=== PATIENT | female | born 1945 | race Caucasian/White ===

== ENCOUNTER → 2017-11-22 11:29 | Outpatient (CLI) | payer MEDICARE, OTHER, SELFPAY ==
[2017-11-22 11:45] LABS: Bacteria Urine None Seen; RBC Urine None Seen (0-5/HPF); WBC Urine None Seen (0-5/HPF)
[2017-11-22 12:52] LABS: Add Manual Diff / Slide Review NO; Basophils Percent Auto 0.4 % (0-2); Eosinophils Percent Auto 3.5 % (2-4); Hematocrit 43.2 % (36-46); Hemoglobin 15.1 g/dL (12.0-16.0); Lymphocytes Percent Auto 22.7 % (25-40); Mean Corpuscular HGB Conc 34.9 % (30-36); Mean Corpuscular Hemoglobin 31.6 PG (26-34); Mean Corpuscular Volume 90.3 fL (80-100); Monocytes Percent Auto 7.4 % (3-14); Neutrophils Absolute Auto 4800 /uL (3000-5900); Platelet Count 241 X10^3/uL (150-400); Red Blood Cell Count 4.79 X10^6/uL (4.0-5.2); White Blood Cell Count 7.3 X10^3/uL (4.5-11.0)
[2017-11-22 13:07] LABS: Hemoglobin A1C% w Est Avg Glu 5.4 % (4.0-6.0)
[2017-11-22 13:16] LABS: Appearance Urine UA CLEAR; Bilirubin Urine UA NEGATIVE (NEGATIVE); Blood Urea Nitrogen 12 mg/dL (7-17); Carbon Dioxide 29 mmol/L (22-32); Chloride 101 mmol/L (98-107); Color Urine UA YELLOW; Estimated Glomerular Filt Rate > 60.0 mL/min (>60); Glucose 90 mg/dL (80-110); Glucose Urine UA NEGATIVE (Normal); HEMOLYSIS < 15 (0-50); Ketones Urine UA NEGATIVE (NEGATIVE); Leukocyte Esterase Urine UA NEGATIVE (NEGATIVE); Nitrite Urine UA Negative (Negative); Occult Blood Urine UA NEGATIVE (Negative); Potassium 4.5 mmol/L (3.4-5.1); Protein Urine UA NEGATIVE (Negative); Sodium 141 mmol/L (137-145); Urobilinogen Urine UA 0.2 E.U./dL (0.2)
[2017-11-22 13:25] LABS: Amorphous Sediment Urine 2+; Culture Indicated Urine Cult Not Indicated
== END ==
PROVIDERS: PCP Family Medicine; Visit Provider Orthopaedic Surgery
DX: Z01.812 Encounter for preprocedural laboratory examination (principal); Z01.818 Encounter for other preprocedural examination; N39.9 Disorder of urinary system, unspecified; R73.09 Other abnormal glucose
CPT/HCPCS: 36415; 80048; 81001; 83036; 85025; 93005

== ENCOUNTER → 2018-01-16 15:33 | Outpatient (CLI) | payer MEDICARE, OTHER, SELFPAY ==
--- NOTE | 2018-01-16 15:35 | DI.RAD.S_ITS ---
PROCEDURE: XR CHEST 2V INDICATIONS: COUGH TECHNIQUE: 2 views of the chest were acquired. COMPARISON: [facility], , CHEST 2 VIEW, 12/27/2015, 10:56. FINDINGS: Surgical changes and devices: Partially visualized thoracic fixation rods. Lungs and pleura: No pleural effusions or pneumothorax. Lungs are clear. Mediastinum: Mediastinal contours are normal. Heart size is normal. Bones and chest wall: No suspicious bony abnormalities. Soft tissues appear unremarkable. IMPRESSION: No acute pulmonary process. Dictated by: Krista Jiménez M.D. on 01/16/2018 at 16:14 Approved by: Krista Jiménez M.D. on 01/16/2018 at 16:15
== END ==
PROVIDERS: PCP Family Medicine; Visit Provider Family Medicine
DX: R05 Cough (principal)
CPT/HCPCS: 71046

== ENCOUNTER → 2018-01-23 08:57 | Outpatient (CLI) | payer MEDICARE, OTHER, SELFPAY ==
--- NOTE | 2018-01-24 08:04 | PM.PFT.1 ---
Pulmonary Function Test Referral & Results Date Patient Seen: 01/23/18 Requesting provider: Baylee Solis Results: The spirometry demonstrates an FVC of 3.65 L which is 104% of predicted. The FEV1 was measured at 2.74 L which is 103% of predicted. The FEV1/FVC ratio was 75 which is 98% of predicted. Following the administration of bronchodilator there was no appreciable change in above normal numbers. Lung volumes show an SVC of 3.82 L which is 117% of predicted. The diffusing capacity was measured at 29.46 which is 99% of predicted. The maximum voluntary ventilation was normal. Interpretation: This study demonstrates normal pulmonary function
== END ==
PROVIDERS: PCP Family Medicine; Visit Provider Family Medicine
DX: R05 Cough (principal); R06.00 Dyspnea, unspecified
CPT/HCPCS: 94010; 94060; 94726; 94729

== ENCOUNTER 2018-02-06 06:15 | Inpatient (IN) | payer MEDICARE, OTHER, SELFPAY ==
[2018-01-20 09:04] VITALS: BMI 25.0
[2018-02-06] VITALS (19 sets, daily range): BP systolic 87–158; BP diastolic 47–86; PULSE 62–93; RESP 13–20; TEMP 36.2–36.9; O2SAT 93–99; BMI 24.4
--- NOTE | 2018-02-06 06:00 | DI.RAD.S_ITS ---
PROCEDURE: XR HIP W PEL IF DONE RT 2V INDICATIONS: post operative total right hip arthroplasty TECHNIQUE: AP pelvis and lateral view of the right hip acquired. COMPARISON: [facility], CR, [id number] W PEL IF PERFORMED, 04/17/2017, 9:46. FINDINGS: Bones: Patient is status post right hip arthroplasty, with hardware components in expected positions. The hip joint appears congruent. The visualized bony structures appear intact. Soft tissues: Overlying postoperative changes are noted. No suspicious soft tissue densities. IMPRESSION: Status post right total hip arthroplasty with postsurgical changes and anatomic right hip alignment. Dictated by: Kiet Poole M.D. on 02/06/2018 at 12:27 Approved by: Kiet Poole M.D. on 02/06/2018 at 12:27
[2018-02-06] MEDS: LACTATED RINGERS 1,000 ML 42 ML IV ×5 (06:45→11:50)
[2018-02-06] MEDS: VANCOMYCIN 1,000 MG/200 ML FROZ.PIGGY 200 MG IV (06:45)
[2018-02-06] MEDS: CELECOXIB 200 MG CAPSULE PO (06:58)
[2018-02-06] MEDS: ACETAMINOPHEN 325 MG TABLET 975 MG PO (06:59)
[2018-02-06] MEDS: PREGABALIN 75 MG CAPSULE PO (06:59)
[2018-02-06] MEDS: CEFAZOLIN 2 GM/100 ML FROZ.PIGGY IV ×3 (08:11→22:24)
--- NOTE | 2018-02-06 08:49 | SUR.OPER ---
Supine, head on pillow, torso on pink pad positioner. Iliac crest at flex of foot end of table. Gel roll under operative hip. Both arms secured on arm boards <90 degrees abduction. Body secured with 3 cloth tape over mid chest.
[2018-02-06] MEDS: BUPIVACAINE 0.25% W/ EPI VIAL 60 ML INJ (09:07)
[2018-02-06] MEDS: BUPIVACAINE LIPOSOME 266 MG/20 ML VIAL INJ (09:07)
[2018-02-06] MEDS: POVIDONE-IODINE 15 ML, SODIUM CHLORIDE 0.9% 250 ML TOP (09:10)
[2018-02-06 11:02] LABS: Hematocrit 30.2 % (36-46)
[2018-02-06 11:47] LABS: Hematocrit 25.9 % (36-46); Mean Corpuscular HGB Conc 34.5 % (30-36); Mean Corpuscular Hemoglobin 31.5 PG (26-34); Mean Corpuscular Volume 91.2 fL (80-100); Platelet Count 161 X10^3/uL (150-400); Red Blood Cell Count 2.84 X10^6/uL (4.0-5.2); Red Cell Distribution Width 13.2 % (11.6-14.8)
--- NOTE | 2018-02-06 12:06 | PM.OP.1 ---
Operative Date/Time/Diagnoses Date of procedure: 02/06/18 Time of procedure: 08:07 Pre-op diagnosis: Right hip osteoarthritis Post-op diagnosis: same Procedure & Clinicians Procedure: Right total hip arthroplasty anterior approach Same procedure as scheduled: Yes Indications: The patient has had progressively worsening right hip pain with radiographic changes consistent with arthritis. Non-operative management has failed and the patient has requested total hip replacement. The risks, benefits and alternatives to surgery were discussed with the patient prior to proceeding. Risks discussed included, but were not limited to, failure to relieve pain, leg length discrepancy, dislocation, stiffness, infection, nerve damage, deep venous thrombosis, pulmonary embolism, stroke, coma, heart attack, permanent paralysis and , as well as the potential need for eventual revision of the prosthetic. Surgeon: Marian Navarro Consulting Actuary: Delroy Jewell Anesthesia Type: General and Spinal Operative Notes Findings: Severe right hip osteoarthritis, Closure Type: primary Specimen(s): none sent Implants & Drains: [employer] R3 54 cup, 36 x 54 poly, size 7 standard offset stem 36+ 0 head Applied: catheter Estimated Blood Loss (mL): 800 Procedure in detail: The patient was brought to the operating room. Patient was carefully positioned in the supine position. Time-out was performed and antibiotics were given. Anesthesia was induced. She was positioned in the on the table in order to allow hyperextension of the hip. Bilateral lower extremities were prepped and draped in a standard sterile fashion. An anterior incision was made 1 fingerbreadth lateral to the anterior superior iliac spine on the right hip and extended distally towards the greater trochanter. Dissection was carried out through skin and subcutaneous tissues. The skin and subcutaneous tissues were carefully injected with Marcaine with epi. Superficial hemostasis was achieved. The fascia over the tensor fascia kareem was defined and incised with a knife. Two Allis clamps were used to grasp the fascia. Tensor fascia kareem was retracted laterally. A gelpi retractor was placed. Dissection was carried out down along the neck. The circumflex vessels were carefully identified and cauterized with the Aqua Mantis. There was good visualization of the femoral neck. A Cobra was placed superior to the neck and the gluteus fibers were carefully stripped from that superior aspect of the capsule. A 2nd retractor was placed along the inferior aspect of the neck. The rectus insertion along the capsule was released. A 3rd retractor that was then gently placed over the rim of the acetabulum under the rectus. Capsule was carefully incised and released from the intertrochanteric line circumferentially superior to the mid sagittal line and inferiorly to the mid sagittal line until the lesser trochanter was palpable. A tag stitch was placed both in the superior and inferior limb of the capsular insertion. Along the acetabulum capsule was also released up to the mid sagittal 12:00 position. Portion of the labrum was resected. A saw was used to perform an osteotomy at the level of the intertrochanteric line and the junction of the superior femoral neck leaving approximately 1 finger breath of residual inferior neck above the lesser trochanter. A 2nd cut was made along the femoral neck at the base of the head and a napkin ring of neck was removed. Corkscrew was placed in the femoral head and the head was removed without difficulty. Retractors were then repositioned around the acetabulum. There was moderate bleeding diffusely. The Aqua Mantis was used extensively to achieve hemostasis. There was no specific arterial bleeding locations. Residual labrum was resected and additional osteophytes were removed. An acetabular Reamer that was 4 mm below the templated size was placed by hand in the acetabulum and it was reamed to centralize the acetabulum. Was then reamed up to 2 under the templated size fluoroscopy was brought in to confirm the position of the reaming and depth of reaming. I reamed 1 under the anticipated size and touch the rim with line to line reaming. A trial cup was placed and noted that it was appropriately sized and fluoroscopy confirmed position and depth. The component was open and inserted without difficulty fluoroscopic imaging was used to confirm that the cup had been adequately seated and was well positioned. Neutral poly trial liner was placed. The cup was tested and noted to be stable. Attention was then directed to the femur. The femur was gently hyperextended additional capsular release was performed as needed in order to allow adequate visualization of the proximal femur with elevation of the femur. Once again she had diffuse bleeding and aqua Mantis was used to perform hemostasis. There was some bleeding both from the femoral canal as well as from the acetabulum. Patient was placed in a hyperextended slightly abducted position with maximum external rotation. Box osteotome was used to check for any residual neck as well as sclerotic bone along the trochanter. [place] pepper was placed in the femur. Additional broaching was performed. Canal finer was used to determine the alignment of the canal and position. Size 1 broach was placed. The canal was then appropriately broached up to the templated size as long as there was adequate stability of the broach and serial advancement of the broach without excessive impingement. Specific attention was directed at avoiding varus attempting to direct the distal aspect of the approach more anteriorly and avoiding excessive anteversion. Trial reduction showed acceptable range of motion, good stability, no posterior impingement, methodist of leg length and appropriate lateral shuck. I also hyperflexed the hip and checked that there was no impingement anteriorly and there was good stability with flexion, abduction and internal rotation. There was still bleeding from deep in the acetabulum and bone wax was placed in the central hole region which did diminish the bleeding. Final neutral poly was placed without difficulty. Marcaine and Exparel were injected.. The stem was placed without difficulty. I also used bone wax around the proximal aspect of the femur as there was bleeding from the canal even after the prosthesis was placed. Repeat trial reduction and x-ray showed acceptable overall position, length, and no evidence of the femoral fracture. Final head was placed. Wound was meticulously irrigated with normal saline. The hip was reduced and additional Exparel and Marcaine were injected. The capsule was closed with interrupted black braided nylon. The fascia of the tensor was closed with interrupted and running Vicryl. No drain was placed. Any tensor fascia kareem muscle that appeared to be contused or injured which was a minimal amount was carefully resected. Capsule around the tensor was injected with Exparel and Marcaine. The skin was closed with barbed stitches for the subcutaneous tissue and skin. We also used surgical glue. The wound was dressed sterilely. Brief Betadine soak was also used and was meticulously irrigated with normal saline. Patient was transferred to recovery room in satisfactory condition. Complications: none Condition: stable Disposition: Acute Care Plan for aftercare: The patient will be maintained on a standard total hip replacement protocol with weight bearing as tolerated and anterior hip precautions. The patient will receive aspirin and sequential compression devices for DVT prophylaxis. The patient will be discharged home when safe for the home environment.
[2018-02-06] MEDS: LACTATED RINGERS 1,000 ML 125 ML IV ×2 (12:58→23:40)
[2018-02-06] MEDS: ONDANSETRON 4 MG/2 ML INJ IV ×2 (13:01→18:08)
--- NOTE | 2018-02-06 14:17 | CM.DANOTE ---
Discharge Planning/Care Management DCP: assessment: case received and went to room with intent to meet with pt to introduce self and role. Pt was still in PACU. White board in room is updated with DCP contact info. Pt is a 72 year old female who admitted yesterday for a planned R ARIK/anterior approach. Surgeon: Dr. Navarro PCP: Dr. Solis Payer: Medicare and For Life P: meet with pt as POC unfolds to assist with d/c issues and options. Expect PT and perhaps OT involvement. CM Discharge Assessment Start: 02/06/18 14:12 Freq: Status: Active Protocol: Document 02/06/18 14:14 ITV (Rec: 02/06/18 14:17 ITV [id number]) Discharge Planning Assessment Advance Directives? Yes: Advanced Directive, POLST Advance Directives on File Yes History Provided By Medical Record Has Patient been admitted in last 30 No days? Prior Living Arrangements House Whiteboard Updated in Patient Room with Yes name and ext. 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 Review Status In Process Next Review Type Continued Stay Review Discharge Planning/Care Management CM Discharge Assessment Start: 02/06/18 14:12 Freq: Status: Active Protocol: Document 02/06/18 14:14 ITV (Rec: 02/06/18 14:17 ITV [email or web address]) Discharge Planning Assessment Advance Directives? Yes: Advanced Directive, POLST Advance Directives on File Yes History Provided By Medical Record Has Patient been admitted in last 30 No days? Prior Living Arrangements House Whiteboard Updated in Patient Room with Yes name and ext. 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 Review Status In Process Next Review Type Continued Stay Review
--- NOTE | 2018-02-06 15:39 | PC.NURSE ---
Pt has been brought to the AC floor via PACU at approx. 1200. She is A & O x 3. Reports mild pain to right hip as 07/03. Declines pain medication at this time. Aquacell dressing to right hip CDI. Ice applied. Anderson catheter in place draining to gravity. Pt placed on 1.5L O2 via nasal canula to maintain O2 sats while she sleeps as she desats to 88% on RA. One unit PRBC started infusing at approx 1345. Pt tollerating well.
[2018-02-06] MEDS: METOCLOPRAMIDE 10 MG/2 ML INJ IV (18:48)
--- NOTE | 2018-02-06 19:40 | PC.NURSE ---
patient states she felt nauseous at around 1700, this rn gave zofran, medication was ineffective, patient threw up vicodin tablet (was observed by staff). patient given reglan iv, has been effective so far. will continue to monitor, call light in reach. will offer pain medication when appropriate.
[2018-02-06] MEDS: DOCUSATE 100 MG CAPSULE PO (20:42)
[2018-02-06] MEDS: ASPIRIN EC 81 MG TABLET PO (20:42)
[2018-02-06] MEDS: HYDROCODONE/ACET 5/325 TABLET 1 TAB PO (20:43)
[2018-02-07] VITALS (8 sets, daily range): BP systolic 94–138; BP diastolic 55–74; PULSE 63–89; RESP 16–20; TEMP 36.7–37.2; O2SAT 94–97
[2018-02-07] MEDS: ACETAMINOPHEN 325 MG TABLET 975 MG PO (01:54)
--- NOTE | 2018-02-07 02:12 | PC.NURSE ---
Alert and oriented. Breath sounds CTA with sat of 95% on oxygen at 1.5L/min (desats with sleep); on continuous pulse oximetry. HRR but BP low at 98/55; asymptomatic. Denies nausea. BT present but denies flatus. Indwelling catheter is patent. Dressing to right hip is CDI. Only complaint of pain is headache so medicated with Tylenol that she did not take (scheduled @ hs) earlier on evenings. Is able to turn self in bed. Currently on bedrest. CMS intact. Wearing bilateral SCD's. Fall risk score is medium; bed alarm is activated at this time.
[2018-02-07] MEDS: LEVOTHYROXINE 100 MCG TABLET PO (05:58)
[2018-02-07] MEDS: HYDROCODONE/ACET 5/325 TABLET 1 TAB PO ×2 (05:59→08:56)
[2018-02-07 06:05] LABS: Hematocrit 25.6 % (36-46); Hemoglobin 8.8 g/dL (12.0-16.0)
[2018-02-07] MEDS: ASPIRIN EC 81 MG TABLET PO ×2 (08:55→20:59)
[2018-02-07] MEDS: DOCUSATE 100 MG CAPSULE PO ×2 (08:55→20:59)
[2018-02-07] MEDS: MULTIVITAMIN 1 TABLET 1 TAB PO (08:56)
[2018-02-07] MEDS: POLYETHYLENE GLYCOL 3350 17 GM POWD.PACK PO (08:57)
--- NOTE | 2018-02-07 09:12 | PM.PNPO.1 ---
Subjective Date Patient Seen: 02/07/18 Time Patient Seen: 09:13 Interval history: Patient is postop day 1 status post right total hip arthroplasty anterior approach by Dr. Navarro. Patient states it is that she tried to sit on the side of bed this am and became very dizzy. Sh also had a lot of pain when she put her right foot on the ground. She had about 800 cc cc of blood loss intraoperatively and was transfused 1 unit of packed RBCs. She has not been up with physical therapy yet. Anderson is still in. Exam Vital Signs (past 8 hours): - 02/07/18 02:05 02/07/18 05:48 02/07/18 06:08 Temperature 98.0 F Pulse Rate 72 Respiratory Rate 16 Blood Pressure 94/55 L Pulse Oximetry 95 94 94 02/07/18 07:15 Temperature 98.1 F Pulse Rate 76 Respiratory Rate 16 Blood Pressure 109/65 Pulse Oximetry 95 Oxygen Delivery Method Nasal Cannula Oxygen Flow Rate 1.5 Narrative Exam Narrative: Patient in bed. Alert orient x3. Right hip dressing clean dry intact. Moderate swelling and right anterior thigh. Bilateral calves soft and nontender. 5/5 BLE. Neurovascular status intact. A Anderson in. Objective Labs Result Diagrams: 02/07/18 05:37 Labs: Laboratory Results - last 24 hr 02/06/18 02/06/18 02/06/18 10:45 11:30 Unknown WBC 5.0 RBC 2.84 L Hgb 9.0 L Hct 25.9 L 30.2 L MCV 91.2 MCH 31.5 MCHC 34.5 RDW 13.2 Plt Count 161 Blood Type A Positive Antibody Screen Negative Crossmatch See Detail 02/07/18 05:37 WBC RBC Hgb 8.8 L Hct 25.6 L MCV MCH MCHC RDW Plt Count Blood Type Antibody Screen Crossmatch Assessment & Plan Post-op (1) Postoperative anemia due to acute blood loss: Problem details: Patient was transfused 1 unit of packed RBCs. Will start on iron and vitamin-C. Current Visit: Yes Status: Acute Postoperative Procedures Operation Date: 02/06/18 07:45 Actual Procedures Side Surgeon p Total Hip Arthroplasty/Anterior Approach Right Marian Navarro MD Postop day 1. Patient start physical therapy. Continue DVT prophylaxis with aspirin and SCDs. DC Anderson catheter today. Plan for discharge home tomorrow. Time Spent With Patient less than 15 minutes Quality VTE Deep Vein Thrombosis/Pulmonary Embolism Present on Admission: No
--- NOTE | 2018-02-07 09:45 | PT.IIE ---
Current Diagnoses Acute posthemorrhagic anemia (02/06/18) Unilateral primary osteoarthritis, right hip (02/06/18) Surgery Performed Operation Date: 02/06/18 07:45 Actual Procedures p Total Hip Arthroplasty/Anterior Approach(Right) - Marian Navarro MD Surgical History (Last Updated 01/20/18 @ 10:05 by Radha Patino RN) History of colonoscopy with polypectomy (Acute) Anesthesia (Resolved) History of esophagogastroduodenoscopy (EGD) (Resolved 10/24/11) History of spinal fusion (Resolved 1999) History of spinal fusion (Resolved 2012) History of spinal fusion (Resolved 2001) History of tonsillectomy (Resolved 1966) Status post appendectomy (Resolved 1956) Status post biopsy (Resolved 10/24/11) Status post colonoscopy (Resolved 10/24/11) Status post laparoscopic cholecystectomy (Resolved 2000) Status post vaginal hysterectomy (Resolved 1977) Medical History (Last Updated 02/07/18 @ 09:16 by Paradise Dietrich PA-C) Postoperative anemia due to acute blood loss (Acute) History of bronchitis (Acute) Postmenopausal (Acute) Anxiety (Chronic 1999) Chronic back pain (Chronic 1995) Chronic headaches (Chronic 1957) Constipation (Chronic) Depression (Chronic 1999) GERD (gastroesophageal reflux disease) (Chronic) Hemorrhoids (Chronic 1974) Herpes (Chronic) Hypothyroidism (Chronic) Abnormal Pap smear of cervix (Resolved 1976) Cervical cancer (Resolved 1976) Chicken pox (Resolved 1957) Colitis (Resolved 1975) Measles (Resolved 1957) Physical Therapy Inpatient Evaluation/Re-Eval M1 PT/OT-IP Prior Functional Status Start: 02/06/18 14:52 Freq: NEEDED Status: Active Protocol: Document 02/07/18 09:45 MDD (Rec: 02/07/18 11:15 MDD [id number]) Medical Review Prior Functional Status Medical History Reviewed Yes Communication normal Mobility and Gait modified independent with hurry cane in home and community Activities of Daily Living and IADL's independent Social History Household Members spouse Living Arrangements House Number of Floors (Floors) 3 or More Floors Number of Stairs To Enter/Railing? No steps to enter the main floor with pt's bedroom and bathroom. Home Environment High Toilet Tub/Shower Home Equipment Front Wheel Walker Quad Cane Raised Toilet Seat w/Armrests Grab Bars In Shower Employment Status Retired Additional Social History Comment Pt lives with her , [place]. She prefers to be called Torie. Reports she can borrow a shower chair from her mother who lives downstairs in their home. M2 PT-IP Current Condition Start: 02/06/18 14:52 Freq: NEEDED Status: Active Protocol: Document 02/07/18 09:45 MDD (Rec: 02/07/18 11:15 MDD [id number]) Physical Therapy Current Condition Current Condition Evaluation Date 02/07/18 Treatment Diagnosis s/p R ARIK Onset Date 02/06/18 Precautions Anterior Hip Precautions No Hip Extension No Hip External Rotation Other Precautions rust catheter Weight Bearing Status Weight Bearing Status Weight Bear as Tolerated M3 PT-IP Subjective Start: 02/06/18 14:52 Freq: NEEDED Status: Active Protocol: Document 02/07/18 09:45 MDD (Rec: 02/07/18 11:15 MDD [id number]) Subjective Physical Therapy Visit Type Type Initial Evaluation Visit Start Time 09:15 Visit Stop Time 09:45 Total Visit Minutes 30 Notes BP in bed: 122/69 mm Hg sitting EOB: 132/72 mm Hg After activity: 118/52 mm Hg 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 0 Therapy Pain Assessment Pain When Pain Assessed At Rest Pain Present Pain Present Pain Reported Location Right Hip Intensity 5 Scale Used Numeric (1 - 10) Description Aching Pain Management Techniques Apply Cold Timing of Activity with Medications M4 PT-IP Mobility and Gait Start: 02/06/18 14:52 Freq: NEEDED Status: Active Protocol: Document 02/07/18 09:45 MDD (Rec: 02/07/18 11:15 MDD [id number]) PT-Bed Mobility Assessment Rolling Type of Rolling Roll to Right Level of Assist Contact Guard Assistance Supine to Sit Supine to Sit Contact Guard Assistance Head of Bed Elevated Sit to Supine Sit to Supine Independent Scooting Scooting to Edge of Bed Independent Scooting Up and Down in Bed Independent PT-Transfer Assessment Sit to and From Stand Sit to and from Stand Contact Guard Assistance Equipment Transfer Assistive Device Gait Belt Front Wheeled Walker Gait Assessment Gait Gait Assistance Required: Contact Guard Assist Distance (Feet) (feet) 15 Able to Maintain Weight Bearing Status Yes During Gait Assistive Devices Assistive Device Gait Belt Front Wheeled Walker Gait Deviations General Gait Pattern Antalgic Step-to Gait Wide Based Gait Comments Gait Comments Pt became nauseous during gait training, requested to return to bed. No emesis. PT-Balance Assessment Sitting Balance and Reactions Static Sitting Balance Ability Normal Dynamic Sitting Balance Ability Normal Standing Balance and Reactions Static Standing Balance Ability Good M5 PT-IP Objective Assessments Start: 02/06/18 14:52 Freq: NEEDED Status: Active Protocol: Document 02/07/18 09:45 MDD (Rec: 02/07/18 11:15 MDD [id number]) Orientation Orientation/Cognition Level of Alertness Alert Orientation Name Age Birthday Month Date Year Day of Week Place Situation Language Function Ability No Deficits Noted Safety Awareness Understands Safety Issues Memory Description No Deficits Noted Gross Range of Motion Lower Extremity ROM Assessment Within Functional Limits Strength Lower Extremity Strength Assessment Within Functional Limits Sensation Assessment Sensation Gross Sensation WNL Light Touch Intact M6 PT-IP Treatment Start: 02/06/18 14:52 Freq: NEEDED Status: Active Protocol: Document 02/07/18 09:45 MDD (Rec: 02/07/18 11:15 MDD [id number]) Physical Therapy Treatment Education Education Provided Precautions Weight Bearing Status Post-Op Packet Safety M7 PT-IP Assessment and Plan Start: 02/06/18 14:52 Freq: NEEDED Status: Active Protocol: Document 02/07/18 09:45 MDD (Rec: 02/07/18 11:15 MDD [id number]) PT Summary Assessment and Plan Potential Rehabilitation Potential Excellent Status of Condition at Evaluation Stable Summary Impairments Pain ROM Bed Mobility Transfers Gait Activity Tolerance Progress Towards Goals Progressing Toward Goals Assessment Summary On assessment today pt demonstrates excellent LE strength, requiring CGA for supine to sit with HOB elevated, CGA for sit to stand and gait. She became nauseous during ambulation, so visit cut short to allow her to return to bed and rest. Suspect she will do quite well when nausea is relieved. She will benefit from continued inpatient PT to maximize function prior to d/c home. Goals Bed Mobility Goal Independent Transfer Goal Independent Gait Goal Independent Gait Distance 50 Other Goals Pt to be able to verbally state posterior hip precautions when asked. Days to Meet Goals 2 Frequency of Treatment Frequency Of Treatment Twice a Day Treatment Plan Physical Therapy Treatment Plan Bed Mobility Training Transfer Training Gait Training Therapeutic Exercise Recommendations To Nursing Amount of Assist Needed 1 Person Assist Discharge Recommendations PT Discharge Recommendations Home Home with Assistance
[2018-02-07] MEDS: ONDANSETRON 4 MG/2 ML INJ IV (10:12)
[2018-02-07] MEDS: ASCORBIC ACID 500 MG TABLET PO (11:38)
[2018-02-07] MEDS: FERROUS SULFATE 325 MG TABLET PO (11:38)
[2018-02-07] MEDS: HYDROCODONE/ACET 5/325 TABLET 2 TAB PO ×3 (13:14→20:59)
--- NOTE | 2018-02-07 15:37 | PT.IPTN ---
Current Diagnoses Acute posthemorrhagic anemia (02/06/18) Unilateral primary osteoarthritis, right hip (02/06/18) Surgery Performed Operation Date: 02/06/18 07:45 Actual Procedures p Total Hip Arthroplasty/Anterior Approach(Right) - Marian Navarro MD Physical Therapy Treatment Note M2 PT-IP Current Condition Start: 02/06/18 14:52 Freq: NEEDED Status: Active Protocol: Document 02/07/18 09:45 MDD (Rec: 02/07/18 11:15 MDD [id number]) Physical Therapy Current Condition Current Condition Evaluation Date 02/07/18 Treatment Diagnosis s/p R ARIK Onset Date 02/06/18 Precautions Anterior Hip Precautions No Hip Extension No Hip External Rotation Other Precautions rust catheter Weight Bearing Status Weight Bearing Status Weight Bear as Tolerated M3 PT-IP Subjective Start: 02/06/18 14:52 Freq: NEEDED Status: Active Protocol: Document 02/07/18 15:37 MDD (Rec: 02/07/18 16:14 MDD [id number]) Subjective Physical Therapy Visit Type Type Treatment Note Visit Start Time 15:06 Visit Stop Time 15:37 Total Visit Minutes 31 Number of STEEL ANALYST Visits 0 Physical Therapy Visit Comments Patient Comments Pt reports being in a lot of pain this afternoon, but agreeable to working with PT. Therapy Pain Assessment Pain When Pain Assessed At Rest Pain Present Pain Present Pain Reported Location Right Hip Intensity 8 Scale Used Numeric (1 - 10) Description Aching Pain Management Techniques Apply Cold M4 PT-IP Mobility and Gait Start: 02/06/18 14:52 Freq: NEEDED Status: Active Protocol: Document 02/07/18 09:45 MDD (Rec: 02/07/18 11:15 MDD [id number]) PT-Bed Mobility Assessment Rolling Type of Rolling Roll to Right Level of Assist Contact Guard Assistance Supine to Sit Supine to Sit Contact Guard Assistance Head of Bed Elevated Sit to Supine Sit to Supine Independent Scooting Scooting to Edge of Bed Independent Scooting Up and Down in Bed Independent PT-Transfer Assessment Sit to and From Stand Sit to and from Stand Contact Guard Assistance Equipment Transfer Assistive Device Gait Belt Front Wheeled Walker Gait Assessment Gait Gait Assistance Required: Contact Guard Assist Distance (Feet) (feet) 15 Able to Maintain Weight Bearing Status Yes During Gait Assistive Devices Assistive Device Gait Belt Front Wheeled Walker Gait Deviations General Gait Pattern Antalgic Step-to Gait Wide Based Gait Comments Gait Comments Pt became nauseous during gait training, requested to return to bed. No emesis. PT-Balance Assessment Sitting Balance and Reactions Static Sitting Balance Ability Normal Dynamic Sitting Balance Ability Normal Standing Balance and Reactions Static Standing Balance Ability Good M5 PT-IP Objective Assessments Start: 02/06/18 14:52 Freq: NEEDED Status: Active Protocol: Document 02/07/18 09:45 MDD (Rec: 02/07/18 11:15 MDD [id number]) Orientation Orientation/Cognition Level of Alertness Alert Orientation Name Age Birthday Month Date Year Day of Week Place Situation Language Function Ability No Deficits Noted Safety Awareness Understands Safety Issues Memory Description No Deficits Noted Gross Range of Motion Lower Extremity ROM Assessment Within Functional Limits Strength Lower Extremity Strength Assessment Within Functional Limits Sensation Assessment Sensation Gross Sensation WNL Light Touch Intact M6 PT-IP Treatment Start: 02/06/18 14:52 Freq: NEEDED Status: Active Protocol: Document 02/07/18 15:37 MDD (Rec: 02/07/18 16:14 [facility] [id number]) Physical Therapy Treatment Exercises Exercises Ankle Pumps Gluteal Sets Quad Sets Heel Slides Education Education Provided Precautions Weight Bearing Status Post-Op Packet Safety Other Treatments Other Treatment Performed Pt performed supine <> sit with SBA this day with HOB flat and no use of handrails. She was able to scoot upwards in bed independently. Performed gait training in the room only due to reports of dizziness and nausea (~30 feet with FWW, CGA). Continues to require cues for avoiding R hip ER precaution, especially when turning. M7 PT-IP Assessment and Plan Start: 02/06/18 14:52 Freq: NEEDED Status: Active Protocol: Document 02/07/18 15:37 MDD (Rec: 02/07/18 16:14 [facility] [id number]) PT Summary Assessment and Plan Potential Rehabilitation Potential Good Status of Condition at Evaluation Stable Summary Impairments Pain Gait Activity Tolerance Progress Towards Goals Progressing Toward Goals Assessment Summary Pt demonstrates good participation this day. Continues to require cues for hip precautions. She appears to have some tibial torsion on the R which makes it appear as if her hip is externally rotated in neutral. Anticipate d/c home tomorrow. Goals Bed Mobility Goal Independent Transfer Goal Independent Gait Goal Independent Gait Distance 50 Other Goals Pt to be able to verbally state posterior hip precautions when asked. Days to Meet Goals 2 Frequency of Treatment Frequency Of Treatment Twice a Day Treatment Plan Physical Therapy Treatment Plan Bed Mobility Training Transfer Training Gait Training Therapeutic Exercise Recommendations To Nursing Amount of Assist Needed 1 Person Assist Discharge Recommendations PT Discharge Recommendations Home Home with Assistance
--- NOTE | 2018-02-07 15:37 | CM.DPC ---
DCP: continued: Pt post op day one: ortho PA noted problems with dizziness, pain and blood loss in surgery > need for transfusion. PT saw pt for first time today and does note she is on track to go home with her spouse's support. P: DCP team to check in prn and assist with any d/c needs that may arise. Pt does have DME at home. Discuss with therapy team in Care Team meeting tomorrow morning. May benefit from OT as this has not been ordered. Defer to therapy and ortho team for this.
[2018-02-07] MEDS: SODIUM CHLORIDE 0.9% FLUSH 10 ML IV (20:59)
[2018-02-08] VITALS: BP 135/68; PULSE 80; RESP 16; TEMP 37; O2SAT 93
[2018-02-08] MEDS: HYDROCODONE/ACET 5/325 TABLET 1 TAB PO (00:26)
[2018-02-08] MEDS: LEVOTHYROXINE 100 MCG TABLET PO (05:38)
[2018-02-08] MEDS: HYDROCODONE/ACET 5/325 TABLET 2 TAB PO ×2 (05:40→11:12)
[2018-02-08 05:54] VITALS: BP 143/69; PULSE 78; RESP 17; TEMP 37.2; O2SAT 95
[2018-02-08 06:24] LABS: Hematocrit 26.6 % (36-46); Hemoglobin 9.3 g/dL (12.0-16.0)
[2018-02-08 07:29] VITALS: BP 132/67; PULSE 83; RESP 18; TEMP 37.1; O2SAT 94
[2018-02-08] MEDS: DOCUSATE 100 MG CAPSULE PO (08:54)
[2018-02-08] MEDS: ASCORBIC ACID 500 MG TABLET PO (08:54)
[2018-02-08] MEDS: FERROUS SULFATE 325 MG TABLET PO (08:54)
[2018-02-08] MEDS: MULTIVITAMIN 1 TABLET 1 TAB PO (08:54)
[2018-02-08] MEDS: ASPIRIN EC 81 MG TABLET PO (08:54)
[2018-02-08] MEDS: SODIUM CHLORIDE 0.9% FLUSH 10 ML IV (08:54)
[2018-02-08] MEDS: POLYETHYLENE GLYCOL 3350 17 GM POWD.PACK PO (08:55)
[2018-02-08] MEDS: ONDANSETRON 4 MG/2 ML INJ IV (09:02)
--- NOTE | 2018-02-08 10:35 | PT.IPTN ---
Current Diagnoses Acute posthemorrhagic anemia (02/06/18) Unilateral primary osteoarthritis, right hip (02/06/18) Surgery Performed Operation Date: 02/06/18 07:45 Actual Procedures p Total Hip Arthroplasty/Anterior Approach(Right) - Marian Navarro MD Physical Therapy Treatment Note M2 PT-IP Current Condition Start: 02/06/18 14:52 Freq: NEEDED Status: Active Protocol: Document 02/07/18 09:45 MDD (Rec: 02/07/18 11:15 MDD [id number]) Physical Therapy Current Condition Current Condition Evaluation Date 02/07/18 Treatment Diagnosis s/p R ARIK Onset Date 02/06/18 Precautions Anterior Hip Precautions No Hip Extension No Hip External Rotation Other Precautions rust catheter Weight Bearing Status Weight Bearing Status Weight Bear as Tolerated M3 PT-IP Subjective Start: 02/06/18 14:52 Freq: NEEDED Status: Active Protocol: Document 02/08/18 10:10 GGD (Rec: 02/08/18 11:37 GGD [id number]) Subjective Physical Therapy Visit Type Type Treatment Note Visit Start Time 10:10 Visit Stop Time 10:35 Total Visit Minutes 25 Number of WASTEWATER TECHNICIAN Visits 1 Physical Therapy Visit Comments Patient Comments Pt states she ready to go home . Therapy Pain Assessment Pain When Pain Assessed At Rest Pain Present Pain Present Pain Reported Location Right Hip Intensity 4 Scale Used Numeric (1 - 10) Pain Management Techniques Timing of Activity with Medications M4 PT-IP Mobility and Gait Start: 02/06/18 14:52 Freq: NEEDED Status: Active Protocol: Document 02/08/18 10:10 GGD (Rec: 02/08/18 11:37 GGD [id number]) PT-Bed Mobility Assessment Rolling Type of Rolling Roll to Right Level of Assist Contact Guard Assistance Supine to Sit Supine to Sit Contact Guard Assistance Head of Bed Elevated Sit to Supine Sit to Supine Independent Scooting Scooting to Edge of Bed Independent Scooting Up and Down in Bed Independent PT-Transfer Assessment Sit to and From Stand Sit to and from Stand Contact Guard Assistance Equipment Transfer Assistive Device Gait Belt Front Wheeled Walker Transfers Transfer Destination Chair Gait Assessment Gait Gait Assistance Required: Contact Guard Assist Distance (Feet) (feet) 50 Assistive Devices Assistive Device Gait Belt Front Wheeled Walker Gait Deviations General Gait Pattern Antalgic Step-to Gait Wide Based Gait Comments Gait Comments Pt need cues for hip precautions with turns during gait. M5 PT-IP Objective Assessments Start: 02/06/18 14:52 Freq: NEEDED Status: Active Protocol: Document 02/07/18 09:45 MDD (Rec: 02/07/18 11:15 MDD [id number]) Orientation Orientation/Cognition Level of Alertness Alert Orientation Name Age Birthday Month Date Year Day of Week Place Situation Language Function Ability No Deficits Noted Safety Awareness Understands Safety Issues Memory Description No Deficits Noted Gross Range of Motion Lower Extremity ROM Assessment Within Functional Limits Strength Lower Extremity Strength Assessment Within Functional Limits Sensation Assessment Sensation Gross Sensation WNL Light Touch Intact M6 PT-IP Treatment Start: 02/06/18 14:52 Freq: NEEDED Status: Active Protocol: Document 02/08/18 10:10 GGD (Rec: 02/08/18 11:37 GGD [id number]) Physical Therapy Treatment Exercises Exercises Ankle Pumps Gluteal Sets Quad Sets Heel Slides Education Education Provided Precautions M7 PT-IP Assessment and Plan Start: 02/06/18 14:52 Freq: NEEDED Status: Active Protocol: Document 02/08/18 10:10 GGD (Rec: 02/08/18 11:37 GGD [id number]) PT Summary Assessment and Plan Summary Assessment Summary Pt is improving with mobility and gait. She had no unsteadiness with gait, but did need cues for hip precautions. Frequency of Treatment Frequency Of Treatment Twice a Day Treatment Plan Physical Therapy Treatment Plan Bed Mobility Training Transfer Training Gait Training Therapeutic Exercise Recommendations To Nursing Amount of Assist Needed 1 Person Assist Discharge Recommendations PT Discharge Recommendations Home Home with Assistance
--- NOTE | 2018-02-08 11:23 | PM.DS.1 ---
History of Present Illness Date Patient Seen: 02/08/18 Time Patient Seen: 07:23 Chief complaint: [id number] Narrative: Status post anterior total hip arthroplasty Discharge Providers Date of admission: 02/06/18 06:15 Primary care physician: Baylee Solis DO Consults: 02/06/18 12:40 Consult to Discharge Planning Routine Comment: Consult to Physical Therapy Evaluate & Treat Comment: oob today Physician Instructions: post op ARIK protocol Consult to Respiratory Therapy Evaluate & Treat Comment: Physician Instructions: Evaluate and treat Discharge provider: Jaylyn Berg PA-C Summary Discharge Diagnosis: s/p right total hip arthroplasty anterior approach postoperative anemia migraines Hospital Course: Charlene was admitted for right total hip arthroplasty anterior approach with Dr. Navarro, and she consented to procedure. Hospital course was remarkable for postoperative anemia. On the same day of surgery she was transfused with 1 unit of PRBCs. On postop day number she is feeling well and ready to go home. The H&H was 9.3 and 26.6 and she was asymptomatic. She was discharged with iron and vitamin-C. She was eating and voiding without difficulty or assistance. She has been working with physical therapy and ambulating with a walker. She knows her anterior hip precautions. On day of discharge aquacel dressing was CDI. Status at Discharge Functional status at discharge: uses cane/walker Exam Vital Signs (past 8 hours): - 02/08/18 05:54 02/08/18 07:29 Temperature 98.9 F 98.7 F Pulse Rate 78 83 Respiratory Rate 17 18 Blood Pressure 143/69 H 132/67 H Pulse Oximetry 95 94 Oxygen Delivery Method Room Air Oxygen Flow Rate 1.5 Narrative Exam Narrative: Patient is sitting at bedside chair no acute distress. She is alert and oriented times 3. Right hip dressing is CDI. Calves are soft, compressible, nontender bilaterally. She is able to actively dorsiflex plantar flex. Sensation intact to light touch throughout bilateral lower extremities. Pulses are symmetrical. Her pain is well controlled. She has had some nausea and would like some medication for when she goes home just in case this occurs again. Objective Labs Result Diagrams: 02/08/18 06:04 Labs: Laboratory Results - last 24 hr 02/08/18 06:04 Hgb 9.3 L Hct 26.6 L Discharge Plan Discharge Plan Patient Disposition: Home Discharge comment: DC home today with Discharge Med Rec/Prescriptions Prescriptions: New ascorbic acid (vitamin C) [Vitamin C] 500 mg Tablet 500 mg PO DAILY Qty: 30 RF: 0 ferrous sulfate 325 mg (65 mg iron) Tablet 325 mg PO DAILY Qty: 30 RF: 0 docusate sodium 100 mg Capsule 100 mg PO BID Qty: 60 RF: 0 ondansetron HCl [Zofran] 4 mg tablet 4 mg PO BID-TID PRN (Reason: nausea and vomiting) Qty: 10 RF: 0 Continue levothyroxine [Synthroid] 100 mcg tablet 100 mcg PO DAILY RF: 0 multivitamin Capsule 1 cap PO DAILY Qty: 0 RF: 0 hydrocodone-acetaminophen [[place]] 5 MG/325 MG tablet 1 tab PO Q8HP PRNQty: 10 RF: 0 inhalational spacing device [Brennan Aerosol [place] Enhancer] spacer .ROUTE .MEDSUPPLY Qty: 1 RF: 0 albuterol sulfate 90 mcg/actuation aerosol powdr breath activated 2 puff INHALATION Q4H PRN (Reason: shortness of breath or wheezing) Qty: 1 RF: 3 acyclovir 800 MG tablet 800 mg PO DAILY PRN (Reason: herpes ) RF: 0 polyethylene glycol 3350 [Miralax] 119 GM powder 17 gm PO DAILY RF: 0 Disabled Parking Permit 1 dev miscellaneous DIRECTED RF: 0 Changed aspirin 81 mg Tablet,Chewable 81 mg PO BID Qty: 0 RF: 0 Follow up/Referrals: Marian Navarro MD [Physician] - (Please follow up in 5-7 days with PA-C) Baylee Solis DO [Primary Care Provider] - (Follow up with PCP for labs 7-14 days after surgery. ) Provider Discharge Instructions Diet: Diet as Tolerated Activity: Anterior hip precautions Cold/Heat Therapy: as needed Other treatments: Will continue iron and vitamin C for postoperative anemia. Skin/Wound/Dressing Care Report to your healthcare provider any signs of infection, such as:: chills, fever and increased pain Dressing: Leave dressing in place for 10-14 days Visit Report/Discharge Packet Instructions: DI for Hip Replacement, Ondansetron, Hydrocodone Visit Report Forms: Stroke Signs & Symptoms Discharge Data Primary Care Provider: Baylee Solis Attending Provider: Marian Navarro Admit Date/Time: 02/06/18 06:15 Quality VTE Deep Vein Thrombosis/Pulmonary Embolism Present on Admission: No
--- NOTE | 2018-02-08 11:23 | PC.NURSE ---
Discharge instructions and home care handouts reviewed with patient and her . Patient states understanding and has no further questions or concerns at this time. Prescriptions given to patient, patient states she already has prescription for pain medication ready at home. Patient sitting in chair, slightly upset stomach and wants to wait for lunch prior to leaving. at bedside. will wait for their call for escort out. Patient instructed to call PCP office on Saturday to schedule a follow up appt. (and to have labs drawn) in 1-2 weeks. Patient has ortho follow up already scheduled. Aquacel dressing remains in place and CDI.
--- NOTE | 2018-02-08 11:26 | P.DS_ITS ---
History of Present Illness Date Patient Seen: 02/08/18 Time Patient Seen: 07:23 Chief complaint: [id number] Narrative: Status post anterior total hip arthroplasty Discharge Providers Date of admission: 02/06/18 06:15 Primary care physician: Baylee Solis DO Consults: 02/06/18 12:40 Consult to Discharge Planning Routine Comment: Consult to Physical Therapy Evaluate & Treat Comment: oob today Physician Instructions: post op ARIK protocol Consult to Respiratory Therapy Evaluate & Treat Comment: Physician Instructions: Evaluate and treat Discharge provider: Jaylyn Berg PA-C Summary Discharge Diagnosis: s/p right total hip arthroplasty anterior approach postoperative anemia migraines Hospital Course: Charlene was admitted for right total hip arthroplasty anterior approach with Dr. Navarro, and she consented to procedure. Hospital course was remarkable for postoperative anemia. On the same day of surgery she was transfused with 1 unit of PRBCs. On postop day number she is feeling well and ready to go home. The H&H was 9.3 and 26.6 and she was asymptomatic. She was discharged with iron and vitamin-C. She was eating and voiding without difficulty or assistance. She has been working with physical therapy and ambulating with a walker. She knows her anterior hip precautions. On day of discharge aquacel dressing was CDI. Status at Discharge Functional status at discharge: uses cane/walker Exam Vital Signs (past 8 hours): - 02/08/18 05:54 02/08/18 07:29 Temperature 98.9 F 98.7 F Pulse Rate 78 83 Respiratory Rate 17 18 Blood Pressure 143/69 H 132/67 H Pulse Oximetry 95 94 Oxygen Delivery Method Room Air Oxygen Flow Rate 1.5 Narrative Exam Narrative: Patient is sitting at bedside chair no acute distress. She is alert and oriented times 3. Right hip dressing is CDI. Calves are soft, compressible, nontender bilaterally. She is able to actively dorsiflex plantar flex. Sensation intact to light touch throughout bilateral lower extremities. Pulses are symmetrical. Her pain is well controlled. She has had some nausea and would like some medication for when she goes home just in case this occurs again. Objective Labs Result Diagrams: 02/08/18 06:04 Labs: Laboratory Results - last 24 hr 02/08/18 06:04 Hgb 9.3 L Hct 26.6 L Discharge Plan Discharge Plan Patient Disposition: Home Discharge comment: DC home today with Discharge Med Rec/Prescriptions Prescriptions: New ascorbic acid (vitamin C) [Vitamin C] 500 mg Tablet 500 mg PO DAILY Qty: 30 RF: 0 ferrous sulfate 325 mg (65 mg iron) Tablet 325 mg PO DAILY Qty: 30 RF: 0 docusate sodium 100 mg Capsule 100 mg PO BID Qty: 60 RF: 0 ondansetron HCl [Zofran] 4 mg tablet 4 mg PO BID-TID PRN (Reason: nausea and vomiting) Qty: 10 RF: 0 Continue levothyroxine [Synthroid] 100 mcg tablet 100 mcg PO DAILY RF: 0 multivitamin Capsule 1 cap PO DAILY Qty: 0 RF: 0 hydrocodone-acetaminophen [[place]] 5 MG/325 MG tablet 1 tab PO Q8HP PRNQty: 10 RF: 0 inhalational spacing device [Brennan Aerosol [place] Enhancer] spacer .ROUTE .MEDSUPPLY Qty: 1 RF: 0 albuterol sulfate 90 mcg/actuation aerosol powdr breath activated 2 puff INHALATION Q4H PRN (Reason: shortness of breath or wheezing) Qty: 1 RF : 3 acyclovir 800 MG tablet 800 mg PO DAILY PRN (Reason: herpes ) RF: 0 polyethylene glycol 3350 [Miralax] 119 GM powder 17 gm PO DAILY RF: 0 Disabled Parking Permit 1 dev miscellaneous DIRECTED RF: 0 Changed aspirin 81 mg Tablet,Chewable 81 mg PO BID Qty: 0 RF: 0 Follow up/Referrals: Marian Navarro MD [Physician] - (Please follow up in 5-7 days with PA-C) Baylee Solis DO [Primary Care Provider] - (Follow up with PCP for labs 7- 14 days after surgery. ) Provider Discharge Instructions Diet: Diet as Tolerated Activity: Anterior hip precautions Cold/Heat Therapy: as needed Other treatments: Will continue iron and vitamin C for postoperative anemia. Skin/Wound/Dressing Care Report to your healthcare provider any signs of infection, such as:: chills, fever and increased pain Dressing: Leave dressing in place for 10-14 days Visit Report/Discharge Packet Instructions: DI for Hip Replacement, Ondansetron, Hydrocodone Visit Report Forms: Stroke Signs & Symptoms Discharge Data Primary Care Provider: Baylee Solis Attending Provider: Marian Navarro Admit Date/Time: 02/06/18 06:15 Quality VTE Deep Vein Thrombosis/Pulmonary Embolism Present on Admission: No
--- NOTE | 2018-02-08 11:45 | CM.DPC ---
DCP Cont: Patient is to be discharged home today. in room getting her ready to go home. No concerns about returning home at this time. P: Patient discharging home today Dede Rae RN/Human Factors Scientist
== END 2018-02-08 12:20 | disposition home or self-care (01) | DRG 470 ==
PROVIDERS: Anesthesiology; Physician Assistant; Admitting Provider Orthopaedic Surgery; PCP Family Medicine; Visit Provider Orthopaedic Surgery
PROC: 0SR902Z Replacement of Right Hip Joint with Metal on Polyethylene Synthetic Substitute, Open Approach (ICD-10-PCS; CPT 27130; principal; 2018-02-06 07:45)
DX: M16.11 Unilateral primary osteoarthritis, right hip (principal); D62 Acute posthemorrhagic anemia
CPT/HCPCS: 36415; 36430; 73502; 76001; 85014; 85018; 85027; 86850; 86900; 86901; 97110; 97161; 97530; C1776; P9016; C9290; J0690; J2250; J2274; J2405; J2704; J2765; J3010; J3370

== ENCOUNTER 2018-02-09 20:26 | Emergency (ER) | payer MEDICARE, OTHER, SELFPAY ==
[2018-02-06 06:21] VITALS: BMI 24.4
--- NOTE | 2018-02-09 20:29 | DI.RAD.S_ITS ---
PROCEDURE: XR HIP W PEL IF DONE RT 2V INDICATIONS: fall with R hip pain, recent surgery TECHNIQUE: AP pelvis with lateral view of the right hip. COMPARISON: [facility] [place], CR, XR PELVIS WITH LATERAL HIP RIGHT, 10/30/2017, 9:26. [facility], CR, XR HIP W PEL IF DONE RT 2V, 02/06/2018, 11:45. FINDINGS: Bones: Right hip prosthesis is stable in alignment. The femoral head components appear centered within the acetabular cup. No suspicious new periprosthetic lucencies. No fractures or dislocations. Pelvic ring appears intact. Soft tissues: The visualized bowel gas pattern is normal. No suspicious soft tissue calcifications. IMPRESSION: 1. No fracture or definite evidence of hardware failure. Dictated by: Aubrey Trinh M.D. on 02/09/2018 at 21:04 Approved by: Aubrey Trinh M.D. on 02/09/2018 at 21:07
[2018-02-09 20:30] VITALS: BP 161/82; PULSE 95; RESP 18; TEMP 37.1; O2SAT 97; BMI 25.4
--- NOTE | 2018-02-09 20:33 | ED.FALL ---
HPI - Fall General Chief Complaint: Fall Stated Complaint: GLF: SP hip replacement 4 days ago. Time Seen by Provider: 02/09/18 20:28 Source: patient and EMS Mode of arrival: EMS Limitations: no limitations History of Present Illness HPI Narrative: 72-year-old female presents with right hip pain after a ground level fall. She slipped on an object on the floor and landed on her right hip and now has pain and swelling. She denies any numbness, tingling or weakness. She did not hurt her head, neck, or back. She did have a right total hip performed 4 days ago. There is a surgical dressing in place that she thinks might demonstrates a small amount more bleeding than prior to her fall. She is not dizzy nor weak or lightheaded. She denies any chest pain or shortness of breath MD complaint: fall Onset (ago): minute(s) Fall from: standing Fall witnessed: no Place fall occurred: home Loss of consciousness: none Prolonged down time: no Symptoms prior to fall: none Context: tripped/slipped Location of injury - extremities: Right: thigh Severity scale (1-10): 3 Quality: burning Related Data Home Medications Medication Instructions Recorded Confirmed multivitamin 1 cap PO DAILY #0 11/23/11 02/06/18 levothyroxine 100 mcg tablet 100 mcg PO DAILY 01/03/18 02/09/18 acyclovir 800 mg PO DAILY PRN 01/20/18 01/20/18 polyethylene glycol 3350 [Miralax] 17 gm PO DAILY 01/20/18 02/06/18 Disabled Parking Permit 1 dev MISCELLANEOUS DIRECTED 02/06/18 02/06/18 hydrocodone-acetaminophen [[place]] 1 tab PO Q8HP PRN 02/09/18 02/09/18 Previous Rx's Medication Instructions Recorded albuterol sulfate 90 mcg/actuation 2 puff INHALATION Q4H PRN #1 each 01/16/18 breath activated powder inhaler inhalational spacing device #1 each 01/16/18 ascorbic acid (vitamin C) [Vitamin 500 mg PO DAILY #30 tab 02/08/18 C] aspirin 81 mg PO BID #0 tab 02/08/18 docusate sodium 100 mg PO BID #60 cap 02/08/18 ferrous sulfate 325 mg PO DAILY #30 tab 08/18/18 ondansetron HCl [Zofran] 4 mg PO BID-TID PRN #10 tab 02/08/18 Allergies Allergy/AdvReac Type Severity Reaction Status Date / Time No Known Drug Allergies Allergy Verified 02/06/18 06:38 Review of Systems Review of Systems All systems reviewed & are unremarkable except as noted in HPI and below Constitutional Denies chills, Denies fever(s), Denies lethargy and Denies weakness Eyes Denies change in vision, Denies eye discharge, Denies irritation and Denies loss of vision ENT Ears, Nose, Mouth, and Throat: Denies change in voice, Denies neck pain and Denies sore throat Cardiovascular Denies chest pain, Denies irregular heart rhythm, Denies lightheadedness, Denies palpitations, Denies dyspnea, Denies dyspnea on exertion and Denies orthopnea Respiratory Denies cough, Denies dyspnea, Denies dyspnea on exertion and Denies wheezing Gastrointestinal Gastrointestinal: Denies abdominal pain, Denies change in bowel habits, Denies diarrhea, Denies nausea and Denies vomiting Genitourinary Denies hematuria, Denies flank pain, Denies urinary incontinence and Denies urinary urgency Musculoskeletal Reports limited range of motion and Denies neck pain Integumentary/Breasts Denies pruritus, Denies erythema, Denies rash and Denies wounds Neurologic Denies confusion, Denies loss of vision and Denies weakness Psychiatric Denies anxiety, Denies confusion, Denies depression, Denies homicidal ideation and Denies suicidal ideation Endocrine Denies palpitations Hematologic/Lymphatic Denies easy bruising Allergic/Immunologic Denies wheezing Exam Narrative Exam Narrative: Pleasant 72-year-old female, GCS 15, in pain, clutching her right hip Initial Vital Signs Initial Vital Signs: Vital Signs Temperature 98.7 F 02/09/18 20:30 Pulse Rate 95 H 02/09/18 20:30 Respiratory Rate 18 02/09/18 20:30 Blood Pressure 161/82 H 02/09/18 20:30 Pulse Oximetry 97 02/09/18 20:30 Const General: cooperative, well developed and in distress Nutritional Appearance: well nourished Orientation: alert, awake, oriented x3 and not confused HENCT Head: normocephalic and atraumatic Ears: external ears normal and TM's normal bilaterally Nose: external nose normal and No nasal discharge Face and sinus: sinuses nontender, face symmetric, no sinus tenderness and No dry mucous membranes Mouth: oral mucosae normal and moist mucous membranes Teeth and gingiva: dentition normal Throat: tonsils normal and uvula midline Chest Chest: normal inspection of the chest Cardio Rate: regular rate Rhythm: regular rhythm Heart Sounds: no click, no gallops, no murmurs and no rubs Pulses: normal peripheral pulses Back/Spine/Pelvis Back: No CVA tenderness Cervical Spine: cervical ROM normal and No pain with cervical ROM Thoracic/Lumbar Spine: thoracic and lumbar spine normal to inspection Skin General: no rashes or lesions noted, No jaundice and No petechiae Neuro General: alert, awake and oriented x3 Motor: muscle tone normal throughout Sensory Exam: no sensory deficits noted Extrem Right lower extremity: hip/thigh (Patient has range of motion commensurate with what she has had the past few days. There is very minimal volume dark blood saturating a surgical dressing but no evidence of ongoing bleeding or expanding hematoma.) [facility] Medical History Postoperative anemia due to acute blood loss (Acute) History of bronchitis (Acute) Postmenopausal (Acute) Anxiety (Chronic 1999) Chronic back pain (Chronic 1995) Chronic headaches (Chronic 1957) Constipation (Chronic) Depression (Chronic 1999) GERD (gastroesophageal reflux disease) (Chronic) Hemorrhoids (Chronic 1974) Herpes (Chronic) Hypothyroidism (Chronic) Abnormal Pap smear of cervix (Resolved 1976) Cervical cancer (Resolved 1976) Chicken pox (Resolved 1957) Colitis (Resolved 1975) Measles (Resolved 1957) Surgical History History of colonoscopy with polypectomy (Acute) Anesthesia (Resolved) History of esophagogastroduodenoscopy (EGD) (Resolved 10/24/11) History of spinal fusion (Resolved 1999) History of spinal fusion (Resolved 2012) History of spinal fusion (Resolved 2001) History of tonsillectomy (Resolved 1966) Status post appendectomy (Resolved 1956) Status post biopsy (Resolved 10/24/11) Status post colonoscopy (Resolved 10/24/11) Status post laparoscopic cholecystectomy (Resolved 2000) Status post vaginal hysterectomy (Resolved 1977) Family History Child Age: 42 Hypertension High cholesterol Father Age: 94 Colon cancer, Onset Age: 85 Alcoholism Osteoarthritis Mother Age: 92 Colon cancer, Onset Age: 69 CAD (coronary artery disease) Hypertension Hyperlipidemia Stroke Heart disease Bladder cancer Sister Age: 71 Diabetes mellitus Adenocarcinoma, lung Hyperlipidemia Sister Age: 66 Diabetes mellitus Hyperlipidemia Sister Lung cancer Nonsmoker Social History household members: spouse Smoking Status: Former smoker Course Orders Ordered: ED Orders 02/09/18 20:29 XR hip w pel if done RT 2V Stat Consultations Consultation #1: Called to on-call orthopedics whom recommended no dressing change given minimal symptoms. Vital Signs - 8 hr 02/09/18 20:30 Temperature 98.7 F Pulse Rate 95 H Respiratory Rate 18 Blood Pressure 161/82 H Pulse Oximetry 97 MDM - Fall Medical Records Attestation: I reviewed the patient's medical records. Lab Data Attestation: I reviewed the patient's lab results. Imaging Data Hip Xray: Radiologist's impression: PROCEDURE: XR HIP W PEL IF DONE RT 2V INDICATIONS: fall with R hip pain, recent surgery TECHNIQUE: AP pelvis with lateral view of the right hip. COMPARISON: [facility] [place], CR, XR PELVIS WITH LATERAL HIP RIGHT, 10/30/2017, 9:26. [facility], CR, XR HIP W PEL IF DONE RT 2V, 02/06/2018, 11:45. FINDINGS: Bones: Right hip prosthesis is stable in alignment. The femoral head components appear centered within the acetabular cup. No suspicious new periprosthetic lucencies. No fractures or dislocations. Pelvic ring appears intact. Soft tissues: The visualized bowel gas pattern is normal. No suspicious soft tissue calcifications. IMPRESSION: 1. No fracture or definite evidence of hardware failure. Dictated by: Aubrey Trinh M.D. on 02/09/2018 at 21:04 Approved by: Aubery Trinh M.D. on 02/09/2018 at 21:07 Discharge Plan Departure Patient Disposition: Home Clinical Impression: Hematoma Discharge Date/Time: 02/09/18 22:18 Interventions: ED Discharge Assessment Last Done: 02/09/18 22:17 Instructions: DI for Hematoma (Bruise) Activity Restrictions/Additional Instructions: *You have been diagnosed with [ postoperative hematoma status post fall ] *What to do: * continue to take medications as directed *Follow up with your orthopedist in 2-3 days, call for an appointment. Let them know you were seen in the Emergency Department and that we ask that you be seen in follow up *Return to ER if you should have any new, worsening or concerning symptoms, such as [ dizziness, weakness, fever, severe bleeding, or other bothersome symptoms] Prescriptions: No Action levothyroxine [Synthroid] 100 mcg tablet 100 mcg PO DAILY RF: 0 multivitamin Capsule 1 cap PO DAILY Qty: 0 RF: 0 inhalational spacing device [[employer]hancer] spacer .ROUTE .MEDSUPPLY Qty: 1 RF: 0 albuterol sulfate 90 mcg/actuation aerosol powdr breath activated 2 puff INHALATION Q4H PRN (Reason: shortness of breath or wheezing) Qty: 1 RF: 3 hydrocodone-acetaminophen [[place]] 5 MG/325 MG tablet 1 tab PO Q8HP PRN (Reason: Pain (Scale Score 4-6)) RF: 0 acyclovir 800 MG tablet 800 mg PO DAILY PRN (Reason: herpes ) RF: 0 polyethylene glycol 3350 [Miralax] 119 GM powder 17 gm PO DAILY RF: 0 Disabled Parking Permit 1 dev miscellaneous DIRECTED RF: 0 ascorbic acid (vitamin C) [Vitamin C] 500 mg Tablet 500 mg PO DAILY Qty: 30 RF: 0 ferrous sulfate 325 mg (65 mg iron) Tablet 325 mg PO DAILY Qty: 30 RF: 0 docusate sodium 100 mg Capsule 100 mg PO BID Qty: 60 RF: 0 ondansetron HCl [Zofran] 4 mg tablet 4 mg PO BID-TID PRN (Reason: nausea and vomiting) Qty: 10 RF: 0 aspirin 81 mg Tablet,Chewable 81 mg PO BID Qty: 0 RF: 0 Referrals: Marian Navarro MD [Physician] - Baylee Solis DO [Primary Care Provider] -
== END 2018-02-09 22:18 | disposition home or self-care (01) ==
PROVIDERS: Emergency Provider Emergency Medicine; PCP Family Medicine
DX: S70.00XA Contusion of unspecified hip, initial encounter (principal); W19.XXXA Unspecified fall, initial encounter
CPT/HCPCS: 73502; 99282; 99283

== ENCOUNTER → 2018-02-19 14:32 | Outpatient (CLI) | payer MEDICARE, OTHER, SELFPAY ==
[2018-02-06 06:21] VITALS: BMI 24.4
[2018-02-19 14:54] LABS: Reticulocyte Count, Percent 4.2 % (1.06-2.63)
[2018-02-19 14:55] LABS: Add Manual Diff / Slide Review NO; Basophils Percent Auto 0.8 % (0-2); Eosinophils Percent Auto 2.7 % (2-4); Hematocrit 32.7 % (36-46); Hemoglobin 11.2 g/dL (12.0-16.0); Lymphocytes Percent Auto 20.1 % (25-40); Mean Corpuscular HGB Conc 34.2 % (30-36); Mean Corpuscular Volume 90.6 fL (80-100); Monocytes Percent Auto 5.5 % (3-14); Neutrophils Absolute Auto 6200 /uL (3000-5900); Neutrophils Percent Auto 70.9 % (50-75); Platelet Count 422 X10^3/uL (150-400); White Blood Cell Count 8.7 X10^3/uL (4.5-11.0)
[2018-02-19 16:31] LABS: HEMOLYSIS < 15 (0-50); Iron 45 ug/dL (37-170)
[2018-02-19 16:41] LABS: Percent Iron Saturation 13 % (15-50); Total Iron Binding Capacity 358 ug/dL (265-497); Transferrin 295 mg/dL (206-381)
[2018-02-19 16:44] LABS: Ferritin 59.7 ng/mL (11.1-264)
[2018-02-19 16:57] LABS: Vitamin B12 818 pg/mL (239-931)
== END ==
PROVIDERS: PCP Family Medicine; Visit Provider Family Medicine
DX: D62 Acute posthemorrhagic anemia (principal)
CPT/HCPCS: 36415; 82607; 82728; 83540; 83550; 85025; 85045

== ENCOUNTER → 2018-03-12 11:40 | Outpatient (CLI) | payer MEDICARE, OTHER, SELFPAY ==
[2018-02-06 06:21] VITALS: BMI 24.4
[2018-03-12 12:06] LABS: Add Manual Diff / Slide Review NO; Basophils Percent Auto 0.7 % (0-2); Eosinophils Percent Auto 2.6 % (2-4); Hematocrit 39.1 % (36-46); Hemoglobin 13.3 g/dL (12.0-16.0); Mean Corpuscular HGB Conc 34.1 % (30-36); Mean Corpuscular Volume 90.8 fL (80-100); Monocytes Percent Auto 6.1 % (3-14); Neutrophils Absolute Auto 4600 /uL (3000-5900); Neutrophils Percent Auto 66.6 % (50-75); Platelet Count 243 X10^3/uL (150-400); Red Blood Cell Count 4.31 X10^6/uL (4.0-5.2); White Blood Cell Count 6.9 X10^3/uL (4.5-11.0)
== END ==
PROVIDERS: PCP Family Medicine; Visit Provider Family Medicine
DX: D62 Acute posthemorrhagic anemia (principal)
CPT/HCPCS: 36415; 85025

== ENCOUNTER → 2018-07-09 13:59 | Outpatient (CLI) | payer MEDICARE, OTHER, SELFPAY ==
[2018-02-06 06:21] VITALS: BMI 24.4
[2018-07-09 14:45] LABS: Cholesterol 228 mg/dL (140-199); HDL Cholesterol 45 mg/dL (40-60); LDL Cholesterol Calculated 157 mg/dL (<100); Triglycerides 130 mg/dL (35-150)
[2018-07-09 16:27] LABS: TSH w/ Reflex to FT4 2.24 uIU/mL (0.47-4.68)
== END ==
PROVIDERS: PCP Family Medicine; Visit Provider Family Medicine
DX: E03.9 Hypothyroidism, unspecified (principal); E78.5 Hyperlipidemia, unspecified
CPT/HCPCS: 36415; 80061; 84443

== ENCOUNTER 2018-09-24 09:54 | Emergency (ER) | payer MEDICARE, OTHER, SELFPAY ==
[2018-02-06 06:21] VITALS: BMI 24.4
[2018-09-24 10:01] VITALS: BP 147/97; PULSE 65; RESP 18; TEMP 37; O2SAT 100; BMI 25.4
--- NOTE | 2018-09-24 10:12 | ED.HEATRA ---
HPI - Head Injury <Yessenia Gold, PROGRAM ATTENDANT-BC - Last Filed: 09/24/18 11:48> General Chief complaint: Head Injury Stated complaint: fell and hit her head 3 days ago Time Seen by Provider: 09/24/18 10:03 Source: patient and family Mode of arrival: ambulatory Limitations: no limitations History of Present Illness HPI Narrative: Patient is a 72-year-old female former smoker who presents with her for chief complaint of a ground level fall 3 days ago. She states she slipped on her new tile floor, hit her head against the wall so hard that she put a hole in her wall. She has a history of hypothyroid. She states she felt okay for the past 2 days, then woke up today dizzy and nauseous with a headache. she also complains of neck pain. she denies any loss of consciousness, altered mental status or confusion. She has not taken anything at home for the pain. She denies any numbness, tingling or incontinence. She does not take any blood thinners. Related Data Home Medications Medication Instructions Recorded Confirmed multivitamin 1 cap PO DAILY #0 11/23/11 09/16/18 levothyroxine 100 mcg tablet 100 mcg PO DAILY 01/03/18 09/16/18 acyclovir 800 mg PO DAILY PRN 01/20/18 09/16/18 Disabled [address]ing Permit 1 dev MISCELLANEOUS DIRECTED 02/06/18 09/16/18 gabapentin 100 mg capsule 100 mg PO DAILY 05/02/18 09/16/18 Previous Rx's Medication Instructions Recorded albuterol sulfate 90 mcg/actuation 2 puff INHALATION Q4H PRN #1 each 01/16/18 breath activated powder inhaler inhalational spacing device #1 each 01/16/18 ascorbic acid (vitamin C) [Vitamin 500 mg PO DAILY #30 tab 02/08/18 C] aspirin 81 mg PO BID #0 tab 02/08/18 docusate sodium 100 mg PO BID #60 cap 02/08/18 fluticasone propionate 50 2 spray NASAL DAILY #9.9 gram 06/10/18 mcg/actuation nasal spray,suspension esomeprazole magnesium 40 mg 40 mg PO DAILY #30 cap 07/09/18 capsule,delayed release escitalopram 10 mg tablet 10 mg PO DAILY #30 tab 09/01/18 Allergies Allergy/AdvReac Type Severity Reaction Status Date / Time No Known Drug Allergies Allergy Verified 09/16/18 10:16 Review of Systems <MORGAN Good - Last Filed: 09/24/18 11:48> Constitutional Denies chills, Denies fever(s), Reports headache(s) and Denies lethargy Eyes Denies change in vision, Denies eye discharge and Denies irritation ENT Ears, Nose, Mouth, and Throat: Denies change in voice, Reports dizziness, Reports headache(s), Reports neck pain, Denies disequilibrium and Denies sore throat Cardiovascular Denies chest pain, Denies irregular heart rhythm, Denies lightheadedness, Denies palpitations, Denies dyspnea, Denies dyspnea on exertion and Denies orthopnea Respiratory Denies cough, Denies dyspnea, Denies dyspnea on exertion and Denies wheezing Gastrointestinal Gastrointestinal: Denies abdominal pain, Denies change in bowel habits, Denies diarrhea, Denies nausea and Denies vomiting Genitourinary Denies hematuria, Denies flank pain, Denies urinary incontinence and Denies urinary urgency Musculoskeletal Reports as per HPI, Reports neck pain, Denies numbness and Denies tingling Integumentary/Breasts Denies pruritus, Denies erythema, Denies rash and Denies wounds Neurologic Denies abnormal speech, Denies confusion, Reports dizziness, Reports headache(s), Denies numbness, Denies sensory deficit, Denies tingling, Denies paresthesias and Denies disequilibrium Psychiatric Denies anxiety, Denies confusion, Denies depression, Denies homicidal ideation and Denies suicidal ideation Endocrine Denies palpitations Allergic/Immunologic Denies wheezing PFSH <MORGAN Good - Last Filed: 09/24/18 11:48> Medical History Postoperative anemia due to acute blood loss (Acute) History of bronchitis (Acute) Postmenopausal (Acute) Anxiety (Chronic 1999) Chronic back pain (Chronic 1995) Chronic headaches (Chronic 1957) Constipation (Chronic) Depression (Chronic 1999) GERD (gastroesophageal reflux disease) (Chronic) Hemorrhoids (Chronic 1974) Herpes (Chronic) Hypothyroidism (Chronic) Abnormal Pap smear of cervix (Resolved 1976) Cervical cancer (Resolved 1976) Chicken pox (Resolved 1957) Colitis (Resolved 1975) Measles (Resolved 1957) Surgical History History of colonoscopy with polypectomy (Acute) Anesthesia (Resolved) History of esophagogastroduodenoscopy (EGD) (Resolved 10/24/11) History of spinal fusion (Resolved 1999) History of spinal fusion (Resolved 2012) History of spinal fusion (Resolved 2001) History of tonsillectomy (Resolved 1966) Status post appendectomy (Resolved 1956) Status post biopsy (Resolved 10/24/11) Status post colonoscopy (Resolved 10/24/11) Status post laparoscopic cholecystectomy (Resolved 2000) Status post vaginal hysterectomy (Resolved 1977) Family History Child Age: 43 Hypertension High cholesterol Father Age: 95 Colon cancer Alcoholism Osteoarthritis Mother Age: 93 Colon cancer CAD (coronary artery disease) Hypertension Hyperlipidemia Stroke Heart disease Bladder cancer Sister Age: 72 Diabetes mellitus Adenocarcinoma, lung Hyperlipidemia Sister Age: 67 Diabetes mellitus Hyperlipidemia Sister Lung cancer Nonsmoker Social History household members: spouse Smoking Status: Former smoker alcohol intake: current substance use type: does not use Social History household members: spouse Smoking Status: Former smoker alcohol intake: current substance use type: does not use Exam <MORGAN Good - Last Filed: 09/24/18 11:48> Initial Vital Signs Initial Vital Signs: Vital Signs Temperature 98.6 F 09/24/18 10:01 Pulse Rate 65 09/24/18 10:01 Respiratory Rate 18 09/24/18 10:01 Blood Pressure 147/97 H 09/24/18 10:01 Pulse Oximetry 100 09/24/18 10:01 Const General: cooperative, healthy appearing, comfortable, well developed, well groomed and No acute distress [facility] Head: normal to inspection Ears: external ears normal Nose: external nose normal Face and sinus: normal facial exam, no abrasions, no ecchymosis, no erythema and no edema Mouth: oral mucosae normal Teeth and gingiva: dentition normal Eyes General: appearance normal, both eyes and all related structures Periorbital: periorbital findings normal Eyelids: eyelids normal Conjunctivae: conjunctivae normal Sclera: sclerae normal Pupils: PERRL EOM: EOM intact bilaterally and No nystagmus Direct ophthalmoscopy: normal light reflex Neck Neck: normal visual inspection, trachea midline, No lymphadenopathy, No midline deformity, tender and No JVD Lymphatic: No lymphedema Resp Effort & Inspection: normal respiratory effort, able to speak in complete sentences, abnormal respiratory pattern, no audible wheezes, no cough, respiratory effort not decreased, no grunting, not labored and no nasal flaring Auscultation: clear to auscultation bilaterally, no rales, no rhonchi and no wheezes Cardio Rate: regular rate Rhythm: regular rhythm Back/Spine/Pelvis Back: back tenderness Cervical Spine: collar present, cervical spinal tenderness and No step off deformity Neuro General: alert, awake, oriented x3 and oriented (person, place, , date) Cranial Nerves: PERRL, EOM intact bilaterally, facial strength normal, tongue midline, able to elevate shoulders bilaterally and No nystagmus Cognition: normal cognition Speech: speech normal, no expressive aphasia and no receptive aphasia Motor: muscle tone normal throughout and strength 5/5 throughout Sensory Exam: no sensory deficits noted <Cassandra Cha MD - Last Filed: 09/24/18 16:21> Initial Vital Signs Initial Vital Signs: Vital Signs Temperature 98.6 F 09/24/18 10:01 Pulse Rate 65 09/24/18 10:01 Respiratory Rate 18 09/24/18 10:01 Blood Pressure 147/97 H 09/24/18 10:01 Pulse Oximetry 100 09/24/18 10:01 Course <MORGAN Good - Last Filed: 09/24/18 11:48> Orders Ordered: ED Orders 09/24/18 10:11 CT cervical spine wo con Stat CT head/brain wo con Stat Discontinued Medications Ketorolac Tromethamine (Toradol) 15 mg IM NOW ONE Stop: 09/24/18 11:21 Last Admin: 09/24/18 11:23 Dose: 15 mg Ondansetron HCl (Zofran Odt) 4 mg SL NOW ONE Stop: 09/24/18 10:12 Last Admin: 09/24/18 10:26 Dose: 4 mg Vital Signs - 8 hr 09/24/18 10:01 09/24/18 11:50 Temperature 98.6 F Pulse Rate 65 56 L Respiratory Rate 18 18 Blood Pressure 147/97 H 139/86 Pulse Oximetry 100 97 <Cassandra Cha MD - Last Filed: 09/24/18 16:21> Orders Ordered: ED Orders 09/24/18 10:11 CT cervical spine wo con Stat CT head/brain wo con Stat Discontinued Medications Ketorolac Tromethamine (Toradol) 15 mg IM NOW ONE Stop: 09/24/18 11:21 Last Admin: 09/24/18 11:23 Dose: 15 mg Ondansetron HCl (Zofran Odt) 4 mg SL NOW ONE Stop: 09/24/18 10:12 Last Admin: 09/24/18 10:26 Dose: 4 mg Vital Signs - 8 hr 09/24/18 10:01 09/24/18 11:50 Temperature 98.6 F Pulse Rate 65 56 L Respiratory Rate 18 18 Blood Pressure 147/97 H 139/86 Pulse Oximetry 100 97 MDM - Head Injury <MORGAN Good - Last Filed: 09/24/18 11:48> Imaging Data CT scan - head: Radiologist's impression: [place] [address] CT Scan Report Signed Patient: Charlene Jacob RMR#: [id number] : 8Acct:[id number] Age/Sex: 72 / FDate of Service: 09/24/18 Loc: ED Accession Number: [id number] Procedure: CT head/brain wo con Ordering Provider: Yessenia Gold PROCEDURE: CT HEAD/BRAIN WO CON INDICATIONS: ground level fall neck pain TECHNIQUE: Noncontrast 4.5 mm thick angled axial sections acquired from the foramen magnum to the vertex, with coronal and sagittal reformats. For radiation dose reduction, the following was used: automated exposure control, adjustment of mA and/or kV according to patient size. COMPARISON: [facility], CT, HEAD WITHOUT CONTRAST, 05/22/2015, 13:02. FINDINGS: Image quality: Excellent. CSF spaces: Basal cisterns are patent. No extra-axial fluid collections. The ventricles are symmetric in size and shape. Brain: No intracranial bleeds or masses. There is mild cerebral volume loss for age, with resultant ventricular and sulcal prominence. There are mild periventricular and deep white matter chronic small vessel ischemic changes. There is intracranial internal carotid artery atherosclerosis. Skull and face: Calvarium and visualized facial bones appear intact, without suspicious lesions. Sinuses: Visualized sinuses and mastoids are clear. IMPRESSION: 1. No acute intracranial abnormalities. 2. Cerebral volume loss and chronic microvascular ischemic changes. Dictated by: Gustabo Mcintyre M.D. on 09/24/2018 at 10:49 Approved by: Gustabo Mcintyre M.D. on 09/24/2018 at 10:[address] : Radiologist's impression: 3 MORGAN Good Find Patient Imaging Charlene Jacob 72 F 1945 ACTIVITY DATE EXAM STATUS AUTHOR 09/24/18 10:11 Signed Harrison Mcintyre 09/24/18 10:11 Signed Miguelina,[place] [address] CT Scan Report Signed Patient: Charlene Jacob RMR#: [id number] : 8Acct:[id number] Age/Sex: 72 / FDate of Service: 09/24/18 Loc: ED Accession Number: [id number] Procedure: CT cervical spine wo con Ordering Provider: Yessenia Gold PROCEDURE: CT CERVICAL SPINE WO CON INDICATIONS: glf neck pain TECHNIQUE: Noncontrast 3 mm thick sections acquired from the skull base to the T4 level. Sagittal and coronal reformats were then constructed. For radiation dose reduction, the following was used: automated exposure control, adjustment of mA and/or kV according to patient size. COMPARISON: [facility], , XR C-SPINE 4-6V, 01/12/2003, 8:24. FINDINGS: Image quality: Excellent. Bones: No fractures or dislocations. Mild degenerative disc disease is noted at C3-C4, C5-C6 and C6-C7. Visualized superior ribs are intact. Soft tissues: Prevertebral soft tissues are normal in thickness. No paravertebral hematomas. No apical pneumothoraces. IMPRESSION: 1. No fractures. 2. Mild degenerative disc disease. Dictated by: Gustabo Mcintyre M.D. on 09/24/2018 at 10:52 Approved by: Gustabo Mcintyre M.D. on 09/24/2018 at 11:04 [facility] Narrative Medical decision making narrative: The patient is a 9-year-old female who presents after ground level fall 3 days ago. This was a mechanical fall. She woke up today with concussion symptoms. Given her age, mechanism of injury and symptoms I obtained a head CT. Given her midline C-spine tenderness I also obtained a C-spine CT. She was given Zofran for nausea. She had a negative head CT and a negative C-spine CT. She was given Toradol in the emergency department for pain. I offered her prescription a muscle relaxer regarding her neck pain, however the patient declined at this point time. I spoke extensively with the patient about the need for rest and brain rest given her concussion. I discussed at length return precautions including confusion, altered mental status and repeat vomiting. Patient and her had no questions or concerns upon discharge. She remained GCS 15, alert oriented and nontoxic throughout her stay in the emergency department. Discharge Plan Departure Patient Disposition: Home Clinical Impression: Acute neck pain Concussion Qualifiers: Encounter type: initial encounter Loss of consciousness presence/duration: without LOC Qualified Code(s): S06.0X0A - Concussion without loss of consciousness, initial encounter Discharge Date/Time: 09/24/18 11:51 Interventions: ED Discharge Assessment Last Done: 09/24/18 11:50 Instructions: DI for Concussion, DI for Postconcussion Syndrome, DI for Neck Pain Activity Restrictions/Additional Instructions: your head CT and neck CT came back normal today. You have a concussion. Please use brain rest as we discussed. Please use [id number] medications as needed and able. Monitor for any confusion, altered mental status numbness tingling or other acute concerns. Monitor for incontinence, numbness etc as these are signs of a spinal cord injury. come back to the emergency department if you have any acute concerns. Please follow up with primary care provider for re-evaluation. Prescriptions: No Action levothyroxine [Synthroid] 100 mcg tablet 100 mcg PO DAILY RF: 0 multivitamin Capsule 1 cap PO DAILY Qty: 0 RF: 0 escitalopram oxalate 10 mg tablet 10 mg PO DAILY Qty: 30 RF: 1 inhalational spacing device [[employer]hancer] spacer .ROUTE .MEDSUPPLY Qty: 1 RF: 0 albuterol sulfate 90 mcg/actuation aerosol powdr breath activated 2 puff INHALATION Q4H PRN (Reason: shortness of breath or wheezing) Qty: 1 RF: 3 gabapentin 100 mg capsule 100 mg PO DAILY RF: 0 esomeprazole magnesium 40 mg capsule,delayed release(DR/EC) 40 mg PO DAILY Qty: 30 RF: 1 fluticasone propionate 50 mcg/actuation spray,suspension 2 spray NASAL DAILY Qty: 9.9 RF: 0 acyclovir 800 MG tablet 800 mg PO DAILY PRN (Reason: herpes ) RF: 0 Disabled Parking Permit 1 dev miscellaneous DIRECTED RF: 0 ascorbic acid (vitamin C) [Vitamin C] 500 mg Tablet 500 mg PO DAILY Qty: 30 RF: 0 docusate sodium 100 mg Capsule 100 mg PO BID Qty: 60 RF: 0 aspirin 81 mg Tablet,Chewable 81 mg PO BID Qty: 0 RF: 0 Referrals: Baylee Solis DO [Primary Care Provider] -
--- NOTE | 2018-09-24 10:17 | ED_ITS ---
HPI - Head Injury <Yessenia Gold, PATIENT ACCOUNT LIAISON-BC - Last Filed: 09/24/18 11:48> General Chief complaint: Head Injury Stated complaint: fell and hit her head 3 days ago Time Seen by Provider: 09/24/18 10:03 Source: patient and family Mode of arrival: ambulatory Limitations: no limitations History of Present Illness HPI Narrative: Patient is a 72-year-old female former smoker who presents with her for chief complaint of a ground level fall 3 days ago. She states she slipped on her new tile floor, hit her head against the wall so hard that she put a hole in her wall. She has a history of hypothyroid. She states she felt okay for the past 2 days, then woke up today dizzy and nauseous with a headache. she also complains of neck pain. she denies any loss of consciousness, altered mental status or confusion. She has not taken anything at home for the pain. She denies any numbness, tingling or incontinence. She does not take any blood thinners. Related Data Home Medications Medication Instructions Recorded Confirmed multivitamin 1 cap PO DAILY #0 11/23/11 09/16/18 levothyroxine 100 mcg tablet 100 mcg PO DAILY 01/03/18 09/16/18 acyclovir 800 mg PO DAILY PRN 01/20/18 09/16/18 Disabled [address]ing Permit 1 dev MISCELLANEOUS DIRECTED 02/06/18 09/16/18 gabapentin 100 mg capsule 100 mg PO DAILY 05/02/18 09/16/18 Previous Rx's Medication Instructions Recorded albuterol sulfate 90 mcg/actuation 2 puff INHALATION Q4H PRN #1 each 01/16/18 breath activated powder inhaler inhalational spacing device #1 each 01/16/18 ascorbic acid (vitamin C) [Vitamin 500 mg PO DAILY #30 tab 02/08/18 C] aspirin 81 mg PO BID #0 tab 02/08/18 docusate sodium 100 mg PO BID #60 cap 02/08/18 fluticasone propionate 50 2 spray NASAL DAILY #9.9 gram 06/10/18 mcg/actuation nasal spray,suspension esomeprazole magnesium 40 mg 40 mg PO DAILY #30 cap 07/09/18 capsule,delayed release escitalopram 10 mg tablet 10 mg PO DAILY #30 tab 09/01/18 Allergies Allergy/AdvReac Type Severity Reaction Status Date / Time No Known Drug Allergies Allergy Verified 09/16/18 10:16 Review of Systems <MORGAN Good - Last Filed: 09/24/18 11:48> Constitutional Denies chills, Denies fever(s), Reports headache(s) and Denies lethargy Eyes Denies change in vision, Denies eye discharge and Denies irritation ENT Ears, Nose, Mouth, and Throat: Denies change in voice, Reports dizziness, Reports headache(s), Reports neck pain, Denies disequilibrium and Denies sore throat Cardiovascular Denies chest pain, Denies irregular heart rhythm, Denies lightheadedness, Denies palpitations, Denies dyspnea, Denies dyspnea on exertion and Denies orthopnea Respiratory Denies cough, Denies dyspnea, Denies dyspnea on exertion and Denies wheezing Gastrointestinal Gastrointestinal: Denies abdominal pain, Denies change in bowel habits, Denies diarrhea, Denies nausea and Denies vomiting Genitourinary Denies hematuria, Denies flank pain, Denies urinary incontinence and Denies uri nary urgency Musculoskeletal Reports as per HPI, Reports neck pain, Denies numbness and Denies tingling Integumentary/Breasts Denies pruritus, Denies erythema, Denies rash and Denies wounds Neurologic Denies abnormal speech, Denies confusion, Reports dizziness, Reports headache(s), Denies numbness, Denies sensory deficit, Denies tingling, Denies paresthesias and Denies disequilibrium Psychiatric Denies anxiety, Denies confusion, Denies depression, Denies homicidal ideation and Denies suicidal ideation Endocrine Denies palpitations Allergic/Immunologic Denies wheezing PFSH <MORGAN Good - Last Filed: 09/24/18 11:48> Medical History Postoperative anemia due to acute blood loss (Acute) History of bronchitis (Acute) Postmenopausal (Acute) Anxiety (Chronic 1999) Chronic back pain (Chronic 1995) Chronic headaches (Chronic 1957) Constipation (Chronic) Depression (Chronic 1999) GERD (gastroesophageal reflux disease) (Chronic) Hemorrhoids (Chronic 1974) Herpes (Chronic) Hypothyroidism (Chronic) Abnormal Pap smear of cervix (Resolved 1976) Cervical cancer (Resolved 1976) Chicken pox (Resolved 1957) Colitis (Resolved 1975) Measles (Resolved 1957) Surgical History History of colonoscopy with polypectomy (Acute) Anesthesia (Resolved) History of esophagogastroduodenoscopy (EGD) (Resolved 10/24/11) History of spinal fusion (Resolved 1999) History of spinal fusion (Resolved 2012) History of spinal fusion (Resolved 2001) History of tonsillectomy (Resolved 1966) Status post appendectomy (Resolved 1956) Status post biopsy (Resolved 10/24/11) Status post colonoscopy (Resolved 10/24/11) Status post laparoscopic cholecystectomy (Resolved 2000) Status post vaginal hysterectomy (Resolved 1977) Family History Child Age: 43 Hypertension High cholesterol Father Age: 95 Colon cancer Alcoholism Osteoarthritis Mother Age: 93 Colon cancer CAD (coronary artery disease) Hypertension Hyperlipidemia Stroke Heart disease Bladder cancer Sister Age: 72 Diabetes mellitus Adenocarcinoma, lung Hyperlipidemia Sister Age: 67 Diabetes mellitus Hyperlipidemia Sister Lung cancer Nonsmoker Social History household members: spouse Smoking Status: Former smoker alcohol intake: current substance use type: does not use Social History household members: spouse Smoking Status: Former smoker alcohol intake: current substance use type: does not use Exam <MORGAN Good - Last Filed: 09/24/18 11:48> Initial Vital Signs Initial Vital Signs: Vital Signs Temperature 98.6 F 09/24/18 10:01 Pulse Rate 65 09/24/18 10:01 Respiratory Rate 18 09/24/18 10:01 Blood Pressure 147/97 H 09/24/18 10:01 Pulse Oximetry 100 09/24/18 10:01 Const General: cooperative, healthy appearing, comfortable, well developed, well groomed and No acute distress [facility] Head: normal to inspection Ears: external ears normal Nose: external nose normal Face and sinus: normal facial exam, no abrasions, no ecchymosis, no erythema and no edema Mouth: oral mucosae normal Teeth and gingiva: dentition normal Eyes General: appearance normal, both eyes and all related structures Periorbital: periorbital findings normal Eyelids: eyelids normal Conjunctivae: conjunctivae normal Sclera: sclerae normal Pupils: PERRL EOM: EOM intact bilaterally and No nystagmus Direct ophthalmoscopy: normal light reflex Neck Neck: normal visual inspection, trachea midline, No lymphadenopathy, No midline deformity, tender and No JVD Lymphatic: No lymphedema Resp Effort & Inspection: normal respiratory effort, able to speak in complete sentences, abnormal respiratory pattern, no audible wheezes, no cough, respiratory effort not decreased, no grunting, not labored and no nasal flaring Auscultation: clear to auscultation bilaterally, no rales, no rhonchi and no wheezes Cardio Rate: regular rate Rhythm: regular rhythm Back/Spine/Pelvis Back: back tenderness Cervical Spine: collar present, cervical spinal tenderness and No step off deformity Neuro General: alert, awake, oriented x3 and oriented (person, place, , date) Cranial Nerves: PERRL, EOM intact bilaterally, facial strength normal, tongue midline, able to elevate shoulders bilaterally and No nystagmus Cognition: normal cognition Speech: speech normal, no expressive aphasia and no receptive aphasia Motor: muscle tone normal throughout and strength 5/5 throughout Sensory Exam: no sensory deficits noted <Cassandra Cha MD - Last Filed: 09/24/18 16:21> Initial Vital Signs Initial Vital Signs: Vital Signs Temperature 98.6 F 09/24/18 10:01 Pulse Rate 65 09/24/18 10:01 Respiratory Rate 18 09/24/18 10:01 Blood Pressure 147/97 H 09/24/18 10:01 Pulse Oximetry 100 09/24/18 10:01 Course <MORGAN Good - Last Filed: 09/24/18 11:48> Orders Ordered: ED Orders 09/24/18 10:11 CT cervical spine wo con Stat CT head/brain wo con Stat Discontinued Medications Ketorolac Tromethamine (Toradol) 15 mg IM NOW ONE Stop: 09/24/18 11:21 Last Admin: 09/24/18 11:23 Dose: 15 mg Ondansetron HCl (Zofran Odt) 4 mg SL NOW ONE Stop: 09/24/18 10:12 Last Admin: 09/24/18 10:26 Dose: 4 mg Vital Signs - 8 hr 09/24/18 10:01 09/24/18 11:50 Temperature 98.6 F Pulse Rate 65 56 L Respiratory Rate 18 18 Blood Pressure 147/97 H 139/86 Pulse Oximetry 100 97 <Cassandra Cha MD - Last Filed: 09/24/18 16:21> Orders Ordered: ED Orders 09/24/18 10:11 CT cervical spine wo con Stat CT head/brain wo con Stat Discontinued Medications Ketorolac Tromethamine (Toradol) 15 mg IM NOW ONE Stop: 09/24/18 11:21 Last Admin: 09/24/18 11:23 Dose: 15 mg Ondansetron HCl (Zofran Odt) 4 mg SL NOW ONE Stop: 09/24/18 10:12 Last Admin: 09/24/18 10:26 Dose: 4 mg Vital Signs - 8 hr 09/24/18 10:01 09/24/18 11:50 Temperature 98.6 F Pulse Rate 65 56 L Respiratory Rate 18 18 Blood Pressure 147/97 H 139/86 Pulse Oximetry 100 97 MDM - Head Injury <MORGAN Good - Last Filed: 09/24/18 11:48> Imaging Data CT scan - head: Radiologist's impression: [place] [address] CT Scan Report Signed Patient: Charlene Jacob RMR#: [id number] : 8Acct:[id number] Age/Sex: 72 / FDate of Service: 09/24/18 Loc: ED Accession Number: [id number] Procedure: CT head/brain wo con Ordering Provider: Yessenia Gold PROCEDURE: CT HEAD/BRAIN WO CON INDICATIONS: ground level fall neck pain TECHNIQUE: Noncontrast 4.5 mm thick angled axial sections acquired from the foramen magnum to the vertex, with coronal and sagittal reformats. For radiation dose reduction, the following was used: automated exposure control, adjustment of mA and/or kV according to patient size. COMPARISON: [facility], CT, HEAD WITHOUT CONTRAST, 05/22/2015, 13:02. FINDINGS: Image quality: Excellent. CSF spaces: Basal cisterns are patent. No extra-axial fluid collections. The ventricles are symmetric in size and shape. Brain: No intracranial bleeds or masses. There is mild cerebral volume loss for age, with resultant ventricular and sulcal prominence. There are mild periventricular and deep white matter chronic small vessel ischemic changes. There is intracranial internal carotid artery atherosclerosis. Skull and face: Calvarium and visualized facial bones appear intact, without suspicious lesions. Sinuses: Visualized sinuses and mastoids are clear. IMPRESSION: 1. No acute intracranial abnormalities. 2. Cerebral volume loss and chronic microvascular ischemic changes. Dictated by: Gustabo Mcintyre M.D. on 09/24/2018 at 10:49 Approved by: Gustabo Mcintyre M.D. on 09/24/2018 at 10:[address] : Radiologist's impression: 3 MORGAN Good Find Patient Imaging Charlene Jacob 72 F 1945 ACTIVITY DATE EXAM STATUS AUTHOR 09/24/18 10:11 Signed Harrison Mcintyre 09/24/18 10:11 Signed Miguelina,[place] [address] CT Scan Report Signed Patient: Charlene Jcaob RMR#: [id number] : 8Acct:[id number] Age/Sex: 72 / FDate of Service: 09/24/18 Loc: ED Accession Number: [id number] Procedure: CT cervical spine wo con Ordering Provider: Yessenia Gold PROCEDURE: CT CERVICAL SPINE WO CON INDICATIONS: glf neck pain TECHNIQUE: Noncontrast 3 mm thick sections acquired from the skull base to the T4 level. Sagittal and coronal reformats were then constructed. For radiation dose reduction, the following was used: automated exposure control, adjustment of mA and/or kV according to patient size. COMPARISON: [facility], , XR C-SPINE 4-6V, 01/12/2003, 8:24. FINDINGS: Image quality: Excellent. Bones: No fractures or dislocations. Mild degenerative disc disease is noted at C3-C4, C5-C6 and C6-C7. Visualized superior ribs are intact. Soft tissues: Prevertebral soft tissues are normal in thickness. No paravertebral hematomas. No apical pneumothoraces. IMPRESSION: 1. No fractures. 2. Mild degenerative disc disease. Dictated by: Gustabo Mcintyre M.D. on 09/24/2018 at 10:52 Approved by: Gustabo Mcintyre M.D. on 09/24/2018 at 11:04 [facility] Narrative Medical decision making narrative: The patient is a 9-year-old female who presents after ground level fall 3 days ago. This was a mechanical fall. She woke up today with concussion symptoms. Given her age, mechanism of injury and symptoms I obtained a head CT. Given her midline C-spine tenderness I also obtained a C-spine CT. She was given Zofran for nausea. She had a negative head CT and a negative C-spine CT. She was given Toradol in the emergency department for pain. I offered her prescription a muscle relaxer regarding her neck pain, however the patient declined at this point time. I spoke extensively with the patient about the need for rest and brain rest given her concussion. I discussed at length return precautions including confusion, altered mental status and repeat vomiting. Patient and her had no questions or concerns upon discharge. She remained GCS 15, alert oriented and nontoxic throughout her stay in the emergency department. Discharge Plan Departure Patient Disposition: Home Clinical Impression: Acute neck pain Concussion Qualifiers: Encounter type: initial encounter Loss of consciousness presence/duration: without LOC Qualified Code(s): S06.0X0A - Concussion without loss of consciousness, initial encounter Discharge Date/Time: 09/24/18 11:51 Interventions: ED Discharge Assessment Last Done: 09/24/18 11:50 Instructions: DI for Concussion, DI for Postconcussion Syndrome, DI for Neck Pain Activity Restrictions/Additional Instructions: your head CT and neck CT came back normal today. You have a concussion. Please use brain rest as we discussed. Please use [id number] medications as needed and able. Monitor for any confusion, altered mental status numbness tingling or other acute concerns. Monitor for incontinence, numbness etc as these are signs of a spinal cord injury. come back to the emergency department if you have any acute concerns. Please follow up with primary care provider for re-evaluation. Prescriptions: No Action levothyroxine [Synthroid] 100 mcg tablet 100 mcg PO DAILY RF: 0 multivitamin Capsule 1 cap PO DAILY Qty: 0 RF: 0 escitalopram oxalate 10 mg tablet 10 mg PO DAILY Qty: 30 RF: 1 inhalational spacing device [[employer]ren[employer] Cook Enhancer] spacer .ROUTE .MEDSUPPLY Qty: 1 RF: 0 albuterol sulfate 90 mcg/actuation aerosol powdr breath activated 2 puff INHALATION Q4H PRN (Reason: shortness of breath or wheezing) Qty: 1 RF: 3 gabapentin 100 mg capsule 100 mg PO DAILY RF: 0 esomeprazole magnesium 40 mg capsule,delayed release(DR/EC) 40 mg PO DAILY Qty: 30 RF: 1 fluticasone propionate 50 mcg/actuation spray,suspension 2 spray NASAL DAILY Qty: 9.9 RF: 0 acyclovir 800 MG tablet 800 mg PO DAILY PRN (Reason: herpes ) RF: 0 Disabled Parking Permit 1 dev miscellaneous DIRECTED RF: 0 ascorbic acid (vitamin C) [Vitamin C] 500 mg Tablet 500 mg PO DAILY Qty: 30 RF: 0 docusate sodium 100 mg Capsule 100 mg PO BID Qty: 60 RF: 0 aspirin 81 mg Tablet,Chewable 81 mg PO BID Qty: 0 RF: 0 Referrals: Baylee Solis DO [Primary Care Provider] -
[2018-09-24] MEDS: ONDANSETRON 4 MG ODT SL (10:26)
[2018-09-24] MEDS: KETOROLAC 60 MG/2 ML VIAL 15 MG IM (11:23)
[2018-09-24 11:50] VITALS: BP 139/86; PULSE 56; RESP 18; O2SAT 97
== END 2018-09-24 11:51 | disposition home or self-care (01) ==
PROVIDERS: Emergency Provider Nurse Practitioner Family; PCP Family Medicine
DX: M54.2 Cervicalgia (principal); S06.0X9A Concussion with loss of consciousness of unspecified duration, initial encounter; W19.XXXA Unspecified fall, initial encounter
CPT/HCPCS: 70450; 72125; 96372; 99283; 99284; J1885

== ENCOUNTER → 2018-09-30 10:48 | Outpatient (CLI) | payer MEDICARE, OTHER, SELFPAY ==
[2018-02-06 06:21] VITALS: BMI 24.4
--- NOTE | 2018-09-30 10:53 | DI.RAD.S_ITS ---
PROCEDURE: XR FOREARM RT 2V INDICATIONS: Right forearm pain TECHNIQUE: 2 views of the forearm were acquired. COMPARISON: None. FINDINGS: Bones: No fractures or dislocations. No suspicious bony lesions. Soft tissues: No suspicious soft tissue calcifications or masses. IMPRESSION: Source of pain is not seen. * Dictated by: Stephen Shaikh M.D. on 09/30/2018 at 13:21 Approved by: Stephen Shaikh M.D. on 09/30/2018 at 13:22
== END ==
PROVIDERS: PCP Family Medicine; Visit Provider Registered Nurse
DX: M79.631 Pain in right forearm (principal)
CPT/HCPCS: 73090

== ENCOUNTER → 2018-10-28 08:46 | Outpatient (CLI) | payer MEDICARE, OTHER, SELFPAY ==
[2018-02-06 06:21] VITALS: BMI 24.4
--- NOTE | 2018-10-28 08:51 | DI.RAD.S_ITS ---
PROCEDURE: XR KNEE LT 3V INDICATIONS: Left knee pain TECHNIQUE: 3 views of the knee were acquired. COMPARISON: None. FINDINGS: Bones: No fractures or dislocations. No suspicious bony lesions. Mild tricompartmental osteoarthritis. Soft tissues: No joint effusion. No suspicious soft tissue calcifications. IMPRESSION: No fracture. No osseous lesion. If symptoms and/or clinical suspicion for pathology persists, further assessment with repeat radiographs (7-10 days) or advanced imaging (e.g. CT, MRI or bone scan) may be helpful. Dictated by: Rosa Maria Bedoya MD, PhD on 10/28/2018 at 9:08 Approved by: Rosa Maria Bedoya MD, PhD on 10/28/2018 at 9:09
== END ==
PROVIDERS: PCP Family Medicine; Visit Provider Physician Assistant
DX: M25.562 Pain in left knee (principal); M17.12 Unilateral primary osteoarthritis, left knee
CPT/HCPCS: 73562

== ENCOUNTER → 2018-11-03 11:08 | Outpatient (CLI) | payer MEDICARE, OTHER, SELFPAY ==
[2018-02-06 06:21] VITALS: BMI 24.4
[2018-11-03 13:05] LABS: Free T3, Triiodothyronine Free 3.52 pg/mL (2.77-5.27); Free T4, Direct Thyroxine 0.88 ng/dL (0.78-2.19)
[2018-11-03 13:19] LABS: Thyroid Stimulating Hormone 2.07 uIU/mL (0.47-4.68)
== END ==
PROVIDERS: PCP Family Medicine; Visit Provider Family Medicine
DX: E78.5 Hyperlipidemia, unspecified (principal); E03.9 Hypothyroidism, unspecified
CPT/HCPCS: 36415; 84439; 84443; 84481

== ENCOUNTER → 2018-11-26 13:50 | Outpatient (CLI) | payer MEDICARE, OTHER, SELFPAY ==
[2018-02-06 06:21] VITALS: BMI 24.4
--- NOTE | 2018-11-26 13:54 | DI.RAD.S_ITS ---
PROCEDURE: XR HIP W PEL IF DONE RT 2V INDICATIONS: right hip pain after fall, hist of hip replacment TECHNIQUE: AP pelvis with lateral view(s) of the right hip(s). COMPARISON: [facility], CR, XR HIP W PEL IF DONE RT 2V, 02/09/2018, 20:14. [facility], CR, XR HIP W PEL IF DONE RT 2V, 02/06/2018, 11:45. FINDINGS: Bones: No fractures or dislocations. Pelvic ring appears intact. No suspicious bony lesions. Soft tissues: The visualized bowel gas pattern is normal. No suspicious soft tissue calcifications. IMPRESSION: Prior right total hip arthroplasty, previously present, showing no evidence of device loosening or disruption. The adjacent right hemipelvis appears normal. Prior lower lumbosacral spine surgical procedure and devices again noted. Dictated by: Stephen Shaikh M.D. on 11/26/2018 at 14:57 Approved by: Stephen Shaikh M.D. on 11/26/2018 at 14:57
--- NOTE | 2018-11-26 13:54 | DI.RAD.S_ITS ---
PROCEDURE: XR KNEE RT 3V INDICATIONS: right knee pain after a fall TECHNIQUE: 3 views of the knee were acquired. COMPARISON: [facility], CR, XR KNEE LT 3V, 10/28/2018, 8:56. FINDINGS: Bones: No fractures or dislocations. No suspicious bony lesions. Soft tissues: No joint effusion. No suspicious soft tissue calcifications. IMPRESSION: No trauma found. No effusion or loose body seen. Dictated by: Stephen Shaikh M.D. on 11/26/2018 at 14:57 Approved by: Stephen Shaikh M.D. on 11/26/2018 at 14:58
== END ==
PROVIDERS: PCP Family Medicine; Visit Provider Family Medicine
DX: M25.561 Pain in right knee (principal); M25.551 Pain in right hip; M85.852 Other specified disorders of bone density and structure, left thigh; Z78.0 Asymptomatic menopausal state; E07.9 Disorder of thyroid, unspecified; Z96.641 Presence of right artificial hip joint; Z82.62 Family history of osteoporosis; Z87.891 Personal history of nicotine dependence; Z85.42 Personal history of malignant neoplasm of other parts of uterus
CPT/HCPCS: 73502; 73562; 77080

== ENCOUNTER → 2018-11-27 09:57 | Outpatient (CLI) | payer MEDICARE, OTHER, SELFPAY ==
[2018-02-06 06:21] VITALS: BMI 24.4
[2018-11-27 11:40] LABS: Add Manual Diff / Slide Review NO; Basophils Absolute Auto 0 /uL (0-100); Basophils Percent Auto 0.5 % (0-2); Eosinophils Absolute Auto 400 /uL (0-450); Eosinophils Percent Auto 5.7 % (2-4); Hematocrit 42.8 % (36-46); Hemoglobin 14.4 g/dL (12.0-16.0); Lymphocytes Absolute Auto 1500 /uL (1100-4500); Lymphocytes Percent Auto 21.5 % (25-40); Mean Corpuscular HGB Conc 33.7 % (30-36); Mean Corpuscular Volume 91.9 fL (80-100); Monocytes Absolute Auto 400 /uL (0-900); Monocytes Percent Auto 6.2 % (3-14); Neutrophils Absolute Auto 4700 /uL (1500-7000); Neutrophils Percent Auto 66.1 % (50-75); Platelet Count 236 X10^3/uL (150-400); Red Blood Cell Count 4.66 X10^6/uL (4.0-5.2); Red Cell Distribution Width 13.4 % (11.6-14.8); White Blood Cell Count 7.1 X10^3/uL (4.5-11.0)
[2018-11-27 11:59] LABS: Alanine Aminotransferase 37 IU/L (9-52); Albumin 4.3 g/dL (3.5-5.0); Albumin Globulin Ratio 1.7 (1.0-2.8); Alkaline Phosphatase 73 U/L (38-126); Aspartate Aminotransferase 26 IU/L (14-36); BUN Creatinine Ratio 14.4 (6-22); Bilirubin Total 0.8 mg/dL (0.2-1.3); Blood Urea Nitrogen 13 mg/dL (7-17); Calcium 9.9 mg/dL (8.4-10.2); Carbon Dioxide 31 mmol/L (22-32); Chloride 102 mmol/L (98-107); Cholesterol 219 mg/dL (140-199); Estimated Glomerular Filt Rate > 60.0 mL/min (>60); Globulin 2.5 g/dL (1.7-4.1); Glucose 97 mg/dL (80-110); HDL Cholesterol 48 mg/dL (40-60); HEMOLYSIS < 15 (0-50); LDL Cholesterol Calculated 143 mg/dL (<100); Potassium 4.7 mmol/L (3.4-5.1); Sodium 139 mmol/L (137-145); Total Protein 6.8 g/dL (6.3-8.2); Triglycerides 139 mg/dL (35-150)
== END ==
PROVIDERS: PCP Family Medicine; Visit Provider Family Medicine
DX: E03.9 Hypothyroidism, unspecified (principal); E78.5 Hyperlipidemia, unspecified; Z13.6 Encounter for screening for cardiovascular disorders
CPT/HCPCS: 36415; 80053; 80061; 85025

== ENCOUNTER → 2018-12-04 06:19 | Outpatient (CLI) | payer MEDICARE, OTHER, SELFPAY ==
[2018-02-06 06:21] VITALS: BMI 24.4
--- NOTE | 2018-12-04 06:20 | DI.MRI.S_ITS ---
PROCEDURE: MR KNEE LT WO CON INDICATIONS: left knee pain after fall TECHNIQUE: Noncontrast sagittal PD fast spin echo and T2 fast spin echo with fat saturation, sagittal 3-D FLASH with fat saturation; coronal T1 spin echo and PD fast spin echo with fat saturation, and axial PD fast spin echo with fat saturation through the knee. COMPARISON: [facility], CR, XR KNEE LT 3V, 10/28/2018, 8:56. FINDINGS: Image quality: There is mild motion artifact. Menisci: There is an inferior flap tear involving the body and posterior horn of the medial meniscus with slight extrusion peripherally. There is also a horizontally oriented longitudinal tear in the posterior horn involving the inferior articular surface. The lateral meniscus also demonstrates complex tearing with irregular degenerative tearing in the body involving the free edge and inferior articular surface as well as a horizontally oriented longitudinal tear in the anterior horn involving the inferior articular surface. Cruciate ligaments: The anterior and posterior cruciate ligaments appear intact. Medial structures: The medial collateral ligament appears intact with mild edema along the medial collateral ligament and medial capsule. The semimembranosus tendon insertions and meniscocapsular junction appear intact. Visualized portions of the pes anserinus tendons appear intact without associated bursal fluid collections. Lateral structures: The lateral collateral ligament, long and short heads of the biceps femoris tendon appear intact. The popliteus tendon appears intact. Iliotibial band appears normal. Anterior structures: The quadriceps and patellar tendons appear intact. Patellar alignment is normal. No femoral trochlear dysplasia or ventral trochlear prominence. No edema in the infrapatellar fat pad. Bones and cartilage: There is bone marrow edema peripherally within the medial femoral condyle and medial tibial plateau including small subchondral components. No fractures identified. There is minimal early osteophytosis. Mild cartilage thinning is demonstrated in the medial compartment with chondral fraying. In the lateral compartment, there is also mild cartilage thinning with superficial chondral fraying. In the patellofemoral compartment, there is mild chondral fraying and mild fissuring along the medial patellar facet with a small focus of subchondral edema. Joint space: There is a small joint effusion. There is a small Julien's cyst. Normal appearing synovial plicae are incidentally noted. IMPRESSION: 1. Complex tearing of the medial and lateral menisci as described. 2. Mild pulmonary edema peripherally within the medial femoral condyle and medial tibial plateau likely represent bone contusions. No discrete fracture identified. The differential includes nondisplaced avulsion or stress injuries or reactive changes. 3. Mild edema along the medial collateral ligament and medial capsule likely represent a mild sprain. 4. Small joint effusion and small Julien's cyst. 5. Mild chondral degeneration. Dictated by: Aubrey Trinh M.D. on 12/04/2018 at 10:31 Approved by: Aubrey Trinh M.D. on 12/04/2018 at 10:40
--- NOTE | 2018-12-04 06:20 | DI.MRI.S_ITS ---
PROCEDURE: MR KNEE RT WO CON INDICATIONS: pain/swelling after injury TECHNIQUE: Noncontrast sagittal PD fast spin echo and T2 fast spin echo with fat saturation, sagittal 3-D FLASH with fat saturation; coronal T1 spin echo and PD fast spin echo with fat saturation, and axial PD fast spin echo with fat saturation through the knee. COMPARISON: [facility], CR, XR KNEE RT 3V, 11/26/2018, 13:58. [facility], MR, MR KNEE LT WO CON, 12/04/2018, 6:46. FINDINGS: Image quality: There is motion artifact. Menisci: There is irregular tearing along the free edge in the body of the medial meniscus. There is also mild fraying along the free edge in the body of the lateral meniscus. The meniscal root ligaments appear intact. Cruciate ligaments: The anterior and posterior cruciate ligaments appear intact. Medial structures: The medial collateral ligament appears intact. The semimembranosus tendon insertions and meniscocapsular junction appear intact. Visualized portions of the pes anserinus tendons appear intact without associated bursal fluid collections. Lateral structures: The lateral collateral ligament, long and short heads of the biceps femoris tendon appear intact. The popliteus tendon appears intact. Iliotibial band appears normal. Anterior structures: The quadriceps and patellar tendons appear intact. Patellar alignment is normal. No femoral trochlear dysplasia or ventral trochlear prominence. No edema in the infrapatellar fat pad. Bones and cartilage: No bone marrow contusions or fractures. There is mild cartilage thinning in the medial compartment with mild chondral fraying. In the lateral compartment, there is mild cartilage thinning with superficial chondral fissuring. In the patellofemoral compartment comment there is mild cartilage thinning with contusion associated with mild subchondral edema along the median ridge of the patella. Joint space: There is physiologic knee joint fluid. No Julien's cyst. Normal appearing synovial plicae are incidentally noted. IMPRESSION: 1. Tearing of the medial and lateral menisci as described. 2. Mild cartilage degeneration most prominent in the patellofemoral compartment. Dictated by: Aubrey Trinh M.D. on 12/04/2018 at 10:59 Approved by: Aubrey Trinh M.D. on 12/04/2018 at 11:17
== END ==
PROVIDERS: PCP Family Medicine; Visit Provider Family Medicine
DX: S89.91XA Unspecified injury of right lower leg, initial encounter (principal); S89.92XA Unspecified injury of left lower leg, initial encounter; M25.562 Pain in left knee; S83.272A Complex tear of lateral meniscus, current injury, left knee, initial encounter; S83.232A Complex tear of medial meniscus, current injury, left knee, initial encounter; S83.241A Other tear of medial meniscus, current injury, right knee, initial encounter; S83.281A Other tear of lateral meniscus, current injury, right knee, initial encounter; M25.462 Effusion, left knee; M71.22 Synovial cyst of popliteal space [Baker], left knee; W19.XXXA Unspecified fall, initial encounter
CPT/HCPCS: 73721

== ENCOUNTER → 2019-01-01 09:13 | Outpatient (CLI) | payer MEDICARE, OTHER, SELFPAY ==
[2018-02-06 06:21] VITALS: BMI 24.4
--- NOTE | 2019-01-01 09:18 | DI.RAD.S_ITS ---
PROCEDURE: XR WRIST RT MIN 3V INDICATIONS: right wrist pain TECHNIQUE: 4 views of the wrist were acquired. COMPARISON: None. FINDINGS: Bones: No fractures or dislocations. No suspicious bony lesions. Presumed degenerative cystic change present in the lunate. There is radiocarpal joint degeneration. Soft tissues: No suspicious soft tissue calcifications. IMPRESSION: Radiocarpal degeneration. Degenerative cystic change involving the lunate. If the patient's pain or other symptoms persist, consider further evaluation with MRI Dictated by: Josue Alba M.D. on 01/01/2019 at 16:34 Approved by: Josue Alba M.D. on 01/01/2019 at 16:38
[2019-01-01 10:12] LABS: Uric Acid 4.6 mg/dL (2.5-6.2)
== END ==
PROVIDERS: PCP Family Medicine; Visit Provider Nurse Practitioner Family
DX: M25.531 Pain in right wrist (principal); M19.031 Primary osteoarthritis, right wrist
CPT/HCPCS: 36415; 73110; 84550

== ENCOUNTER 2019-01-07 12:39 | Emergency (ER) | payer MEDICARE, OTHER, SELFPAY ==
[2018-02-06 06:21] VITALS: BMI 24.4
[2019-01-07 12:47] VITALS: PULSE 75; RESP 16; O2SAT 99; BMI 25.0
--- NOTE | 2019-01-07 14:04 | ED_ITS ---
HPI - Skin/Abscess/Foreign Bdy <Ivet AgarwalLESLIE - Last Filed: 01/07/19 21:11> General Chief complaint: Skin/Abscess/Foreign Body Stated complaint: Wasp sting on face Saturday, L face swelling and nec Time Seen by Provider: 01/07/19 13:28 Source: patient Mode of arrival: ambulatory Limitations: no limitations History of Present Illness HPI narrative: 73-year-old female complains of a wasps stinging the left side of her face 3 days ago. She states the area is red and swollen, and has slightly increased in size over the past day and a half. She denies any prior history of wasp allergies. She denies difficulty swallowing, sensation of a closing airway, swollen tongue, shortness of breath, discharge from her eyes, neck pain, chest pain, fevers, or chills. Related Data Home Medications Medication Instructions Recorded Confirmed multivitamin 1 cap PO DAILY #0 11/23/11 01/01/19 Disabled [address]ing Permit 1 dev MISCELLANEOUS DIRECTED 02/06/18 01/07/19 aspirin 81 mg chewable tablet 81 mg PO DAILY tab 01/01/19 01/07/19 hydrocodone 5 mg-acetaminophen 325 1 tab PO Q4-6H PRN 01/01/19 01/07/19 mg tablet levothyroxine [Synthroid] 25 mcg PO DAILY 01/07/19 01/07/19 Previous Rx's Medication Instructions Recorded inhalational spacing device #1 each 01/16/18 ascorbic acid (vitamin C) [Vitamin 500 mg PO DAILY #30 tab 02/08/18 C] conjugated estrogens 0.625 mg/gram 1 applictn VAGINAL .COMPLEX #30 09/30/18 vaginal cream gram acyclovir 800 mg tablet 800 mg PO DAILY PRN #20 tab 10/30/18 escitalopram 10 mg tablet 10 mg PO DAILY #90 tab 11/03/18 docusate sodium 100 mg capsule 100 mg PO DAILY #30 cap 12/30/18 polyethylene glycol 3350 17 17 gram PO DAILY #510 gram 12/30/18 gram/dose oral powder esomeprazole magnesium 40 mg 40 mg PO DAILY #30 cap 01/01/19 capsule,delayed release naproxen 500 mg tablet 500 mg PO BID #30 tab 01/01/19 Allergies Allergy/AdvReac Type Severity Reaction Status Date / Time No Known Drug Allergies Allergy Verified 01/07/19 12:47 Review of Systems <LESLIE Oscar - Last Filed: 01/07/19 21:11> Review of Systems REVIEW OF SYSTEMS: GENERAL: Denies fever or chills. HENT: Denies head trauma, throat swelling, sore throat, tongue swelling, or dysphagia. EYE: Denies double vision or vision loss. CARDIOVASCULAR: Denies syncope. MUSCULOSKELETAL: Denies weakness, or deformities. INTEGUMENTARY: Complains of swollen left side of her face due to bee sting, see HPI. NEURO: Denies numbness or tingling. PFSH <LESLIE Oscar - Last Filed: 01/07/19 21:11> Medical History Postoperative anemia due to acute blood loss (Acute) History of bronchitis (Acute) Postmenopausal (Acute) Anxiety (Chronic 1999) Chronic back pain (Chronic 1995) Chronic headaches (Chronic 1957) Constipation (Chronic) Depression (Chronic 1999) GERD (gastroesophageal reflux disease) (Chronic) Hemorrhoids (Chronic 1974) Herpes (Chronic) Hypothyroidism (Chronic) Abnormal Pap smear of cervix (Resolved 1976) Cervical cancer (Resolved 1976) Chicken pox (Resolved 1957) Colitis (Resolved 1975) Measles (Resolved 1957) Surgical History History of colonoscopy with polypectomy (Acute) Anesthesia (Resolved) History of esophagogastroduodenoscopy (EGD) (Resolved 10/24/11) History of spinal fusion (Resolved 1999) History of spinal fusion (Resolved 2012) History of spinal fusion (Resolved 2001) History of tonsillectomy (Resolved 1966) Status post appendectomy (Resolved 1956) Status post biopsy (Resolved 10/24/11) Status post colonoscopy (Resolved 10/24/11) Status post laparoscopic cholecystectomy (Resolved 2000) Status post vaginal hysterectomy (Resolved 1977) Family History Child Age: 43 Hypertension High cholesterol Father Age: 95 Colon cancer Alcoholism Osteoarthritis Mother Age: 93 Colon cancer CAD (coronary artery disease) Hypertension Hyperlipidemia Stroke Heart disease Bladder cancer Sister Age: 72 Diabetes mellitus Adenocarcinoma, lung Hyperlipidemia Sister Age: 67 Diabetes mellitus Hyperlipidemia Sister Lung cancer Nonsmoker Social History household members: spouse Smoking Status: Former smoker alcohol intake: current substance use type: does not use Family History Child Age: 43 Hypertension High cholesterol Father Age: 95 Colon cancer Alcoholism Osteoarthritis Mother Age: 93 Colon cancer CAD (coronary artery disease) Hypertension Hyperlipidemia Stroke Heart disease Bladder cancer Sister Age: 72 Diabetes mellitus Adenocarcinoma, lung Hyperlipidemia Sister Age: 67 Diabetes mellitus Hyperlipidemia Sister Lung cancer Nonsmoker Social History household members: spouse Smoking Status: Former smoker alcohol intake: current substance use type: does not use Exam <LESLIE Oscar - Last Filed: 01/07/19 21:11> Initial Vital Signs Initial Vital Signs: Vital Signs Pulse Rate 75 01/07/19 12:47 Respiratory Rate 16 01/07/19 12:47 Pulse Oximetry 99 01/07/19 12:47 PHYSICAL EXAMINATION: GENERAL: Well groomed, alert, and cooperative. Answers questions promptly and appropriately. Vital signs noted. HENT: Normocephalic, atraumatic. Oropharynx without erythema, tongue is normal size, tonsils are normal size, uvula is midline. Patient able to swallow with ease. Voice remains normal without hoarseness. An erythematous, swollen [id number] area is noted on her left she above her mandible, this area is tender to palpation. Area is indurated, and does not extend into the oral cavity. Ult rasound was used to visualize this area and there was no free fluid present, only inflammation. Neck: No lymphadenopathy. RESPIRATORY: Normal respiratory rate, trachea midline, airway patent. No st ridor, nasal flaring or accessory muscle use. Lungs are clear in all lung tellez without wheeze, stridor, or crackles. MUSCULOSKELETAL: Normal gait and coordination. Equal tone and mass bilaterally. EXTREMITIES: CMS intact. Moves all extremities. SKIN: Warm, dry, soft, appropriate color for ethnicity. Induration present, see assessment under MSK. NEURO: Alert and Oriented X 3. Good coordination. PSYCH: Appropriate affect and mood. <Cassandra Cha MD - Last Filed: 01/18/19 08:00> Initial Vital Signs Initial Vital Signs: Vital Signs Pulse Rate 75 01/07/19 12:47 Respiratory Rate 16 01/07/19 12:47 Pulse Oximetry 99 01/07/19 12:47 Course <LESLIE Oscar - Last Filed: 01/07/19 21:11> Vital Signs - 8 hr 01/07/19 14:26 Pulse Rate 57 L Respiratory Rate 16 Blood Pressure [Left Arm] 158/87 H Pulse Oximetry 99 <Cassandra Cha MD - Last Filed: 01/18/19 08:00> Vital Signs - 8 hr 01/07/19 14:26 Pulse Rate 57 L Respiratory Rate 16 Blood Pressure [Left Arm] 158/87 H Pulse Oximetry 99 MDM - Skin/Abscess/Foreign Bdy <LESLIE Oscar - Last Filed: 01/07/19 21:11> Medical Records Attestation: I reviewed the patient's medical records. Lab Data Attestation: I reviewed the patient's lab results. MDM Narrative Medical decision making narrative: I suspect this is a histamine reaction (reports of a wasp sting, swelling, pleuritis) versus cellulitis (increasing induration over the past few days, significant erythema, swelling, and increasing pain). Due to the location of the area being on her face, she was prescribed antibiotics for suspected cellulitis as well as prednisone to reduce the inflammation. Low suspicion for an abscess as no fluid pockets were seen on bedside ultrasound. Patient was instructed follow up with her primary care provider in the next few days. Strict return precautions were discussed especially if airway involvement occurred she was to return to the emergency department immediately Discharge Plan Departure Patient Disposition: Home Clinical Impression: Cellulitis Qualifiers: Site of cellulitis: face Qualified Code(s): L03.211 - Cellulitis of face Bee sting Qualifiers: Encounter type: initial encounter Injury intent: accidental or unintentional Qualified Code(s): T63.441A - Toxic effect of venom of bees, accidental (unintentional), initial encounter Discharge Date/Time: 01/07/19 14:27 Interventions: ED Discharge Assessment Last Done: 01/07/19 14:26 Instructions: DI for Cellulitis -- Adult, DI for Skin Abscess Activity Restrictions/Additional Instructions: Thank you for entrusting me with your care today. As discussed, and prescribed you antibiotic for the bee sting, please take this as directed. I have also prescribed you low dose of steroids, if you have side effects from this you can discontinue this. Please follow up with her primary care provider in the next week. Return to the emergency department if you experience chest pain, shortness of breath, swelling of her airways, or high fevers. Prescriptions: No Action multivitamin Capsule 1 cap PO DAILY Qty: 0 RF: 0 acyclovir 800 mg tablet 800 mg PO DAILY PRN (Reason: herpes ) Qty: 20 RF: 0 docusate sodium [Dulcolax Stool Softener (dss)] 100 mg capsule 100 mg PO DAILY Qty: 30 RF: 3 polyethylene glycol 3350 [Miralax] 17 gram/dose powder 17 gram PO DAILY Qty: 510 RF: 5 inhalational spacing device [Brennan Aerosol Yadkin Enhancer] spacer .ROUTE .MEDSUPPLY Qty: 1 RF: 0 Premarin 0.625 mg/gram cream 1 applictn Vaginal .COMPLEX Qty: 30 RF: 6 escitalopram oxalate 10 mg tablet 10 mg PO DAILY Qty: 90 RF: 3 aspirin 81 mg tablet,chewable 81 mg PO DAILY RF: 0 hydrocodone-acetaminophen 5-325 mg tablet 1 tab PO Q4-6H PRN (Reason: pain) RF: 0 esomeprazole magnesium 40 mg capsule,delayed release(DR/EC) 40 mg PO DAILY Qty: 30 RF: 1 naproxen 500 mg tablet 500 mg PO BID Qty: 30 RF: 0 levothyroxine [Synthroid] 25 mcg tablet 25 mcg PO DAILY RF: 0 Disabled Parking Permit 1 dev miscellaneous DIRECTED RF: 0 ascorbic acid (vitamin C) [Vitamin C] 500 mg Tablet 500 mg PO DAILY Qty: 30 RF: 0 Referrals: James Wolf MD [Primary Care Provider] -
[2019-01-07 14:26] VITALS: BP 158/87; PULSE 57; RESP 16; O2SAT 99
== END 2019-01-07 14:27 | disposition home or self-care (01) ==
PROVIDERS: Emergency Provider Nurse Practitioner; PCP Family Medicine
DX: L03.211 Cellulitis of face (principal); T63.441A Toxic effect of venom of bees, accidental (unintentional), initial encounter
CPT/HCPCS: 99282; 99283

== ENCOUNTER → 2019-03-30 08:08 | Outpatient (CLI) | payer MEDICARE, OTHER, SELFPAY ==
[2018-02-06 06:21] VITALS: BMI 24.4
--- NOTE | 2019-03-30 | DI.MRI.S_ITS ---
PROCEDURE: MR LUMBAR SPINE WO CON INDICATIONS: Low back pain. Right lateral thigh pain TECHNIQUE: Noncontrast sagittal T1 spin echo and T2 fast echo, sagittal STIR, axial T1 and T2 fast spin echo through the lumbar spine. In cases with scoliosis, additional coronal T2 fast spin echo may be performed. COMPARISON: [facility], CR, XR LUMBAR SPINE 2 OR 3 VIEWS, 04/16/2018, 15:37. [facility], MR, L-SPINE WITHOUT CONTRAST, 05/07/2016, 13:11. FINDINGS: Image quality: Partially degraded by motion artifact Alignment and Curvature: 5 lumbar type vertebral bodies are present by plain film. There is mild grade 1 retrolisthesis of T12 on L1, L1 on L2, and L2 on L3. Bone Marrow: Marrow is of normal overall signal. No acute vertebral body compression fractures. Posterior fusion of L3-L4 has been performed with paired posterior rods and pedicle screws. Interbody devices at L3-L4, L4-L5, and L5-S1 are present. There is mild reactive signal within the endplates adjacent to the L1-L2 and L2-L3 intervertebral discs. Spinal Cord: Conus medullaris terminates at the L1-L2 disc space level. Visualized cord demonstrates normal signal and size. Paraspinous Soft Tissues: No paravertebral masses. L1-L2: Mild disc height loss and desiccation. Moderate diffuse disc bulge. Mild facet and ligamentum flavum hypertrophy. Mild canal stenosis. Mild bilateral foraminal stenosis. No change. L2-L3: Mild disc height loss. Moderate disc desiccation. Moderate diffuse disc bulge. Mild facet and ligamentum flavum hypertrophy. Increased, severe canal stenosis. No change in mild subarticular foraminal stenosis bilaterally. L3-L4: Status post fusion. No significant canal, nor foraminal stenosis. L4-L5: Status post fusion. Bilateral facet hypertrophy. No significant canal stenosis. Mild bilateral foraminal stenosis. No change. L5-S1: Status post fusion. Bilateral facet hypertrophy. No significant canal stenosis. Mild bilateral foraminal stenosis. No change. IMPRESSION: 1. Multilevel degenerative disc and facet disease, as well as ligamentum flavum hypertrophy and epidural lipomatosis. 2. Postsurgical sequelae. 3. Multilevel canal stenoses, worst at L2-L3, where there is increased, severe canal stenosis. 4. Mild multilevel foraminal stenoses. Dictated by: Shyam Baker M.D. on 03/30/2019 at 16:07 Approved by: Shyam Baker M.D. on 03/30/2019 at 16:12
== END ==
PROVIDERS: PCP Family Medicine; Visit Provider Orthopaedic Surgery
DX: M54.5 Low back pain (principal); M79.651 Pain in right thigh; M51.36 Other intervertebral disc degeneration, lumbar region; M48.061 Spinal stenosis, lumbar region without neurogenic claudication; M48.07 Spinal stenosis, lumbosacral region; E88.2 Lipomatosis, not elsewhere classified; Z98.1 Arthrodesis status
CPT/HCPCS: 72148

== ENCOUNTER → 2019-04-10 11:23 | Outpatient (CLI) | payer MEDICARE, OTHER, SELFPAY ==
[2018-02-06 06:21] VITALS: BMI 24.4
--- NOTE | 2019-04-10 11:27 | DI.RAD.S_ITS ---
PROCEDURE: XR CHEST 2V INDICATIONS: Cough TECHNIQUE: 2 views of the chest were acquired. COMPARISON: [facility], CR, XR CHEST 2V, 01/16/2018, 15:17. FINDINGS: Surgical changes and devices: Surgical clips projecting over the the right upper quadrant of abdomen consistent with prior cholecystectomy. Lungs and pleura: Lungs are clear. No pleural effusions or pneumothorax. Mediastinum: Mediastinal contours are normal. Heart size is normal. Bones and chest wall: Mild multilevel degenerative changes of the thoracic spine. IMPRESSION: No acute cardiopulmonary disease. Dictated by: Cooper Waller M.D. on 04/10/2019 at 17:45 Approved by: Cooper Waller M.D. on 04/10/2019 at 17:48
[2019-04-10 12:22] LABS: Add Manual Diff / Slide Review NO; Basophils Absolute Auto 0 /uL (0-100); Basophils Percent Auto 0.6 % (0-2); Eosinophils Absolute Auto 200 /uL (0-450); Eosinophils Percent Auto 2.6 % (2-4); Hematocrit 41.1 % (36-46); Hemoglobin 14.2 g/dL (12.0-16.0); Lymphocytes Absolute Auto 1600 /uL (1100-4500); Lymphocytes Percent Auto 23.3 % (25-40); Mean Corpuscular HGB Conc 34.5 % (30-36); Mean Corpuscular Hemoglobin 31.6 PG (26-34); Mean Corpuscular Volume 91.6 fL (80-100); Monocytes Absolute Auto 500 /uL (0-900); Monocytes Percent Auto 6.8 % (3-14); Neutrophils Absolute Auto 4500 /uL (1500-7000); Neutrophils Percent Auto 66.7 % (50-75); Platelet Count 246 X10^3/uL (150-400); Red Blood Cell Count 4.49 X10^6/uL (4.0-5.2); Red Cell Distribution Width 13.2 % (11.6-14.8); White Blood Cell Count 6.8 X10^3/uL (4.5-11.0)
[2019-04-10 12:33] LABS: Alanine Aminotransferase 36 IU/L (9-52); Albumin 4.5 g/dL (3.5-5.0); Albumin Globulin Ratio 1.9 (1.0-2.8); Alkaline Phosphatase 75 U/L (38-126); Aspartate Aminotransferase 28 IU/L (14-36); BUN Creatinine Ratio 18.8 (6-22); Bilirubin Total 0.6 mg/dL (0.2-1.3); Blood Urea Nitrogen 15 mg/dL (7-17); Calcium 9.9 mg/dL (8.4-10.2); Carbon Dioxide 29 mmol/L (22-32); Chloride 102 mmol/L (98-107); Cholesterol 249 mg/dL (140-199); Estimated Glomerular Filt Rate > 60.0 mL/min (>60); Globulin 2.4 g/dL (1.7-4.1); Glucose 100 mg/dL (80-110); HDL Cholesterol 41 mg/dL (40-60); HEMOLYSIS < 15 (0-50); LDL Cholesterol Calculated 159 mg/dL (<100); Potassium 4.6 mmol/L (3.4-5.1); Sodium 139 mmol/L (137-145); Total Protein 6.9 g/dL (6.3-8.2); Triglycerides 245 mg/dL (35-150)
[2019-04-10 13:10] LABS: Thyroid Stimulating Hormone 2.88 uIU/mL (0.47-4.68)
[2019-04-14 14:40] LABS: Urea Breath Test >18YRS NOT DETECTED
== END ==
PROVIDERS: PCP Family Medicine; Visit Provider Family Medicine
DX: R05 Cough (principal); E03.9 Hypothyroidism, unspecified
CPT/HCPCS: 36415; 71046; 80053; 80061; 83013; 84443; 85025

== ENCOUNTER 2019-04-27 09:28 | Day surgery (SDC) | payer MEDICARE, OTHER, SELFPAY ==
[2018-02-06 06:21] VITALS: BMI 24.4
--- NOTE | 2019-04-27 | PATH_ITS ---
[facility] Accession Number: [id number] . 01 Material submitted: . esophagus, E-G Junction - GE JUNCTION . 01 Clinical history: . 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 02 Diagnosis: Gastroesophageal Junction, Biopsy: Squamous mucosa with no diagnostic abnormality. Intraepithelial eosinophils are not increased. A PAS stain is negative for fungal organisms. Negative for dysplasia and malignancy. MRV 04/29/2019 1326 Local . 02 Electronically signed: . Rowan Chu MD, Pathologist NPI- [id number] . 01 Gross description: . GE JUNCTION : Received in formalin are 2 fragment(s) of murray, soft tissue measuring 0.1 x 0.1 x 0.1 cm in aggregate submitted entirely in 1 cassette(s) /[facility] [place] 04/27/2019 2355 Local . 02 Microscopic: . An AB/PAS stain was performed to evaluate for fungal organisms and is negative. The control stain showed appropriate reactivity. . 02 Pathologist provided ICD-10: K59.00 . 02 CPT . 747160, 642131 Performed at: 01 [facility] [address], [place], [place] [id number] MD Aubrey Han MD Phone: [phone] Performed at: 02 [facility] [address] [place], [place] [id number] MD Rowan Chu MD Phone: [phone]
[2019-04-27 09:38] VITALS: BP 155/75; PULSE 68; RESP 16; TEMP 36.8; O2SAT 95; BMI 24.8
[2019-04-27] MEDS: SODIUM CHLORIDE 0.9% 1,000 ML 200 ML IV (09:52)
--- NOTE | 2019-04-27 10:23 | PM.HP.1 ---
History of Present Illness History of Present Illness Date Patient Seen: 04/27/19 Time Patient Seen: 10:25 Chief complaint: [id number] Narrative: Patient presents for colorectal screening. They had a prior colonoscopy 3 years ago that demonstrated three adenomatous polyps. On further history denies any recent gastrointestinal symptoms. No nausea, vomiting, abdominal pain, loss of appetite, unexplained weight loss, change in bowel habits, diarrhea, constipation, melena, hematochezia, or bright red blood per rectum. They have a history of chronic GERD for which they take Omeprazole with some breakthrough reflux. Patient History Medical History Abnormal Pap smear of cervix (Resolved 1976) Anxiety (Chronic 1999) Cervical cancer (Resolved 1976) Chicken pox (Resolved 1957) Chronic back pain (Chronic 1995) Chronic headaches (Chronic 1957) Colitis (Resolved 1975) Constipation (Chronic) Depression (Chronic 1999) GERD (gastroesophageal reflux disease) (Chronic) Hemorrhoids (Chronic 1974) Herpes (Chronic) History of bronchitis (Acute) Hypothyroidism (Chronic) Measles (Resolved 1957) Postmenopausal (Acute) Postoperative anemia due to acute blood loss (Acute) Surgical History Anesthesia (Resolved) History of colonoscopy with polypectomy (Acute) History of esophagogastroduodenoscopy (EGD) (Resolved 10/24/11) History of spinal fusion (Resolved 1999) History of spinal fusion (Resolved 2012) History of spinal fusion (Resolved 2001) History of tonsillectomy (Resolved 1966) Status post appendectomy (Resolved 1956) Status post biopsy (Resolved 10/24/11) Status post colonoscopy (Resolved 10/24/11) Status post laparoscopic cholecystectomy (Resolved 2000) Status post vaginal hysterectomy (Resolved 1977) Family & Social History Family History Child Age: 43 Hypertension High cholesterol Father Age: 95 Colon cancer Alcoholism Osteoarthritis Mother Age: 93 Colon cancer CAD (coronary artery disease) Hypertension Hyperlipidemia Stroke Heart disease Bladder cancer Sister Age: 72 Diabetes mellitus Adenocarcinoma, lung Hyperlipidemia Sister Age: 67 Diabetes mellitus Hyperlipidemia Sister Lung cancer Nonsmoker Social History: household members spouse Tobacco & Substance use: Tobacco type cigarettes Smoking Status Former smoker alcohol intake current alcohol intake frequency a few times a month Substance Use Type does not use Meds Home Medications and Allergies Home Medications Medication Instructions Recorded Confirmed Type multivitamin 1 cap PO DAILY #0 11/23/11 04/27/19 History inhalational spacing device #1 each 01/16/18 04/10/19 Rx Disabled Parking Permit 1 dev MISCELLANEOUS DIRECTED 02/06/18 04/10/19 History ascorbic acid (vitamin C) [Vitamin 500 mg PO DAILY #30 tab 02/08/18 04/27/19 Rx C] acyclovir 800 mg tablet 800 mg PO DAILY PRN #20 tab 10/30/18 04/27/19 Rx escitalopram oxalate 10 mg tablet 10 mg PO DAILY #90 tab 11/03/18 04/27/19 Rx docusate sodium 100 mg capsule 100 mg PO DAILY #30 cap 12/30/18 04/27/19 Rx polyethylene glycol 3350 17 17 gram PO DAILY #510 gram 12/30/18 04/27/19 Rx gram/dose oral powder aspirin 81 mg chewable tablet 81 mg PO DAILY tab 01/01/19 04/27/19 History hydrocodone 5 mg-acetaminophen 325 1 tab PO Q4-6H PRN 01/01/19 04/27/19 History mg tablet levothyroxine 25 mcg tablet 25 mcg PO DAILY #90 tab 02/09/19 04/27/19 Rx conjugated estrogens 0.625 mg/gram 1 applictn VAGINAL .COMPLEX #60 04/07/19 04/27/19 Rx vaginal cream gram atorvastatin 10 mg tablet 10 mg PO DAILY #90 tab 04/20/19 04/27/19 Rx Allergies Allergy/AdvReac Type Severity Reaction Status Date / Time No Known Drug Allergies Allergy Verified 04/10/19 10:53 Review of Systems Review of Systems ROS Unobtainable: All systems reviewed & are unremarkable except as noted in HPI and below Exam Vital Signs (past 8 hours): - 04/27/19 09:38 Temperature 98.3 F Pulse Rate 68 Respiratory Rate 16 Blood Pressure 155/75 H Pulse Oximetry 95 Oxygen Delivery Method Room Air Narrative Exam Narrative: General-no acute distress, well nourished HEENT-moist mucous membranes, no scleral icterus Neck-supple, no lymphadenopathy Chest- non labored respirations, clear to auscultation bilaterally Cardiac-regular rate no peripheral edema Abdomen-soft, nontender, non distended Extremities-warm, well perfused Neurological-alert and oriented, no focal deficits Assessment & Plan Assessment and plan (1) Screening for colon cancer: Current visit: Yes Status: Acute Assessment & Plan narrative: The patient requires colorectal screening and colonoscopy is recommended. In addition she has a history of significant gastroesophageal reflux for which EGD is recomended. Technical details were discussed. Risks, benefits, alternatives explained. Risks including but not limited to myocardial infarction, aspiration, bleeding, pain, missed lesion, incomplete examination, need for further radiographic studies, colonic perforation, and need for major abdominal surgery were discussed. All questions were answered to their satisfaction, and they are in agreement with this plan.
[2019-04-27] MEDS: LIDOCAINE 4% SOLN 50 ML 20 ML TOP (10:38)
[2019-04-27] MEDS: fentaNYL 250 MCG/5 ML INJ IV (10:39)
[2019-04-27] MEDS: MIDAZOLAM 5 MG/5 ML VIAL IV (10:40)
--- NOTE | 2019-04-27 10:47 | PM.OP.ENDO ---
Operative Date/Time/Diagnoses Date of procedure: 04/27/19 Time of procedure: 10:48 Pre-op diagnosis: screening colonoscopy gastroesophageal reflux Post-op diagnosis: same Procedure & Clinicians Study performed: Esophagoduodenoscopy Colonoscopy Same procedure as scheduled: Yes (yes) Indications: This is as 73-year-old female with a history 3 adenomatous polyps found on colonoscopy 3 years ago who presents for routine screening. In addition she has longstanding gastroesophageal reflux for which an EGD is being performed today. Surgeon: George Moreira Procedure Notes SCOAP/Timeout: Performed Procedure in detail: Patient placed in left lateral decubitus position. Time out was performed. Procedural sedation was administered with Versed and Fentanyl. A bite block was placed. the scope was inserted into the mouth and advanced through the esophagus and into the stomach. The pylorus was intubated and the duodenum was normal. The scope was retroflexed within the stomach and there was no hiatal hernia. No ulcers, or gastritis. The scope was withdrawn into the esophagus the Z line was seen at 40 cm from the incisions. There was no gorman's esophagitis or masses or strictures. 4 random biopsies of the Z line were taken with forceps. Stomach was desufflated and scope removed. Patient tolerated procedure well. Patient placed in left lateral decubitus position. Time out was performed. Procedural sedation was administered with Versed and Fentanyl. A rectal exam demonstrated no external hemorrhoids no internal masses. Colonoscopy scope was placed into the rectum and advanced through the colon to the cecum. The ileocecal valve was identified. The scope was then slowly withdrawn examining colon thoroughly in all directions. The colonoscopy was notable for the following 1. Diverticulosis 2. Fair quality of prep Findings: diverticulosis Specimen(s): other (Random biopsy of Z line) Complications: none Impression: Diverticulosis Post-procedure Recommendations: Colonscopy in 5 years Disposition: same day surgery
[2019-04-27] MEDS: LABETALOL 20 MG/4 ML SYRINGE IV (11:14)
[2019-04-27 11:29] VITALS: BP 113/78; PULSE 63; RESP 14; TEMP 36.2; O2SAT 92
[2019-04-27 11:34] VITALS: BP 109/73; PULSE 63; RESP 12; O2SAT 92
[2019-04-27 11:38] VITALS: BP 114/7; PULSE 65; RESP 14; O2SAT 92
[2019-04-27 11:43] VITALS: BP 113/68; PULSE 63; RESP 12; O2SAT 92
[2019-04-27 11:51] VITALS: BP 114/76; PULSE 70; RESP 20; TEMP 36.7; O2SAT 92
== END 2019-04-27 12:30 | disposition home or self-care (01) ==
PROVIDERS: PCP Family Medicine; Visit Provider Surgery
PROC: 0DJ08ZZ Inspection of Upper Intestinal Tract, Via Natural or Artificial Opening Endoscopic (ICD-10-PCS; CPT 43235; principal; 2019-04-27 11:00)
PROC: 0DJD8ZZ Inspection of Lower Intestinal Tract, Via Natural or Artificial Opening Endoscopic (ICD-10-PCS; CPT 45378; 2019-04-27 11:00)
DX: Z12.11 Encounter for screening for malignant neoplasm of colon (principal); Z86.010 Personal history of colon polyps; K21.9 Gastro-esophageal reflux disease without esophagitis; K57.30 Diverticulosis of large intestine without perforation or abscess without bleeding
CPT/HCPCS: 43239; G0105; 99152; 99153; J2250; J3010

== ENCOUNTER → 2019-06-11 08:12 | Outpatient (CLI) | payer MEDICARE, OTHER, SELFPAY ==
[2018-02-06 06:21] VITALS: BMI 24.4
--- NOTE | 2019-06-11 | DI.MG.S_ITS ---
BILATERAL DIGITAL SCREENING MAMMOGRAM 3D/2D WITH CAD: 06/11/2019 CLINICAL: Routine screening. Family history of breast cancer. Comparison is made to exams dated: 04/18/2017 mammogram, 02/07/2016 mammogram, and 12/23/2014 mammogram - [facility]. The tissue of both breasts is heterogeneously dense. This may lower the sensitivity of mammography. Current study was also evaluated with a Computer Aided Detection (CAD) system. There are benign vascular calcifications in the left breast. There is a mole marker on the right breast. There are mole markers on the left breast. A linear scar marker overlies the left breast. No significant masses, calcifications, or other findings are seen in either breast. There has been no significant interval change. IMPRESSION: There is no mammographic evidence of malignancy. A 1 year screening mammogram is recommended. This exam was interpreted at Station ID: [id number]. NOTE: For mammograms, a report in lay terms will be sent to the patient. Approximately 15% of breast malignancies will not be visualized mammographically. In the management of a palpable breast mass, a negative mammogram must not discourage biopsy of a clinically suspicious lesion. Electronically Signed By: Cooper Waller M.D. ecl/:06/11/2019 16:12:24 letter sent: Normal Exam ACR BI-RADS Category 2: Benign Finding(s) 3342F
== END ==
PROVIDERS: PCP Family Medicine; Visit Provider Family Medicine
DX: Z12.31 Encounter for screening mammogram for malignant neoplasm of breast (principal); Z80.3 Family history of malignant neoplasm of breast
CPT/HCPCS: 77063; 77067

== ENCOUNTER → 2019-08-24 09:30 | Outpatient (CLI) | payer MEDICARE, OTHER, SELFPAY ==
[2019-07-20 10:09] VITALS: BMI 24.4
[2019-08-24 10:39] LABS: Cholesterol 164 mg/dL (140-199); HDL Cholesterol 45 mg/dL (40-60); LDL Cholesterol Calculated 95 mg/dL (<100); Triglycerides 119 mg/dL (35-150)
== END ==
PROVIDERS: PCP Family Medicine; Referring Provider Family Medicine; Visit Provider Family Medicine
DX: E78.5 Hyperlipidemia, unspecified (principal)
CPT/HCPCS: 36415; 80061

== ENCOUNTER → 2020-03-01 11:42 | Outpatient (CLI) | payer MEDICARE, OTHER, SELFPAY ==
[2019-07-20 10:09] VITALS: BMI 24.4
--- NOTE | 2020-03-01 11:44 | DI.RAD.S_ITS ---
PROCEDURE: XR SHOULDER LT MIN 2V INDICATIONS: left shoulder pain TECHNIQUE: 3 views of the shoulder were acquired. COMPARISON: None. FINDINGS: Bones: No acute fractures or dislocations. No suspicious bony lesions. Visualized ribs appear intact. Soft tissues: No suspicious soft tissue calcifications. IMPRESSION: No acute osseous abnormality. If the symptoms persist with conservative management, consider cross sectional imaging such as CT or MRI for further assessment. Dictated by: Robert Pinon M.D. on 03/01/2020 at 13:52 Approved by: Robert Pinon M.D. on 03/01/2020 at 13:52
[2020-03-01 12:18] LABS: Add Manual Diff / Slide Review NO; Basophils Absolute Auto 0 /uL (0-100); Basophils Percent Auto 0.6 % (0-2); Eosinophils Absolute Auto 200 /uL (0-450); Eosinophils Percent Auto 2.8 % (2-4); Hematocrit 41.2 % (36-46); Hemoglobin 14.2 g/dL (12.0-16.0); Lymphocytes Absolute Auto 1600 /uL (1100-4500); Lymphocytes Percent Auto 19.7 % (25-40); Mean Corpuscular HGB Conc 34.4 % (30-36); Monocytes Absolute Auto 500 /uL (0-900); Monocytes Percent Auto 6.2 % (3-14); Neutrophils Absolute Auto 5800 /uL (1500-7000); Neutrophils Percent Auto 70.7 % (50-75); Platelet Count 223 X10^3/uL (150-400); Red Blood Cell Count 4.43 X10^6/uL (4.0-5.2); Red Cell Distribution Width 12.8 % (11.6-14.8); White Blood Cell Count 8.3 X10^3/uL (4.5-11.0)
[2020-03-01 12:22] LABS: Prothrombin Time 11.8 SECONDS (10.1-12.7)
[2020-03-01 12:49] LABS: Alanine Aminotransferase 32 IU/L (<35); Albumin 4.2 g/dL (3.5-5.0); Albumin Globulin Ratio 1.8 (1.0-2.8); Alkaline Phosphatase 67 U/L (38-126); Aspartate Aminotransferase 28 IU/L (14-36); BUN Creatinine Ratio 16.5 (6-22); Bilirubin Total 0.7 mg/dL (0.2-1.3); Blood Urea Nitrogen 14 mg/dL (7-17); Calcium 9.5 mg/dL (8.4-10.2); Carbon Dioxide 24 mmol/L (22-32); Chloride 106 mmol/L (98-107); Estimated Glomerular Filt Rate > 60.0 mL/min (>60); Globulin 2.3 g/dL (1.7-4.1); Glucose 100 mg/dL (80-110); HEMOLYSIS < 15 (0-50); Potassium 4.1 mmol/L (3.4-5.1); Sodium 138 mmol/L (137-145); Total Protein 6.5 g/dL (6.3-8.2)
== END ==
PROVIDERS: PCP Family Medicine; Referring Provider Registered Nurse; Visit Provider Registered Nurse
DX: M25.512 Pain in left shoulder (principal); R23.8 Other skin changes
CPT/HCPCS: 36415; 73030; 80053; 85025; 85610

== ENCOUNTER → 2020-03-10 08:25 | Outpatient (CLI) | payer MEDICARE, OTHER, SELFPAY ==
[2019-07-20 10:09] VITALS: BMI 24.4
--- NOTE | 2020-03-10 | DI.RAD.S_ITS ---
PROCEDURE: XR HIP W PEL IF DONE LT 2V INDICATIONS: lt hip pain TECHNIQUE: AP pelvis with lateral view(s) of the left hip(s). COMPARISON: [facility], CR, XR HIP W PEL IF DONE RT 2V, 11/26/2018, 13:58. [facility], CR, XR HIP W PEL IF DONE RT 2V, 02/09/2018, 20:14. FINDINGS: Bones: Right hip total arthroplasty is unchanged in appearance. No fractures or dislocations. Mild joint space narrowing of the left hip. No avascular necrosis of the left femoral head. Pelvic ring appears intact. No suspicious bony lesions. Lumbar spine hardware partially visualized Soft tissues: The visualized bowel gas pattern is normal. No suspicious soft tissue calcifications. IMPRESSION: Mild left hip DJD. Stable right total hip arthroplasty. Dictated by: Tino Dillard M.D. on 03/10/2020 at 9:07 Approved by: Tino Dillard M.D. on 03/10/2020 at 9:09
--- NOTE | 2020-03-10 08:38 | DI.RAD.S_ITS ---
PROCEDURE: XR HUMERUS LT 2V INDICATIONS: left arm pain TECHNIQUE: 2 views of the humerus were acquired. COMPARISON: [facility], CR, XR SHOULDER LT MIN 2V, 03/01/2020, 12:14. FINDINGS: Bones: No fractures or dislocations. No periosteal reaction. No suspicious bony lesions. Mild degenerative change appreciated at the left shoulder. Soft tissues: No suspicious soft tissue calcifications. IMPRESSION: No fracture or dislocation of the left humerus. Dictated by: Tino Dillard M.D. on 03/10/2020 at 9:10 Approved by: Tino Dillard M.D. on 03/10/2020 at 9:11
== END ==
PROVIDERS: PCP Family Medicine; Referring Provider Registered Nurse; Visit Provider Registered Nurse
DX: M79.602 Pain in left arm (principal); M25.552 Pain in left hip; M16.12 Unilateral primary osteoarthritis, left hip; Z96.641 Presence of right artificial hip joint
CPT/HCPCS: 73060; 73502

== ENCOUNTER → 2020-03-17 12:26 | Outpatient (CLI) | payer MEDICARE, OTHER, SELFPAY ==
[2019-07-20 10:09] VITALS: BMI 24.4
--- NOTE | 2020-03-17 12:28 | DI.US.S_ITS ---
PROCEDURE: US EXTREMITY NONVASC LOWER LT INDICATIONS: left gluteal pain near femur area TECHNIQUE: Real-time scanning was performed of the area of clinical concern involving the left buttock, with image documentation. Color Doppler was also utilized. COMPARISON: [facility], CR, XR HIP W PEL IF DONE LT 2V, 03/10/2020, 7:50. [facility], CT, ABDOMEN/PELVIS WITH CONTRAST, 04/27/2016, 8:49. FINDINGS: Scanning is performed at the area of clinical concern. The palpable lesion corresponding to the left buttock is seen as a poorly defined hyperechoic mildly hypervascular mass seen. No drainable fluid collection can be seen. IMPRESSION: There is a poorly defined, hypervascular hyperechoic lesion seen at the site of the palpable abnormality involving the left buttock. Please consider a dedicated CT of the pelvis with IV contrast through the area. No drainable abscess can be seen. Dictated by: Amos Khan M.D. on 03/17/2020 at 14:05 Approved by: Amos Khan M.D. on 03/17/2020 at 14:06
== END ==
PROVIDERS: PCP Family Medicine; Referring Provider Registered Nurse; Visit Provider Registered Nurse
DX: M79.605 Pain in left leg (principal); R22.2 Localized swelling, mass and lump, trunk
CPT/HCPCS: 76882

== ENCOUNTER 2020-03-24 11:15 | Outpatient (RCR) | payer MEDICARE, OTHER, SELFPAY ==
[2018-02-06 06:21] VITALS: BMI 24.4
--- NOTE | 2019-07-01 14:53 | PT.OIE ---
Current Diagnoses Slow transit constipation (07/01/19) Muscle weakness (generalized) (07/01/19) Stress incontinence (female) (male) (07/01/19) Pelvic muscle wasting (07/01/19) Past Medical History (Last Reviewed 04/27/19 @ 10:40 by George Moreira MD) Abnormal Pap smear of cervix (Resolved 1976) Anxiety (Chronic 1999) Cervical cancer (Resolved 1976) Chicken pox (Resolved 1957) Chronic back pain (Chronic 1995) Chronic headaches (Chronic 1957) Colitis (Resolved 1975) Constipation (Chronic) Depression (Chronic 1999) GERD (gastroesophageal reflux disease) (Chronic) Hemorrhoids (Chronic 1974) Herpes (Chronic) History of bronchitis (Acute) Hypothyroidism (Chronic) Measles (Resolved 1957) Postmenopausal (Acute) Postoperative anemia due to acute blood loss (Acute) Past Surgical History (Last Reviewed 04/27/19 @ 10:40 by George Moreira MD) Anesthesia (Resolved) History of colonoscopy with polypectomy (Acute) History of esophagogastroduodenoscopy (EGD) (Resolved 10/24/11) History of spinal fusion (Resolved 1999) History of spinal fusion (Resolved 2012) History of spinal fusion (Resolved 2001) History of tonsillectomy (Resolved 1966) Status post appendectomy (Resolved 1956) Status post biopsy (Resolved 10/24/11) Status post colonoscopy (Resolved 10/24/11) Status post laparoscopic cholecystectomy (Resolved 2000) Status post vaginal hysterectomy (Resolved 1977) Visit Care Team Role Provider Type James Wolf MD Primary Care Provider Physician Specialty: Family Practice Address: [address] [place] [id number] Email: [email or web address] Rosette Xiong MD Attending Provider Physician Specialty: GEODETIC TECHNICIAN Address: [address] [place] [address], [address] Email: [email or web address] Physical Therapy Initial Evaluation PT-OP-A Visit Information Start: 07/01/19 09:27 Freq: Status: Active Protocol: Document 07/01/19 11:15 [facility] (Rec: 07/01/19 11:39 [facility] [id number]) Out-Patient Physical Therapy Visit Information Visit Information Visit Type Initial Evaluation Visit Start Time 11:15 Visit Stop Time 12:00 Total Visit Minutes 45 Visit Number 1 Evaluation Information Evaluation Date 07/01/19 PT-OP-B Current Condition Start: 07/01/19 09:27 Freq: Status: Active Protocol: Document 07/01/19 11:15 [facility] (Rec: 07/01/19 11:39 [facility] [id number]) Current Condition History of Current Condition Onset Date newer onset 3 months ago Current Complaints leakage with coughing, walking 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 She has to wear a pad when she walks as it will just leak out. She has been trying to walk every morning. She feels overall tired. 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 History of three back surgeries. Just had a injection in her back this past week and it is helping. Also complains of bilateral knee menisus pain. Doesn't drink a lot of water due to having to void. She drinks 2 8 oz cups of water per day and 1 8oz coffee in am. Wears a pad daily and changes it twice per day. Sometimes she only wears one if near a bathroom Usually only leaks in a standing positions. Hx of 2 vaginal deliveries. Hx of hysterectomy in 1988 without ovaries removed. Has had 3 episodes of intensive bowel spasm/pain. Goes to the bathroom to void on average 4 times per day. Wakes up 1-2 times per night to void. Easy to initiate the stream of urine. Bowel movements can be up to 5 days apart. Since she had her son she has been having difficulty with bowel movements but recently this difficulty has increased. Prior Treatments and Tests was put on premerain due to vaginal dryness and itching. Has been on the premerin for one month now. It has helped with the vaginal dryness but the the itching is still present Treatment Goals Patient/Caregiver Goals To eliminate urinary incontinence and improve strength. The patient would also like to decrease urinary freuqncy and urgency Prior Functional Status Baseline Function- ADL's Independent Baseline Function- Mobility Independent Current Functional Impairments (Reported) Functional Limitations- Other limitation with walking distance for exercise due to leakage PT-OP-I Pelvic Floor Start: 07/01/19 09:27 Freq: Status: Active Protocol: Document 07/01/19 11:15 [facility] (Rec: 07/05/19 14:30 [facility] [email or web address]) Pelvic Floor Assessment Urine Pelvic Floor Surgery No Urinary Symptoms Urge Sensation,Incomplete Emptying Leakage Size Large Leakage Cause Exercise Other Leakage Causes walking Pads Used In 24 Hours 2 Urine Pad Type Maxi Pad Pelvic Clock Pelvic Clock 12-3 Atrophy Pelvic Clock 3-6 Atrophy Pelvic Clock 6-9 Atrophy Pelvic Clock 9-12 Atrophy Contraction Ability Voluntary Contraction Weak Voluntary Relaxation Weak Manual Muscle Testing Left 3 Manual Muscle Testing Right 3 Manual Muscle Testing Anterior 2 Manual Muscle Testing Posterior 3 Muscle Endurance (Seconds) 5 PT-OP-M Strength Start: 07/01/19 09:27 Freq: Status: Active Protocol: Document 07/01/19 11:15 [facility] (Rec: 07/05/19 14:47 [facility] [id number]) Hip Strength Hip Manual Muscle Testing Left Abduction 3+ Fair+ External Rotation 3+ Fair+ Right Extension (S1) 3 Fair Abduction 3 Fair Comments hx of R ARIK 1 year ago PT-OP-Q Treatments Start: 07/01/19 09:27 Freq: Status: Active Protocol: Document 07/01/19 11:15 [facility] (Rec: 07/05/19 14:30 [facility] [email or web address]) Therapeutic Exercises Supine Exercises 1 Supine Exercise Name pelvic floor long holds Side bilateral Reps/Minutes hold x 10 seconds and repeat 10 xms Self-Care/Home Management Treatment Education Patient Education Home Exercise Program Other Education ILU self massage for the colon to help stimulate bowel movements PT-OP-T Assessment and Plan Start: 07/01/19 09:27 Freq: Status: Active Protocol: Document 07/01/19 11:15 [facility] (Rec: 07/05/19 14:30 [facility] [id number]) Physical Therapy Assessment Rehab Potential Rehabilitation Potential Excellent Evaluation Complexity Number of Personal Factors/Comorbidities 0 Number of Body Systems Impaired 1-2 Clinical Presentation at Evaluation Stable Impairments Impairments Activity Tolerance,Functional Activities,Pain,Strength,Tone Other Impairments hip pain and weakness Goals Four Impairment chronic constipation with up to 5 days between bowel movements Short Term Goal (STG) Charlene is educated in the ILU self massage for her bowels and is educated on the relationship between the bowels and bladder and how a full colon/constipation can irritate the bladder making incontinence worse STG Duration 5 weeks Three Impairment lateral hip weakness and hx of right ARIK Short Term Goal (STG) Charlene is educated on hip strengthening exercises to help improve pelvic stabilty. STG Duration 4 weeks Long-Term Goal (LTG) Improve hip abduction and ER to 4/5 or better B LTG Duration 8 weeks Two Impairment Decreased endurance of the pelvic floor Short Term Goal (STG) Charlene is able to sustain a contraction in supine x 10 seconds STG Duration 5 weeks Book Binder Goal (LTG) Charlene is able to sustain a pelvic floor contraction in a standing position for 10 seconds LTG Duration 8 weeks One Impairment urinary stress incontinence Long-Term Goal (LTG) Charlene is able to improve strength of her pelvic floor enabling her to go for her walk without leaking. LTG Duration 8 weeks Assessment Summary Assessment Charlene presents to physcial therapy today with signs and symptoms consistent with urinary stress incontinence. This is a newer onset in the past 3 months. 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 She has a history of a right ARIK one year ago, hysterectomy, and 3 lumbar back surgeries. She also has a history of chronic constipation and reports she will go up to 5 days between bowel movements. She does report having 3 episodes lately of intense bowel spasms /pain. She reports doing PT for her hip but has not continued with the exercises since then. Charlene is trying to walk but reports that she will have constant leakage with walking now. She notes that she will need to change her pad at least 2 times per day. With examination today Charlene is able to contract all parts of her levator ani with 3/5 MMT. She has limited endurance. She also presents with decreased strength of the gluteus medius and hip ER. She is a good candidate for PT Physical Therapy Plan Frequency and Duration Frequency of Treatment 1x/Week Duration of Treatment 8 Plan of Care Start Date 07/01/19 Plan of Care End Date 08/26/19 Therapeutic Interventions Therapeutic Interventions Home Exercise Program,Manual Therapy,Neuromuscular Re- education,Patient/Caregiver Education,Self-Care/Home Management,Soft Tissue Mobilization,Therapeutic Exercises Next Visit Focus/Plan Next Note Type Treatment Note Next Visit Plan Review ILU abdominal massage, EMG biofeedback for pelvic floor strengthening and endurance training.
--- NOTE | 2019-07-01 14:54 | PT.OPPOC ---
Physical, Occupational & Speech Therapy At [facility] Current Diagnoses Slow transit constipation (07/01/19) Muscle weakness (generalized) (07/01/19) Stress incontinence (female) (male) (07/01/19) Pelvic muscle wasting (07/01/19) Visit Care Team Role Provider Type James Wolf MD Primary Care Provider Physician Specialty: Family Practice Address: [address] [place] [address], [id number] Email: [email or web address] Rosette Xiong MD Attending Provider Physician Specialty: TELECOMMUNICATIONS SPECIALIST Address: [address] [place] [address], [address] Email: [email or web address] Plan Of Care PT-OP-T Assessment and Plan Start: 07/01/19 09:27 Freq: Status: Active Protocol: Document 07/01/19 11:15 [facility] (Rec: 07/05/19 14:30 [facility] [email or web address]) Physical Therapy Assessment Rehab Potential Rehabilitation Potential Excellent Evaluation Complexity Number of Personal Factors/Comorbidities 0 Number of Body Systems Impaired 1-2 Clinical Presentation at Evaluation Stable Impairments Impairments Activity Tolerance,Functional Activities,Pain,Strength,Tone Other Impairments hip pain and weakness Goals Four Impairment chronic constipation with up to 5 days between bowel movements Short Term Goal (STG) Charlene is educated in the ILU self massage for her bowels and is educated on the relationship between the bowels and bladder and how a full colon/constipation can irritate the bladder making incontinence worse STG Duration 5 weeks Three Impairment lateral hip weakness and hx of right ARIK Short Term Goal (STG) Charlene is educated on hip strengthening exercises to help improve pelvic stability. STG Duration 4 weeks Steam Power Plant Operator Goal (LTG) Improve hip abduction and ER to 4/5 or better B LTG Duration 8 weeks Two Impairment Decreased endurance of the pelvic floor Short Term Goal (STG) Charlene is able to sustain a contraction in supine x 10 seconds STG Duration 5 weeks Steam Power Plant Operator Goal (LTG) Charlene is able to sustain a pelvic floor contraction in a standing position for 10 seconds LTG Duration 8 weeks One Impairment urinary stress incontinence Custodial Goal (LTG) Charlene is able to improve strength of her pelvic floor enabling her to go for her walk without leaking. LTG Duration 8 weeks Assessment Summary Assessment Charlene presents to physical therapy today with signs and symptoms consistent with urinary stress incontinence. This is a newer onset in the past 3 months. 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 She has a history of a right ARIK one year ago, hysterectomy, and 3 lumbar back surgeries. She also has a history of chronic constipation and reports she will go up to 5 days between bowel movements. She does report having 3 episodes lately of intense bowel spasms /pain. She reports doing PT for her hip but has not continued with the exercises since then. Charlene is trying to walk but reports that she will have constant leakage with walking now. She notes that she will need to change her pad at least 2 times per day. With examination today Charlene is able to contract all parts of her levator ani with 3/5 MMT. She has limited endurance. She also presents with decreased strength of the gluteus medius and hip ER. She is a good candidate for PT Physical Therapy Plan Frequency and Duration Frequency of Treatment 1x/Week Duration of Treatment 8 Plan of Care Start Date 07/01/19 Plan of Care End Date 08/26/19 Therapeutic Interventions Therapeutic Interventions Home Exercise Program,Manual Therapy,Neuromuscular Re- education,Patient/Caregiver Education,Self-Care/Home Management,Soft Tissue Mobilization,Therapeutic Exercises Next Visit Focus/Plan Next Note Type Treatment Note Next Visit Plan Review ILU abdominal massage, EMG biofeedback for pelvic floor strengthening and endurance training. Plan of Care Dates Plan of Care Start Date 07/01/19 Plan of Care End Date 08/26/19 Electronically Signed by: Margarita Ogden, PT 07/05/19 [id number] Please Sign and Return: I have reviewed this Plan of Care and certify that the skilled therapy services above are required to meet the patient?s needs. Physician Signature Date Printed Name and Credentials Clinical Instructor Signature Printed Name and Credentials
--- NOTE | 2019-07-15 10:55 | PT.OTN ---
Current Diagnoses Slow transit constipation (07/14/19) Muscle weakness (generalized) (07/14/19) Stress incontinence (female) (male) (07/14/19) Pelvic muscle wasting (07/14/19) Physical Therapy Treatment Note PT-OP-A Visit Information Start: 07/01/19 09:27 Freq: Status: Active Protocol: Document 07/14/19 13:45 [facility] (Rec: 07/14/19 13:51 [facility] [id number]) Out-Patient Physical Therapy Visit Information Visit Information Visit Type Treatment Note Visit Start Time 13:45 Visit Stop Time 14:30 Total Visit Minutes 45 Visit Number 2 PT-OP-B Current Condition Start: 07/01/19 09:27 Freq: Status: Active Protocol: Document 07/01/19 11:15 [facility] (Rec: 07/01/19 11:39 [facility] [id number]) Current Condition History of Current Condition Onset Date newer onset 3 months ago Current Complaints leakage with coughing, walking 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 She has to wear a pad when she walks as it will just leak out. She has been trying to walk every morning. She feels overall tired. 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 History of three back surgeries. Just had a injection in her back this past week and it is helping. Also complains of bilateral knee menisus pain. Doesn't drink a lot of water due to having to void. She drinks 2 8 oz cups of water per day and 1 8oz coffee in am. Wears a pad daily and changes it twice per day. Sometimes she only wears one if near a bathroom Usually only leaks in a standing positions. Hx of 2 vaginal deliveries. Hx of hysterectomy in 1988 without ovaries removed. Has had 3 episodes of intensive bowel spasm/pain. Goes to the bathroom to void on average 4 times per day. Wakes up 1-2 times per night to void. Easy to initiate the stream of urine. Bowel movements can be up to 5 days apart. Since she had her son she has been having difficulty with bowel movements but recently this difficulty has increased. Prior Treatments and Tests was put on premerain due to vaginal dryness and itching. Has been on the premerin for one month now. It has helped with the vaginal dryness but the the itching is still present Treatment Goals Patient/Caregiver Goals To eliminate urinary incontinence and improve strength. The patient would also like to decrease urinary freuqncy and urgency Prior Functional Status Baseline Function- ADL's Independent Baseline Function- Mobility Independent Current Functional Impairments (Reported) Functional Limitations- Other limitation with walking distance for exercise due to leakage PT-OP-C Subjective Start: 07/01/19 09:27 Freq: Status: Active Protocol: Document 07/14/19 13:45 [facility] (Rec: 07/14/19 13:51 [facility] [id number]) OP-PT Subjective Patient Comments Patient Comments Has been doing better and has been trying to go without a pad. Sometimes has to run to the bathroom. PT-OP-I Pelvic Floor Start: 07/01/19 09:27 Freq: Status: Active Protocol: Document 07/01/19 11:15 [facility] (Rec: 07/05/19 14:30 [facility] [email or web address]) Pelvic Floor Assessment Urine Pelvic Floor Surgery No Urinary Symptoms Urge Sensation,Incomplete Emptying Leakage Size Large Leakage Cause Exercise Other Leakage Causes walking Pads Used In 24 Hours 2 Urine Pad Type Maxi Pad Pelvic Clock Pelvic Clock 12-3 Atrophy Pelvic Clock 3-6 Atrophy Pelvic Clock 6-9 Atrophy Pelvic Clock 9-12 Atrophy Contraction Ability Voluntary Contraction Weak Voluntary Relaxation Weak Manual Muscle Testing Left 3 Manual Muscle Testing Right 3 Manual Muscle Testing Anterior 2 Manual Muscle Testing Posterior 3 Muscle Endurance (Seconds) 5 PT-OP-M Strength Start: 07/01/19 09:27 Freq: Status: Active Protocol: Document 07/01/19 11:15 [facility] (Rec: 07/05/19 14:47 [facility] [email or web address]) Hip Strength Hip Manual Muscle Testing Left Abduction 3+ Fair+ External Rotation 3+ Fair+ Right Extension (S1) 3 Fair Abduction 3 Fair Comments hx of R ARIK 1 year ago PT-OP-Q Treatments Start: 07/01/19 09:27 Freq: Status: Active Protocol: Document 07/14/19 13:45 [facility] (Rec: 07/15/19 10:55 [facility] [email or web address]) Therapeutic Exercises Supine Exercises 4 Supine Exercise Name roll outs with theraband Reps/Minutes 3 x 10 reps 3 Supine Exercise Name ball squeeze with pelvic floor activation Reps/Minutes 5 second hold x 10 reps 2 Supine Exercise Name pelvic floor quick flicks Reps/Minutes x 10 reps 2 second hold 2 second relax 1 Supine Exercise Name pelvic floor long holds Side bilateral Reps/Minutes hold x 10 seconds and repeat 10 xms Self-Care/Home Management Treatment Education Patient Education Home Exercise Program Other Education ILU massage reviewed, pt educated in urge deference technique today and given handout on bladder retraining PT-OP-T Assessment and Plan Start: 07/01/19 09:27 Freq: Status: Active Protocol: Document 07/14/19 13:45 [facility] (Rec: 07/15/19 10:55 [facility] [email or web address]) Physical Therapy Assessment Assessment Summary Assessment Average resting tone on EMG biofeedback today is 2.5 uv with average contraction of 8. 0 uv and max of 13.9 uv. PT did well with EMG biofeedback today. ILU self massage helping to stimulate bowel movements Physical Therapy Plan Frequency and Duration Frequency of Treatment 1x/Week Duration of Treatment 8 Plan of Care Start Date 07/01/19 Plan of Care End Date 08/26/19 Therapeutic Interventions Therapeutic Interventions Home Exercise Program,Manual Therapy,Neuromuscular Re- education,Patient/Caregiver Education,Self-Care/Home Management,Soft Tissue Mobilization,Therapeutic Exercises Next Visit Focus/Plan Next Note Type Treatment Note Next Visit Plan Review urge deference technique and begin training in quadruped for TA musculature, clam shells, diaphragmatic breathing
--- NOTE | 2019-07-28 17:40 | PT.OTN ---
Current Diagnoses Slow transit constipation (07/28/19) Muscle weakness (generalized) (07/28/19) Stress incontinence (female) (male) (07/28/19) Pelvic muscle wasting (07/28/19) Physical Therapy Treatment Note PT-OP-A Visit Information Start: 07/01/19 09:27 Freq: Status: Active Protocol: Document 07/28/19 17:33 [facility] (Rec: 07/28/19 17:40 [facility] [email or web address]) Out-Patient Physical Therapy Visit Information Visit Information Visit Type Treatment Note Visit Start Time 13:45 Visit Stop Time 14:30 Total Visit Minutes 45 Visit Number 3 Evaluation Information Evaluation Date 07/01/19 PT-OP-B Current Condition Start: 07/01/19 09:27 Freq: Status: Active Protocol: Document 07/01/19 11:15 [facility] (Rec: 07/01/19 11:39 [facility] [id number]) Current Condition History of Current Condition Onset Date newer onset 3 months ago Current Complaints leakage with coughing, walking 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 She has to wear a pad when she walks as it will just leak out. She has been trying to walk every morning. She feels overall tired. 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 History of three back surgeries. Just had a injection in her back this past week and it is helping. Also complains of bilateral knee menisus pain. Doesn't drink a lot of water due to having to void. She drinks 2 8 oz cups of water per day and 1 8oz coffee in am. Wears a pad daily and changes it twice per day. Sometimes she only wears one if near a bathroom Usually only leaks in a standing positions. Hx of 2 vaginal deliveries. Hx of hysterectomy in 1988 without ovaries removed. Has had 3 episodes of intensive bowel spasm/pain. Goes to the bathroom to void on average 4 times per day. Wakes up 1-2 times per night to void. Easy to initiate the stream of urine. Bowel movements can be up to 5 days apart. Since she had her son she has been having difficulty with bowel movements but recently this difficulty has increased. Prior Treatments and Tests was put on premerain due to vaginal dryness and itching. Has been on the premerin for one month now. It has helped with the vaginal dryness but the the itching is still present Treatment Goals Patient/Caregiver Goals To eliminate urinary incontinence and improve strength. The patient would also like to decrease urinary freuqncy and urgency Prior Functional Status Baseline Function- ADL's Independent Baseline Function- Mobility Independent Current Functional Impairments (Reported) Functional Limitations- Other limitation with walking distance for exercise due to leakage PT-OP-C Subjective Start: 07/01/19 09:27 Freq: Status: Active Protocol: Document 07/28/19 13:52 [facility] (Rec: 07/28/19 13:53 [facility] [email or web address]) OP-PT Subjective Patient Comments Patient Comments Pt reports roll outs were hurting her right hip, not wearing a pad during the day but has to wear a pad when walking. Changing her pad 2 times per day or 1 xm if she has no been walking Patient Reported Progress Improving PT-OP-I Pelvic Floor Start: 07/01/19 09:27 Freq: Status: Active Protocol: Document 07/01/19 11:15 [facility] (Rec: 07/05/19 14:30 [facility] [email or web address]) Pelvic Floor Assessment Urine Pelvic Floor Surgery No Urinary Symptoms Urge Sensation,Incomplete Emptying Leakage Size Large Leakage Cause Exercise Other Leakage Causes walking Pads Used In 24 Hours 2 Urine Pad Type Maxi Pad Pelvic Clock Pelvic Clock 12-3 Atrophy Pelvic Clock 3-6 Atrophy Pelvic Clock 6-9 Atrophy Pelvic Clock 9-12 Atrophy Contraction Ability Voluntary Contraction Weak Voluntary Relaxation Weak Manual Muscle Testing Left 3 Manual Muscle Testing Right 3 Manual Muscle Testing Anterior 2 Manual Muscle Testing Posterior 3 Muscle Endurance (Seconds) 5 PT-OP-M Strength Start: 07/01/19 09:27 Freq: Status: Active Protocol: Document 07/01/19 11:15 [facility] (Rec: 07/05/19 14:47 [facility] [email or web address]) Hip Strength Hip Manual Muscle Testing Left Abduction 3+ Fair+ External Rotation 3+ Fair+ Right Extension (S1) 3 Fair Abduction 3 Fair Comments hx of R ARIK 1 year ago PT-OP-Q Treatments Start: 07/01/19 09:27 Freq: Status: Active Protocol: Document 07/28/19 17:33 [facility] (Rec: 07/28/19 17:40 [facility] [email or web address]) Therapeutic Exercises Supine Exercises 5 Supine Exercise Name Supine TA facilitation 4 Supine Exercise Name roll outs Reps/Minutes 3 x 10 reps Comments took off the theraband as this was aggravating her hip 3 Supine Exercise Name ball squeeze with pelvic floor activation Reps/Minutes 5 second hold x 10 reps 2 Supine Exercise Name pelvic floor quick flicks Reps/Minutes x 10 reps 2 second hold 2 second relax 1 Supine Exercise Name pelvic floor long holds Side bilateral Reps/Minutes hold x 10 seconds and repeat 10 xms PT-OP-T Assessment and Plan Start: 07/01/19 09:27 Freq: Status: Active Protocol: Document 07/28/19 17:33 [facility] (Rec: 07/28/19 17:40 [facility] [email or web address]) Physical Therapy Assessment Assessment Summary Assessment improving pelvic floor average to 12 uv today, max contraction is now 20 uv. The patient tends to push knees together for pelvic floor contraction so worked today on trying to isolate the pelvic floor with hips slightly rolled out. Physical Therapy Plan Frequency and Duration Frequency of Treatment 1x/Week Duration of Treatment 8 Plan of Care Start Date 07/01/19 Plan of Care End Date 08/26/19 Next Visit Focus/Plan Next Note Type Treatment Note Next Visit Plan work more into diaphragmatic breathing and quadruped. We didn't start that today as pt felt sore in her right hip from the roll outs last week
--- NOTE | 2019-08-05 14:18 | PT.OTN ---
Current Diagnoses Slow transit constipation (08/05/19) Muscle weakness (generalized) (08/05/19) Stress incontinence (female) (male) (08/05/19) Pelvic muscle wasting (08/05/19) Physical Therapy Treatment Note PT-OP-A Visit Information Start: 07/01/19 09:27 Freq: Status: Active Protocol: Document 08/05/19 10:35 [facility] (Rec: 08/05/19 11:17 [facility] [id number]) Out-Patient Physical Therapy Visit Information Visit Information Visit Type Treatment Note Visit Start Time 10:30 Visit Stop Time 11:15 Total Visit Minutes 45 Visit Number 4 PT-OP-B Current Condition Start: 07/01/19 09:27 Freq: Status: Active Protocol: Document 07/01/19 11:15 [facility] (Rec: 07/01/19 11:39 [facility] [id number]) Current Condition History of Current Condition Onset Date newer onset 3 months ago Current Complaints leakage with coughing, walking 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 She has to wear a pad when she walks as it will just leak out. She has been trying to walk every morning. She feels overall tired. 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 History of three back surgeries. Just had a injection in her back this past week and it is helping. Also complains of bilateral knee menisus pain. Doesn't drink a lot of water due to having to void. She drinks 2 8 oz cups of water per day and 1 8oz coffee in am. Wears a pad daily and changes it twice per day. Sometimes she only wears one if near a bathroom Usually only leaks in a standing positions. Hx of 2 vaginal deliveries. Hx of hysterectomy in 1988 without ovaries removed. Has had 3 episodes of intensive bowel spasm/pain. Goes to the bathroom to void on average 4 times per day. Wakes up 1-2 times per night to void. Easy to initiate the stream of urine. Bowel movements can be up to 5 days apart. Since she had her son she has been having difficulty with bowel movements but recently this difficulty has increased. Prior Treatments and Tests was put on premerain due to vaginal dryness and itching. Has been on the premerin for one month now. It has helped with the vaginal dryness but the the itching is still present Treatment Goals Patient/Caregiver Goals To eliminate urinary incontinence and improve strength. The patient would also like to decrease urinary freuqncy and urgency Prior Functional Status Baseline Function- ADL's Independent Baseline Function- Mobility Independent Current Functional Impairments (Reported) Functional Limitations- Other limitation with walking distance for exercise due to leakage PT-OP-C Subjective Start: 07/01/19 09:27 Freq: Status: Active Protocol: Document 08/05/19 10:35 [facility] (Rec: 08/05/19 11:17 [facility] [id number]) OP-PT Subjective Patient Comments Patient Comments pt reports she didn't have the numbness this time this past week. Also she went without a pad for a day and didn't leak. Torie reports walking still gives her symptoms though PT-OP-I Pelvic Floor Start: 07/01/19 09:27 Freq: Status: Active Protocol: Document 07/01/19 11:15 [facility] (Rec: 07/05/19 14:30 [facility] [email or web address]) Pelvic Floor Assessment Urine Pelvic Floor Surgery No Urinary Symptoms Urge Sensation,Incomplete Emptying Leakage Size Large Leakage Cause Exercise Other Leakage Causes walking Pads Used In 24 Hours 2 Urine Pad Type Maxi Pad Pelvic Clock Pelvic Clock 12-3 Atrophy Pelvic Clock 3-6 Atrophy Pelvic Clock 6-9 Atrophy Pelvic Clock 9-12 Atrophy Contraction Ability Voluntary Contraction Weak Voluntary Relaxation Weak Manual Muscle Testing Left 3 Manual Muscle Testing Right 3 Manual Muscle Testing Anterior 2 Manual Muscle Testing Posterior 3 Muscle Endurance (Seconds) 5 PT-OP-M Strength Start: 07/01/19 09:27 Freq: Status: Active Protocol: Document 07/01/19 11:15 [facility] (Rec: 07/05/19 14:47 [facility] [email or web address]) Hip Strength Hip Manual Muscle Testing Left Abduction 3+ Fair+ External Rotation 3+ Fair+ Right Extension (S1) 3 Fair Abduction 3 Fair Comments hx of R ARIK 1 year ago PT-OP-Q Treatments Start: 07/01/19 09:27 Freq: Status: Active Protocol: Document 08/05/19 10:35 [facility] (Rec: 08/05/19 11:17 [facility] [id number]) Therapeutic Exercises Supine Exercises 6 Supine Exercise Name TA with marches Reps/Minutes x 20 5 Supine Exercise Name Supine TA facilitation 4 Supine Exercise Name roll outs Reps/Minutes 3 x 10 reps Comments took off the theraband as this was aggravating her hip 2 Supine Exercise Name pelvic floor quick flicks Reps/Minutes x 10 reps 2 second hold 2 second relax 1 Supine Exercise Name pelvic floor long holds Side bilateral Reps/Minutes hold x 10 seconds and repeat 10 xms Sidelying Exercises 1 Sidelying Exercise Name clam shells Reps/Minutes 2x 10 Other Exercises 1 Other Exercise Name quadruped TA Reps/Minutes x 10 reps Comments exhale with contraction PT-OP-T Assessment and Plan Start: 07/01/19 09:27 Freq: Status: Active Protocol: Document 08/05/19 14:15 [facility] (Rec: 08/05/19 14:18 [facility] [email or web address]) Physical Therapy Assessment Assessment Summary Assessment pt's average on EMG biofeedback increased again today to 15.8 uv average contraction. Good increase. Her his is not hurting as much so I did try adding in clam shells. She is verytight in her ITB which may be contributing to her pain. I did talk to her about some self massage with a rolling pin to help loosen some of the soft tissue tightness. Physical Therapy Plan Frequency and Duration Frequency of Treatment 1x/Week Duration of Treatment 8 Plan of Care Start Date 07/01/19 Plan of Care End Date 08/26/19 Next Visit Focus/Plan Next Note Type Treatment Note Next Visit Plan review quadruped exercises and progress lower abdominal progression. Review self massage over the right lateral thigh
--- NOTE | 2019-08-12 09:41 | PT.OTN ---
Current Diagnoses Slow transit constipation (08/11/19) Muscle weakness (generalized) (08/11/19) Stress incontinence (female) (male) (08/11/19) Pelvic muscle wasting (08/11/19) Physical Therapy Treatment Note PT-OP-A Visit Information Start: 07/01/19 09:27 Freq: Status: Active Protocol: Document 08/11/19 09:45 [facility] (Rec: 08/12/19 09:36 [facility] [email or web address]) Out-Patient Physical Therapy Visit Information Visit Information Visit Type Treatment Note Visit Start Time 09:45 Visit Stop Time 10:30 Total Visit Minutes 45 Visit Number 5 Evaluation Information Evaluation Date 07/01/19 PT-OP-B Current Condition Start: 07/01/19 09:27 Freq: Status: Active Protocol: Document 07/01/19 11:15 [facility] (Rec: 07/01/19 11:39 [facility] [id number]) Current Condition History of Current Condition Onset Date newer onset 3 months ago Current Complaints leakage with coughing, walking 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 She has to wear a pad when she walks as it will just leak out. She has been trying to walk every morning. She feels overall tired. 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 History of three back surgeries. Just had a injection in her back this past week and it is helping. Also complains of bilateral knee menisus pain. Doesn't drink a lot of water due to having to void. She drinks 2 8 oz cups of water per day and 1 8oz coffee in am. Wears a pad daily and changes it twice per day. Sometimes she only wears one if near a bathroom Usually only leaks in a standing positions. Hx of 2 vaginal deliveries. Hx of hysterectomy in 1988 without ovaries removed. Has had 3 episodes of intensive bowel spasm/pain. Goes to the bathroom to void on average 4 times per day. Wakes up 1-2 times per night to void. Easy to initiate the stream of urine. Bowel movements can be up to 5 days apart. Since she had her son she has been having difficulty with bowel movements but recently this difficulty has increased. Prior Treatments and Tests was put on premerain due to vaginal dryness and itching. Has been on the premerin for one month now. It has helped with the vaginal dryness but the the itching is still present Treatment Goals Patient/Caregiver Goals To eliminate urinary incontinence and improve strength. The patient would also like to decrease urinary freuqncy and urgency Prior Functional Status Baseline Function- ADL's Independent Baseline Function- Mobility Independent Current Functional Impairments (Reported) Functional Limitations- Other limitation with walking distance for exercise due to leakage PT-OP-C Subjective Start: 07/01/19 09:27 Freq: Status: Active Protocol: Document 08/11/19 09:52 [facility] (Rec: 08/11/19 10:30 [facility] [id number]) OP-PT Subjective Patient Comments Patient Comments felt pretty good with with walking, did use a pad. Also is not noting the numbness following her pelvic floor exercises now PT-OP-I Pelvic Floor Start: 07/01/19 09:27 Freq: Status: Active Protocol: Document 07/01/19 11:15 [facility] (Rec: 07/05/19 14:30 [facility] [email or web address]) Pelvic Floor Assessment Urine Pelvic Floor Surgery No Urinary Symptoms Urge Sensation,Incomplete Emptying Leakage Size Large Leakage Cause Exercise Other Leakage Causes walking Pads Used In 24 Hours 2 Urine Pad Type Maxi Pad Pelvic Clock Pelvic Clock 12-3 Atrophy Pelvic Clock 3-6 Atrophy Pelvic Clock 6-9 Atrophy Pelvic Clock 9-12 Atrophy Contraction Ability Voluntary Contraction Weak Voluntary Relaxation Weak Manual Muscle Testing Left 3 Manual Muscle Testing Right 3 Manual Muscle Testing Anterior 2 Manual Muscle Testing Posterior 3 Muscle Endurance (Seconds) 5 PT-OP-M Strength Start: 07/01/19 09:27 Freq: Status: Active Protocol: Document 07/01/19 11:15 [facility] (Rec: 07/05/19 14:47 [facility] [email or web address]) Hip Strength Hip Manual Muscle Testing Left Abduction 3+ Fair+ External Rotation 3+ Fair+ Right Extension (S1) 3 Fair Abduction 3 Fair Comments hx of R ARIK 1 year ago PT-OP-Q Treatments Start: 07/01/19 09:27 Freq: Status: Active Protocol: Document 08/11/19 09:45 [facility] (Rec: 08/12/19 09:36 [facility] [email or web address]) Therapeutic Exercises Supine Exercises 6 Supine Exercise Name TA with marches Reps/Minutes x 20 5 Supine Exercise Name Supine TA facilitation 4 Supine Exercise Name roll outs Reps/Minutes 3 x 10 reps Comments took off the theraband as this was aggravating her hip 3 Supine Exercise Name ball squeeze with pelvic floor activation Reps/Minutes 5 second hold x 10 reps 2 Supine Exercise Name pelvic floor quick flicks Reps/Minutes x 10 reps 2 second hold 2 second relax 1 Supine Exercise Name pelvic floor long holds Side bilateral Reps/Minutes hold x 10 seconds and repeat 10 xms Sidelying Exercises 1 Sidelying Exercise Name clam shells Reps/Minutes 2x 10 Other Exercises 1 Other Exercise Name quadruped TA Reps/Minutes x 10 reps Comments exhale with contraction Manual Therapy Treatment Manual Techniques 1 Type STM on the right lateral ITB with rollar stick Body Position Sidelying Reps/Duration 5 min Comments pt was educated on how to do self massage over her ITB with the rollar stick to help loosen her tight ITB PT-OP-T Assessment and Plan Start: 07/01/19 09:27 Freq: Status: Active Protocol: Document 08/11/19 09:52 [facility] (Rec: 08/11/19 10:30 [facility] [id number]) Physical Therapy Assessment Assessment Summary Assessment Average continues to improve asd her average today is 19.4 uv and max is 30.8 uv. Good increase in strength. Pt was shown how to use the self massage roller leveler operator for self massage over her ITB on her right side today. Her pain from her ITB limits her ability to do lateral hip exercise which would help her pelvic floor strength. Physical Therapy Plan Frequency and Duration Frequency of Treatment 1x/Week Duration of Treatment 8 Plan of Care Start Date 07/01/19 Plan of Care End Date 08/26/19 Next Visit Focus/Plan Next Note Type Treatment Note Next Visit Plan begin standing hip exercises next visit, continue with pelvic floor strengthening.
--- NOTE | 2019-08-19 11:44 | PT.OTN ---
Current Diagnoses Slow transit constipation (08/18/19) Muscle weakness (generalized) (08/18/19) Stress incontinence (female) (male) (08/18/19) Pelvic muscle wasting (08/18/19) Physical Therapy Treatment Note PT-OP-A Visit Information Start: 07/01/19 09:27 Freq: Status: Active Protocol: Document 08/18/19 17:53 [facility] (Rec: 08/18/19 17:54 [facility] [email or web address]) Out-Patient Physical Therapy Visit Information Visit Information Visit Type Treatment Note Visit Start Time 11:15 Visit Stop Time 12:00 Total Visit Minutes 45 Visit Number 6 PT-OP-B Current Condition Start: 07/01/19 09:27 Freq: Status: Active Protocol: Document 07/01/19 11:15 [facility] (Rec: 07/01/19 11:39 [facility] [id number]) Current Condition History of Current Condition Onset Date newer onset 3 months ago Current Complaints leakage with coughing, walking 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 She has to wear a pad when she walks as it will just leak out. She has been trying to walk every morning. She feels overall tired. 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 History of three back surgeries. Just had a injection in her back this past week and it is helping. Also complains of bilateral knee menisus pain. Doesn't drink a lot of water due to having to void. She drinks 2 8 oz cups of water per day and 1 8oz coffee in am. Wears a pad daily and changes it twice per day. Sometimes she only wears one if near a bathroom Usually only leaks in a standing positions. Hx of 2 vaginal deliveries. Hx of hysterectomy in 1988 without ovaries removed. Has had 3 episodes of intensive bowel spasm/pain. Goes to the bathroom to void on average 4 times per day. Wakes up 1-2 times per night to void. Easy to initiate the stream of urine. Bowel movements can be up to 5 days apart. Since she had her son she has been having difficulty with bowel movements but recently this difficulty has increased. Prior Treatments and Tests was put on premerain due to vaginal dryness and itching. Has been on the premerin for one month now. It has helped with the vaginal dryness but the the itching is still present Treatment Goals Patient/Caregiver Goals To eliminate urinary incontinence and improve strength. The patient would also like to decrease urinary freuqncy and urgency Prior Functional Status Baseline Function- ADL's Independent Baseline Function- Mobility Independent Current Functional Impairments (Reported) Functional Limitations- Other limitation with walking distance for exercise due to leakage PT-OP-C Subjective Start: 07/01/19 09:27 Freq: Status: Active Protocol: Document 08/18/19 17:53 [facility] (Rec: 08/18/19 17:54 [facility] [email or web address]) OP-PT Subjective Patient Comments Patient Comments pt reports she has had a cough all last week. She feels symptoms were affected by this PT-OP-I Pelvic Floor Start: 07/01/19 09:27 Freq: Status: Active Protocol: Document 08/18/19 11:15 [facility] (Rec: 08/19/19 11:40 [facility] [id number]) Pelvic Floor Assessment Urine Leakage Size Small Other Leakage Causes walking Pads Used In 24 Hours 1 Urine Pad Type Panty Liner SEMG (uV) Baseline 0 10 Second Contraction 17 Recruitment Pattern Good Holding Good SEMG Stability of Rest Good Contraction Ability Voluntary Contraction Moderate Voluntary Relaxation Moderate Manual Muscle Testing Left 3 Manual Muscle Testing Right 3 Manual Muscle Testing Anterior 3 Muscle Endurance (Seconds) 10 Comments Pelvic Floor Comments Torie is demonstrating improved strength of the pelvic floor with improved anterior pelvic floor facilitation and ability to hold 10 seconds now in supine PT-OP-M Strength Start: 07/01/19 09:27 Freq: Status: Active Protocol: Document 07/01/19 11:15 [facility] (Rec: 07/05/19 14:47 [facility] [email or web address]) Hip Strength Hip Manual Muscle Testing Left Abduction 3+ Fair+ External Rotation 3+ Fair+ Right Extension (S1) 3 Fair Abduction 3 Fair Comments hx of R ARIK 1 year ago PT-OP-Q Treatments Start: 07/01/19 09:27 Freq: Status: Active Protocol: Document 08/18/19 11:14 [facility] (Rec: 08/18/19 11:58 [facility] [id number]) Therapeutic Exercises Supine Exercises 6 Supine Exercise Name TA with marches Reps/Minutes x 20 5 Supine Exercise Name Supine TA facilitation 4 Supine Exercise Name roll outs Reps/Minutes 3 x 10 reps Comments took off the theraband as this was aggravating her hip 3 Supine Exercise Name ball squeeze with pelvic floor activation Reps/Minutes 5 second hold x 10 reps 2 Supine Exercise Name pelvic floor quick flicks Reps/Minutes x 10 reps 2 second hold 2 second relax 1 Supine Exercise Name pelvic floor long holds Side bilateral Reps/Minutes hold x 10 seconds and repeat 10 xms Sidelying Exercises 1 Sidelying Exercise Name clam shells Reps/Minutes 2x 10 Standing Exercises 2 Standing Exercise Name standing single leg stance 1 Standing Exercise Name standing squats Comments with pelvic floor activation on the way to stand Other Exercises 1 Other Exercise Name quadruped TA Reps/Minutes x 10 reps Comments exhale with contraction PT-OP-T Assessment and Plan Start: 07/01/19 09:27 Freq: Status: Active Protocol: Document 08/18/19 11:14 [facility] (Rec: 08/18/19 11:58 [facility] [id number]) Physical Therapy Assessment Progress Towards Goals Progress Towards Goals Progressing Toward Goals Progress Comments Torie is making great progress towards her goals and overall her leaking is decreased. She had a bad cough last week and she reports this set her back as she had been able to do her walk without leaking last week. Overall leakage is decreased Assessment Summary Assessment Torie is making good overall progress Today we were able to increase to standing pelvic floor contractions and Torie could tolerate both standing squats and single leg balance. Average on EMG biofeedback was slightly less today most likely due to the coughing this past week at 17 uv. This has increased greatly though on 07/14/19 her average was a 8.0 and now she is at a 17.0. Torie would benefit from continued PT Physical Therapy Plan Frequency and Duration Frequency of Treatment 1x/Week Duration of Treatment 8 Plan of Care Start Date 08/18/19 Plan of Care End Date 10/14/19 Therapeutic Interventions Therapeutic Interventions Home Exercise Program,Manual Therapy,Neuromuscular Re- education,Patient/Caregiver Education,Self-Care/Home Management,Soft Tissue Mobilization,Therapeutic Exercises Next Visit Focus/Plan Next Note Type Treatment Note Next Visit Plan continue with progressing to functional strength of the pelvic floor in upright positions.
--- NOTE | 2019-08-19 11:46 | PT.OPPOC ---
Physical, Occupational & Speech Therapy At [facility] Current Diagnoses Slow transit constipation (08/18/19) Muscle weakness (generalized) (08/18/19) Stress incontinence (female) (male) (08/18/19) Pelvic muscle wasting (08/18/19) Visit Care Team Role Provider Type James Wolf MD Primary Care Provider Physician Specialty: Family Practice Address: [address] [place] [address], [id number] Email: [email or web address] Rosette Xiong MD Attending Provider Physician Specialty: SOCIAL SCIENTIST Address: [address] [place] [address], [id number] Email: [email or web address] Plan Of Care PT-OP-T Assessment and Plan Start: 07/01/19 09:27 Freq: Status: Active Protocol: Document 08/18/19 11:14 [facility] (Rec: 08/18/19 11:58 [facility] [id number]) Physical Therapy Assessment Goals Four Impairment chronic constipation with up to 5 days between bowel movements Short Term Goal (STG) Charlene is educated in the ILU self massage for her bowels and is educated on the relationship between the bowels and bladder and how a full colon/constipation can irritate the bladder making incontinence worse GOAL MET STG Duration 5 weeks Three Impairment lateral hip weakness and hx of right ARIK Short Term Goal (STG) Charlene is educated on hip strengthening exercises to help improve pelvic stabilty. 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 Excellent progress and at times has not experienced any leaking with walking LTG Duration 8 weeks Progress Towards Goals Progress Towards Goals Progressing Toward Goals Progress Comments Torie is making great progress towards her goals and overall her leaking is decreased. She had a bad cough last week and she reports this set her back as she had been able to do her walk without leaking last week. Overall leakage is decreased Assessment Summary Assessment Torie is making good overall progress Today we were able to increase to standing pelvic floor contractions and Torie could tolerate both standing squats and single leg balance. Average on EMG biofeedback was slightly less today most likely due to the coughing this past week at 17 uv. This has increased greatly though on 07/14/19 her average was a 8.0 and now she is at a 17.0. Torie would benefit from continued PT Physical Therapy Plan Frequency and Duration Frequency of Treatment 1x/Week Duration of Treatment 8 Plan of Care Start Date 08/18/19 Plan of Care End Date 10/14/19 Therapeutic Interventions Therapeutic Interventions Home Exercise Program,Manual Therapy,Neuromuscular Re- education,Patient/Caregiver Education,Self-Care/Home Management,Soft Tissue Mobilization,Therapeutic Exercises Next Visit Focus/Plan Next Note Type Treatment Note Next Visit Plan continue with progressing to functional strength of the pelvic floor in upright positions. Plan of Care Dates Plan of Care Start Date 08/18/19 Plan of Care End Date 10/14/19 Electronically Signed by: Margarita Ogden, PT 08/19/19 [id number] Please Sign and Return: I have reviewed this Plan of Care and certify that the skilled therapy services above are required to meet the patient?s needs. Physician Signature Date Printed Name and Credentials Clinical Instructor Signature Printed Name and Credentials
--- NOTE | 2020-01-13 15:14 | PT.OTN ---
Current Diagnoses Slow transit constipation (01/12/20) Muscle weakness (generalized) (01/12/20) Stress incontinence (female) (male) (01/12/20) Pelvic muscle wasting (01/12/20) Physical Therapy Treatment Note PT-OP-A Visit Information Start: 07/01/19 09:27 Freq: Status: Active Protocol: Document 01/12/20 15:21 AMH (Rec: 01/12/20 15:44 [facility] [id number]) Out-Patient Physical Therapy Visit Information Visit Information Visit Type Progress Note Visit Start Time 15:15 Visit Stop Time 16:00 Total Visit Minutes 45 Visit Number 7 PT-OP-B Current Condition Start: 07/01/19 09:27 Freq: Status: Active Protocol: Document 07/01/19 11:15 AMH (Rec: 07/01/19 11:39 [facility] [id number]) Current Condition History of Current Condition Onset Date newer onset 3 months ago Current Complaints leakage with coughing, walking 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 She has to wear a pad when she walks as it will just leak out. She has been trying to walk every morning. She feels overall tired. 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 History of three back surgeries. Just had a injection in her back this past week and it is helping. Also complains of bilateral knee menisus pain. Doesn't drink a lot of water due to having to void. She drinks 2 8 oz cups of water per day and 1 8oz coffee in am. Wears a pad daily and changes it twice per day. Sometimes she only wears one if near a bathroom Usually only leaks in a standing positions. Hx of 2 vaginal deliveries. Hx of hysterectomy in 1988 without ovaries removed. Has had 3 episodes of intensive bowel spasm/pain. Goes to the bathroom to void on average 4 times per day. Wakes up 1-2 times per night to void. Easy to initiate the stream of urine. Bowel movements can be up to 5 days apart. Since she had her son she has been having difficulty with bowel movements but recently this difficulty has increased. Prior Treatments and Tests was put on premerain due to vaginal dryness and itching. Has been on the premerin for one month now. It has helped with the vaginal dryness but the the itching is still present Treatment Goals Patient/Caregiver Goals To eliminate urinary incontinence and improve strength. The patient would also like to decrease urinary freuqncy and urgency Prior Functional Status Baseline Function- ADL's Independent Baseline Function- Mobility Independent Current Functional Impairments (Reported) Functional Limitations- Other limitation with walking distance for exercise due to leakage PT-OP-C Subjective Start: 07/01/19 09:27 Freq: Status: Active Protocol: Document 01/12/20 15:21 AM[facility] (Rec: 01/12/20 15:44 [facility] [id number]) OP-PT Subjective Patient Comments Patient Comments Pt reports she was doing good in July but now it feels really difficult to find her muscles again, sneezing and walking she leaks PT-OP-I Pelvic Floor Start: 07/01/19 09:27 Freq: Status: Active Protocol: Document 01/12/20 15:21 AMH (Rec: 01/12/20 15:44 AM[facility] [id number]) Pelvic Floor Assessment Urine Leakage Size Small Other Leakage Causes walking Urine Pad Type Maxi Pad Comments Pelvic Floor Comments taking meli softeners. PT-OP-M Strength Start: 07/01/19 09:27 Freq: Status: Active Protocol: Document 07/01/19 11:15 AMH (Rec: 07/05/19 14:47 AMH [id number]) Hip Strength Hip Manual Muscle Testing Left Abduction 3+ Fair+ External Rotation 3+ Fair+ Right Extension (S1) 3 Fair Abduction 3 Fair Comments hx of R ARIK 1 year ago PT-OP-Q Treatments Start: 07/01/19 09:27 Freq: Status: Active Protocol: Document 01/12/20 15:21 AMH (Rec: 01/12/20 15:44 [facility] [id number]) Therapeutic Exercises Supine Exercises 7 Supine Exercise Name diaphragmatic breathing Reps/Minutes 4 count breath hold 6 Supine Exercise Name TA with marches Reps/Minutes x 20 5 Supine Exercise Name Supine TA facilitation 4 Supine Exercise Name roll outs Reps/Minutes 3 x 10 reps Comments took off the theraband as this was aggravating her hip 3 Supine Exercise Name ball squeeze with pelvic floor activation Reps/Minutes 5 second hold x 10 reps 2 Supine Exercise Name pelvic floor quick flicks Reps/Minutes x 10 reps 2 second hold 2 second relax 1 Supine Exercise Name pelvic floor long holds Side bilateral Reps/Minutes hold x 10 seconds and repeat 10 xms Sidelying Exercises 1 Sidelying Exercise Name clam shells Reps/Minutes 2x 10 Standing Exercises 2 Standing Exercise Name standing single leg stance 1 Standing Exercise Name standing squats Comments with pelvic floor activation on the way to stand Other Exercises 1 Other Exercise Name quadruped TA Reps/Minutes x 10 reps Comments exhale with contraction PT-OP-T Assessment and Plan Start: 07/01/19 09:27 Freq: Status: Active Protocol: Document 01/12/20 15:15 [facility] (Rec: 01/13/20 15:13 [facility] [id number]) Physical Therapy Assessment Goals Four Impairment chronic constipation with up to 5 days between bowel movements Short Term Goal (STG) Charlene is educated in the ILU self massage for her bowels and is educated on the relationship between the bowels and bladder and how a full colon/constipation can irritate the bladder making incontinence worse GOAL MET STG Duration 5 weeks Three Impairment lateral hip weakness and hx of right ARIK Short Term Goal (STG) Charlene is educated on hip strengthening exercises to help improve pelvic stabilty. 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 Torie was doing much better with this in but is experiencing leakage with walking at this time. She would like to be able to walk [facility] without leakage. LTG Duration 8 weeks Assessment Summary Assessment Torie returns to PT today after not being seen since Aug 18 due to Covid 19 restrictions. She reports she was doing much better in July but now she feels like it is harder to find her pelvic floor and she has increased leaking with walking. She would like to continue PT for strengthening of her pelvic floor. With EMG biofeedback today Her average resting tone is 2.5, her Average contraction is 15 and max is 32. This is Torie also reports she is not sleeping very much at night due to stress and she is waking to void. I will also work with her on bladder retraining and relaxation exercises to help with tension Physical Therapy Plan Frequency and Duration Frequency of Treatment 1x/Week Duration of Treatment 8 Plan of Care Start Date 01/12/20 Plan of Care End Date 03/08/20 Therapeutic Interventions Therapeutic Interventions Home Exercise Program,Manual Therapy,Neuromuscular Re- education,Patient/Caregiver Education,Self-Care/Home Management,Soft Tissue Mobilization,Therapeutic Exercises Next Visit Focus/Plan Next Note Type Treatment Note Next Visit Plan diaphragmatic breathing, relaxed awarness of the pelvic floor, toileting stragegies to help with fully emptying the bladder, pelvic floor strengthening
--- NOTE | 2020-01-13 15:14 | PT.OPPOC ---
Physical, Occupational & Speech Therapy At [facility] Current Diagnoses Slow transit constipation (01/12/20) Muscle weakness (generalized) (01/12/20) Stress incontinence (female) (male) (01/12/20) Pelvic muscle wasting (01/12/20) Visit Care Team Role Provider Type James Wolf MD Primary Care Provider Physician Specialty: Family Practice Address: [address] [place] [address], [id number] Email: [email or web address] Rosette Xiong MD Attending Provider Physician Specialty: CERTIFICATION OFFICER Address: [address] [place] [address], [address] Email: [email or web address] Plan Of Care PT-OP-T Assessment and Plan Start: 07/01/19 09:27 Freq: Status: Active Protocol: Document 01/12/20 15:15 AMH (Rec: 01/13/20 15:13 AMH [id number]) Physical Therapy Assessment Goals Four Impairment chronic constipation with up to 5 days between bowel movements Short Term Goal (STG) Charlene is educated in the ILU self massage for her bowels and is educated on the relationship between the bowels and bladder and how a full colon/constipation can irritate the bladder making incontinence worse GOAL MET STG Duration 5 weeks Three Impairment lateral hip weakness and hx of right ARIK Short Term Goal (STG) Charlene is educated on hip strengthening exercises to help improve pelvic stability. STG Duration 4 weeks Halfway Goal (LTG) Improve hip abduction and ER to 4/5 or better B GOOD PROGRESS, right sided hip pain limits her from resistive strengthening at times LTG Duration 8 weeks Two Impairment Decreased endurance of the pelvic floor Short Term Goal (STG) Charlene is able to sustain a contraction in supine x 10 seconds GOAL MET STG Duration 5 weeks Director Financial Services Goal (LTG) Charlene is able to sustain a pelvic floor contraction in a standing position for 10 seconds GOOD PROGRESS LTG Duration 8 weeks One Impairment urinary stress incontinence Director Financial Services Goal (LTG) Charlene is able to improve strength of her pelvic floor enabling her to go for her walk without leaking. Torie was doing much better with this in July but is experiencing leakage with walking at this time. She would like to be able to walk [facility] without leakage. LTG Duration 8 weeks Assessment Summary Assessment Torie returns to PT today after not being seen since Aug 18 due to Covid 19 restrictions. She reports she was doing much better in July but now she feels like it is harder to find her pelvic floor and she has increased leaking with walking. She would like to continue PT for strengthening of her pelvic floor. With EMG biofeedback today Her average resting tone is 2.5, her Average contraction is 15 and max is 32. This is Torie also reports she is not sleeping very much at night due to stress and she is waking to void. I will also work with her on bladder retraining and relaxation exercises to help with tension Physical Therapy Plan Frequency and Duration Frequency of Treatment 1x/Week Duration of Treatment 8 Plan of Care Start Date 01/12/20 Plan of Care End Date 03/08/20 Therapeutic Interventions Therapeutic Interventions Home Exercise Program,Manual Therapy,Neuromuscular Re- education,Patient/Caregiver Education,Self-Care/Home Management,Soft Tissue Mobilization,Therapeutic Exercises Next Visit Focus/Plan Next Note Type Treatment Note Next Visit Plan diaphragmatic breathing, relaxed awareness of the pelvic floor, toileting strategies to help with fully emptying the bladder, pelvic floor strengthening Plan of Care Dates Plan of Care Start Date 01/12/20 Plan of Care End Date 03/08/20 Electronically Signed by: Margarita Ogden, PT 01/13/20 [id number] Please Sign and Return: I have reviewed this Plan of Care and certify that the skilled therapy services above are required to meet the patient?s needs. Physician Signature Date Printed Name and Credentials Clinical Instructor Signature Printed Name and Credentials
--- NOTE | 2020-01-26 17:17 | PT.OTN ---
Current Diagnoses Slow transit constipation (01/26/20) Muscle weakness (generalized) (01/26/20) Stress incontinence (female) (male) (01/26/20) Pelvic muscle wasting (01/26/20) Physical Therapy Treatment Note PT-OP-A Visit Information Start: 07/01/19 09:27 Freq: Status: Active Protocol: Document 01/26/20 17:10 AMH (Rec: 01/26/20 17:17 AMH [email or web address]) Out-Patient Physical Therapy Visit Information Visit Information Visit Type Treatment Note Visit Start Time 15:15 Visit Stop Time 16:00 Total Visit Minutes 45 Visit Number 8 PT-OP-B Current Condition Start: 07/01/19 09:27 Freq: Status: Active Protocol: Document 07/01/19 11:15 AMH (Rec: 07/01/19 11:39 AMH [id number]) Current Condition History of Current Condition Onset Date newer onset 3 months ago Current Complaints leakage with coughing, walking 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 She has to wear a pad when she walks as it will just leak out. She has been trying to walk every morning. She feels overall tired. 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 History of three back surgeries. Just had a injection in her back this past week and it is helping. Also complains of bilateral knee menisus pain. Doesn't drink a lot of water due to having to void. She drinks 2 8 oz cups of water per day and 1 8oz coffee in am. Wears a pad daily and changes it twice per day. Sometimes she only wears one if near a bathroom Usually only leaks in a standing positions. Hx of 2 vaginal deliveries. Hx of hysterectomy in 1988 without ovaries removed. Has had 3 episodes of intensive bowel spasm/pain. Goes to the bathroom to void on average 4 times per day. Wakes up 1-2 times per night to void. Easy to initiate the stream of urine. Bowel movements can be up to 5 days apart. Since she had her son she has been having difficulty with bowel movements but recently this difficulty has increased. Prior Treatments and Tests was put on premerain due to vaginal dryness and itching. Has been on the premerin for one month now. It has helped with the vaginal dryness but the the itching is still present Treatment Goals Patient/Caregiver Goals To eliminate urinary incontinence and improve strength. The patient would also like to decrease urinary freuqncy and urgency Prior Functional Status Baseline Function- ADL's Independent Baseline Function- Mobility Independent Current Functional Impairments (Reported) Functional Limitations- Other limitation with walking distance for exercise due to leakage PT-OP-C Subjective Start: 07/01/19 09:27 Freq: Status: Active Protocol: Document 01/26/20 17:10 AMH (Rec: 01/26/20 17:17 AMH [email or web address]) OP-PT Subjective Patient Comments Patient Comments Charlene reports she hasn't had a great deal of time to work on her exercises this week as she has been dealing with a stressful situation with her mother. She notes she is not sleeping well at night PT-OP-I Pelvic Floor Start: 07/01/19 09:27 Freq: Status: Active Protocol: Document 01/12/20 15:21 AMH (Rec: 01/12/20 15:44 [facility] [id number]) Pelvic Floor Assessment Urine Leakage Size Small Other Leakage Causes walking Urine Pad Type Maxi Pad Comments Pelvic Floor Comments taking meli softeners. PT-OP-M Strength Start: 07/01/19 09:27 Freq: Status: Active Protocol: Document 07/01/19 11:15 AMH (Rec: 07/05/19 14:47 [facility] [id number]) Hip Strength Hip Manual Muscle Testing Left Abduction 3+ Fair+ External Rotation 3+ Fair+ Right Extension (S1) 3 Fair Abduction 3 Fair Comments hx of R ARIK 1 year ago PT-OP-Q Treatments Start: 07/01/19 09:27 Freq: Status: Active Protocol: Document 01/26/20 17:10 AMH (Rec: 01/26/20 17:17 AMH [email or web address]) Therapeutic Exercises Supine Exercises 8 Supine Exercise Name happy baby stretch 7 Supine Exercise Name diaphragmatic breathing Reps/Minutes 4 count breath hold 6 Supine Exercise Name TA with marches Reps/Minutes x 20 5 Supine Exercise Name Supine TA facilitation 4 Supine Exercise Name roll outs Reps/Minutes 3 x 10 reps Comments took off the theraband as this was aggravating her hip 3 Supine Exercise Name ball squeeze with pelvic floor activation Reps/Minutes 5 second hold x 10 reps 2 Supine Exercise Name pelvic floor quick flicks Reps/Minutes x 10 reps 2 second hold 2 second relax 1 Supine Exercise Name pelvic floor long holds Side bilateral Reps/Minutes hold x 10 seconds and repeat 10 xms Sidelying Exercises 1 Sidelying Exercise Name clam shells Reps/Minutes 2x 10 Other Exercises 1 Other Exercise Name quadruped TA Reps/Minutes x 10 reps Comments exhale with contraction PT-OP-T Assessment and Plan Start: 07/01/19 09:27 Freq: Status: Active Protocol: Document 01/26/20 17:10 AMH (Rec: 01/26/20 17:17 AMH [email or web address]) Physical Therapy Assessment Assessment Summary Assessment Improved resting tone of the pelvic floor today following lumbar stretches and diaphragmatic breathing Physical Therapy Plan Frequency and Duration Frequency of Treatment 1x/Week Duration of Treatment 8 Plan of Care Start Date 01/12/20 Plan of Care End Date 03/08/20 Next Visit Focus/Plan Next Note Type Treatment Note Next Visit Plan diaphragmatic breathing, relaxed awareness of the pelvic floor, toileting strategies to help with fully emptying the bladder, pelvic floor strengthening
--- NOTE | 2020-02-03 12:01 | PT.OTN ---
Current Diagnoses Slow transit constipation (02/03/20) Muscle weakness (generalized) (02/03/20) Stress incontinence (female) (male) (02/03/20) Pelvic muscle wasting (02/03/20) Physical Therapy Treatment Note PT-OP-A Visit Information Start: 07/01/19 09:27 Freq: Status: Active Protocol: Document 02/03/20 11:47 [facility] (Rec: 02/03/20 11:55 [facility] [id number]) Out-Patient Physical Therapy Visit Information Visit Information Visit Type Treatment Note Visit Start Time 11:15 Visit Stop Time 12:00 Total Visit Minutes 45 Visit Number 9 PT-OP-B Current Condition Start: 07/01/19 09:27 Freq: Status: Active Protocol: Document 07/01/19 11:15 [facility] (Rec: 07/01/19 11:39 [facility] [id number]) Current Condition History of Current Condition Onset Date newer onset 3 months ago Current Complaints leakage with coughing, walking 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 She has to wear a pad when she walks as it will just leak out. She has been trying to walk every morning. She feels overall tired. 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 History of three back surgeries. Just had a injection in her back this past week and it is helping. Also complains of bilateral knee menisus pain. Doesn't drink a lot of water due to having to void. She drinks 2 8 oz cups of water per day and 1 8oz coffee in am. Wears a pad daily and changes it twice per day. Sometimes she only wears one if near a bathroom Usually only leaks in a standing positions. Hx of 2 vaginal deliveries. Hx of hysterectomy in 1988 without ovaries removed. Has had 3 episodes of intensive bowel spasm/pain. Goes to the bathroom to void on average 4 times per day. Wakes up 1-2 times per night to void. Easy to initiate the stream of urine. Bowel movements can be up to 5 days apart. Since she had her son she has been having difficulty with bowel movements but recently this difficulty has increased. Prior Treatments and Tests was put on premerain due to vaginal dryness and itching. Has been on the premerin for one month now. It has helped with the vaginal dryness but the the itching is still present Treatment Goals Patient/Caregiver Goals To eliminate urinary incontinence and improve strength. The patient would also like to decrease urinary freuqncy and urgency Prior Functional Status Baseline Function- ADL's Independent Baseline Function- Mobility Independent Current Functional Impairments (Reported) Functional Limitations- Other limitation with walking distance for exercise due to leakage PT-OP-C Subjective Start: 07/01/19 09:27 Freq: Status: Active Protocol: Document 02/03/20 11:47 [facility] (Rec: 02/03/20 11:55 [facility] [id number]) OP-PT Subjective Patient Comments Patient Comments Pt reports this week her symptoms are doing better. She has had decreased leakage with walking. She can also feel when she leaks now where she could not feel that before PT-OP-I Pelvic Floor Start: 07/01/19 09:27 Freq: Status: Active Protocol: Document 01/12/20 15:21 AM[facility] (Rec: 01/12/20 15:44 AM[facility] [id number]) Pelvic Floor Assessment Urine Leakage Size Small Other Leakage Causes walking Urine Pad Type Maxi Pad Comments Pelvic Floor Comments taking meli softeners. PT-OP-M Strength Start: 07/01/19 09:27 Freq: Status: Active Protocol: Document 07/01/19 11:15 AM[facility] (Rec: 07/05/19 14:47 [facility] [id number]) Hip Strength Hip Manual Muscle Testing Left Abduction 3+ Fair+ External Rotation 3+ Fair+ Right Extension (S1) 3 Fair Abduction 3 Fair Comments hx of R ARIK 1 year ago PT-OP-Q Treatments Start: 07/01/19 09:27 Freq: Status: Active Protocol: Document 02/03/20 11:47 [facility] (Rec: 02/03/20 11:55 [facility] [id number]) Therapeutic Exercises Supine Exercises 8 Supine Exercise Name happy baby stretch 7 Supine Exercise Name diaphragmatic breathing Reps/Minutes 4 count breath hold 6 Supine Exercise Name TA with marches Reps/Minutes x 20 5 Supine Exercise Name Supine TA facilitation 4 Supine Exercise Name roll outs Reps/Minutes 3 x 10 reps Comments took off the theraband as this was aggravating her hip 3 Supine Exercise Name ball squeeze with pelvic floor activation Reps/Minutes 5 second hold x 10 reps 2 Supine Exercise Name pelvic floor quick flicks Reps/Minutes x 10 reps 2 second hold 2 second relax 1 Supine Exercise Name pelvic floor long holds Side bilateral Reps/Minutes hold x 10 seconds and repeat 10 xms Sidelying Exercises 1 Sidelying Exercise Name clam shells Reps/Minutes 2x 10 Other Exercises 1 Other Exercise Name quadruped TA Reps/Minutes x 10 reps Comments exhale with contraction PT-OP-T Assessment and Plan Start: 07/01/19 09:27 Freq: Status: Active Protocol: Document 02/03/20 11:47 [facility] (Rec: 02/03/20 11:55 [facility] [id number]) Physical Therapy Assessment Assessment Summary Assessment 45Improved endurance of the pelvic floor today at average of 15.2 uv and holding for 10 seconds. Stretches prior to pelvic floor contractions do help with resting tone. Her resting tone was average of 2. 8 uv today. Physical Therapy Plan Frequency and Duration Frequency of Treatment 1x/Week Duration of Treatment 8 Plan of Care Start Date 01/12/20 Plan of Care End Date 03/08/20 Next Visit Focus/Plan Next Note Type Treatment Note Next Visit Plan diaphragmatic breathing, relaxed awarness of the pelvic floor, toileting stragegies to help with fully emptying the bladder, pelvic floor strengthening
--- NOTE | 2020-03-17 13:15 | PT.OTN ---
Current Diagnoses Slow transit constipation (03/17/20) Muscle weakness (generalized) (03/17/20) Stress incontinence (female) (male) (03/17/20) Pelvic muscle wasting (03/17/20) Physical Therapy Treatment Note PT-OP-A Visit Information Start: 07/01/19 09:27 Freq: Status: Active Protocol: Document 03/17/20 11:17 AMH (Rec: 03/17/20 11:46 AMH [id number]) Out-Patient Physical Therapy Visit Information Visit Information Visit Type Progress Note Visit Start Time 11:20 Visit Stop Time 12:00 Total Visit Minutes 40 Visit Number 10 PT-OP-B Current Condition Start: 07/01/19 09:27 Freq: Status: Active Protocol: Document 07/01/19 11:15 AMH (Rec: 07/01/19 11:39 AMH [id number]) Current Condition History of Current Condition Onset Date newer onset 3 months ago Current Complaints leakage with coughing, walking 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 She has to wear a pad when she walks as it will just leak out. She has been trying to walk every morning. She feels overall tired. 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 History of three back surgeries. Just had a injection in her back this past week and it is helping. Also complains of bilateral knee menisus pain. Doesn't drink a lot of water due to having to void. She drinks 2 8 oz cups of water per day and 1 8oz coffee in am. Wears a pad daily and changes it twice per day. Sometimes she only wears one if near a bathroom Usually only leaks in a standing positions. Hx of 2 vaginal deliveries. Hx of hysterectomy in 1988 without ovaries removed. Has had 3 episodes of intensive bowel spasm/pain. Goes to the bathroom to void on average 4 times per day. Wakes up 1-2 times per night to void. Easy to initiate the stream of urine. Bowel movements can be up to 5 days apart. Since she had her son she has been having difficulty with bowel movements but recently this difficulty has increased. Prior Treatments and Tests was put on premerain due to vaginal dryness and itching. Has been on the premerin for one month now. It has helped with the vaginal dryness but the the itching is still present Treatment Goals Patient/Caregiver Goals To eliminate urinary incontinence and improve strength. The patient would also like to decrease urinary freuqncy and urgency Prior Functional Status Baseline Function- ADL's Independent Baseline Function- Mobility Independent Current Functional Impairments (Reported) Functional Limitations- Other limitation with walking distance for exercise due to leakage PT-OP-C Subjective Start: 07/01/19 09:27 Freq: Status: Active Protocol: Document 03/17/20 11:17 AMH (Rec: 03/17/20 11:46 [facility] [id number]) OP-PT Subjective Patient Comments Patient Comments Charlene reports she is doing much beter overall with decreased urinary incontinence . She reports when she walks it has been much better, just a tiny bit on her pad. She only wears a pad for walking now! PT-OP-I Pelvic Floor Start: 07/01/19 09:27 Freq: Status: Active Protocol: Document 03/17/20 13:12 AMH (Rec: 03/17/20 13:15 [facility] [id number]) Pelvic Floor Assessment Urine Leakage Size Small Other Leakage Causes small amounts of leakage with walking now Pads Used In 24 Hours 1 Urine Pad Type Maxi Pad SEMG (uV) Baseline 0 10 Second Contraction 15.1 Recruitment Pattern Good Holding Good SEMG Stability of Rest Good Contraction Ability Voluntary Contraction Moderate Voluntary Relaxation Moderate Manual Muscle Testing Left 4 Manual Muscle Testing Right 4 Manual Muscle Testing Anterior 3 Manual Muscle Testing Posterior 3 Muscle Endurance (Seconds) 10 Comments Pelvic Floor Comments Charlene has made a overall increase in her strength of her pelvic floor muscles. She has improved ability to both contract and relax her pelvic floor. PT-OP-M Strength Start: 07/01/19 09:27 Freq: Status: Active Protocol: Document 07/01/19 11:15 AMH (Rec: 07/05/19 14:47 AMH [id number]) Hip Strength Hip Manual Muscle Testing Left Abduction 3+ Fair+ External Rotation 3+ Fair+ Right Extension (S1) 3 Fair Abduction 3 Fair Comments hx of R ARIK 1 year ago PT-OP-Q Treatments Start: 07/01/19 09:27 Freq: Status: Active Protocol: Document 03/17/20 11:17 AMH (Rec: 03/17/20 11:46 [facility] [id number]) Therapeutic Exercises Supine Exercises bridges with pelvic floor activation Reps/Minutes x 10 reps 8 Supine Exercise Name happy baby stretch 7 Supine Exercise Name diaphragmatic breathing Reps/Minutes 4 count breath hold 6 Supine Exercise Name TA with marches Reps/Minutes x 20 3 Supine Exercise Name ball squeeze with pelvic floor activation Reps/Minutes 5 second hold x 10 reps 2 Supine Exercise Name pelvic floor quick flicks Reps/Minutes x 10 reps 2 second hold 2 second relax 1 Supine Exercise Name pelvic floor long holds Side bilateral Reps/Minutes hold x 10 seconds and repeat 10 xms Sidelying Exercises 1 Sidelying Exercise Name clam shells Reps/Minutes 2x 10 Other Exercises 1 Other Exercise Name quadruped TA Reps/Minutes x 10 reps Comments exhale with contraction PT-OP-T Assessment and Plan Start: 07/01/19 09:27 Freq: Status: Active Protocol: Document 03/17/20 11:17 AMH (Rec: 03/17/20 11:46 AMH [id number]) Physical Therapy Assessment Goals Four Impairment chronic constipation with up to 5 days between bowel movements Short Term Goal (STG) Charlene is educated in the ILU self massage for her bowels and is educated on the relationship between the bowels and bladder and how a full colon/constipation can irritate the bladder making incontinence worse GOAL MET STG Duration 5 weeks Three Impairment lateral hip weakness and hx of right ARIK Short Term Goal (STG) Charlene is educated on hip strengthening exercises to help improve pelvic stabilty. STG Duration 4 weeks Real Estate Instructor Goal (LTG) Improve hip abduction and ER to 4/5 or better B excellent progress, right hip is doing a lot better LTG Duration 8 weeks Two Impairment Decreased endurance of the pelvic floor Short Term Goal (STG) Cahrlene is able to sustain a contraction in supine x 10 seconds GOAL MET STG Duration 5 weeks Real Estate Instructor Goal (LTG) Charlene is able to sustain a pelvic floor contraction in a standing position for 10 seconds GOOD PROGRESS LTG Duration 8 weeks One Impairment urinary stress incontinence Real Estate Instructor Goal (LTG) Charlene is able to improve strength of her pelvic floor enabling her to go for her walk without leaking. Torie reports leakage is subsiding and she is only leaking a few drops with walking now. She is only using a pad for walkign and then takes it off. LTG Duration 8 weeks Progress Towards Goals Progress Towards Goals Progressing Toward Goals Assessment Summary Assessment Charlene is making great progress with pelvic floor PT. Her leaking is decreasing and she is down to wearing a pad only when she is walking. She notes leaking only a few drops now with walking. Her average of 15.1 uv and max of 36 uv today which is great improvement. She is able to sustain a contraction for 10 seconds and resting tone is down to 1.5 uv. Her stretches are helping her to relax her pelvic floor which is helping to improve full bladder emptying. Charlene has one visit left in PT on 03/24/20 and then she will be discharged to a [facility] Physical Therapy Plan Frequency and Duration Frequency of Treatment 1x/Week Duration of Treatment 4 Plan of Care Start Date 03/08/20 Plan of Care End Date 05/10/20 Therapeutic Interventions Therapeutic Interventions Home Exercise Program,Manual Therapy,Neuromuscular Re- education,Patient/Caregiver Education,Self-Care/Home Management,Soft Tissue Mobilization,Therapeutic Exercises Next Visit Focus/Plan Next Note Type Treatment Note Next Visit Plan review all established ther ex and stretches, review diaphragmatic breathing and relaxed awareness of the pelvic floor. This next visit will be the last scheduled visit in PT
--- NOTE | 2020-03-17 13:15 | PT.OPPOC ---
Physical, Occupational & Speech Therapy At [facility] Current Diagnoses Slow transit constipation (03/17/20) Muscle weakness (generalized) (03/17/20) Stress incontinence (female) (male) (03/17/20) Pelvic muscle wasting (03/17/20) Visit Care Team Role Provider Type James Wolf MD Primary Care Provider Physician Specialty: Family Practice Address: [address] [place] [address], [id number] Email: [email or web address] Rosette Xiong MD Attending Provider Physician Specialty: CHANGEOVER OPERATOR Address: [address] [place] [address], [id number] Email: [email or web address] Plan Of Care PT-OP-T Assessment and Plan Start: 07/01/19 09:27 Freq: Status: Active Protocol: Document 03/17/20 11:17 AMH (Rec: 03/17/20 11:46 AMH [id number]) Physical Therapy Assessment Goals Four Impairment chronic constipation with up to 5 days between bowel movements Short Term Goal (STG) Charlene is educated in the ILU self massage for her bowels and is educated on the relationship between the bowels and bladder and how a full colon/constipation can irritate the bladder making incontinence worse GOAL MET STG Duration 5 weeks Three Impairment lateral hip weakness and hx of right ARIK Short Term Goal (STG) Charlene is educated on hip strengthening exercises to help improve pelvic stability. STG Duration 4 weeks Correction Goal (LTG) Improve hip abduction and ER to 4/5 or better B excellent progress, right hip is doing a lot better and able to tolerate lateral hip stabilization exercises LTG Duration 8 weeks Two Impairment Decreased endurance of the pelvic floor Short Term Goal (STG) Charlene is able to sustain a contraction in supine x 10 seconds GOAL MET STG Duration 5 weeks Correction Goal (LTG) Charlene is able to sustain a pelvic floor contraction in a standing position for 10 seconds GOOD PROGRESS LTG Duration 8 weeks One Impairment urinary stress incontinence Solder Technician Goal (LTG) Charlene is able to improve strength of her pelvic floor enabling her to go for her walk without leaking. Torie reports leakage is subsiding and she is only leaking a few drops with walking now. She is only using a pad for walking and then takes it off. LTG Duration 8 weeks Progress Towards Goals Progress Towards Goals Progressing Toward Goals Assessment Summary Assessment Charlene is making great progress with pelvic floor PT. Her leaking is decreasing and she is down to wearing a pad only when she is walking. She notes leaking only a few drops now with walking. Her average of 15.1 uv and max of 36 uv today which is great improvement. She is able to sustain a contraction for 10 seconds and resting tone is down to 1.5 uv. Her stretches are helping her to relax her pelvic floor which is helping to improve full bladder emptying. Charlene has one visit left in PT on 03/24/20 and then she will be discharged to a [facility] Physical Therapy Plan Frequency and Duration Frequency of Treatment 1x/Week Duration of Treatment 4 Plan of Care Start Date 03/08/20 Plan of Care End Date 05/10/20 Therapeutic Interventions Therapeutic Interventions Home Exercise Program,Manual Therapy,Neuromuscular Re- education,Patient/Caregiver Education,Self-Care/Home Management,Soft Tissue Mobilization,Therapeutic Exercises Next Visit Focus/Plan Next Note Type Treatment Note Next Visit Plan review all established ther ex and stretches, review diaphragmatic breathing and relaxed awareness of the pelvic floor. This next visit will be the last scheduled visit in PT Plan of Care Dates Plan of Care Start Date 03/08/20 Plan of Care End Date 05/10/20 Electronically Signed by: Margarita Ogden, PT 03/17/20 1204 Please Sign and Return: I have reviewed this Plan of Care and certify that the skilled therapy services above are required to meet the patient?s needs. Physician Signature Date Printed Name and Credentials Clinical Instructor Signature Printed Name and Credentials
--- NOTE | 2020-03-24 13:13 | PT.OTN ---
Current Diagnoses Slow transit constipation (03/24/20) Muscle weakness (generalized) (03/24/20) Stress incontinence (female) (male) (03/24/20) Pelvic muscle wasting (03/24/20) Physical Therapy Treatment Note PT-OP-A Visit Information Start: 07/01/19 09:27 Freq: Status: Active Protocol: Document 03/24/20 13:09 [facility] (Rec: 03/24/20 13:09 [facility] [id number]) Out-Patient Physical Therapy Visit Information Visit Information Visit Type Treatment Note Visit Start Time 11:20 Visit Stop Time 12:05 Total Visit Minutes 45 Visit Number 11 Evaluation Information Evaluation Date 07/01/19 PT-OP-B Current Condition Start: 07/01/19 09:27 Freq: Status: Active Protocol: Document 07/01/19 11:15 [facility] (Rec: 07/01/19 11:39 [facility] [id number]) Current Condition History of Current Condition Onset Date newer onset 3 months ago Current Complaints leakage with coughing, walking 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 She has to wear a pad when she walks as it will just leak out. She has been trying to walk every morning. She feels overall tired. 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 History of three back surgeries. Just had a injection in her back this past week and it is helping. Also complains of bilateral knee menisus pain. Doesn't drink a lot of water due to having to void. She drinks 2 8 oz cups of water per day and 1 8oz coffee in am. Wears a pad daily and changes it twice per day. Sometimes she only wears one if near a bathroom Usually only leaks in a standing positions. Hx of 2 vaginal deliveries. Hx of hysterectomy in 1988 without ovaries removed. Has had 3 episodes of intensive bowel spasm/pain. Goes to the bathroom to void on average 4 times per day. Wakes up 1-2 times per night to void. Easy to initiate the stream of urine. Bowel movements can be up to 5 days apart. Since she had her son she has been having difficulty with bowel movements but recently this difficulty has increased. Prior Treatments and Tests was put on premerain due to vaginal dryness and itching. Has been on the premerin for one month now. It has helped with the vaginal dryness but the the itching is still present Treatment Goals Patient/Caregiver Goals To eliminate urinary incontinence and improve strength. The patient would also like to decrease urinary freuqncy and urgency Prior Functional Status Baseline Function- ADL's Independent Baseline Function- Mobility Independent Current Functional Impairments (Reported) Functional Limitations- Other limitation with walking distance for exercise due to leakage PT-OP-C Subjective Start: 07/01/19 09:27 Freq: Status: Active Protocol: Document 03/24/20 11:26 [facility] (Rec: 03/24/20 11:39 [facility] [id number]) OP-PT Subjective Patient Comments Patient Comments Had to keep a pad on this past week as she was drinking more water. She did a lot of walking on her trip to the [facility]. PT-OP-I Pelvic Floor Start: 07/01/19 09:27 Freq: Status: Active Protocol: Document 03/17/20 13:12 [facility] (Rec: 03/17/20 13:15 [facility] [id number]) Pelvic Floor Assessment Urine Leakage Size Small Other Leakage Causes small amounts of leakage with walking now Pads Used In 24 Hours 1 Urine Pad Type Maxi Pad SEMG (uV) Baseline 0 10 Second Contraction 15.1 Recruitment Pattern Good Holding Good SEMG Stability of Rest Good Contraction Ability Voluntary Contraction Moderate Voluntary Relaxation Moderate Manual Muscle Testing Left 4 Manual Muscle Testing Right 4 Manual Muscle Testing Anterior 3 Manual Muscle Testing Posterior 3 Muscle Endurance (Seconds) 10 Comments Pelvic Floor Comments Charlene has made a overall increase in her strength of her pelvic floor muscles. She has improved ability to both contract and relax her pelvic floor. PT-OP-M Strength Start: 07/01/19 09:27 Freq: Status: Active Protocol: Document 07/01/19 11:15 [facility] (Rec: 07/05/19 14:47 [facility] [email or web address]) Hip Strength Hip Manual Muscle Testing Left Abduction 3+ Fair+ External Rotation 3+ Fair+ Right Extension (S1) 3 Fair Abduction 3 Fair Comments hx of R ARIK 1 year ago PT-OP-Q Treatments Start: 07/01/19 09:27 Freq: Status: Active Protocol: Document 03/24/20 11:26 [facility] (Rec: 03/24/20 11:39 [facility] [id number]) Therapeutic Exercises Supine Exercises bridges with pelvic floor activation Reps/Minutes x 10 reps 8 Supine Exercise Name happy baby stretch 7 Supine Exercise Name diaphragmatic breathing Reps/Minutes 4 count breath hold 6 Supine Exercise Name TA with marches Reps/Minutes x 20 5 Supine Exercise Name Supine TA facilitation 4 Supine Exercise Name roll outs Reps/Minutes 3 x 10 reps Comments took off the theraband as this was aggravating her hip 3 Supine Exercise Name ball squeeze with pelvic floor activation Reps/Minutes 5 second hold x 10 reps 2 Supine Exercise Name pelvic floor quick flicks Reps/Minutes x 10 reps 2 second hold 2 second relax 1 Supine Exercise Name pelvic floor long holds Side bilateral Reps/Minutes hold x 10 seconds and repeat 10 xms Other Exercises 1 Other Exercise Name quadruped TA Reps/Minutes x 10 reps Comments exhale with contraction PT-OP-T Assessment and Plan Start: 07/01/19 09:27 Freq: Status: Active Protocol: Document 03/24/20 11:26 [facility] (Rec: 03/24/20 11:39 [facility] [id number]) Physical Therapy Assessment Assessment Summary Assessment Torie continues to do well with her HEP. She definitely does better when she is doing her exercises regularly. She would like a recheck in one month and will work on her exercises independently until then. Physical Therapy Plan Frequency and Duration Frequency of Treatment 1x/Week Duration of Treatment 4 Plan of Care Start Date 03/08/20 Plan of Care End Date 05/10/20 Therapeutic Interventions Therapeutic Interventions Home Exercise Program,Manual Therapy,Neuromuscular Re- education,Patient/Caregiver Education,Self-Care/Home Management,Soft Tissue Mobilization,Therapeutic Exercises Next Visit Focus/Plan Next Note Type Treatment Note Next Visit Plan review all established ther ex and stretches, review diaphragmatic breathing and relaxed awareness of the pelvic floor. Pt would like to recheck in one month.
--- NOTE | 2020-07-19 10:07 | PT.OPDS ---
Current Diagnoses Slow transit constipation (03/24/20) Muscle weakness (generalized) (03/24/20) Stress incontinence (female) (male) (03/24/20) Pelvic muscle wasting (03/24/20) Visit Care Team Role Provider Type James Wolf MD Primary Care Provider Physician Specialty: Family Practice Address: [address] [place] [address] Email: [email or web address] Rosette Xiong MD Attending Provider Physician Specialty: Gynecology [employer] Address: [address] [place] [address] Email: [email or web address] Visit Number Visit Number 11 Discharge Summary PT-OP-B Current Condition Start: 07/01/19 09:27 Freq: Status: Active Protocol: Document 07/01/19 11:15 [facility] (Rec: 07/01/19 11:39 [facility] [id number]) Current Condition History of Current Condition Onset Date newer onset 3 months ago Current Complaints leakage with coughing, walking 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 She has to wear a pad when she walks as it will just leak out. She has been trying to walk every morning. She feels overall tired. 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 History of three back surgeries. Just had a injection in her back this past week and it is helping. Also complains of bilateral knee menisus pain. Doesn't drink a lot of water due to having to void. She drinks 2 8 oz cups of water per day and 1 8oz coffee in am. Wears a pad daily and changes it twice per day. Sometimes she only wears one if near a bathroom Usually only leaks in a standing positions. Hx of 2 vaginal deliveries. Hx of hysterectomy in 1988 without ovaries removed. Has had 3 episodes of intensive bowel spasm/pain. Goes to the bathroom to void on average 4 times per day. Wakes up 1-2 times per night to void. Easy to initiate the stream of urine. Bowel movements can be up to 5 days apart. Since she had her son she has been having difficulty with bowel movements but recently this difficulty has increased. Prior Treatments and Tests was put on premerain due to vaginal dryness and itching. Has been on the premerin for one month now. It has helped with the vaginal dryness but the the itching is still present Treatment Goals Patient/Caregiver Goals To eliminate urinary incontinence and improve strength. The patient would also like to decrease urinary freuqncy and urgency Prior Functional Status Baseline Function- ADL's Independent Baseline Function- Mobility Independent Current Functional Impairments (Reported) Functional Limitations- Other limitation with walking distance for exercise due to leakage PT-OP-C Subjective Start: 07/01/19 09:27 Freq: Status: Active Protocol: Document 03/24/20 11:26 [facility] (Rec: 03/24/20 11:39 [facility] [id number]) OP-PT Subjective Patient Comments Patient Comments Had to keep a pad on this past week as she was drinking more water. She did a lot of walking on her trip to the [facility]. PT-OP-I Pelvic Floor Start: 07/01/19 09:27 Freq: Status: Active Protocol: Document 03/17/20 13:12 [facility] (Rec: 03/17/20 13:15 [facility] [id number]) Pelvic Floor Assessment Urine Leakage Size Small Other Leakage Causes small amounts of leakage with walking now Pads Used In 24 Hours 1 Urine Pad Type Maxi Pad SEMG (uV) Baseline 0 10 Second Contraction 15.1 Recruitment Pattern Good Holding Good SEMG Stability of Rest Good Contraction Ability Voluntary Contraction Moderate Voluntary Relaxation Moderate Manual Muscle Testing Left 4 Manual Muscle Testing Right 4 Manual Muscle Testing Anterior 3 Manual Muscle Testing Posterior 3 Muscle Endurance (Seconds) 10 Comments Pelvic Floor Comments Charlene has made a overall increase in her strength of her pelvic floor muscles. She has improved ability to both contract and relax her pelvic floor. PT-OP-M Strength Start: 07/01/19 09:27 Freq: Status: Active Protocol: Document 07/01/19 11:15 [facility] (Rec: 07/05/19 14:47 [facility] [id number]) Hip Strength Hip Manual Muscle Testing Left Abduction 3+ Fair+ External Rotation 3+ Fair+ Right Extension (S1) 3 Fair Abduction 3 Fair Comments hx of R ARIK 1 year ago PT-OP-T Assessment and Plan Start: 07/01/19 09:27 Freq: Status: Active Protocol: Document 07/19/20 10:06 [facility] (Rec: 07/19/20 10:07 [facility] [id number]) Physical Therapy Assessment Assessment Summary Assessment Torie continues to do well with her HEP. She definitely does better when she is doing her exercises regularly. She notes she is walking the loop without leaking now. She would like to DC PT at this time to focus on the shoulder pain is having Physical Therapy Plan Discharge Physical Therapy Discharge Reasons Goals Met
== END 2020-07-29 13:29 ==
LOC: PHYS 11:15
PROVIDERS: PCP Family Medicine; Visit Provider Obstetrics & Gynecology
DX: N39.3 Stress incontinence (female) (male) (principal); K59.01 Slow transit constipation; N81.84 Pelvic muscle wasting; M62.81 Muscle weakness (generalized)
CPT/HCPCS: 97110; 97112; 97161; 97535

== ENCOUNTER → 2020-03-28 17:03 | Outpatient (CLI) | payer MEDICARE, OTHER, SELFPAY ==
[2019-07-20 10:09] VITALS: BMI 24.4
[2020-03-28 18:24] LABS: BUN Creatinine Ratio 18.2 (6-22); Blood Urea Nitrogen 18 mg/dL (7-17); Calcium 9.4 mg/dL (8.4-10.2); Carbon Dioxide 29 mmol/L (22-32); Chloride 104 mmol/L (98-107); Estimated Glomerular Filt Rate 55.1 mL/min (>60); Glucose 109 mg/dL (80-110); HEMOLYSIS 25 (0-50); Potassium 3.8 mmol/L (3.4-5.1); Sodium 140 mmol/L (137-145)
== END ==
PROVIDERS: PCP Family Medicine; Referring Provider Registered Nurse; Visit Provider Registered Nurse
DX: Z01.818 Encounter for other preprocedural examination (principal); M79.89 Other specified soft tissue disorders
CPT/HCPCS: 36415; 80048

== ENCOUNTER → 2020-03-29 09:52 | Outpatient (CLI) | payer MEDICARE, OTHER, SELFPAY ==
[2019-07-20 10:09] VITALS: BMI 24.4
--- NOTE | 2020-03-29 09:57 | DI.CT.S_ITS ---
PROCEDURE: CT PELVIS W CON INDICATIONS: unspecified lesion near left gluteal area TECHNIQUE: After the administration of intravenous contrast, 5 mm thick sections acquired from the iliac crests to the symphysis. 5 mm coronal and sagittal reformats were acquired. For radiation dose reduction, the following was used: automated exposure control, adjustment of mA and/or kV according to patient size. COMPARISON: [facility], CT, ABDOMEN/PELVIS WITH CONTRAST, 04/27/2016, 8:49. FINDINGS: Image quality: Excellent. Peritoneum and bowel: Bowel loops demonstrate normal wall thickness and caliber. No free fluid or air. Genitourinary: Bladder wall thickness is normal. Nodes and vessels: No iliac, pelvic, or inguinal adenopathy by size criteria. Iliac vessels demonstrate normal size and enhancement. Bones and soft tissues: No suspicious bony lesions. A CT surface marker was placed in the area of patient's clinical concern, left posterolateral buttocks area, seen on axial CT scanning series 2, image 25. Deep to this metallic marker is a mild degree of edema in the subcutaneous fat, without evidence of abscess formation. This area measures up to 1.9 cm in maximal axial dimension, and is not associated with an underlying muscular or overlying cutaneous lesion. Miscellaneous: No inguinal hernias. IMPRESSION: Nonspecific focal edema in the fatty soft tissues representing the area of patient's clinical concern, measuring up to 1.9 cm in diameter. No abscess is associated, no evidence of decubitus ulceration is seen and no deep muscular lesion is identified as cause of this finding. This could represent a site of prior medication injection with reactive scarring. It was not present on a prior CT that included this same area from April of 2016. Dictated by: Stephen Shaikh M.D. on 03/29/2020 at 13:40 Approved by: Stephen Shaikh M.D. on 03/29/2020 at 13:44
== END ==
PROVIDERS: PCP Family Medicine; Referring Provider Registered Nurse; Visit Provider Registered Nurse
DX: M79.89 Other specified soft tissue disorders (principal)
CPT/HCPCS: 72193

== ENCOUNTER → 2020-03-31 14:48 | Outpatient (CLI) | payer MEDICARE, OTHER, SELFPAY ==
[2019-07-20 10:09] VITALS: BMI 24.4
[2020-03-31 19:12] LABS: Appearance Urine UA CLEAR; Bilirubin Urine UA NEGATIVE (NEGATIVE); Color Urine UA YELLOW; Glucose Urine UA NEGATIVE (Negative); Ketones Urine UA NEGATIVE (NEGATIVE); Leukocyte Esterase Urine UA TRACE (NEGATIVE); Nitrite Urine UA NEGATIVE (Negative); Occult Blood Urine UA TRACE-LYSED (Negative); Protein Urine UA NEGATIVE (Negative); Specific Gravity Urine UA 1.025 (1.000-1.035); Urobilinogen Urine UA 0.2 E.U./dL (0.2)
[2020-03-31 19:13] LABS: pH Urine UA 5.5 (4.5-8.0)
[2020-03-31 19:22] LABS: Amorphous Sediment Urine 1+; Bacteria Urine Few (2-10); Culture Indicated Urine Specimen Cultured; Mucus Urine 1+ (Negative); RBC Urine 0-1/HPF (0-5/HPF); Squamous Epithelial Cell Urine 5-10 /HPF (0-5/HPF); WBC Urine 5-10/HPF (0-5/HPF)
[2020-04-02 18:07] LABS: Candida species Positive (Negative); Gardnerella vaginalis Negative (Negative); Trichomoas vaginalis Negative (Negative)
== END ==
PROVIDERS: PCP Family Medicine; Visit Provider Obstetrics & Gynecology
DX: N89.8 Other specified noninflammatory disorders of vagina (principal)
CPT/HCPCS: 81001; 87070; 87075; 87077; 87086; 87186; 87205; 87480; 87510; 87660

== ENCOUNTER → 2020-04-21 13:48 | Outpatient (CLI) | payer MEDICARE, OTHER, SELFPAY ==
[2019-07-20 10:09] VITALS: BMI 24.4
[2020-04-22 17:26] LABS: Candida species Negative (Negative); Gardnerella vaginalis Negative (Negative); Trichomoas vaginalis Negative (Negative)
== END ==
PROVIDERS: PCP Family Medicine; Visit Provider Obstetrics & Gynecology
DX: N76.0 Acute vaginitis (principal)
CPT/HCPCS: 87480; 87510; 87660

== ENCOUNTER → 2020-05-13 12:14 | Outpatient (CLI) | payer MEDICARE, OTHER, SELFPAY ==
[2019-07-20 10:09] VITALS: BMI 24.4
[2020-05-13 12:48] LABS: Hematocrit 41.9 % (36-46); Mean Corpuscular HGB Conc 33.3 % (30-36); Mean Corpuscular Hemoglobin 30.6 PG (26-34); Mean Corpuscular Volume 91.9 fL (80-100); Platelet Count 235 X10^3/uL (150-400); Red Blood Cell Count 4.56 X10^6/uL (4.0-5.2); Red Cell Distribution Width 12.7 % (11.6-14.8); White Blood Cell Count 7.1 X10^3/uL (4.5-11.0)
[2020-05-13 13:11] LABS: Erythrocyte Sedimentation Rate 10 MM/HR (0-20)
[2020-05-13 14:48] LABS: C-Reactive Protein Quant < 0.5 mg/dL (<1.0)
== END ==
PROVIDERS: Family Provider Family Medicine; PCP Family Medicine; Referring Provider Ophthalmology; Visit Provider Ophthalmology
DX: G45.3 Amaurosis fugax (principal)
CPT/HCPCS: 36415; 85027; 85651; 86140

== ENCOUNTER → 2020-07-21 07:59 | Outpatient (CLI) | payer MEDICARE, OTHER, SELFPAY ==
[2019-07-20 10:09] VITALS: BMI 24.4
--- NOTE | 2020-07-21 | DI.US.S_ITS ---
PROCEDURE: US CAROTID DOPPLER BI INDICATIONS: AMAUROSIS FUGAX TECHNIQUE: Color and pulse Doppler interrogation was performed of both carotid systems, with image documentation and velocity measurements. COMPARISON: None. FINDINGS: Stenosis calculations are based on SRU (Society of Radiologists in Ultrasound) criteria. Right side: Brachial blood pressure: 144/86 mm Hg. Common carotid artery peak systolic velocity: 72 cm/sec. Internal carotid artery peak systolic velocity: 79 cm/sec. Internal carotid artery end diastolic velocity: 26 cm/sec. External carotid artery peak systolic velocity: 59 cm/sec. ICA/CCA peak systolic ratio: 1.1 . Calabrese scale imaging description: No plaque identified Percent internal carotid artery stenosis: Not applicable . Vertebral artery: Flow direction is antegrade. Left side: Brachial blood pressure: 144/86 mm Hg. Common carotid artery peak systolic velocity: 72 cm/sec. Internal carotid artery peak systolic velocity: 54 cm/sec. Internal carotid artery end diastolic velocity: 18 cm/sec. External carotid artery peak systolic velocity: 69 cm/sec. ICA/CCA peak systolic ratio: 0.8 . Calabrese scale imaging description: No plaque Percent internal carotid artery stenosis: Not applicable . Vertebral artery: Flow direction is antegrade. IMPRESSION: No stenosis identified. Dictated by: Josue Alba M.D. on 07/21/2020 at 11:31 Approved by: Josue Alba M.D. on 07/21/2020 at 11:34
== END ==
PROVIDERS: Family Provider Family Medicine; PCP Family Medicine; Referring Provider Ophthalmology; Visit Provider Ophthalmology
DX: G45.3 Amaurosis fugax (principal)
CPT/HCPCS: 93880

== ENCOUNTER → 2020-07-27 14:15 | Outpatient (CLI) | payer MEDICARE, OTHER, SELFPAY ==
[2019-07-20 10:09] VITALS: BMI 24.4
[2020-07-27] MEDS: COVID-19 VACC #1, MRNA(MOD) 100 MCG/0.5 ML VIAL IM (14:17)
== END ==
PROVIDERS: Family Provider Family Medicine; PCP Family Medicine; Visit Provider Internal Medicine
DX: Z23 Encounter for immunization (principal)
CPT/HCPCS: 0011A; 91301

== ENCOUNTER 2020-08-17 11:15 | Outpatient (RCR) | payer MEDICARE, OTHER, SELFPAY ==
[2019-07-20 10:09] VITALS: BMI 24.4
--- NOTE | 2020-05-08 17:40 | PT.OIE ---
Current Diagnoses Pain in left arm (05/05/20) Past Medical History (Last Reviewed 04/22/20 @ 12:02 by Tristen Houser DO) Abnormal Pap smear of cervix (Resolved 1976) Anxiety (Chronic 1999) Atrophic vulvovaginitis (Acute) Cellulitis (Acute) Cervical cancer (Resolved 1976) Chicken pox (Resolved 1957) Chronic back pain (Chronic 1995) Chronic headaches (Chronic 1957) Colitis (Resolved 1975) Constipation (Chronic) Depression (Chronic 1999) GERD (gastroesophageal reflux disease) (Chronic) Hemorrhoids (Chronic 1974) Herpes (Chronic) History of bronchitis (Acute) Hypothyroidism (Chronic) Insect sting (Acute) Measles (Resolved 1957) Postmenopausal (Acute) Postoperative anemia due to acute blood loss (Acute) JAVY (stress urinary incontinence, female) (Acute) Past Surgical History (Last Reviewed 04/21/20 @ 11:41 by Shelby Saenz MD) Anesthesia (Resolved) History of colonoscopy with polypectomy (Acute) History of esophagogastroduodenoscopy (EGD) (Resolved 10/24/11) History of spinal fusion (Resolved 1999) History of spinal fusion (Resolved 2012) History of spinal fusion (Resolved 2001) History of tonsillectomy (Resolved 1966) Status post appendectomy (Resolved 1956) Status post biopsy (Resolved 10/24/11) Status post colonoscopy (Resolved 10/24/11) Status post laparoscopic cholecystectomy (Resolved 2000) Status post vaginal hysterectomy (Resolved 1977) Visit Care Team Role Provider Type Tristen Houser DO Attending Provider Physician Family Provider Primary Care Provider Referring Provider Specialty: [facility] Practice Address: [address] [place] [address] Email: [email or web address] Physical Therapy Initial Evaluation PT-OP-A Visit Information Start: 05/05/20 11:18 Freq: Status: Active Protocol: Document 05/05/20 16:27 [facility] (Rec: 05/05/20 16:27 [facility] [id number]) Out-Patient Physical Therapy Visit Information Visit Information Visit Type Initial Evaluation Visit Start Time 11:15 Visit Stop Time 12:10 Total Visit Minutes 55 Visit Number 1 Evaluation Information Evaluation Date 05/05/20 PT-OP-B Current Condition Start: 05/05/20 11:18 Freq: Status: Active Protocol: Document 05/05/20 11:20 [facility] (Rec: 05/05/20 11:23 [facility] [id number]) Current Condition History of Current Condition Onset Date left shoulder and arm Current Complaints left shoulder pain, radiating pain down the left arm History of Current Condition Charlene is a 74 year old female who has been experiencing worsening pain in her left arm that began with a insidious onset a few months ago. She c/o pain radiating down the left arm. Her shoulder pain is rated 6/10. She reports using her shoulder at all can increase pain and it wakes her up at night. She has pain playing cards as her left side is her card holding hand She does have to work in her yard but she feels pretty much done with her yard for the winter. She is taking hydrocodone as needed for her shoulder. Prior Treatments and Tests x ray which was negative Treatment Goals Patient/Caregiver Goals Torie's goals include decreasing shoulder pain so that she can continue with ADL's, taking care of her , and playing cards without pain Prior Functional Status Baseline Function- ADL's Independent Baseline Function- Mobility Independent Current Functional Impairments (Reported) Functional Limitations- ADL's pain with any use of her left upper extremity, sleep is disturbed, moderate difficulty with household tasks. Functional Limitations- Recreation/ pain with playing cards as her Hobbies left hand is her card holding hand PT-OP-C Subjective Start: 05/05/20 11:18 Freq: Status: Active Protocol: Document 05/05/20 17:09 [facility] (Rec: 05/08/20 17:12 [facility] [id number]) Patient Questionnaires Quick Dash- Upper Extremity Quick Dash UE Impairment 20 to 39% Impaired (Score 20- 39) OP-PT Pain Assessment Location left shoulder Pain Location Details pain radiates down left arm Intensity 6 Scale Used Numeric (0 - 10) Description Radiating,Shooting Frequency Constant PT-OP-F Manual Assessment Start: 05/05/20 11:18 Freq: Status: Active Protocol: Document 05/05/20 17:09 [facility] (Rec: 05/08/20 17:12 [facility] [id number]) Manual Assessments Soft Tissue Assessment Soft Tissue Mobility Assessment tightness of the left upper trapezius and bilateral pectoralis muscles, muscle guarding left upper trapezius Joint Mobility Assessment Joint Mobility Assessment Decreased posterior glide of the left glenohumeral joint, pt able to tolerate gentle long axis distraction PT-OP-J Posture/Palpation/Skin Start: 05/05/20 11:18 Freq: Status: Active Protocol: Document 05/08/20 17:09 [facility] (Rec: 05/08/20 17:12 [facility] [id number]) Palpation Assessment Location left upper trapezius Palpation Location left upper trapezius Palpation Findings Soft Tissue Tightness,Spasm, Muscle Guarding,Tenderness left lateral shoulder Palpation Location left lateral shoulder Palpation Findings Tenderness PT-OP-K Range of Motion Start: 05/05/20 11:18 Freq: Status: Active Protocol: Document 05/05/20 17:03 [facility] (Rec: 05/08/20 17:07 [facility] [id number]) Cervical Spine Range of Motion Cervical Spine Active Flexion 40 Extension 60 Rotation Left 60 Rotation Right 20 Lateral Flexion Left 15 Lateral Flexion Right 5 ROM Limitations Soft Tissue Tightness,Pain Comments pt didn't realize she was so tight in the area of the upper trapezius on her left, she is limited with full flexion and right sidebending Shoulder Goniometric Range of Motion Shoulder Right Shoulder ROM WFL Yes PT-OP-M Strength Start: 05/05/20 11:18 Freq: Status: Active Protocol: Document 05/05/20 17:07 [facility] (Rec: 05/08/20 17:08 [facility] [email or web address]) Shoulder Strength Shoulder Manual Muscle Testing Right Flexion 4 Good Extension 4 Good Abduction (C5) 4 Good External Rotation 4 Good Internal Rotation 4 Good Left Flexion 2 Poor Extension 4 Good Abduction (C5) 2+ Poor+ Adduction 3 Fair External Rotation 2+ Poor+ Internal Rotation 2+ Poor+ PT-OP-Q Treatments Start: 05/05/20 11:18 Freq: Status: Active Protocol: Document 05/05/20 11:53 [facility] (Rec: 05/05/20 12:03 [facility] [id number]) Therapeutic Exercises Supine Exercises supine AAROM shoulder ER Reps/Minutes x 20 reps supine AAROM shoulder flexion Supine Exercise Name AAROM shoulder flexion Side bilateral Reps/Minutes x 20 reps Other Exercises seated scapula squeezes Reps/Minutes x 10 reps pendullum Side left Reps/Minutes x 2 min Manual Therapy Treatment Soft Tissue Mobilization 1 Body Location left upper trapezius Mobilization Type Myofascial Release Intensity/Depth Superficial Body Position Sitting Comments x 5 minutes to help release the upper trapezius PT-OP-R Modalities Start: 05/08/20 17:31 Freq: Status: Active Protocol: Document 05/05/20 17:31 [facility] (Rec: 05/08/20 17:36 [facility] [email or web address]) Hot Pack/Cold Pack Treatment Cold Pack Location left shoulder Patient Position Hooklying Treatment Duration (minutes) 12 Patient Tolerance Good Ultrasound Therapy Treatment left upper trapezius Treatment Duration (minutes) 8 Patient Position Sitting Coupling Medium Ultrasound Gel Applicator Size (cm2) 5 Frequency Setting (mHz) 1 Mode Setting Continuous Duty Cycle 100% Intensity Setting (w/cm2) 1.5 PT-OP-T Assessment and Plan Start: 05/05/20 11:18 Freq: Status: Active Protocol: Document 05/05/20 17:13 [facility] (Rec: 05/08/20 17:30 [facility] [email or web address]) Physical Therapy Assessment Rehab Potential Rehabilitation Potential Excellent Evaluation Complexity Number of Personal Factors/Comorbidities 0 Number of Body Systems Impaired 1-2 Clinical Presentation at Evaluation Stable Impairments Impairments Activity Tolerance,Functional Activities,Pain,ROM,Soft Tissue Mobility,Strength Goals left upper trapezius tightness Impairment tightness of the left upper trapezius, decreased shoulder sidebending ROM Cash Room Clerk Goal (LTG) Torie has decreased upper trapezius tightness, is able to fully flex her shoulder without upper trapezius substitution and has improved cervical sidebending to the right LTG Duration 8 weeks decreased shoulder ROM Impairment Decreased left shoulder ROM Short Term Goal (STG) Torie is able to tolerate AAROM shoulder exercises and is able to improve her shoulder ROM to 120 degrees flexion, 30 degrees ER or better, able to reach to L5 with IR STG Duration 4 weeks Cash Room Clerk Goal (LTG) Torie demonstrates full shoulder ROM of her left shoulder to WFL LTG Duration 8 weeks shoulder pain Impairment shoulder pain rated 6/10 worse with activity Short Term Goal (STG) Torie is able to decrease her shoulder and arm pain from 6/ 10 to 3-4/10 and she is sleeping better at night STG Duration 4 weeks Cash Room Clerk Goal (LTG) Torie is able to decrease her left shoulder and arm pain to 1/10 and she is able to resume playing a card game wihout pain Assessment Summary Assessment Torie is a 74 year old female who presents to Physical therapy today with left sided shoulder and upper arm pain that began a few months ago and is progressing. She notes most of her pain is in her left arm. She rates her pain as 6/10. Torie reports any activity increases her pain. She is trying to stay active and walks the [address] daily. She has pain with any activity that uses her left arm including playing card games as she holds her cards in her left hand. paste mixer cause moderate difficulty and she is having moderate difficulty sleeping due to pain. Torie does take care of her but she reports she is not having to lift him or assist with his mobility at this time. With examination today Torie is very tight in her left lateral neck and upper trapezius. Cervical ROM especially with sidebending right. She is also tight in her pectoralis musculature. Her AROM of the left shoulder was very limited today due to pain. She is presenting with impingement symptoms but also may have a cervical component as her pain seems to be more referred into her left arm. I worked today on releasing her left upper trapezius and gave her a HEP of pendullum and AAROM shoulder exercises. We also tried Ice today which she said felt very good. She is a good candidate for PT. Treatments will include shoulder ROM, progressive strengthening, postural exercises, cervical spine ROM and scapula stabilization. She may also benefit from kinesiotape for assist with lower trapezius activation and pec minor inhibition. Physical Therapy Plan Frequency and Duration Frequency of Treatment 2x/Week Duration of Treatment 8 Plan of Care Start Date 05/05/20 Plan of Care End Date 06/30/20 Therapeutic Interventions Therapeutic Interventions Home Exercise Program,Joint Mobilizations,Manual Therapy, Self-Care/Home Management,Soft Tissue Mobilization,Taping, Therapeutic Exercises Modalities Ultrasound Next Visit Focus/Plan Next Note Type Treatment Note Next Visit Plan review AAROM exercises, pendulum, and scapula squeezes , work on soft tissue release of the left upper trapezius, progress postural exercises and ROM of the left shoulder as tolerated. Pt responded well to ice last visit at the end of treatment so adding that in at the end may also be beneficial.
--- NOTE | 2020-05-08 17:41 | PT.OPPOC ---
Physical, Occupational & Speech Therapy At [facility] Current Diagnoses Pain in left arm (05/05/20) Visit Care Team Role Provider Type Tristen Houser DO Attending Provider Physician Family Provider Primary Care Provider Referring Provider Specialty: Family Practice Address: [address] [place] [address], [id number] Email: [email or web address] Plan Of Care PT-OP-T Assessment and Plan Start: 05/05/20 11:18 Freq: Status: Active Protocol: Document 05/05/20 17:13 [facility] (Rec: 05/08/20 17:30 [facility] [id number]) Physical Therapy Assessment Rehab Potential Rehabilitation Potential Excellent Evaluation Complexity Number of Personal Factors/Comorbidities 0 Number of Body Systems Impaired 1-2 Clinical Presentation at Evaluation Stable Impairments Impairments Activity Tolerance,Functional Activities,Pain,ROM,Soft Tissue Mobility,Strength Goals left upper trapezius tightness Impairment tightness of the left upper trapezius, decreased shoulder side bending ROM Special Library Librarian Goal (LTG) Torie has decreased upper trapezius tightness, is able to fully flex her shoulder without upper trapezius substitution and has improved cervical side bending to the right LTG Duration 8 weeks decreased shoulder ROM Impairment Decreased left shoulder ROM Short Term Goal (STG) Torie is able to tolerate AAROM shoulder exercises and is able to improve her shoulder ROM to 120 degrees flexion, 30 degrees ER or better, able to reach to L5 with IR STG Duration 4 weeks Special Library Librarian Goal (LTG) Torie demonstrates full shoulder ROM of her left shoulder to WFL LTG Duration 8 weeks shoulder pain Impairment shoulder pain rated 6/10 worse with activity Short Term Goal (STG) Torie is able to decrease her shoulder and arm pain from 6/ 10 to 3-4/10 and she is sleeping better at night STG Duration 4 weeks Special Library Librarian Goal (LTG) Torie is able to decrease her left shoulder and arm pain to 1/10 and she is able to resume playing a card game without pain Assessment Summary Assessment Torie is a 74 year old female who presents to Physical therapy today with left sided shoulder and upper arm pain that began a few months ago and is progressing. She notes most of her pain is in her left arm. She rates her pain as 6/10. Torie reports any activity increases her pain. She is trying to stay active and walks the [address] daily. She has pain with any activity that uses her left arm including playing card games as she holds her cards in her left hand. general dentist cause moderate difficulty and she is having moderate difficulty sleeping due to pain. Torie does take care of her but she reports she is not having to lift him or assist with his mobility at this time. With examination today Torie is very tight in her left lateral neck and upper trapezius. Cervical ROM especially with side bending right. She is also tight in her pectoralis musculature. Her AROM of the left shoulder was very limited today due to pain. She is presenting with impingement symptoms but also may have a cervical component as her pain seems to be more referred into her left arm. I worked today on releasing her left upper trapezius and gave her a HEP of pendulum and AAROM shoulder exercises. We also tried Ice today which she said felt very good. She is a good candidate for PT. Treatments will include shoulder ROM, progressive strengthening, postural exercises, cervical spine ROM and scapula stabilization. She may also benefit from kinesiotape for assist with lower trapezius activation and pec minor inhibition. Physical Therapy Plan Frequency and Duration Frequency of Treatment 2x/Week Duration of Treatment 8 Plan of Care Start Date 05/05/20 Plan of Care End Date 06/30/20 Therapeutic Interventions Therapeutic Interventions Home Exercise Program,Joint Mobilizations,Manual Therapy, Self-Care/Home Management,Soft Tissue Mobilization,Taping, Therapeutic Exercises Modalities Ultrasound Next Visit Focus/Plan Next Note Type Treatment Note Next Visit Plan review AAROM exercises, pendulum, and scapula squeezes , work on soft tissue release of the left upper trapezius, progress postural exercises and ROM of the left shoulder as tolerated. Pt responded well to ice last visit at the end of treatment so adding that in at the end may also be beneficial. Plan of Care Dates Plan of Care Start Date 05/05/20 Plan of Care End Date 06/30/20 Electronically Signed by: Margarita Ogden, PT 05/08/20 [id number] Please Sign and Return: I have reviewed this Plan of Care and certify that the skilled therapy services above are required to meet the patient?s needs. Physician Signature Date Printed Name and Credentials Clinical Instructor Signature Printed Name and Credentials
--- NOTE | 2020-05-11 14:16 | PT.OTN ---
Current Diagnoses Pain in left arm (05/11/20) Physical Therapy Treatment Note PT-OP-A Visit Information Start: 05/05/20 11:18 Freq: Status: Active Protocol: Document 05/11/20 14:11 [facility] (Rec: 05/11/20 14:16 [facility] [id number]) Out-Patient Physical Therapy Visit Information Visit Information Visit Type Treatment Note Visit Start Time 09:45 Visit Stop Time 10:30 Total Visit Minutes 45 Visit Number 2 PT-OP-B Current Condition Start: 05/05/20 11:18 Freq: Status: Active Protocol: Document 05/05/20 11:20 [facility] (Rec: 05/05/20 11:23 [facility] [id number]) Current Condition History of Current Condition Onset Date left shoulder and arm Current Complaints left shoulder pain, radiating pain down the left arm History of Current Condition Charlene is a 74 year old female who has been experiencing worsening pain in her left arm that began with a insidious onset a few months ago. She c/o pain radiating down the left arm. Her shoulder pain is rated 6/10. She reports using her shoulder at all can increase pain and it wakes her up at night. She has pain playing cards as her left side is her card holding hand She does have to work in her yard but she feels pretty much done with her yard for the winter. She is taking hydrocodone as needed for her shoulder. Prior Treatments and Tests x ray which was negative Treatment Goals Patient/Caregiver Goals Torie's goals include decreasing shoulder pain so that she can continue with ADL's, taking care of her , and playing cards without pain Prior Functional Status Baseline Function- ADL's Independent Baseline Function- Mobility Independent Current Functional Impairments (Reported) Functional Limitations- ADL's pain with any use of her left upper extremity, sleep is disturbed, moderate difficulty with household tasks. Functional Limitations- Recreation/ pain with playing cards as her Hobbies left hand is her card holding hand PT-OP-C Subjective Start: 05/05/20 11:18 Freq: Status: Active Protocol: Document 05/11/20 09:50 [facility] (Rec: 05/11/20 09:51 [facility] [id number]) OP-PT Subjective Patient Comments Patient Comments Torie reports she did get some relief the first visit. But feeling sore this am and sore with her exercises Patient Reported Progress Same PT-OP-F Manual Assessment Start: 05/05/20 11:18 Freq: Status: Active Protocol: Document 05/05/20 17:09 [facility] (Rec: 05/08/20 17:12 [facility] [email or web address]) Manual Assessments Soft Tissue Assessment Soft Tissue Mobility Assessment tightness of the left upper trapezius and bilateral pectoralis muscles, muscle guarding left upper trapezius Joint Mobility Assessment Joint Mobility Assessment Decreased posterior glide of the left glenohumeral joint, pt able to tolerate gentle long axis distraction PT-OP-J Posture/Palpation/Skin Start: 05/05/20 11:18 Freq: Status: Active Protocol: Document 05/08/20 17:09 [facility] (Rec: 05/08/20 17:12 [facility] [email or web address]) Palpation Assessment Location left upper trapezius Palpation Location left upper trapezius Palpation Findings Soft Tissue Tightness,Spasm, Muscle Guarding,Tenderness left lateral shoulder Palpation Location left lateral shoulder Palpation Findings Tenderness PT-OP-K Range of Motion Start: 05/05/20 11:18 Freq: Status: Active Protocol: Document 05/05/20 17:03 [facility] (Rec: 05/08/20 17:07 [facility] [id number]) Cervical Spine Range of Motion Cervical Spine Active Flexion 40 Extension 60 Rotation Left 60 Rotation Right 20 Lateral Flexion Left 15 Lateral Flexion Right 5 ROM Limitations Soft Tissue Tightness,Pain Comments pt didn't realize she was so tight in the area of the upper trapezius on her left, she is limited with full flexion and right sidebending Shoulder Goniometric Range of Motion Shoulder Right Shoulder ROM WFL Yes PT-OP-M Strength Start: 05/05/20 11:18 Freq: Status: Active Protocol: Document 05/05/20 17:07 [facility] (Rec: 05/08/20 17:08 [facility] [id number]) Shoulder Strength Shoulder Manual Muscle Testing Right Flexion 4 Good Extension 4 Good Abduction (C5) 4 Good External Rotation 4 Good Internal Rotation 4 Good Left Flexion 2 Poor Extension 4 Good Abduction (C5) 2+ Poor+ Adduction 3 Fair External Rotation 2+ Poor+ Internal Rotation 2+ Poor+ PT-OP-Q Treatments Start: 05/05/20 11:18 Freq: Status: Active Protocol: Document 05/11/20 14:11 [facility] (Rec: 05/11/20 14:16 [facility] [id number]) Therapeutic Exercises Supine Exercises supine AAROM shoulder ER Reps/Minutes x 20 reps supine AAROM shoulder flexion Supine Exercise Name AAROM shoulder flexion Side bilateral Reps/Minutes x 20 reps Other Exercises seated scapula squeezes Reps/Minutes x 10 reps pendullum Side left Reps/Minutes x 2 min Manual Therapy Treatment Soft Tissue Mobilization 1 Body Location left upper trapezius Mobilization Type Myofascial Release Intensity/Depth Superficial Body Position Sitting Comments x 5 minutes to help release the upper trapezius Joint Mobilizations 1 Joint long axis distraction and gentle posterior glides Grade II Grade II Body Position Supine Comments LEFT SHOULDER Manual Techniques PROM left shoulder Type PROM left shoulder with distraction Comments pt tolerated ROM with distraction PT-OP-R Modalities Start: 05/08/20 17:31 Freq: Status: Active Protocol: Document 05/11/20 14:11 [facility] (Rec: 05/11/20 14:16 [facility] [id number]) Hot Pack/Cold Pack Treatment Ice Massage Location left shoulder Ultrasound Therapy Treatment left upper trapezius Treatment Duration (minutes) 8 Patient Position Sitting Coupling Medium Ultrasound Gel Applicator Size (cm2) 5 Frequency Setting (mHz) 1 Mode Setting Continuous Duty Cycle 100% Intensity Setting (w/cm2) 1.5 PT-OP-T Assessment and Plan Start: 05/05/20 11:18 Freq: Status: Active Protocol: Document 05/11/20 14:11 [facility] (Rec: 05/11/20 14:16 [facility] [id number]) Physical Therapy Assessment Assessment Summary Assessment pt had been doing her exercises standing up so we reviewed the AAROM for laying down to help relax her upper trap. Worked on stretching the left side of the cervical spine. She waas shown how to ice massage her left shoulder today Physical Therapy Plan Frequency and Duration Frequency of Treatment 2x/Week Duration of Treatment 8 Plan of Care Start Date 05/05/20 Plan of Care End Date 06/30/20 Next Visit Focus/Plan Next Note Type Treatment Note Next Visit Plan review AAROM exercises, pendullum, and scapua squeezes , work on soft tissue release of the left upper trapezius, progress postural exercises and ROM of the left shoulder as tolerated. Pt responded well to ice last visit at the end of treatment so adding that in at the end may also be beneficial.
--- NOTE | 2020-06-28 17:38 | PT.OTN ---
Current Diagnoses Pain in left arm (06/28/20) Physical Therapy Treatment Note PT-OP-A Visit Information Start: 05/05/20 11:18 Freq: Status: Active Protocol: Document 06/28/20 10:18 [facility] (Rec: 06/28/20 10:20 [facility] [id number]) Out-Patient Physical Therapy Visit Information Visit Information Visit Type Treatment Note Visit Start Time 09:50 Visit Stop Time 10:30 Total Visit Minutes 40 Visit Number 3 PT-OP-B Current Condition Start: 05/05/20 11:18 Freq: Status: Active Protocol: Document 05/05/20 11:20 [facility] (Rec: 05/05/20 11:23 [facility] [id number]) Current Condition History of Current Condition Onset Date left shoulder and arm Current Complaints left shoulder pain, radiating pain down the left arm History of Current Condition Charlene is a 74 year old female who has been experiencing worsening pain in her left arm that began with a insidious onset a few months ago. She c/o pain radiating down the left arm. Her shoulder pain is rated 6/10. She reports using her shoulder at all can increase pain and it wakes her up at night. She has pain playing cards as her left side is her card holding hand She does have to work in her yard but she feels pretty much done with her yard for the winter. She is taking hydrocodone as needed for her shoulder. Prior Treatments and Tests x ray which was negative Treatment Goals Patient/Caregiver Goals Torie's goals include decreasing shoulder pain so that she can continue with ADL's, taking care of her , and playing cards without pain Prior Functional Status Baseline Function- ADL's Independent Baseline Function- Mobility Independent Current Functional Impairments (Reported) Functional Limitations- ADL's pain with any use of her left upper extremity, sleep is disturbed, moderate difficulty with household tasks. Functional Limitations- Recreation/ pain with playing cards as her Hobbies left hand is her card holding hand PT-OP-C Subjective Start: 05/05/20 11:18 Freq: Status: Active Protocol: Document 06/28/20 10:18 [facility] (Rec: 06/28/20 10:20 [facility] [id number]) OP-PT Subjective Patient Comments Patient Comments pt notes her pain has decreased to 2/10 now. she feels it primarily in her muscle now on the side of her arm Patient Reported Progress Improving PT-OP-F Manual Assessment Start: 05/05/20 11:18 Freq: Status: Active Protocol: Document 05/05/20 17:09 [facility] (Rec: 05/08/20 17:12 [facility] [email or web address]) Manual Assessments Soft Tissue Assessment Soft Tissue Mobility Assessment tightness of the left upper trapezius and bilateral pectoralis muscles, muscle guarding left upper trapezius Joint Mobility Assessment Joint Mobility Assessment Decreased posterior glide of the left glenohumeral joint, pt able to tolerate gentle long axis distraction PT-OP-J Posture/Palpation/Skin Start: 05/05/20 11:18 Freq: Status: Active Protocol: Document 05/08/20 17:09 [facility] (Rec: 05/08/20 17:12 [facility] [email or web address]) Palpation Assessment Location left upper trapezius Palpation Location left upper trapezius Palpation Findings Soft Tissue Tightness,Spasm, Muscle Guarding,Tenderness left lateral shoulder Palpation Location left lateral shoulder Palpation Findings Tenderness PT-OP-K Range of Motion Start: 05/05/20 11:18 Freq: Status: Active Protocol: Document 05/05/20 17:03 [facility] (Rec: 05/08/20 17:07 [facility] [email or web address]) Cervical Spine Range of Motion Cervical Spine Active Flexion 40 Extension 60 Rotation Left 60 Rotation Right 20 Lateral Flexion Left 15 Lateral Flexion Right 5 ROM Limitations Soft Tissue Tightness,Pain Comments pt didn't realize she was so tight in the area of the upper trapezius on her left, she is limited with full flexion and right sidebending Shoulder Goniometric Range of Motion Shoulder Right Shoulder ROM WFL Yes PT-OP-M Strength Start: 05/05/20 11:18 Freq: Status: Active Protocol: Document 05/05/20 17:07 [facility] (Rec: 05/08/20 17:08 [facility] [email or web address]) Shoulder Strength Shoulder Manual Muscle Testing Right Flexion 4 Good Extension 4 Good Abduction (C5) 4 Good External Rotation 4 Good Internal Rotation 4 Good Left Flexion 2 Poor Extension 4 Good Abduction (C5) 2+ Poor+ Adduction 3 Fair External Rotation 2+ Poor+ Internal Rotation 2+ Poor+ PT-OP-Q Treatments Start: 05/05/20 11:18 Freq: Status: Active Protocol: Document 06/28/20 10:20 [facility] (Rec: 06/28/20 10:33 [facility] [id number]) Therapeutic Exercises Supine Exercises supine AAROM shoulder ER Reps/Minutes x 20 reps supine AAROM shoulder flexion Supine Exercise Name AAROM shoulder flexion Side bilateral Reps/Minutes x 20 reps Sitting Exercises seated shoulder mariangel Reps/Minutes x 4 minutes Standing Exercises theraband shoulder extension Equipment Used 2 x 10 reps theraband rows Reps/Minutes 2 x 10 Other Exercises seated scapula squeezes Reps/Minutes x 10 reps pendullum Side left Reps/Minutes x 2 min Manual Therapy Treatment Soft Tissue Mobilization 1 Body Location left upper trapezius Mobilization Type Myofascial Release Intensity/Depth Superficial Body Position Sitting Comments x 5 minutes to help release the upper trapezius Joint Mobilizations 1 Joint long axis distraction and gentle posterior glides Grade II Grade II Body Position Supine Comments LEFT SHOULDER Manual Techniques PROM left shoulder Type PROM left shoulder with distraction Comments pt tolerated ROM with distraction PT-OP-R Modalities Start: 05/08/20 17:31 Freq: Status: Active Protocol: Document 05/11/20 14:11 [facility] (Rec: 05/11/20 14:16 [facility] [id number]) Hot Pack/Cold Pack Treatment Ice Massage Location left shoulder Ultrasound Therapy Treatment left upper trapezius Treatment Duration (minutes) 8 Patient Position Sitting Coupling Medium Ultrasound Gel Applicator Size (cm2) 5 Frequency Setting (mHz) 1 Mode Setting Continuous Duty Cycle 100% Intensity Setting (w/cm2) 1.5 PT-OP-T Assessment and Plan Start: 05/05/20 11:18 Freq: Status: Active Protocol: Document 06/28/20 17:36 [facility] (Rec: 06/28/20 17:38 [facility] [email or web address]) Physical Therapy Assessment Assessment Summary Assessment Torie tolerated the addition of theraband for rows and shoulder extension. She is guarded in her biceps and lateral deltoid. Physical Therapy Plan Frequency and Duration Frequency of Treatment 2x/Week Duration of Treatment 8 Plan of Care Start Date 05/05/20 Plan of Care End Date 06/30/20 Therapeutic Interventions Therapeutic Interventions Home Exercise Program,Joint Mobilizations,Manual Therapy, Self-Care/Home Management,Soft Tissue Mobilization,Taping, Therapeutic Exercises Modalities Ultrasound
--- NOTE | 2020-06-30 17:07 | PT.OTN ---
Current Diagnoses Pain in left arm (06/30/20) Physical Therapy Treatment Note PT-OP-A Visit Information Start: 05/05/20 11:18 Freq: Status: Active Protocol: Document 06/30/20 10:58 [facility] (Rec: 06/30/20 10:59 [facility] [id number]) Out-Patient Physical Therapy Visit Information Visit Information Visit Type Treatment Note Visit Start Time 10:30 Visit Stop Time 01:15 Total Visit Minutes 45 Visit Number 4 PT-OP-B Current Condition Start: 05/05/20 11:18 Freq: Status: Active Protocol: Document 05/05/20 11:20 [facility] (Rec: 05/05/20 11:23 [facility] [id number]) Current Condition History of Current Condition Onset Date left shoulder and arm Current Complaints left shoulder pain, radiating pain down the left arm History of Current Condition Charlene is a 74 year old female who has been experiencing worsening pain in her left arm that began with a insidious onset a few months ago. She c/o pain radiating down the left arm. Her shoulder pain is rated 6/10. She reports using her shoulder at all can increase pain and it wakes her up at night. She has pain playing cards as her left side is her card holding hand She does have to work in her yard but she feels pretty much done with her yard for the winter. She is taking hydrocodone as needed for her shoulder. Prior Treatments and Tests x ray which was negative Treatment Goals Patient/Caregiver Goals Torie's goals include decreasing shoulder pain so that she can continue with ADL's, taking care of her , and playing cards without pain Prior Functional Status Baseline Function- ADL's Independent Baseline Function- Mobility Independent Current Functional Impairments (Reported) Functional Limitations- ADL's pain with any use of her left upper extremity, sleep is disturbed, moderate difficulty with household tasks. Functional Limitations- Recreation/ pain with playing cards as her Hobbies left hand is her card holding hand PT-OP-C Subjective Start: 05/05/20 11:18 Freq: Status: Active Protocol: Document 06/30/20 10:58 [facility] (Rec: 06/30/20 10:59 [facility] [id number]) OP-PT Subjective Patient Comments Patient Comments pt notes her pain is 2/10, she is doing better. Slept pretty good the first good the first night, the second night she woke up with her arm hurting. Patient Reported Progress Improving PT-OP-F Manual Assessment Start: 05/05/20 11:18 Freq: Status: Active Protocol: Document 05/05/20 17:09 [facility] (Rec: 05/08/20 17:12 [facility] [email or web address]) Manual Assessments Soft Tissue Assessment Soft Tissue Mobility Assessment tightness of the left upper trapezius and bilateral pectoralis muscles, muscle guarding left upper trapezius Joint Mobility Assessment Joint Mobility Assessment Decreased posterior glide of the left glenohumeral joint, pt able to tolerate gentle long axis distraction PT-OP-J Posture/Palpation/Skin Start: 05/05/20 11:18 Freq: Status: Active Protocol: Document 05/08/20 17:09 [facility] (Rec: 05/08/20 17:12 [facility] [email or web address]) Palpation Assessment Location left upper trapezius Palpation Location left upper trapezius Palpation Findings Soft Tissue Tightness,Spasm, Muscle Guarding,Tenderness left lateral shoulder Palpation Location left lateral shoulder Palpation Findings Tenderness PT-OP-K Range of Motion Start: 05/05/20 11:18 Freq: Status: Active Protocol: Document 05/05/20 17:03 [facility] (Rec: 05/08/20 17:07 [facility] [email or web address]) Cervical Spine Range of Motion Cervical Spine Active Flexion 40 Extension 60 Rotation Left 60 Rotation Right 20 Lateral Flexion Left 15 Lateral Flexion Right 5 ROM Limitations Soft Tissue Tightness,Pain Comments pt didn't realize she was so tight in the area of the upper trapezius on her left, she is limited with full flexion and right sidebending Shoulder Goniometric Range of Motion Shoulder Right Shoulder ROM WFL Yes PT-OP-M Strength Start: 05/05/20 11:18 Freq: Status: Active Protocol: Document 05/05/20 17:07 [facility] (Rec: 05/08/20 17:08 [facility] [email or web address]) Shoulder Strength Shoulder Manual Muscle Testing Right Flexion 4 Good Extension 4 Good Abduction (C5) 4 Good External Rotation 4 Good Internal Rotation 4 Good Left Flexion 2 Poor Extension 4 Good Abduction (C5) 2+ Poor+ Adduction 3 Fair External Rotation 2+ Poor+ Internal Rotation 2+ Poor+ PT-OP-Q Treatments Start: 05/05/20 11:18 Freq: Status: Active Protocol: Document 06/30/20 16:55 [facility] (Rec: 06/30/20 16:59 [facility] [id number]) Therapeutic Exercises Supine Exercises supine AAROM shoulder ER Reps/Minutes x 20 reps supine AAROM shoulder flexion Supine Exercise Name AAROM shoulder flexion Side bilateral Reps/Minutes x 20 reps Sitting Exercises seated shoulder mariangel Reps/Minutes x 4 minutes Standing Exercises wall slides Reps/Minutes x 10 Comments with pillow case standing sholder abduction with want Reps/Minutes x 15 standing shoulder extension with wand Reps/Minutes x 20 theraband shoulder extension Equipment Used 2 x 10 reps theraband rows Reps/Minutes 2 x 10 Manual Therapy Treatment Soft Tissue Mobilization 1 Body Location left upper trapezius Mobilization Type Myofascial Release Intensity/Depth Superficial Body Position Sitting Comments x 5 minutes to help release the upper trapezius Manual Techniques PROM left shoulder Type PROM left shoulder with distraction Comments pt tolerated ROM with distraction 1 Type STM on the right lateral ITB with rollar stick Body Position Sidelying Reps/Duration 5 min Comments pt was educated on how to do self massage over her ITB with the rollar stick to help loosen her tight ITB PT-OP-R Modalities Start: 05/08/20 17:31 Freq: Status: Active Protocol: Document 05/11/20 14:11 [facility] (Rec: 05/11/20 14:16 [facility] [id number]) Hot Pack/Cold Pack Treatment Ice Massage Location left shoulder Ultrasound Therapy Treatment left upper trapezius Treatment Duration (minutes) 8 Patient Position Sitting Coupling Medium Ultrasound Gel Applicator Size (cm2) 5 Frequency Setting (mHz) 1 Mode Setting Continuous Duty Cycle 100% Intensity Setting (w/cm2) 1.5 PT-OP-T Assessment and Plan Start: 05/05/20 11:18 Freq: Status: Active Protocol: Document 06/30/20 16:59 [facility] (Rec: 06/30/20 17:06 [facility] [id number]) Physical Therapy Assessment Goals decreased strength of the left shoulder Impairment Decreased strength of the left shoulder Group Home Goal (LTG) Torie demonstrates improved strength of the left shoulder to 4/5 LTG Duration 8 weeks left upper trapezius tightness Impairment tightness of the left upper trapezius, decreased shoulder sidebending ROM Group Home Goal (LTG) Torie has decreased upper trapezius tightness, is able to fully flex her shoulder without upper trapezius substitution and has improved cervical sidebending to the right [employer] LTG Duration 8 weeks decreased shoulder ROM Impairment Decreased left shoulder ROM Short Term Goal (STG) Torie is able to tolerate AAROM shoulder exercises and is able to improve her shoulder ROM to 120 degrees flexion, 30 degrees ER or better, able to reach to L5 with IR GOAL MET STG Duration 4 weeks Group Home Goal (LTG) Torie demonstrates full shoulder ROM of her left shoulder to WFL [employer] LTG Duration 8 weeks shoulder pain Impairment shoulder pain rated 6/10 worse with activity Short Term Goal (STG) Torie is able to decrease her shoulder and arm pain from 6/ 10 to 3-4/10 and she is sleeping better at night GOAL MET PAIN IS 2/10 STG Duration 4 weeks Group Home Goal (LTG) Torie is able to decrease her left shoulder and arm pain to 1/10 and she is able to resume playing a card game wihout pain [employer] Assessment Summary Assessment Torie is demonstrating overall Improved ROM for AAROM of her shoulder. Her pain levels are around 2/10 at rest but can go higher with activity. She has been able to sleep through the night. She is still guarded in the left upper trapezius and deltoid. I am working towards improved strength of her shoulder as ROM improves. She would benefit from continued PT Physical Therapy Plan Frequency and Duration Frequency of Treatment 2x/Week Duration of Treatment 8 Plan of Care Start Date 06/30/20 Plan of Care End Date 08/25/20 Therapeutic Interventions Therapeutic Interventions Home Exercise Program,Joint Mobilizations,Manual Therapy, Self-Care/Home Management,Soft Tissue Mobilization,Taping, Therapeutic Exercises Modalities Ultrasound Next Visit Focus/Plan Next Note Type Treatment Note Next Visit Plan begin shoulder ER with theraband, continue progressing ex as tolerated
--- NOTE | 2020-06-30 17:07 | PT.OPPOC ---
Physical, Occupational & Speech Therapy At [facility] Current Diagnoses Pain in left arm (06/30/20) Visit Care Team Role Provider Type Tristen Houser DO Attending Provider Physician Family Provider Primary Care Provider Referring Provider Specialty: Family Practice Address: [address] [place] [address], [id number] Email: [email or web address] Of [facility] PT-OP-T Assessment and Plan Start: 05/05/20 11:18 Freq: Status: Active Protocol: Document 06/30/20 16:59 [facility] (Rec: 06/30/20 17:06 [facility] [id number]) Physical Therapy Assessment Goals decreased strength of the left shoulder Impairment Decreased strength of the left shoulder Alterations Workroom Clerk Goal (LTG) Torie demonstrates improved strength of the left shoulder to 4/5 LTG Duration 8 weeks left upper trapezius tightness Impairment tightness of the left upper trapezius, decreased shoulder sidebending ROM Half-Way Goal (LTG) Torie has decreased upper trapezius tightness, is able to fully flex her shoulder without upper trapezius substitution and has improved cervical sidebending to the right [employer] LTG Duration 8 weeks decreased shoulder ROM Impairment Decreased left shoulder ROM Short Term Goal (STG) Torie is able to tolerate AAROM shoulder exercises and is able to improve her shoulder ROM to 120 degrees flexion, 30 degrees ER or better, able to reach to L5 with IR GOAL MET STG Duration 4 weeks Alterations Workroom Clerk Goal (LTG) Torie demonstrates full shoulder ROM of her left shoulder to WFL [employer] LTG Duration 8 weeks shoulder pain Impairment shoulder pain rated 6/10 worse with activity Short Term Goal (STG) Torie is able to decrease her shoulder and arm pain from 6/ 10 to 3-4/10 and she is sleeping better at night GOAL MET PAIN IS 2/10 STG Duration 4 weeks Alterations Workroom Clerk Goal (LTG) Torie is able to decrease her left shoulder and arm pain to 1/10 and she is able to resume playing a card game wihout pain [employer] Assessment Summary Assessment Torie is demonstrating overall Improved ROM for AAROM of her shoulder. Her pain levels are around 2/10 at rest but can go higher with activity. She has been able to sleep through the night. She is still guarded in the left upper trapezius and deltoid. I am working towards improved strength of her shoulder as ROM improves. She would benefit from continued PT Physical Therapy Plan Frequency and Duration Frequency of Treatment 2x/Week Duration of Treatment 8 Plan of Care Start Date 06/30/20 Plan of Care End Date 08/25/20 Therapeutic Interventions Therapeutic Interventions Home Exercise Program,Joint Mobilizations,Manual Therapy, Self-Care/Home Management,Soft Tissue Mobilization,Taping, Therapeutic Exercises Modalities Ultrasound Next Visit Focus/Plan Next Note Type Treatment Note Next Visit Plan begin shoulder ER with theraband, continue progressing ex as tolerated Plan of Care Dates Plan of Care Start Date 06/30/20 Plan of Care End Date 08/25/20 Electronically Signed by: Margarita Ogden, PT 06/30/20 [id number] Please Sign and Return: I have reviewed this Plan of Care and certify that the skilled therapy services above are required to meet the patient?s needs. Physician Signature Date Printed Name and Credentials Clinical Instructor Signature Printed Name and Credentials
--- NOTE | 2020-07-05 11:28 | PT.OTN ---
Current Diagnoses Pain in left arm (07/05/20) Physical Therapy Treatment Note PT-OP-A Visit Information Start: 05/05/20 11:18 Freq: Status: Active Protocol: Document 07/05/20 11:22 [facility] (Rec: 07/05/20 11:28 [facility] [id number]) Out-Patient Physical Therapy Visit Information Visit Information Visit Type Treatment Note Visit Start Time 10:35 Visit Stop Time 11:15 Total Visit Minutes 40 Visit Number 5 PT-OP-B Current Condition Start: 05/05/20 11:18 Freq: Status: Active Protocol: Document 05/05/20 11:20 [facility] (Rec: 05/05/20 11:23 [facility] [id number]) Current Condition History of Current Condition Onset Date left shoulder and arm Current Complaints left shoulder pain, radiating pain down the left arm History of Current Condition Charlene is a 74 year old female who has been experiencing worsening pain in her left arm that began with a insidious onset a few months ago. She c/o pain radiating down the left arm. Her shoulder pain is rated 6/10. She reports using her shoulder at all can increase pain and it wakes her up at night. She has pain playing cards as her left side is her card holding hand She does have to work in her yard but she feels pretty much done with her yard for the winter. She is taking hydrocodone as needed for her shoulder. Prior Treatments and Tests x ray which was negative Treatment Goals Patient/Caregiver Goals Torie's goals include decreasing shoulder pain so that she can continue with ADL's, taking care of her , and playing cards without pain Prior Functional Status Baseline Function- ADL's Independent Baseline Function- Mobility Independent Current Functional Impairments (Reported) Functional Limitations- ADL's pain with any use of her left upper extremity, sleep is disturbed, moderate difficulty with household tasks. Functional Limitations- Recreation/ pain with playing cards as her Hobbies left hand is her card holding hand PT-OP-C Subjective Start: 05/05/20 11:18 Freq: Status: Active Protocol: Document 07/05/20 11:22 [facility] (Rec: 07/05/20 11:28 [facility] [email or web address]) OP-PT Subjective Patient Comments Patient Comments pt notes she worked out in her garden. Her low back has been sore following and a little shoulder stiffness today from pruning. PT-OP-F Manual Assessment Start: 05/05/20 11:18 Freq: Status: Active Protocol: Document 05/05/20 17:09 [facility] (Rec: 05/08/20 17:12 [facility] [email or web address]) Manual Assessments Soft Tissue Assessment Soft Tissue Mobility Assessment tightness of the left upper trapezius and bilateral pectoralis muscles, muscle guarding left upper trapezius Joint Mobility Assessment Joint Mobility Assessment Decreased posterior glide of the left glenohumeral joint, pt able to tolerate gentle long axis distraction PT-OP-J Posture/Palpation/Skin Start: 05/05/20 11:18 Freq: Status: Active Protocol: Document 05/08/20 17:09 [facility] (Rec: 05/08/20 17:12 [facility] [email or web address]) Palpation Assessment Location left upper trapezius Palpation Location left upper trapezius Palpation Findings Soft Tissue Tightness,Spasm, Muscle Guarding,Tenderness left lateral shoulder Palpation Location left lateral shoulder Palpation Findings Tenderness PT-OP-K Range of Motion Start: 05/05/20 11:18 Freq: Status: Active Protocol: Document 05/05/20 17:03 [facility] (Rec: 05/08/20 17:07 [facility] [email or web address]) Cervical Spine Range of Motion Cervical Spine Active Flexion 40 Extension 60 Rotation Left 60 Rotation Right 20 Lateral Flexion Left 15 Lateral Flexion Right 5 ROM Limitations Soft Tissue Tightness,Pain Comments pt didn't realize she was so tight in the area of the upper trapezius on her left, she is limited with full flexion and right sidebending Shoulder Goniometric Range of Motion Shoulder Right Shoulder ROM WFL Yes PT-OP-M Strength Start: 05/05/20 11:18 Freq: Status: Active Protocol: Document 05/05/20 17:07 [facility] (Rec: 05/08/20 17:08 [facility] [email or web address]) Shoulder Strength Shoulder Manual Muscle Testing Right Flexion 4 Good Extension 4 Good Abduction (C5) 4 Good External Rotation 4 Good Internal Rotation 4 Good Left Flexion 2 Poor Extension 4 Good Abduction (C5) 2+ Poor+ Adduction 3 Fair External Rotation 2+ Poor+ Internal Rotation 2+ Poor+ PT-OP-Q Treatments Start: 05/05/20 11:18 Freq: Status: Active Protocol: Document 07/05/20 11:22 [facility] (Rec: 07/05/20 11:28 [facility] [email or web address]) Therapeutic Exercises Supine Exercises snow angels Reps/Minutes x 10 reps palms up supine AAROM shoulder ER Reps/Minutes x 20 reps supine AAROM shoulder flexion Supine Exercise Name AAROM shoulder flexion Side bilateral Reps/Minutes x 20 reps Sitting Exercises seated shoulder mariangel Reps/Minutes x 4 minutes Standing Exercises standing sholder abduction with want Reps/Minutes x 15 standing shoulder extension with wand Reps/Minutes x 20 theraband shoulder extension Equipment Used 2 x 10 reps theraband rows Reps/Minutes 2 x 10 Manual Therapy Treatment Soft Tissue Mobilization 1 Body Location left upper trapezius Mobilization Type Myofascial Release Intensity/Depth Superficial Body Position Sitting Comments x 5 minutes to help release the upper trapezius Manual Techniques sidelying scapular mobs left Comments good tolerance for scapulat mobs, decreased scapular mobility, upper trap and pec minor tightness PT-OP-R Modalities Start: 05/08/20 17:31 Freq: Status: Active Protocol: Document 05/11/20 14:11 [facility] (Rec: 05/11/20 14:16 [facility] [id number]) Hot Pack/Cold Pack Treatment Ice Massage Location left shoulder Ultrasound Therapy Treatment left upper trapezius Treatment Duration (minutes) 8 Patient Position Sitting Coupling Medium Ultrasound Gel Applicator Size (cm2) 5 Frequency Setting (mHz) 1 Mode Setting Continuous Duty Cycle 100% Intensity Setting (w/cm2) 1.5 PT-OP-T Assessment and Plan Start: 05/05/20 11:18 Freq: Status: Active Protocol: Document 07/05/20 11:22 [facility] (Rec: 07/05/20 11:28 [facility] [email or web address]) Physical Therapy Assessment Assessment Summary Assessment ROM is continueing to improve. Torie was sore today from yard work Physical Therapy Plan Frequency and Duration Frequency of Treatment 2x/Week Duration of Treatment 8 Plan of Care Start Date 06/30/20 Plan of Care End Date 08/25/20 Next Visit Focus/Plan Next Note Type Treatment Note Next Visit Plan begin shoulder Er next visit. Held off today as pt was sore from yard work
--- NOTE | 2020-07-07 12:16 | PT.OTN ---
Current Diagnoses Pain in left arm (07/07/20) Physical Therapy Treatment Note PT-OP-A Visit Information Start: 05/05/20 11:18 Freq: Status: Active Protocol: Document 07/07/20 11:23 [facility] (Rec: 07/07/20 11:24 [facility] [id number]) Out-Patient Physical Therapy Visit Information Visit Information Visit Type Treatment Note Visit Start Time 10:35 Visit Stop Time 11:25 Total Visit Minutes 50 Visit Number 6 PT-OP-B Current Condition Start: 05/05/20 11:18 Freq: Status: Active Protocol: Document 05/05/20 11:20 [facility] (Rec: 05/05/20 11:23 [facility] [id number]) Current Condition History of Current Condition Onset Date left shoulder and arm Current Complaints left shoulder pain, radiating pain down the left arm History of Current Condition Charlene is a 74 year old female who has been experiencing worsening pain in her left arm that began with a insidious onset a few months ago. She c/o pain radiating down the left arm. Her shoulder pain is rated 6/10. She reports using her shoulder at all can increase pain and it wakes her up at night. She has pain playing cards as her left side is her card holding hand She does have to work in her yard but she feels pretty much done with her yard for the winter. She is taking hydrocodone as needed for her shoulder. Prior Treatments and Tests x ray which was negative Treatment Goals Patient/Caregiver Goals Torie's goals include decreasing shoulder pain so that she can continue with ADL's, taking care of her , and playing cards without pain Prior Functional Status Baseline Function- ADL's Independent Baseline Function- Mobility Independent Current Functional Impairments (Reported) Functional Limitations- ADL's pain with any use of her left upper extremity, sleep is disturbed, moderate difficulty with household tasks. Functional Limitations- Recreation/ pain with playing cards as her Hobbies left hand is her card holding hand PT-OP-C Subjective Start: 05/05/20 11:18 Freq: Status: Active Protocol: Document 07/07/20 11:23 [facility] (Rec: 07/07/20 11:24 [facility] [id number]) OP-PT Subjective Patient Comments Patient Comments still a little sore rom garden work but better today PT-OP-F Manual Assessment Start: 05/05/20 11:18 Freq: Status: Active Protocol: Document 05/05/20 17:09 [facility] (Rec: 05/08/20 17:12 [facility] [id number]) Manual Assessments Soft Tissue Assessment Soft Tissue Mobility Assessment tightness of the left upper trapezius and bilateral pectoralis muscles, muscle guarding left upper trapezius Joint Mobility Assessment Joint Mobility Assessment Decreased posterior glide of the left glenohumeral joint, pt able to tolerate gentle long axis distraction PT-OP-J Posture/Palpation/Skin Start: 05/05/20 11:18 Freq: Status: Active Protocol: Document 05/08/20 17:09 [facility] (Rec: 05/08/20 17:12 [facility] [id number]) Palpation Assessment Location left upper trapezius Palpation Location left upper trapezius Palpation Findings Soft Tissue Tightness,Spasm, Muscle Guarding,Tenderness left lateral shoulder Palpation Location left lateral shoulder Palpation Findings Tenderness PT-OP-K Range of Motion Start: 05/05/20 11:18 Freq: Status: Active Protocol: Document 05/05/20 17:03 [facility] (Rec: 05/08/20 17:07 [facility] [id number]) Cervical Spine Range of Motion Cervical Spine Active Flexion 40 Extension 60 Rotation Left 60 Rotation Right 20 Lateral Flexion Left 15 Lateral Flexion Right 5 ROM Limitations Soft Tissue Tightness,Pain Comments pt didn't realize she was so tight in the area of the upper trapezius on her left, she is limited with full flexion and right sidebending Shoulder Goniometric Range of Motion Shoulder Right Shoulder ROM WFL Yes PT-OP-M Strength Start: 05/05/20 11:18 Freq: Status: Active Protocol: Document 05/05/20 17:07 [facility] (Rec: 05/08/20 17:08 [facility] [email or web address]) Shoulder Strength Shoulder Manual Muscle Testing Right Flexion 4 Good Extension 4 Good Abduction (C5) 4 Good External Rotation 4 Good Internal Rotation 4 Good Left Flexion 2 Poor Extension 4 Good Abduction (C5) 2+ Poor+ Adduction 3 Fair External Rotation 2+ Poor+ Internal Rotation 2+ Poor+ PT-OP-Q Treatments Start: 05/05/20 11:18 Freq: Status: Active Protocol: Document 07/07/20 12:02 [facility] (Rec: 07/07/20 12:16 [facility] [id number]) Therapeutic Exercises Supine Exercises snow angels Reps/Minutes x 10 reps palms up supine AAROM shoulder ER Reps/Minutes x 20 reps supine AAROM shoulder flexion Supine Exercise Name AAROM shoulder flexion Side bilateral Reps/Minutes x 20 reps Sidelying Exercises 1 Sidelying Exercise Name sidelying ER Equipment Used 1# Reps/Minutes 2x 10 Sitting Exercises seated shoulder mariangel Reps/Minutes x 4 minutes Standing Exercises standing sholder abduction with want Reps/Minutes x 15 standing shoulder extension with wand Reps/Minutes x 20 Manual Therapy Treatment Manual Techniques sidelying scapular mobs left Comments good tolerance for scapulat mobs, decreased scapular mobility, upper trap and pec minor tightness PROM left shoulder Type PROM left shoulder with distraction Comments pt tolerated ROM with distraction PT-OP-R Modalities Start: 05/08/20 17:31 Freq: Status: Active Protocol: Document 05/11/20 14:11 [facility] (Rec: 05/11/20 14:16 [facility] [id number]) Hot Pack/Cold Pack Treatment Ice Massage Location left shoulder Ultrasound Therapy Treatment left upper trapezius Treatment Duration (minutes) 8 Patient Position Sitting Coupling Medium Ultrasound Gel Applicator Size (cm2) 5 Frequency Setting (mHz) 1 Mode Setting Continuous Duty Cycle 100% Intensity Setting (w/cm2) 1.5 PT-OP-T Assessment and Plan Start: 05/05/20 11:18 Freq: Status: Active Protocol: Document 07/07/20 12:02 [facility] (Rec: 07/07/20 12:16 [facility] [id number]) Physical Therapy Assessment Assessment Summary Assessment Torie is tolerating shoulder Er, gave her hand out for shoulder ER in sidelying for home. Still really tight with scapula mobility Physical Therapy Plan Frequency and Duration Frequency of Treatment 2x/Week Duration of Treatment 8 Plan of Care Start Date 06/30/20 Plan of Care End Date 08/25/20 Next Visit Focus/Plan Next Note Type Treatment Note Next Visit Plan Try cat cow next visit to assess if pt can tolerate pressure through her left arm
--- NOTE | 2020-07-12 11:11 | PT.OTN ---
Current Diagnoses Pain in left arm (07/12/20) Physical Therapy Treatment Note PT-OP-A Visit Information Start: 05/05/20 11:18 Freq: Status: Active Protocol: Document 07/12/20 10:36 [facility] (Rec: 07/12/20 10:37 [facility] [id number]) Out-Patient Physical Therapy Visit Information Visit Information Visit Type Treatment Note Visit Start Time 10:30 Visit Stop Time 11:15 Total Visit Minutes 45 Visit Number 7 PT-OP-B Current Condition Start: 05/05/20 11:18 Freq: Status: Active Protocol: Document 05/05/20 11:20 [facility] (Rec: 05/05/20 11:23 [facility] [id number]) Current Condition History of Current Condition Onset Date left shoulder and arm Current Complaints left shoulder pain, radiating pain down the left arm History of Current Condition Charlene is a 74 year old female who has been experiencing worsening pain in her left arm that began with a insidious onset a few months ago. She c/o pain radiating down the left arm. Her shoulder pain is rated 6/10. She reports using her shoulder at all can increase pain and it wakes her up at night. She has pain playing cards as her left side is her card holding hand She does have to work in her yard but she feels pretty much done with her yard for the winter. She is taking hydrocodone as needed for her shoulder. Prior Treatments and Tests x ray which was negative Treatment Goals Patient/Caregiver Goals Torie's goals include decreasing shoulder pain so that she can continue with ADL's, taking care of her , and playing cards without pain Prior Functional Status Baseline Function- ADL's Independent Baseline Function- Mobility Independent Current Functional Impairments (Reported) Functional Limitations- ADL's pain with any use of her left upper extremity, sleep is disturbed, moderate difficulty with household tasks. Functional Limitations- Recreation/ pain with playing cards as her Hobbies left hand is her card holding hand PT-OP-C Subjective Start: 05/05/20 11:18 Freq: Status: Active Protocol: Document 07/12/20 10:36 [facility] (Rec: 07/12/20 10:37 [facility] [id number]) OP-PT Subjective Patient Comments Patient Comments pt notes she is still waking up with shooting pain down to her elbow. Pain is a 3/10 PT-OP-F Manual Assessment Start: 05/05/20 11:18 Freq: Status: Active Protocol: Document 05/05/20 17:09 [facility] (Rec: 05/08/20 17:12 [facility] [email or web address]) Manual Assessments Soft Tissue Assessment Soft Tissue Mobility Assessment tightness of the left upper trapezius and bilateral pectoralis muscles, muscle guarding left upper trapezius Joint Mobility Assessment Joint Mobility Assessment Decreased posterior glide of the left glenohumeral joint, pt able to tolerate gentle long axis distraction PT-OP-J Posture/Palpation/Skin Start: 05/05/20 11:18 Freq: Status: Active Protocol: Document 05/08/20 17:09 [facility] (Rec: 05/08/20 17:12 [facility] [email or web address]) Palpation Assessment Location left upper trapezius Palpation Location left upper trapezius Palpation Findings Soft Tissue Tightness,Spasm, Muscle Guarding,Tenderness left lateral shoulder Palpation Location left lateral shoulder Palpation Findings Tenderness PT-OP-K Range of Motion Start: 05/05/20 11:18 Freq: Status: Active Protocol: Document 05/05/20 17:03 [facility] (Rec: 05/08/20 17:07 [facility] [id number]) Cervical Spine Range of Motion Cervical Spine Active Flexion 40 Extension 60 Rotation Left 60 Rotation Right 20 Lateral Flexion Left 15 Lateral Flexion Right 5 ROM Limitations Soft Tissue Tightness,Pain Comments pt didn't realize she was so tight in the area of the upper trapezius on her left, she is limited with full flexion and right sidebending Shoulder Goniometric Range of Motion Shoulder Right Shoulder ROM WFL Yes PT-OP-M Strength Start: 05/05/20 11:18 Freq: Status: Active Protocol: Document 05/05/20 17:07 [facility] (Rec: 05/08/20 17:08 [facility] [email or web address]) Shoulder Strength Shoulder Manual Muscle Testing Right Flexion 4 Good Extension 4 Good Abduction (C5) 4 Good External Rotation 4 Good Internal Rotation 4 Good Left Flexion 2 Poor Extension 4 Good Abduction (C5) 2+ Poor+ Adduction 3 Fair External Rotation 2+ Poor+ Internal Rotation 2+ Poor+ PT-OP-Q Treatments Start: 05/05/20 11:18 Freq: Status: Active Protocol: Document 07/12/20 10:56 [facility] (Rec: 07/12/20 11:03 [facility] [id number]) Therapeutic Exercises Supine Exercises snow angels Reps/Minutes x 10 reps palms up supine AAROM shoulder ER Reps/Minutes x 20 reps supine AAROM shoulder flexion Supine Exercise Name AAROM shoulder flexion Side bilateral Reps/Minutes x 20 reps Sidelying Exercises 1 Sidelying Exercise Name sidelying ER Equipment Used 1# Reps/Minutes 2x 10 Sitting Exercises seated shoulder mariangel Reps/Minutes x 4 minutes Standing Exercises standing sholder abduction with want Reps/Minutes x 15 standing shoulder extension with wand Reps/Minutes x 20 theraband shoulder extension Equipment Used 2 x 10 reps theraband rows Reps/Minutes 2 x 10 Manual Therapy Treatment Soft Tissue Mobilization 1 Body Location Left upper trapezius and deltiod release Mobilization Type Myofascial Release Intensity/Depth Superficial Body Position Sitting Comments x 5 minutes to help release the upper trapezius Manual Techniques sidelying scapular mobs left Comments good tolerance for scapulat mobs, decreased scapular mobility, upper trap and pec minor tightness PROM left shoulder Type PROM left shoulder with distraction Comments pt tolerated ROM with distraction PT-OP-R Modalities Start: 05/08/20 17:31 Freq: Status: Active Protocol: Document 05/11/20 14:11 [facility] (Rec: 05/11/20 14:16 [facility] [id number]) Hot Pack/Cold Pack Treatment Ice Massage Location left shoulder Ultrasound Therapy Treatment left upper trapezius Treatment Duration (minutes) 8 Patient Position Sitting Coupling Medium Ultrasound Gel Applicator Size (cm2) 5 Frequency Setting (mHz) 1 Mode Setting Continuous Duty Cycle 100% Intensity Setting (w/cm2) 1.5 PT-OP-T Assessment and Plan Start: 05/05/20 11:18 Freq: Status: Active Protocol: Document 07/12/20 11:03 [facility] (Rec: 07/12/20 11:11 [facility] [id number]) Physical Therapy Plan Frequency and Duration Frequency of Treatment 2x/Week Duration of Treatment 8 Plan of Care Start Date 06/30/20 Plan of Care End Date 08/25/20 Therapeutic Interventions Therapeutic Interventions Home Exercise Program,Joint Mobilizations,Manual Therapy, Self-Care/Home Management,Soft Tissue Mobilization,Taping, Therapeutic Exercises Modalities Ultrasound Next Visit Focus/Plan Next Note Type Treatment Note Next Visit Plan continue progressing shoulder ROM, working on decreasing impingement and improving scapula stabilization and rotator cuff strength
--- NOTE | 2020-07-19 11:23 | PT.OTN ---
Current Diagnoses Pain in left arm (07/19/20) Physical Therapy Treatment Note PT-OP-A Visit Information Start: 05/05/20 11:18 Freq: Status: Active Protocol: Document 07/19/20 11:19 [facility] (Rec: 07/19/20 11:22 [facility] [email or web address]) Out-Patient Physical Therapy Visit Information Visit Information Visit Type Treatment Note Visit Start Time 10:35 Visit Stop Time 11:15 Total Visit Minutes 40 Visit Number 8 PT-OP-B Current Condition Start: 05/05/20 11:18 Freq: Status: Active Protocol: Document 05/05/20 11:20 [facility] (Rec: 05/05/20 11:23 [facility] [id number]) Current Condition History of Current Condition Onset Date left shoulder and arm Current Complaints left shoulder pain, radiating pain down the left arm History of Current Condition Charlene is a 74 year old female who has been experiencing worsening pain in her left arm that began with a insidious onset a few months ago. She c/o pain radiating down the left arm. Her shoulder pain is rated 6/10. She reports using her shoulder at all can increase pain and it wakes her up at night. She has pain playing cards as her left side is her card holding hand She does have to work in her yard but she feels pretty much done with her yard for the winter. She is taking hydrocodone as needed for her shoulder. Prior Treatments and Tests x ray which was negative Treatment Goals Patient/Caregiver Goals Torie's goals include decreasing shoulder pain so that she can continue with ADL's, taking care of her , and playing cards without pain Prior Functional Status Baseline Function- ADL's Independent Baseline Function- Mobility Independent Current Functional Impairments (Reported) Functional Limitations- ADL's pain with any use of her left upper extremity, sleep is disturbed, moderate difficulty with household tasks. Functional Limitations- Recreation/ pain with playing cards as her Hobbies left hand is her card holding hand PT-OP-C Subjective Start: 05/05/20 11:18 Freq: Status: Active Protocol: Document 07/19/20 11:19 [facility] (Rec: 07/19/20 11:22 [facility] [email or web address]) OP-PT Subjective Patient Comments Patient Comments pt notes she slept better following last visit. SHe is still feeling the shoulder discomfort though and would like to continue PT PT-OP-F Manual Assessment Start: 05/05/20 11:18 Freq: Status: Active Protocol: Document 05/05/20 17:09 [facility] (Rec: 05/08/20 17:12 [facility] [email or web address]) Manual Assessments Soft Tissue Assessment Soft Tissue Mobility Assessment tightness of the left upper trapezius and bilateral pectoralis muscles, muscle guarding left upper trapezius Joint Mobility Assessment Joint Mobility Assessment Decreased posterior glide of the left glenohumeral joint, pt able to tolerate gentle long axis distraction PT-OP-J Posture/Palpation/Skin Start: 05/05/20 11:18 Freq: Status: Active Protocol: Document 05/08/20 17:09 [facility] (Rec: 05/08/20 17:12 [facility] [email or web address]) Palpation Assessment Location left upper trapezius Palpation Location left upper trapezius Palpation Findings Soft Tissue Tightness,Spasm, Muscle Guarding,Tenderness left lateral shoulder Palpation Location left lateral shoulder Palpation Findings Tenderness PT-OP-K Range of Motion Start: 05/05/20 11:18 Freq: Status: Active Protocol: Document 05/05/20 17:03 [facility] (Rec: 05/08/20 17:07 [facility] [email or web address]) Cervical Spine Range of Motion Cervical Spine Active Flexion 40 Extension 60 Rotation Left 60 Rotation Right 20 Lateral Flexion Left 15 Lateral Flexion Right 5 ROM Limitations Soft Tissue Tightness,Pain Comments pt didn't realize she was so tight in the area of the upper trapezius on her left, she is limited with full flexion and right sidebending Shoulder Goniometric Range of Motion Shoulder Right Shoulder ROM WFL Yes PT-OP-M Strength Start: 05/05/20 11:18 Freq: Status: Active Protocol: Document 05/05/20 17:07 [facility] (Rec: 05/08/20 17:08 [facility] [email or web address]) Shoulder Strength Shoulder Manual Muscle Testing Right Flexion 4 Good Extension 4 Good Abduction (C5) 4 Good External Rotation 4 Good Internal Rotation 4 Good Left Flexion 2 Poor Extension 4 Good Abduction (C5) 2+ Poor+ Adduction 3 Fair External Rotation 2+ Poor+ Internal Rotation 2+ Poor+ PT-OP-Q Treatments Start: 05/05/20 11:18 Freq: Status: Active Protocol: Document 07/19/20 11:19 [facility] (Rec: 07/19/20 11:22 [facility] [email or web address]) Therapeutic Exercises Standing Exercises standign shoulder ER Reps/Minutes 3x10 reps level 1 standing shoulder extension with wand Reps/Minutes x 20 theraband shoulder extension Equipment Used 2 x 10 reps theraband rows Reps/Minutes 2 x 10 Manual Therapy Treatment Soft Tissue Mobilization 1 Body Location Left upper trapezius and deltiod release Mobilization Type Myofascial Release Intensity/Depth Superficial Body Position Sitting Comments x 5 minutes to help release the upper trapezius Manual Techniques sidelying scapular mobs left Comments good tolerance for scapulat mobs, decreased scapular mobility, upper trap and pec minor tightness PT-OP-R Modalities Start: 05/08/20 17:31 Freq: Status: Active Protocol: Document 07/19/20 11:22 [facility] (Rec: 07/19/20 11:23 [facility] [email or web address]) Ultrasound Therapy Treatment left deltiod region Treatment Duration (minutes) 8 Patient Position Sidelying Coupling Medium Ultrasound Gel Applicator Size (cm2) 5 Frequency Setting (mHz) 1 Mode Setting Continuous Intensity Setting (w/cm2) 1.5 PT-OP-T Assessment and Plan Start: 05/05/20 11:18 Freq: Status: Active Protocol: Document 07/19/20 11:19 [facility] (Rec: 07/19/20 11:22 [facility] [email or web address]) Physical Therapy Assessment Assessment Summary Assessment Torie is tolerating shoulder ER better now. She is still tight in the left upper trapezius and deltoid region. She notes it was after her flu shot that her pain began Physical Therapy Plan Frequency and Duration Frequency of Treatment 2x/Week Duration of Treatment 8 Plan of Care Start Date 06/30/20 Plan of Care End Date 08/25/20 Therapeutic Interventions Therapeutic Interventions Home Exercise Program,Joint Mobilizations,Manual Therapy, Self-Care/Home Management,Soft Tissue Mobilization,Taping, Therapeutic Exercises Modalities Ultrasound Next Visit Focus/Plan Next Note Type Treatment Note Next Visit Plan continue progressing shoulder ROM, working on decreasing impingement and improving scapula stabilization and rotator cuff strength
--- NOTE | 2020-07-19 18:10 | PT.OTN ---
Current Diagnoses Pain in left arm (07/19/20) Physical Therapy Treatment Note PT-OP-A Visit Information Start: 05/05/20 11:18 Freq: Status: Active Protocol: Document 07/14/20 11:19 [facility] (Rec: 07/19/20 11:22 [facility] [email or web address]) Out-Patient Physical Therapy Visit Information Visit Information Visit Type Treatment Note Visit Start Time 10:35 Visit Stop Time 11:15 Total Visit Minutes 40 Visit Number 8 PT-OP-B Current Condition Start: 05/05/20 11:18 Freq: Status: Active Protocol: Document 05/05/20 11:20 [facility] (Rec: 05/05/20 11:23 [facility] [id number]) Current Condition History of Current Condition Onset Date left shoulder and arm Current Complaints left shoulder pain, radiating pain down the left arm History of Current Condition Charlene is a 74 year old female who has been experiencing worsening pain in her left arm that began with a insidious onset a few months ago. She c/o pain radiating down the left arm. Her shoulder pain is rated 6/10. She reports using her shoulder at all can increase pain and it wakes her up at night. She has pain playing cards as her left side is her card holding hand She does have to work in her yard but she feels pretty much done with her yard for the winter. She is taking hydrocodone as needed for her shoulder. Prior Treatments and Tests x ray which was negative Treatment Goals Patient/Caregiver Goals Torie's goals include decreasing shoulder pain so that she can continue with ADL's, taking care of her , and playing cards without pain Prior Functional Status Baseline Function- ADL's Independent Baseline Function- Mobility Independent Current Functional Impairments (Reported) Functional Limitations- ADL's pain with any use of her left upper extremity, sleep is disturbed, moderate difficulty with household tasks. Functional Limitations- Recreation/ pain with playing cards as her Hobbies left hand is her card holding hand PT-OP-C Subjective Start: 05/05/20 11:18 Freq: Status: Active Protocol: Document 07/14/20 11:19 [facility] (Rec: 07/19/20 11:22 [facility] [email or web address]) OP-PT Subjective Patient Comments Patient Comments pt notes she slept better following last visit. SHe is still feeling the shoulder discomfort though and would like to continue PT PT-OP-F Manual Assessment Start: 05/05/20 11:18 Freq: Status: Active Protocol: Document 05/05/20 17:09 [facility] (Rec: 05/08/20 17:12 [facility] [email or web address]) Manual Assessments Soft Tissue Assessment Soft Tissue Mobility Assessment tightness of the left upper trapezius and bilateral pectoralis muscles, muscle guarding left upper trapezius Joint Mobility Assessment Joint Mobility Assessment Decreased posterior glide of the left glenohumeral joint, pt able to tolerate gentle long axis distraction PT-OP-J Posture/Palpation/Skin Start: 05/05/20 11:18 Freq: Status: Active Protocol: Document 05/08/20 17:09 [facility] (Rec: 05/08/20 17:12 [facility] [email or web address]) Palpation Assessment Location left upper trapezius Palpation Location left upper trapezius Palpation Findings Soft Tissue Tightness,Spasm, Muscle Guarding,Tenderness left lateral shoulder Palpation Location left lateral shoulder Palpation Findings Tenderness PT-OP-K Range of Motion Start: 05/05/20 11:18 Freq: Status: Active Protocol: Document 05/05/20 17:03 [facility] (Rec: 05/08/20 17:07 [facility] [email or web address]) Cervical Spine Range of Motion Cervical Spine Active Flexion 40 Extension 60 Rotation Left 60 Rotation Right 20 Lateral Flexion Left 15 Lateral Flexion Right 5 ROM Limitations Soft Tissue Tightness,Pain Comments pt didn't realize she was so tight in the area of the upper trapezius on her left, she is limited with full flexion and right sidebending Shoulder Goniometric Range of Motion Shoulder Right Shoulder ROM WFL Yes PT-OP-M Strength Start: 05/05/20 11:18 Freq: Status: Active Protocol: Document 05/05/20 17:07 [facility] (Rec: 05/08/20 17:08 [facility] [email or web address]) Shoulder Strength Shoulder Manual Muscle Testing Right Flexion 4 Good Extension 4 Good Abduction (C5) 4 Good External Rotation 4 Good Internal Rotation 4 Good Left Flexion 2 Poor Extension 4 Good Abduction (C5) 2+ Poor+ Adduction 3 Fair External Rotation 2+ Poor+ Internal Rotation 2+ Poor+ PT-OP-Q Treatments Start: 05/05/20 11:18 Freq: Status: Active Protocol: Document 07/14/20 11:19 [facility] (Rec: 07/19/20 11:22 [facility] [email or web address]) Therapeutic Exercises Standing Exercises standign shoulder ER Reps/Minutes 3x10 reps level 1 standing shoulder extension with wand Reps/Minutes x 20 theraband shoulder extension Equipment Used 2 x 10 reps theraband rows Reps/Minutes 2 x 10 Manual Therapy Treatment Soft Tissue Mobilization 1 Body Location Left upper trapezius and deltiod release Mobilization Type Myofascial Release Intensity/Depth Superficial Body Position Sitting Comments x 5 minutes to help release the upper trapezius Manual Techniques sidelying scapular mobs left Comments good tolerance for scapulat mobs, decreased scapular mobility, upper trap and pec minor tightness PT-OP-R Modalities Start: 05/08/20 17:31 Freq: Status: Active Protocol: Document 07/14/20 10:30 [facility] (Rec: 07/19/20 11:23 [facility] [email or web address]) Ultrasound Therapy Treatment left deltiod region Treatment Duration (minutes) 8 Patient Position Sidelying Coupling Medium Ultrasound Gel Applicator Size (cm2) 5 Frequency Setting (mHz) 1 Mode Setting Continuous Intensity Setting (w/cm2) 1.5 PT-OP-T Assessment and Plan Start: 05/05/20 11:18 Freq: Status: Active Protocol: Document 07/14/20 11:19 [facility] (Rec: 07/19/20 11:22 [facility] [email or web address]) Physical Therapy Assessment Assessment Summary Assessment Torie is tolerating shoulder ER better now. She is still tight in the left upper trapezius and deltoid region. She notes it was after her flu shot that her pain began Physical Therapy Plan Frequency and Duration Frequency of Treatment 2x/Week Duration of Treatment 8 Plan of Care Start Date 06/30/20 Plan of Care End Date 08/25/20 Therapeutic Interventions Therapeutic Interventions Home Exercise Program,Joint Mobilizations,Manual Therapy, Self-Care/Home Management,Soft Tissue Mobilization,Taping, Therapeutic Exercises Modalities Ultrasound Next Visit Focus/Plan Next Note Type Treatment Note Next Visit Plan continue progressing shoulder ROM, working on decreasing impingement and improving scapula stabilization and rotator cuff strength
--- NOTE | 2020-07-21 18:12 | PT.OTN ---
Current Diagnoses Pain in left arm (07/21/20) Physical Therapy Treatment Note PT-OP-A Visit Information Start: 05/05/20 11:18 Freq: Status: Active Protocol: Document 07/21/20 11:04 [facility] (Rec: 07/21/20 11:22 [facility] [id number]) Out-Patient Physical Therapy Visit Information Visit Information Visit Type Treatment Note Visit Start Time 10:30 Visit Stop Time 11:15 Total Visit Minutes 45 Visit Number 9 PT-OP-B Current Condition Start: 05/05/20 11:18 Freq: Status: Active Protocol: Document 05/05/20 11:20 [facility] (Rec: 05/05/20 11:23 [facility] [id number]) Current Condition History of Current Condition Onset Date left shoulder and arm Current Complaints left shoulder pain, radiating pain down the left arm History of Current Condition Charlene is a 74 year old female who has been experiencing worsening pain in her left arm that began with a insidious onset a few months ago. She c/o pain radiating down the left arm. Her shoulder pain is rated 6/10. She reports using her shoulder at all can increase pain and it wakes her up at night. She has pain playing cards as her left side is her card holding hand She does have to work in her yard but she feels pretty much done with her yard for the winter. She is taking hydrocodone as needed for her shoulder. Prior Treatments and Tests x ray which was negative Treatment Goals Patient/Caregiver Goals Torie's goals include decreasing shoulder pain so that she can continue with ADL's, taking care of her , and playing cards without pain Prior Functional Status Baseline Function- ADL's Independent Baseline Function- Mobility Independent Current Functional Impairments (Reported) Functional Limitations- ADL's pain with any use of her left upper extremity, sleep is disturbed, moderate difficulty with household tasks. Functional Limitations- Recreation/ pain with playing cards as her Hobbies left hand is her card holding hand PT-OP-C Subjective Start: 05/05/20 11:18 Freq: Status: Active Protocol: Document 07/21/20 11:04 [facility] (Rec: 07/21/20 11:22 [facility] [id number]) OP-PT Subjective Patient Comments Patient Comments Torie reports she slept better again last night after last treatment PT-OP-F Manual Assessment Start: 05/05/20 11:18 Freq: Status: Active Protocol: Document 05/05/20 17:09 [facility] (Rec: 05/08/20 17:12 [facility] [email or web address]) Manual Assessments Soft Tissue Assessment Soft Tissue Mobility Assessment tightness of the left upper trapezius and bilateral pectoralis muscles, muscle guarding left upper trapezius Joint Mobility Assessment Joint Mobility Assessment Decreased posterior glide of the left glenohumeral joint, pt able to tolerate gentle long axis distraction PT-OP-J Posture/Palpation/Skin Start: 05/05/20 11:18 Freq: Status: Active Protocol: Document 05/08/20 17:09 [facility] (Rec: 05/08/20 17:12 [facility] [email or web address]) Palpation Assessment Location left upper trapezius Palpation Location left upper trapezius Palpation Findings Soft Tissue Tightness,Spasm, Muscle Guarding,Tenderness left lateral shoulder Palpation Location left lateral shoulder Palpation Findings Tenderness PT-OP-K Range of Motion Start: 05/05/20 11:18 Freq: Status: Active Protocol: Document 05/05/20 17:03 [facility] (Rec: 05/08/20 17:07 [facility] [email or web address]) Cervical Spine Range of Motion Cervical Spine Active Flexion 40 Extension 60 Rotation Left 60 Rotation Right 20 Lateral Flexion Left 15 Lateral Flexion Right 5 ROM Limitations Soft Tissue Tightness,Pain Comments pt didn't realize she was so tight in the area of the upper trapezius on her left, she is limited with full flexion and right sidebending Shoulder Goniometric Range of Motion Shoulder Right Shoulder ROM WFL Yes PT-OP-M Strength Start: 05/05/20 11:18 Freq: Status: Active Protocol: Document 05/05/20 17:07 [facility] (Rec: 05/08/20 17:08 [facility] [email or web address]) Shoulder Strength Shoulder Manual Muscle Testing Right Flexion 4 Good Extension 4 Good Abduction (C5) 4 Good External Rotation 4 Good Internal Rotation 4 Good Left Flexion 2 Poor Extension 4 Good Abduction (C5) 2+ Poor+ Adduction 3 Fair External Rotation 2+ Poor+ Internal Rotation 2+ Poor+ PT-OP-Q Treatments Start: 05/05/20 11:18 Freq: Status: Active Protocol: Document 07/21/20 11:04 [facility] (Rec: 07/21/20 11:22 [facility] [id number]) Therapeutic Exercises Supine Exercises snow angels Reps/Minutes x 10 reps palms up supine AAROM shoulder flexion Supine Exercise Name Active ROM Reps/Minutes x 20 reps Sidelying Exercises 1 Sidelying Exercise Name sidelying ER Equipment Used 2# Reps/Minutes 2x 10 Sitting Exercises seated shoulder mariangel Reps/Minutes x 4 minutes Standing Exercises standign shoulder ER Reps/Minutes 3x10 reps level 1 theraband shoulder extension Resistance level 1 theraband Equipment Used 2 x 10 reps theraband rows Equipment Used level 1 theraband Reps/Minutes 2 x 10 Manual Therapy Treatment Soft Tissue Mobilization 1 Body Location Left upper trapezius and deltiod release Mobilization Type Myofascial Release Intensity/Depth Superficial Body Position Sitting Comments x 5 minutes to help release the upper trapezius Joint Mobilizations 1 Joint long axis distraction and gentle posterior glides Grade II Grade II Body Position Supine Comments LEFT SHOULDER Manual Techniques sidelying scapular mobs left Comments good tolerance for scapulat mobs, decreased scapular mobility, upper trap and pec minor tightness PT-OP-R Modalities Start: 05/08/20 17:31 Freq: Status: Active Protocol: Document 07/21/20 18:12 [facility] (Rec: 07/21/20 18:12 [facility] [id number]) Ultrasound Therapy Treatment left deltiod region Treatment Duration (minutes) 8 Patient Position Sidelying Coupling Medium Ultrasound Gel Applicator Size (cm2) 5 Frequency Setting (mHz) 1 Mode Setting Continuous Intensity Setting (w/cm2) 1.5 PT-OP-T Assessment and Plan Start: 05/05/20 11:18 Freq: Status: Active Protocol: Document 07/19/20 10:30 [facility] (Rec: 07/19/20 11:22 [facility] [email or web address]) Physical Therapy Assessment Assessment Summary Assessment Torie is tolerating shoulder ER better now. She is still tight in the left upper trapezius and deltoid region. She notes it was after her flu shot that her pain began Physical Therapy Plan Frequency and Duration Frequency of Treatment 2x/Week Duration of Treatment 8 Plan of Care Start Date 06/30/20 Plan of Care End Date 08/25/20 Therapeutic Interventions Therapeutic Interventions Home Exercise Program,Joint Mobilizations,Manual Therapy, Self-Care/Home Management,Soft Tissue Mobilization,Taping, Therapeutic Exercises Modalities Ultrasound Next Visit Focus/Plan Next Note Type Treatment Note Next Visit Plan continue progressing shoulder ROM, working on decreasing impingement and improving scapula stabilization and rotator cuff strength
--- NOTE | 2020-08-02 17:15 | PT.OTN ---
Current Diagnoses Pain in left arm (08/02/20) Physical Therapy Treatment Note PT-OP-A Visit Information Start: 05/05/20 11:18 Freq: Status: Active Protocol: Document 08/02/20 17:09 [facility] (Rec: 08/02/20 17:12 [facility] [email or web address]) Out-Patient Physical Therapy Visit Information Visit Information Visit Type Treatment Note Visit Start Time 11:25 Visit Stop Time 12:10 Total Visit Minutes 45 Visit Number 10 PT-OP-B Current Condition Start: 05/05/20 11:18 Freq: Status: Active Protocol: Document 05/05/20 11:20 [facility] (Rec: 05/05/20 11:23 [facility] [id number]) Current Condition History of Current Condition Onset Date left shoulder and arm Current Complaints left shoulder pain, radiating pain down the left arm History of Current Condition Charlene is a 74 year old female who has been experiencing worsening pain in her left arm that began with a insidious onset a few months ago. She c/o pain radiating down the left arm. Her shoulder pain is rated 6/10. She reports using her shoulder at all can increase pain and it wakes her up at night. She has pain playing cards as her left side is her card holding hand She does have to work in her yard but she feels pretty much done with her yard for the winter. She is taking hydrocodone as needed for her shoulder. Prior Treatments and Tests x ray which was negative Treatment Goals Patient/Caregiver Goals Torie's goals include decreasing shoulder pain so that she can continue with ADL's, taking care of her , and playing cards without pain Prior Functional Status Baseline Function- ADL's Independent Baseline Function- Mobility Independent Current Functional Impairments (Reported) Functional Limitations- ADL's pain with any use of her left upper extremity, sleep is disturbed, moderate difficulty with household tasks. Functional Limitations- Recreation/ pain with playing cards as her Hobbies left hand is her card holding hand PT-OP-C Subjective Start: 05/05/20 11:18 Freq: Status: Active Protocol: Document 08/02/20 11:29 [facility] (Rec: 08/02/20 11:30 [facility] [id number]) OP-PT Subjective Patient Comments Patient Comments pt was able to get her covid shot 07/27/20. She is a little achey in the left shoulder from it although she had it in her right arm Patient Reported Progress Same PT-OP-F Manual Assessment Start: 05/05/20 11:18 Freq: Status: Active Protocol: Document 05/05/20 17:09 [facility] (Rec: 05/08/20 17:12 [facility] [email or web address]) Manual Assessments Soft Tissue Assessment Soft Tissue Mobility Assessment tightness of the left upper trapezius and bilateral pectoralis muscles, muscle guarding left upper trapezius Joint Mobility Assessment Joint Mobility Assessment Decreased posterior glide of the left glenohumeral joint, pt able to tolerate gentle long axis distraction PT-OP-J Posture/Palpation/Skin Start: 05/05/20 11:18 Freq: Status: Active Protocol: Document 05/08/20 17:09 [facility] (Rec: 05/08/20 17:12 [facility] [email or web address]) Palpation Assessment Location left upper trapezius Palpation Location left upper trapezius Palpation Findings Soft Tissue Tightness,Spasm, Muscle Guarding,Tenderness left lateral shoulder Palpation Location left lateral shoulder Palpation Findings Tenderness PT-OP-K Range of Motion Start: 05/05/20 11:18 Freq: Status: Active Protocol: Document 05/05/20 17:03 [facility] (Rec: 05/08/20 17:07 [facility] [email or web address]) Cervical Spine Range of Motion Cervical Spine Active Flexion 40 Extension 60 Rotation Left 60 Rotation Right 20 Lateral Flexion Left 15 Lateral Flexion Right 5 ROM Limitations Soft Tissue Tightness,Pain Comments pt didn't realize she was so tight in the area of the upper trapezius on her left, she is limited with full flexion and right sidebending Shoulder Goniometric Range of Motion Shoulder Right Shoulder ROM WFL Yes PT-OP-M Strength Start: 05/05/20 11:18 Freq: Status: Active Protocol: Document 05/05/20 17:07 [facility] (Rec: 05/08/20 17:08 [facility] [email or web address]) Shoulder Strength Shoulder Manual Muscle Testing Right Flexion 4 Good Extension 4 Good Abduction (C5) 4 Good External Rotation 4 Good Internal Rotation 4 Good Left Flexion 2 Poor Extension 4 Good Abduction (C5) 2+ Poor+ Adduction 3 Fair External Rotation 2+ Poor+ Internal Rotation 2+ Poor+ PT-OP-Q Treatments Start: 05/05/20 11:18 Freq: Status: Active Protocol: Document 08/02/20 17:12 [facility] (Rec: 08/02/20 17:15 [facility] [email or web address]) Manual Therapy Treatment Soft Tissue Mobilization left deltoid STM Body Location STM left deltiod 1 Body Location Left upper trapezius and deltiod release Mobilization Type Myofascial Release Intensity/Depth Superficial Body Position Sitting Comments x 5 minutes to help release the upper trapezius Manual Techniques sidelying scapular mobs left Comments good tolerance for scapulat mobs, decreased scapular mobility, upper trap and pec minor tightness PROM left shoulder Type PROM left shoulder with distraction Comments pt tolerated ROM with distraction PT-OP-R Modalities Start: 05/08/20 17:31 Freq: Status: Active Protocol: Document 07/21/20 18:12 [facility] (Rec: 07/21/20 18:12 [facility] [id number]) Ultrasound Therapy Treatment left deltiod region Treatment Duration (minutes) 8 Patient Position Sidelying Coupling Medium Ultrasound Gel Applicator Size (cm2) 5 Frequency Setting (mHz) 1 Mode Setting Continuous Intensity Setting (w/cm2) 1.5 PT-OP-T Assessment and Plan Start: 05/05/20 11:18 Freq: Status: Active Protocol: Document 08/02/20 17:12 [facility] (Rec: 08/02/20 17:15 [facility] [email or web address]) Physical Therapy Assessment Assessment Summary Assessment pt notes she was doing better overall until she received her covid 19 vaccine and then she began feeling acheyness in her left arm again. Physical Therapy Plan Frequency and Duration Frequency of Treatment 2x/Week Duration of Treatment 8 Plan of Care Start Date 06/30/20 Plan of Care End Date 08/25/20 Next Visit Focus/Plan Next Note Type Treatment Note Next Visit Plan continue progressing shoulder ROM, working on decreasing impingement and improving scapula stabilization and rotator cuff strength
--- NOTE | 2020-08-10 13:32 | PT.OTN ---
Current Diagnoses Pain in left arm (08/10/20) Physical Therapy Treatment Note PT-OP-A Visit Information Start: 05/05/20 11:18 Freq: Status: Active Protocol: Document 08/10/20 11:24 [facility] (Rec: 08/10/20 11:25 [facility] [id number]) Out-Patient Physical Therapy Visit Information Visit Information Visit Type Treatment Note Visit Start Time 11:24 Visit Stop Time 12:00 Total Visit Minutes 40 Visit Number 11 PT-OP-B Current Condition Start: 05/05/20 11:18 Freq: Status: Active Protocol: Document 05/05/20 11:20 [facility] (Rec: 05/05/20 11:23 [facility] [id number]) Current Condition History of Current Condition Onset Date left shoulder and arm Current Complaints left shoulder pain, radiating pain down the left arm History of Current Condition Charlene is a 74 year old female who has been experiencing worsening pain in her left arm that began with a insidious onset a few months ago. She c/o pain radiating down the left arm. Her shoulder pain is rated 6/10. She reports using her shoulder at all can increase pain and it wakes her up at night. She has pain playing cards as her left side is her card holding hand She does have to work in her yard but she feels pretty much done with her yard for the winter. She is taking hydrocodone as needed for her shoulder. Prior Treatments and Tests x ray which was negative Treatment Goals Patient/Caregiver Goals Torie's goals include decreasing shoulder pain so that she can continue with ADL's, taking care of her , and playing cards without pain Prior Functional Status Baseline Function- ADL's Independent Baseline Function- Mobility Independent Current Functional Impairments (Reported) Functional Limitations- ADL's pain with any use of her left upper extremity, sleep is disturbed, moderate difficulty with household tasks. Functional Limitations- Recreation/ pain with playing cards as her Hobbies left hand is her card holding hand PT-OP-C Subjective Start: 05/05/20 11:18 Freq: Status: Active Protocol: Document 08/10/20 11:24 [facility] (Rec: 08/10/20 11:25 [facility] [id number]) OP-PT Subjective Patient Comments Patient Comments Bee reports she had to shovel snow and had increased shoulder pain. She is better today. PT-OP-F Manual Assessment Start: 05/05/20 11:18 Freq: Status: Active Protocol: Document 05/05/20 17:09 [facility] (Rec: 05/08/20 17:12 [facility] [email or web address]) Manual Assessments Soft Tissue Assessment Soft Tissue Mobility Assessment tightness of the left upper trapezius and bilateral pectoralis muscles, muscle guarding left upper trapezius Joint Mobility Assessment Joint Mobility Assessment Decreased posterior glide of the left glenohumeral joint, pt able to tolerate gentle long axis distraction PT-OP-J Posture/Palpation/Skin Start: 05/05/20 11:18 Freq: Status: Active Protocol: Document 05/08/20 17:09 [facility] (Rec: 05/08/20 17:12 [facility] [email or web address]) Palpation Assessment Location left upper trapezius Palpation Location left upper trapezius Palpation Findings Soft Tissue Tightness,Spasm, Muscle Guarding,Tenderness left lateral shoulder Palpation Location left lateral shoulder Palpation Findings Tenderness PT-OP-K Range of Motion Start: 05/05/20 11:18 Freq: Status: Active Protocol: Document 05/05/20 17:03 [facility] (Rec: 05/08/20 17:07 [facility] [email or web address]) Cervical Spine Range of Motion Cervical Spine Active Flexion 40 Extension 60 Rotation Left 60 Rotation Right 20 Lateral Flexion Left 15 Lateral Flexion Right 5 ROM Limitations Soft Tissue Tightness,Pain Comments pt didn't realize she was so tight in the area of the upper trapezius on her left, she is limited with full flexion and right sidebending Shoulder Goniometric Range of Motion Shoulder Right Shoulder ROM WFL Yes PT-OP-M Strength Start: 05/05/20 11:18 Freq: Status: Active Protocol: Document 05/05/20 17:07 [facility] (Rec: 05/08/20 17:08 [facility] [email or web address]) Shoulder Strength Shoulder Manual Muscle Testing Right Flexion 4 Good Extension 4 Good Abduction (C5) 4 Good External Rotation 4 Good Internal Rotation 4 Good Left Flexion 2 Poor Extension 4 Good Abduction (C5) 2+ Poor+ Adduction 3 Fair External Rotation 2+ Poor+ Internal Rotation 2+ Poor+ PT-OP-Q Treatments Start: 05/05/20 11:18 Freq: Status: Active Protocol: Document 08/10/20 13:30 [facility] (Rec: 08/10/20 13:32 [facility] [email or web address]) Therapeutic Exercises Supine Exercises supine AAROM shoulder ER Reps/Minutes x 20 reps supine AAROM shoulder flexion Supine Exercise Name Active ROM Reps/Minutes x 20 reps Sidelying Exercises 1 Sidelying Exercise Name sidelying ER Equipment Used 2# Reps/Minutes 3x 10 Manual Therapy Treatment Soft Tissue Mobilization left deltoid STM Body Location STM left deltiod 1 Body Location Left upper trapezius and deltiod release Mobilization Type Myofascial Release Intensity/Depth Superficial Body Position Sitting Comments x 5 minutes to help release the upper trapezius Joint Mobilizations 1 Joint long axis distraction and gentle posterior glides Grade II Grade II Body Position Supine Comments LEFT SHOULDER Manual Techniques PROM left shoulder Type PROM left shoulder with distraction Comments pt tolerated ROM with distraction PT-OP-R Modalities Start: 05/08/20 17:31 Freq: Status: Active Protocol: Document 07/21/20 18:12 [facility] (Rec: 07/21/20 18:12 [facility] [id number]) Ultrasound Therapy Treatment left deltiod region Treatment Duration (minutes) 8 Patient Position Sidelying Coupling Medium Ultrasound Gel Applicator Size (cm2) 5 Frequency Setting (mHz) 1 Mode Setting Continuous Intensity Setting (w/cm2) 1.5 PT-OP-T Assessment and Plan Start: 05/05/20 11:18 Freq: Status: Active Protocol: Document 08/10/20 13:30 [facility] (Rec: 08/10/20 13:32 [facility] [email or web address]) Physical Therapy Assessment Assessment Summary Assessment Decreased muscle guarding in the left deltoid today, able to increase shoulder ER to 3 sets of 10 reps Physical Therapy Plan Frequency and Duration Frequency of Treatment 2x/Week Duration of Treatment 8 Plan of Care Start Date 06/30/20 Plan of Care End Date 08/25/20 Therapeutic Interventions Therapeutic Interventions Home Exercise Program,Joint Mobilizations,Manual Therapy, Self-Care/Home Management,Soft Tissue Mobilization,Taping, Therapeutic Exercises Modalities Ultrasound Discharge Physical Therapy Discharge Reasons Goals Met Next Visit Focus/Plan Next Note Type Treatment Note Next Visit Plan continue progressing shoulder ROM, working on decreasing impingement and improving scapula stabilization and rotator cuff strength
--- NOTE | 2020-08-17 14:30 | PT.OTN ---
Current Diagnoses Pain in left arm (08/17/20) Physical Therapy Treatment Note PT-OP-A Visit Information Start: 05/05/20 11:18 Freq: Status: Active Protocol: Document 08/17/20 11:21 [facility] (Rec: 08/17/20 11:22 [facility] [id number]) Out-Patient Physical Therapy Visit Information Visit Information Visit Type Treatment Note Visit Start Time 11:15 Visit Stop Time 12:00 Total Visit Minutes 45 Visit Number 12 PT-OP-B Current Condition Start: 05/05/20 11:18 Freq: Status: Active Protocol: Document 05/05/20 11:20 [facility] (Rec: 05/05/20 11:23 [facility] [id number]) Current Condition History of Current Condition Onset Date left shoulder and arm Current Complaints left shoulder pain, radiating pain down the left arm History of Current Condition Charlene is a 74 year old female who has been experiencing worsening pain in her left arm that began with a insidious onset a few months ago. She c/o pain radiating down the left arm. Her shoulder pain is rated 6/10. She reports using her shoulder at all can increase pain and it wakes her up at night. She has pain playing cards as her left side is her card holding hand She does have to work in her yard but she feels pretty much done with her yard for the winter. She is taking hydrocodone as needed for her shoulder. Prior Treatments and Tests x ray which was negative Treatment Goals Patient/Caregiver Goals Torie's goals include decreasing shoulder pain so that she can continue with ADL's, taking care of her , and playing cards without pain Prior Functional Status Baseline Function- ADL's Independent Baseline Function- Mobility Independent Current Functional Impairments (Reported) Functional Limitations- ADL's pain with any use of her left upper extremity, sleep is disturbed, moderate difficulty with household tasks. Functional Limitations- Recreation/ pain with playing cards as her Hobbies left hand is her card holding hand PT-OP-C Subjective Start: 05/05/20 11:18 Freq: Status: Active Protocol: Document 08/17/20 11:21 [facility] (Rec: 08/17/20 11:22 [facility] [id number]) OP-PT Subjective Patient Comments Patient Comments pt reports her shoulder is aggravated again and she is having pain down her arm. PT-OP-F Manual Assessment Start: 05/05/20 11:18 Freq: Status: Active Protocol: Document 05/05/20 17:09 [facility] (Rec: 05/08/20 17:12 [facility] [email or web address]) Manual Assessments Soft Tissue Assessment Soft Tissue Mobility Assessment tightness of the left upper trapezius and bilateral pectoralis muscles, muscle guarding left upper trapezius Joint Mobility Assessment Joint Mobility Assessment Decreased posterior glide of the left glenohumeral joint, pt able to tolerate gentle long axis distraction PT-OP-J Posture/Palpation/Skin Start: 05/05/20 11:18 Freq: Status: Active Protocol: Document 05/08/20 17:09 [facility] (Rec: 05/08/20 17:12 [facility] [email or web address]) Palpation Assessment Location left upper trapezius Palpation Location left upper trapezius Palpation Findings Soft Tissue Tightness,Spasm, Muscle Guarding,Tenderness left lateral shoulder Palpation Location left lateral shoulder Palpation Findings Tenderness PT-OP-K Range of Motion Start: 05/05/20 11:18 Freq: Status: Active Protocol: Document 05/05/20 17:03 [facility] (Rec: 05/08/20 17:07 [facility] [email or web address]) Cervical Spine Range of Motion Cervical Spine Active Flexion 40 Extension 60 Rotation Left 60 Rotation Right 20 Lateral Flexion Left 15 Lateral Flexion Right 5 ROM Limitations Soft Tissue Tightness,Pain Comments pt didn't realize she was so tight in the area of the upper trapezius on her left, she is limited with full flexion and right sidebending Shoulder Goniometric Range of Motion Shoulder Right Shoulder ROM WFL Yes PT-OP-M Strength Start: 05/05/20 11:18 Freq: Status: Active Protocol: Document 05/05/20 17:07 [facility] (Rec: 05/08/20 17:08 [facility] [email or web address]) Shoulder Strength Shoulder Manual Muscle Testing Right Flexion 4 Good Extension 4 Good Abduction (C5) 4 Good External Rotation 4 Good Internal Rotation 4 Good Left Flexion 2 Poor Extension 4 Good Abduction (C5) 2+ Poor+ Adduction 3 Fair External Rotation 2+ Poor+ Internal Rotation 2+ Poor+ PT-OP-Q Treatments Start: 05/05/20 11:18 Freq: Status: Active Protocol: Document 08/17/20 12:06 [facility] (Rec: 08/17/20 12:06 [facility] [id number]) Therapeutic Exercises Supine Exercises supine AAROM shoulder ER Reps/Minutes x 20 reps supine AAROM shoulder flexion Supine Exercise Name Active ROM Reps/Minutes x 20 reps Manual Therapy Treatment Soft Tissue Mobilization left deltoid STM Body Location STM left deltiod Manual Techniques manual ice massage left shoulder Reps/Duration x5 PT-OP-R Modalities Start: 05/08/20 17:31 Freq: Status: Active Protocol: Document 07/21/20 18:12 [facility] (Rec: 07/21/20 18:12 [facility] [id number]) Ultrasound Therapy Treatment left deltiod region Treatment Duration (minutes) 8 Patient Position Sidelying Coupling Medium Ultrasound Gel Applicator Size (cm2) 5 Frequency Setting (mHz) 1 Mode Setting Continuous Intensity Setting (w/cm2) 1.5 PT-OP-T Assessment and Plan Start: 05/05/20 11:18 Freq: Status: Active Protocol: Document 08/17/20 11:34 [facility] (Rec: 08/17/20 11:45 [facility] [id number]) Physical Therapy Assessment Goals decreased strength of the left shoulder Impairment Decreased strength of the left shoulder Prison Goal (LTG) Torie demonstrates improved strength of the left shoulder to 4/5 some progress however pain interferes with strengthing for the rotator cuff LTG Duration 8 weeks left upper trapezius tightness Impairment tightness of the left upper trapezius, decreased shoulder sidebending ROM Prison Goal (LTG) Torie has decreased upper trapezius tightness, is able to fully flex her shoulder without upper trapezius substitution and has improved cervical sidebending to the right goal met LTG Duration 8 weeks decreased shoulder ROM Impairment Decreased left shoulder ROM Short Term Goal (STG) Torie is able to tolerate AAROM shoulder exercises and is able to improve her shoulder ROM to 120 degrees flexion, 30 degrees ER or better, able to reach to L5 with IR GOAL MET STG Duration 4 weeks [employer] 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 STG Duration 4 weeks Four Impairment chronic constipation with up to 5 days between bowel movements Short Term Goal (STG) Charlene is educated in the ILU self massage for her bowels and is educated on the relationship between the bowels and bladder and how a full colon/constipation can irritate the bladder making incontinence worse GOAL MET STG Duration 5 weeks Three Impairment lateral hip weakness and hx of right ARIK Short Term Goal (STG) Charlene is educated on hip strengthening exercises to help improve pelvic stabilty. STG Duration 4 weeks [employer] Goal (LTG) Improve hip abduction and ER to 4/5 or better B excellent progress, right hip is doing a lot better LTG Duration 8 weeks Two Impairment Decreased endurance of the pelvic floor Short Term Goal (STG) Charlene is able to sustain a contraction in supine x 10 seconds GOAL MET STG Duration 5 weeks Prison Goal (LTG) Charlene is able to sustain a pelvic floor contraction in a standing position for 10 seconds GOOD [employer]GRESS LTG Duration 8 weeks One Impairment urinary stress incontinence [employer] Goal (LTG) Charlene is able to improve strength of her pelvic floor enabling her to go for her walk without leaking. Torie reports leakage is subsiding and she is only leaking a few drops with walking now. She is only using a pad for walkign and then takes it off. LTG Duration 8 weeks Progress Towards Goals Progress Comments pt may benefit from further work up and a possible cortisone injection in the left shoulder. She is still experiencing flareups of the left shoulder. I am sending her back to her MD for further work up. Assessment Summary Assessment pt still very sore and c/o shooting pain in her left arm today. She has gotten some relief however this seems temporary. I am going to refer her back to her MD for a cortisone injection or further work up. We are holding on PT for now as she is still experiencing the pain symptoms Physical Therapy Plan Frequency and Duration Frequency of Treatment 2x/Week Duration of Treatment 8 Plan of Care Start Date 06/30/20 Plan of Care End Date 08/25/20 Other Referrals/Consults Referrals/Consults Recommended send pt back to MD for further work up and possible cortisone injection.
--- NOTE | 2020-08-17 14:35 | PT.OPPOC ---
Physical, Occupational & Speech Therapy At [facility] Current Diagnoses Pain in left arm (08/17/20) Visit Care Team Role Provider Type Tristen Houser DO Attending Provider Physician Family Provider Primary Care Provider Referring Provider Specialty: Family Practice Address: [address] [place] [address], [id number] Email: [email or web address] Of Care PT-OP-T Assessment and Plan Start: 05/05/20 11:18 Freq: Status: Active Protocol: Document 08/17/20 11:34 [facility] (Rec: 08/17/20 11:45 [facility] [id number]) Physical Therapy Assessment Goals decreased strength of the left shoulder Impairment Decreased strength of the left shoulder Skilled Nursing Goal (LTG) Torie demonstrates improved strength of the left shoulder to 4/5 some progress however pain interferes with strengthing for the rotator cuff LTG Duration 8 weeks left upper trapezius tightness Impairment tightness of the left upper trapezius, decreased shoulder sidebending ROM Skilled Nursing Goal (LTG) Torie has decreased upper trapezius tightness, is able to fully flex her shoulder without upper trapezius substitution and has improved cervical sidebending to the right goal met LTG Duration 8 weeks decreased shoulder ROM Impairment Decreased left shoulder ROM Short Term Goal (STG) Torie is able to tolerate AAROM shoulder exercises and is able to improve her shoulder ROM to 120 degrees flexion, 30 degrees ER or better, able to reach to L5 with IR GOAL MET STG Duration 4 weeks Tank Operator 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 STG Duration 4 weeks Progress Towards Goals Progress Comments pt may benefit from further work up and a possible cortisone injection in the left shoulder. She is still experiencing flareups of the left shoulder. I am sending her back to her MD for further work up. Assessment Summary Assessment pt still very sore and c/o shooting pain in her left arm today. She has gotten some relief however this seems temporary. I am going to refer her back to her MD for a cortisone injection or further work up. We are holding on PT for now as she is still experiencing the pain symptoms Physical Therapy Plan Frequency and Duration Frequency of Treatment 2x/Week Duration of Treatment 8 Plan of Care Start Date 06/30/20 Plan of Care End Date 08/25/20 Other Referrals/Consults Referrals/Consults Recommended Send patient back to MD for further work up and possible cortisone injection. Plan of Care Dates Plan of Care Start Date 06/30/20 Plan of Care End Date 08/25/20 Electronically Signed by: Margarita Ogden, PT 08/17/20 0747 Please Sign and Return: I have reviewed this Plan of Care and certify that the skilled therapy services above are required to meet the patient?s needs. Physician Signature Date Printed Name and Credentials Clinical Instructor Signature Printed Name and Credentials
--- NOTE | 2020-10-25 14:24 | PT.OPDS ---
Current Diagnoses Pain in left arm (08/17/20) Visit Care Team Role Provider Type Tristen Houser DO Attending Provider Physician Family Provider Primary Care Provider Referring Provider Specialty: Family Practice Address: [address] [place] [address], [facility] Email: [email or web address] Visit Number Visit Number 12 Discharge Summary PT-OP-B Current Condition Start: 05/05/20 11:18 Freq: Status: Active Protocol: Document 05/05/20 11:20 [facility] (Rec: 05/05/20 11:23 [facility] [id number]) Current Condition History of Current Condition Onset Date left shoulder and arm Current Complaints left shoulder pain, radiating pain down the left arm History of Current Condition Charlene is a 74 year old female who has been experiencing worsening pain in her left arm that began with a insidious onset a few months ago. She c/o pain radiating down the left arm. Her shoulder pain is rated 6/10. She reports using her shoulder at all can increase pain and it wakes her up at night. She has pain playing cards as her left side is her card holding hand She does have to work in her yard but she feels pretty much done with her yard for the winter. She is taking hydrocodone as needed for her shoulder. Prior Treatments and Tests x ray which was negative Treatment Goals Patient/Caregiver Goals Torie's goals include decreasing shoulder pain so that she can continue with ADL's, taking care of her , and playing cards without pain Prior Functional Status Baseline Function- ADL's Independent Baseline Function- Mobility Independent Current Functional Impairments (Reported) Functional Limitations- ADL's pain with any use of her left upper extremity, sleep is disturbed, moderate difficulty with household tasks. Functional Limitations- Recreation/ pain with playing cards as her Hobbies left hand is her card holding hand PT-OP-C Subjective Start: 05/05/20 11:18 Freq: Status: Active Protocol: Document 08/17/20 11:21 [facility] (Rec: 08/17/20 11:22 [facility] [id number]) OP-PT Subjective Patient Comments Patient Comments pt reports her shoulder is aggravated again and she is having pain down her arm. PT-OP-F Manual Assessment Start: 05/05/20 11:18 Freq: Status: Active Protocol: Document 05/05/20 17:09 [facility] (Rec: 05/08/20 17:12 [facility] [email or web address]) Manual Assessments Soft Tissue Assessment Soft Tissue Mobility Assessment tightness of the left upper trapezius and bilateral pectoralis muscles, muscle guarding left upper trapezius Joint Mobility Assessment Joint Mobility Assessment Decreased posterior glide of the left glenohumeral joint, pt able to tolerate gentle long axis distraction PT-OP-J Posture/Palpation/Skin Start: 05/05/20 11:18 Freq: Status: Active Protocol: Document 05/08/20 17:09 [facility] (Rec: 05/08/20 17:12 [facility] [email or web address]) Palpation Assessment Location left upper trapezius Palpation Location left upper trapezius Palpation Findings Soft Tissue Tightness,Spasm, Muscle Guarding,Tenderness left lateral shoulder Palpation Location left lateral shoulder Palpation Findings Tenderness PT-OP-K Range of Motion Start: 05/05/20 11:18 Freq: Status: Active Protocol: Document 05/05/20 17:03 [facility] (Rec: 05/08/20 17:07 [facility] [email or web address]) Cervical Spine Range of Motion Cervical Spine Active Flexion 40 Extension 60 Rotation Left 60 Rotation Right 20 Lateral Flexion Left 15 Lateral Flexion Right 5 ROM Limitations Soft Tissue Tightness,Pain Comments pt didn't realize she was so tight in the area of the upper trapezius on her left, she is limited with full flexion and right sidebending Shoulder Goniometric Range of Motion Shoulder Right Shoulder ROM WFL Yes PT-OP-M Strength Start: 05/05/20 11:18 Freq: Status: Active Protocol: Document 05/05/20 17:07 [facility] (Rec: 05/08/20 17:08 [facility] [email or web address]) Shoulder Strength Shoulder Manual Muscle Testing Right Flexion 4 Good Extension 4 Good Abduction (C5) 4 Good External Rotation 4 Good Internal Rotation 4 Good Left Flexion 2 Poor Extension 4 Good Abduction (C5) 2+ Poor+ Adduction 3 Fair External Rotation 2+ Poor+ Internal Rotation 2+ Poor+ PT-OP-T Assessment and Plan Start: 05/05/20 11:18 Freq: Status: Active Protocol: Document 10/25/20 14:23 [facility] (Rec: 10/25/20 14:24 [facility] [email or web address]) Physical Therapy Assessment Assessment Summary Assessment Torie has not been seen since Aug 17 when PT was placed on hold for further workup of her left shoulder. At this point PT will be discharged and I am happy to restart PT in the future for Torie when she is able to return. Physical Therapy Plan Discharge Physical Therapy Discharge Reasons Plateau in Progress Discharge Comments pt referred back to MD for possible cortisone injection
== END 2020-10-26 10:43 | disposition home or self-care (01) ==
LOC: PHYS 11:15
PROVIDERS: Family Provider Family Medicine; PCP Family Medicine; Referring Provider Family Medicine; Visit Provider Family Medicine
DX: M79.602 Pain in left arm (principal)
CPT/HCPCS: 97035; 97110; 97140; 97161

== ENCOUNTER → 2020-08-25 11:06 | Outpatient (CLI) | payer MEDICARE, OTHER, SELFPAY ==
[2020-08-18 16:29] VITALS: BMI 24.4
[2020-08-25] MEDS: COVID-19 VACC #2, MRNA(MOD) 100 MCG/0.5 ML VIAL IM (11:15)
== END ==
PROVIDERS: Family Provider Family Medicine; PCP Family Medicine; Visit Provider Internal Medicine
DX: Z23 Encounter for immunization (principal)
CPT/HCPCS: 0012A; 91301

== ENCOUNTER → 2020-11-01 10:55 | Outpatient (CLI) | payer MEDICARE, OTHER, SELFPAY ==
[2020-08-18 16:29] VITALS: BMI 24.4
--- NOTE | 2020-11-01 | DI.MG.S_ITS ---
BILATERAL DIGITAL SCREENING MAMMOGRAM 3D/2D WITH CAD: 11/01/2020 CLINICAL: Routine screening. Family history of breast cancer. Comparison is made to exams dated: 06/11/2019 mammogram, 04/18/2017 mammogram, and 02/07/2016 mammogram - Located [facility]. The tissue of both breasts is heterogeneously dense. This may lower the sensitivity of mammography. Current study was also evaluated with a Computer Aided Detection (CAD) system. There is an asymmetry in the left breast posterior depth medial region seen on the craniocaudal view only. This abnormality is not seen in prior exams, which may be due to its far posterior medial location or because the abnormality is new. No other significant masses, calcifications, or other findings are seen in either breast. IMPRESSION: INCOMPLETE: NEEDS ADDITIONAL IMAGING EVALUATION The asymmetry in the left breast is indeterminate. Additional views with possible ultrasound are recommended. Differential diagnosis includes a normal variant sternalis muscle. This exam was interpreted at Station ID: [id number]. NOTE: For mammograms, a report in lay terms will be sent to the patient. Approximately 15% of breast malignancies will not be visualized mammographically. In the management of a palpable breast mass, a negative mammogram must not discourage biopsy of a clinically suspicious lesion. Electronically Signed By: Robert truong/blaise:11/01/2020 11:25:20 letter sent: Additional Imaging Needed ACR BI-RADS Category 0: Incomplete [id number]
== END ==
PROVIDERS: Family Provider Family Medicine; PCP Family Medicine; Referring Provider Family Medicine; Visit Provider Family Medicine
DX: Z12.31 Encounter for screening mammogram for malignant neoplasm of breast (principal); Z80.3 Family history of malignant neoplasm of breast
CPT/HCPCS: 77063; 77067

== ENCOUNTER → 2020-11-09 13:26 | Outpatient (CLI) | payer MEDICARE, OTHER, SELFPAY ==
[2020-08-18 16:29] VITALS: BMI 24.4
--- NOTE | 2020-11-09 | DI.MG.S_ITS ---
UNILATERAL LEFT DIGITAL DIAGNOSTIC MAMMOGRAM 3D/2D WITH ADDITIONAL VIEWS: 11/09/2020 CLINICAL: Additional evaluation requested from prior study. Comparison is made to exams dated: 11/01/2020 mammogram, 06/11/2019 mammogram, and 04/18/2017 mammogram - [facility]. The tissue of left breast is heterogeneously dense. This may lower the sensitivity of mammography. The asymmetry in the left breast posterior depth medial region seen on the craniocaudal view only is no longer seen. This is not seen in additional views. This abnormality is not seen in prior exams, which may be due to its far posterior medial location or because the abnormality is new. No other significant masses or calcifications are seen in the breast. IMPRESSION: INCOMPLETE: NEEDS ADDITIONAL IMAGING EVALUATION An ultrasound is recommended to confirm the no longer seen asymmetry in the left breast posterior depth medial region seen on the craniocaudal view only. Differential diagnosis includes a normal variant sternalis muscle. This exam was interpreted at Station ID: [id number]. NOTE: For mammograms, a report in lay terms will be sent to the patient. Approximately 15% of breast malignancies will not be visualized mammographically. In the management of a palpable breast mass, a negative mammogram must not discourage biopsy of a clinically suspicious lesion. Electronically Signed By: Nicholas agustin/blaise:11/09/2020 14:09:38 letter sent: Additional Imaging Needed ACR BI-RADS Category 0: Incomplete [id number]
--- NOTE | 2020-11-09 13:28 | DI.US.S_ITS ---
ULTRASOUND OF LEFT BREAST: 11/09/2020 CLINICAL: Patient returns today to evaluate an architectural distortion in the left breast. Comparison is made to exams dated: 11/09/2020 mammogram, 11/01/2020 mammogram, 06/11/2019 mammogram, and 04/18/2017 mammogram - [facility]. Real-time and continuous wave Doppler ultrasound of the left breast were performed. IMPRESSION: BENIGN There is no sonographic evidence of malignancy to correspond with the mammography finding. The finding on screening mammogram is likely the sternalis muscle. A 1 year screening mammogram is recommended. This exam was interpreted at Station ID: [id number]. Electronically Signed By: Nicholas Denson acr/:11/09/2020 14:13:19 letter sent: Clinical Evaluation Ultrasound BI-RADS: 2 Benign
== END ==
PROVIDERS: Family Provider Family Medicine; PCP Family Medicine; Referring Provider Family Medicine; Visit Provider Family Medicine
DX: R92.8 Other abnormal and inconclusive findings on diagnostic imaging of breast (principal); N64.89 Other specified disorders of breast
CPT/HCPCS: 76642; 77065; G0279

== ENCOUNTER → 2020-11-10 06:43 | Outpatient (CLI) | payer MEDICARE, OTHER, SELFPAY ==
[2020-08-18 16:29] VITALS: BMI 24.4
--- NOTE | 2020-11-10 06:44 | DI.MRI.S_ITS ---
PROCEDURE: MR SHOULDER LT WO CON INDICATIONS: Persistent left shoulder pain and weakness despite PT TECHNIQUE: Noncontrast oblique coronal T2 fast spin echo with fat saturation, oblique sagittal T1 spin echo and T2 fast spin echo with fat saturation, axial T1 spin echo and T2 fast spin echo with fat saturation through the shoulder. COMPARISON: None. FINDINGS: Rotator cuff: Partial thickness bursal and articular sided tear of the supraspinatus tendon with background tendinopathy and thickening. Infraspinatus tendinopathy with low-grade bursal and articular surface fraying is present. The teres minor tendon appears intact. Subscapularis tendinopathy and interstitial tearing. There is marked thickening. Subscapularis partial-thickness articular sided tear. Evaluation degraded by motion artifact. No atrophy of the rotator cuff musculature. There is mild fatty infiltration of the supraspinatus and infraspinatus muscles. Bones and bursae: No bone marrow contusions or fractures. Moderate acromioclavicular joint degeneration. 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 Moderate to severe subacromial-subdeltoid bursitis. Capsule and soft tissues: Labrum: Ill-defined macerated chronic anterior labral tear is seen. There is adjacent partial-thickness chondral loss, and sclerotic and degenerative changes in the glenoid rim. There is also frayed appearance of the posterior labrum and superior segment which is not well seen due to motion artifact. Biceps: Intra-articular segment tendinopathy. No definite complete rupture Rotator interval: Complete loss of the normal fat signal intensity. Coracohumeral ligament: Not well seen, which could reflect partial tear or sprain IMPRESSION: Partial-thickness rotator cuff tear as detailed above. No muscle atrophy identified. Moderate to severe subacromial-subdeltoid bursitis Circumferential labral tear, most notably involving the anterior segment. Long head biceps tendinopathy. Dictated by: Josue Alba M.D. on 11/10/2020 at 9:01 Approved by: Josue Abla M.D. on 11/10/2020 at 9:12
== END ==
PROVIDERS: Family Provider Family Medicine; PCP Family Medicine; Referring Provider Family Medicine; Visit Provider Family Medicine
DX: M25.512 Pain in left shoulder (principal); M19.012 Primary osteoarthritis, left shoulder; M75.112 Incomplete rotator cuff tear or rupture of left shoulder, not specified as traumatic; M75.52 Bursitis of left shoulder; S43.492A Other sprain of left shoulder joint, initial encounter; G89.29 Other chronic pain
CPT/HCPCS: 73221

== ENCOUNTER → 2020-11-16 10:22 | Outpatient (CLI) | payer MEDICARE, OTHER, SELFPAY ==
[2020-08-18 16:29] VITALS: BMI 24.4
[2020-11-16 11:50] LABS: Add Manual Diff / Slide Review NO; Basophils Absolute Auto 0 /uL (0-100); Basophils Percent Auto 0.5 % (0-2); Eosinophils Absolute Auto 200 /uL (0-450); Hematocrit 41.2 % (36-46); Hemoglobin 13.9 g/dL (12.0-16.0); Lymphocytes Absolute Auto 1500 /uL (1100-4500); Lymphocytes Percent Auto 22.7 % (25-40); Mean Corpuscular HGB Conc 33.7 % (30-36); Mean Corpuscular Hemoglobin 31.2 PG (26-34); Mean Corpuscular Volume 92.5 fL (80-100); Monocytes Absolute Auto 400 /uL (0-900); Monocytes Percent Auto 6.5 % (3-14); Neutrophils Absolute Auto 4300 /uL (1500-7000); Neutrophils Percent Auto 67.3 % (50-75); Platelet Count 199 X10^3/uL (150-400); Red Blood Cell Count 4.45 X10^6/uL (4.0-5.2); White Blood Cell Count 6.4 X10^3/uL (4.5-11.0)
[2020-11-16 12:22] LABS: Alanine Aminotransferase 31 IU/L (<35); Albumin 4.1 g/dL (3.5-5.0); Albumin Globulin Ratio 1.7 (1.0-2.8); Alkaline Phosphatase 68 U/L (38-126); Aspartate Aminotransferase 37 IU/L (14-36); BUN Creatinine Ratio 18.2 (6-22); Bilirubin Total 0.5 mg/dL (0.2-1.3); Blood Urea Nitrogen 16 mg/dL (7-17); Carbon Dioxide 31 mmol/L (22-32); Chloride 104 mmol/L (98-107); Cholesterol 175 mg/dL (140-199); Estimated Glomerular Filt Rate > 60.0 mL/min (>60); Globulin 2.4 g/dL (1.7-4.1); Glucose 102 mg/dL (80-110); HDL Cholesterol 48 mg/dL (40-60); HEMOLYSIS < 15 (0-50); LDL Cholesterol Calculated 106 mg/dL (<100); Potassium 4.8 mmol/L (3.4-5.1); Sodium 140 mmol/L (137-145); Total Protein 6.5 g/dL (6.3-8.2); Triglycerides 106 mg/dL (35-150)
[2020-11-16 12:40] LABS: Free T4, Direct Thyroxine 0.81 ng/dL (0.78-2.19)
[2020-11-16 12:54] LABS: Thyroid Stimulating Hormone 2.57 uIU/mL (0.47-4.68)
== END ==
PROVIDERS: Family Provider Family Medicine; PCP Family Medicine; Referring Provider Family Medicine; Visit Provider Family Medicine
DX: E03.9 Hypothyroidism, unspecified (principal); E78.5 Hyperlipidemia, unspecified
CPT/HCPCS: 36415; 80053; 80061; 84439; 84443; 85025

== ENCOUNTER → 2021-02-11 11:48 | Outpatient (CLI) | payer MEDICARE, OTHER, SELFPAY ==
[2020-08-18 16:29] VITALS: BMI 24.4
[2021-02-11 13:33] LABS: COVID19 -Nasal RAPID Negative (Negative)
== END ==
PROVIDERS: PCP Family Medicine; Referring Provider Physician Assistant; Visit Provider Physician Assistant
DX: Z20.822 Contact with and (suspected) exposure to COVID-19 (principal); J34.89 Other specified disorders of nose and nasal sinuses
CPT/HCPCS: 87635

== ENCOUNTER → 2021-04-28 10:35 | Outpatient (CLI) | payer MEDICARE, OTHER, SELFPAY ==
[2020-08-18 16:29] VITALS: BMI 24.4
[2021-04-28 12:19] LABS: Add Manual Diff / Slide Review NO; Basophils Absolute Auto 100 /uL (0-100); Basophils Percent Auto 0.7 % (0-2); Eosinophils Absolute Auto 300 /uL (0-450); Eosinophils Percent Auto 3.4 % (2-4); Hematocrit 40.6 % (36-46); Hemoglobin 13.7 g/dL (12.0-16.0); Lymphocytes Absolute Auto 1400 /uL (1100-4500); Mean Corpuscular HGB Conc 33.8 % (30-36); Mean Corpuscular Volume 91.7 fL (80-100); Monocytes Absolute Auto 600 /uL (0-900); Monocytes Percent Auto 6.3 % (3-14); Neutrophils Absolute Auto 6700 /uL (1500-7000); Neutrophils Percent Auto 73.6 % (50-75); Platelet Count 206 X10^3/uL (150-400); Red Blood Cell Count 4.42 X10^6/uL (4.0-5.2); Red Cell Distribution Width 13.2 % (11.6-14.8)
[2021-04-28 12:44] LABS: Alanine Aminotransferase 26 IU/L (<35); Albumin 4.3 g/dL (3.5-5.0); Alkaline Phosphatase 67 U/L (38-126); Aspartate Aminotransferase 27 IU/L (14-36); BUN Creatinine Ratio 21.2 (6-22); Bilirubin Total 0.5 mg/dL (0.2-1.3); Blood Urea Nitrogen 18 mg/dL (7-17); Calcium 9.5 mg/dL (8.4-10.2); Carbon Dioxide 30 mmol/L (22-32); Chloride 102 mmol/L (98-107); Estimated Glomerular Filt Rate > 60.0 mL/min (>60); Globulin 2.2 g/dL (1.7-4.1); Glucose 94 mg/dL (80-110); HEMOLYSIS < 15 (0-50); Potassium 4.7 mmol/L (3.4-5.1); Sodium 138 mmol/L (137-145); Total Protein 6.5 g/dL (6.3-8.2)
[2021-04-28 12:45] LABS: Appearance Urine UA CLEAR; Bilirubin Urine UA NEGATIVE (NEGATIVE); Color Urine UA YELLOW; Glucose Urine UA NEGATIVE (Negative); Ketones Urine UA NEGATIVE (NEGATIVE); Leukocyte Esterase Urine UA NEGATIVE (NEGATIVE); Nitrite Urine UA NEGATIVE (Negative); Occult Blood Urine UA NEGATIVE (Negative); Protein Urine UA NEGATIVE (Negative); Urobilinogen Urine UA 0.2 E.U./dL (0.2)
== END ==
PROVIDERS: Family Provider Family Medicine; PCP Family Medicine; Referring Provider Registered Nurse; Visit Provider Registered Nurse
DX: K21.9 Gastro-esophageal reflux disease without esophagitis (principal); R10.9 Unspecified abdominal pain; K52.9 Noninfective gastroenteritis and colitis, unspecified; T14.8XXA Other injury of unspecified body region, initial encounter; R39.15 Urgency of urination; R53.83 Other fatigue
CPT/HCPCS: 36415; 80053; 81003; 85025

== ENCOUNTER → 2021-05-01 08:49 | Outpatient (CLI) | payer MEDICARE, OTHER, SELFPAY ==
[2020-08-18 16:29] VITALS: BMI 24.4
[2021-05-02 14:58] LABS: Fecal Immunochemical Test Negative (Negative)
== END ==
PROVIDERS: Family Provider Family Medicine; PCP Family Medicine; Referring Provider Registered Nurse; Visit Provider Registered Nurse
DX: R19.5 Other fecal abnormalities (principal)
CPT/HCPCS: 82274

== ENCOUNTER 2021-05-16 13:45 | Outpatient (RCR) | payer MEDICARE, OTHER, SELFPAY ==
[2020-08-18 16:29] VITALS: BMI 24.4
--- NOTE | 2021-03-30 14:26 | PT.OIE ---
Current Diagnoses Radiculopathy, lumbar region (03/30/21) Past Medical History (Last Updated 01/03/21 @ 11:15 by Tristen Houser DO) Abnormal Pap smear of cervix (1976) Anxiety (1999) Atrophic vulvovaginitis Cellulitis Cervical cancer (1976) Chicken pox (1957) Chronic back pain (1995) Chronic headaches (1957) Cognitive impairment Colitis (1975) Constipation Depression (1999) GERD (gastroesophageal reflux disease) Hemorrhoids (1974) Herpes History of bronchitis History of colonoscopy with polypectomy Hypothyroidism Insect sting Left rotator cuff tear Measles (1957) Postmenopausal Postoperative anemia due to acute blood loss JAVY (stress urinary incontinence, female) Past Surgical History (Last Reviewed 09/20/20 @ 13:31 by Shelby Saenz MD) Anesthesia History of colonoscopy with polypectomy History of esophagogastroduodenoscopy (EGD) (10/24/11) History of spinal fusion (1999) History of spinal fusion (2012) History of spinal fusion (2001) History of tonsillectomy (1966) Status post appendectomy (1956) Status post biopsy (10/24/11) Status post colonoscopy (10/24/11) Status post laparoscopic cholecystectomy (2000) Status post vaginal hysterectomy (1977) Visit Care Team Role Provider Type Tristen Houser DO Family Provider Physician Primary Care Provider Specialty: Family Practice Address: [address] [place] [address], [address] Email: [email or web address] Attending Provider Physician Referring Provider Specialty: Orthopedic Surgery Address: [address] [place] [address], [address] Email: [email or web address] Physical Therapy Initial Evaluation PT-OP-A Visit Information Start: 03/30/21 09:59 Freq: Status: Active Protocol: Document 03/30/21 09:45 [facility] (Rec: 03/30/21 11:12 [facility] [email or web address]) Out-Patient Physical Therapy Visit Information Visit Information Visit Type Initial Evaluation Visit Start Time 09:45 Visit Stop Time 10:30 Total Visit Minutes 45 Visit Number 1 Evaluation Information Evaluation Date 03/30/21 PT-OP-B Current Condition Start: 03/30/21 09:59 Freq: Status: Active Protocol: Document 03/30/21 09:45 [facility] (Rec: 03/30/21 10:05 [facility] [id number]) Current Condition History of Current Condition Onset Date 3 weeks ago c/o right sided LBP and right hip pain doing yard work History of Current Condition pain is at its worst with sitting or sit-stand, she was able to walk the loop yesterday. PT-OP-C Subjective Start: 03/30/21 09:59 Freq: Status: Active Protocol: Document 03/30/21 09:45 [facility] (Rec: 03/30/21 11:12 [facility] [email or web address]) OP-PT Pain Assessment Location right low back and gluteal region Pain Location Details right low back and hip Intensity 3 Scale Used Numeric (0 - 10) Description Tightness Frequency Frequent Comments Pain Comments pain prevents her from walking any distance, pain prevents Torie from standing more than 30 minutes PT-OP-J Posture/Palpation/Skin Start: 03/30/21 09:59 Freq: Status: Active Protocol: Document 03/30/21 09:45 [facility] (Rec: 03/30/21 11:12 [facility] [email or web address]) Posture Evaluation Comments Posture Comments pt presents with anterior lean in standing, increased thoracic kyphosis Palpation Assessment Location right gluteals Palpation Findings Soft Tissue Tightness,Muscle Guarding Palpation Details right gluteals including the piriformis tender to palpation and guarded/tight PT-OP-K Range of Motion Start: 03/30/21 09:59 Freq: Status: Active Protocol: Document 03/30/21 09:45 [facility] (Rec: 03/30/21 11:12 [facility] [id number]) Lumbar Spine Range of Motion Lumbar Spine Active Testing Position Standing Flexion 40 ROM Limitations Soft Tissue Tightness Comments increased c/o right sided pain with lumbar flexion PT-OP-Q Treatments Start: 03/30/21 10:05 Freq: Status: Active Protocol: Document 03/30/21 09:45 [facility] (Rec: 03/30/21 10:36 [facility] [id number]) Therapeutic Exercises Supine Exercises bridges with pelvic tilt Reps/Minutes x 10 reps TA with pelvic tilt Reps/Minutes x 10 reps piriformis stretch Reps/Minutes 2 x 30 seconds each active hamstring flossing stretch Side bilateral Reps/Minutes 10 reps Comments supine with hands behind the knee, knee flexion and ext to floos the sciati double knee to chest stretch Reps/Minutes 2 reps x 30 sec single knee to chest stretch Reps/Minutes 2 reps 30 sec PT-OP-T Assessment and Plan Start: 03/30/21 09:59 Freq: Status: Active Protocol: Document 03/30/21 09:45 [facility] (Rec: 03/30/21 14:15 [facility] [email or web address]) Physical Therapy Assessment Rehab Potential Rehabilitation Potential Good Evaluation Complexity Number of Personal Factors/Comorbidities 0 Number of Body Systems Impaired 1-2 Clinical Presentation at Evaluation Stable Impairments Impairments Activity Tolerance,Functional Activities,Gait,Posture,ROM, Soft Tissue Mobility,Strength Goals improved core strength Impairment Decreased core strength Short Term Goal (STG) Torie is able to perform Level 1 lower abdominal progression without increase in lumbar lordosis STG Duration 4 weeks Cone Operator Goal (LTG) Torie is independent with a HEP addressing core strength and stability LTG Duration 8 weeks Improve full pain free spinal ROM Impairment decreased thoracic and lumbar ROM Short Term Goal (STG) Torie is able to perform seated lumbar flexion without increase in pain STG Duration 4 weeks Cone Operator Goal (LTG) Torie is able to perform full standing lumbar flexion without a increase in pain LTG Duration 8 weeks pt is able to walk [place] [employer] Go without a increase in her lbp and right gluteal pain Impairment Increased pain with walking 30 min or more Skilled Nursing Goal (LTG) Pt is able to walk [place] without a increase in her LBP or right gluteal pain LTG Duration 8 weeks Assessment Summary Assessment Torie is a 75 year old female who presents to PT with a new onset of right sided LBP and right sided gluteal pain that began after Torie was doing some yard work. 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 Torie has also been seen for her left shoulder recently that was also flared doing yard work but is doing much better now. With examination Torie presents with 3/10 LBP. Pain is increased with sitting , standing more than 30 min, and walking more than 1 mile. Lumbar ROM into flexion is limited. Torie also presents with a thoracic kyphosis and hypomobility in the thoracic spine. There is tenderness to palpation over the right lumbar parapsinals and right piriformis. Torie has limited ROM in B hip extension and in the iliopsoas musculature. Core strength is weak. Torie would benefit from a PT program addressing lumbar ROM, flexibility, strength, and body mechanics training for ADL's Physical Therapy Plan Frequency and Duration Duration of Treatment 8 Plan of Care Start Date 03/30/21 Plan of Care End Date 05/25/21 Therapeutic Interventions Therapeutic Interventions Home Exercise Program,Joint Mobilizations,Manual Therapy, Neuromuscular Re-education, Patient/Caregiver Education, Self-Care/Home Management,Soft Tissue Mobilization, Therapeutic Exercises Modalities Hot Packs Next Visit Focus/Plan Next Note Type Treatment Note Next Visit Plan review stretches initiated today and work on STM over the piriformis region
--- NOTE | 2021-03-30 14:26 | PT.OPPOC ---
Physical, Occupational & Speech Therapy At [facility] Current Diagnoses Radiculopathy, lumbar region (03/30/21) Visit Care Team Role Provider Type Tristen Houser DO Family Provider Physician Primary Care Provider Specialty: Family Practice Address: [address] [place] [address], [id number] Email: [email or web address] Marian Navarro MD Attending Provider Physician Referring Provider Specialty: Orthopedic Surgery Address: [address] [place] [address], [id number] Email: @[email or web address] Plan Of Care PT-OP-T Assessment and Plan Start: 03/30/21 09:59 Freq: Status: Active Protocol: Document 03/30/21 09:45 [facility] (Rec: 03/30/21 14:15 [facility] [email or web address]) Physical Therapy Assessment Rehab Potential Rehabilitation Potential Good Evaluation Complexity Number of Personal Factors/Comorbidities 0 Number of Body Systems Impaired 1-2 Clinical Presentation at Evaluation Stable Impairments Impairments Activity Tolerance,Functional Activities,Gait,Posture,ROM, Soft Tissue Mobility,Strength Goals improved core strength Impairment Decreased core strength Short Term Goal (STG) Torie is able to perform Level 1 lower abdominal progression without increase in lumbar lordosis STG Duration 4 weeks Usp Goal (LTG) Torie is independent with a HEP addressing core strength and stability LTG Duration 8 weeks Improve full pain free spinal ROM Impairment decreased thoracic and lumbar ROM Short Term Goal (STG) Torie is able to perform seated lumbar flexion without increase in pain STG Duration 4 weeks Usp Goal (LTG) Torie is able to perform full standing lumbar flexion without a increase in pain LTG Duration 8 weeks pt is able to walk [place] without a increase in her lbp and right gluteal pain Impairment Increased pain with walking 30 min or more Usp Goal (LTG) Pt is able to walk [place] without a increase in her LBP or right gluteal pain LTG Duration 8 weeks Assessment Summary Assessment Torei is a 75 year old female who presents to PT with a new onset of right sided LBP and right sided gluteal pain that began after Torie was doing some yard work. 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 Torie has also been seen for her left shoulder recently that was also flared doing yard work but is doing much better now. With examination Torie presents with 3/10 LBP. Pain is increased with sitting , standing more than 30 min, and walking more than 1 mile. Lumbar ROM into flexion is limited. Torie also presents with a thoracic kyphosis and hypomobility in the thoracic spine. There is tenderness to palpation over the right lumbar parapsinals and right piriformis. Torie has limited ROM in B hip extension and in the iliopsoas musculature. Core strength is weak. Torie would benefit from a PT program addressing lumbar ROM, flexibility, strength, and body mechanics training for ADL's Physical Therapy Plan Frequency and Duration Duration of Treatment 8 Plan of Care Start Date 03/30/21 Plan of Care End Date 05/25/21 Therapeutic Interventions Therapeutic Interventions Home Exercise Program,Joint Mobilizations,Manual Therapy, Neuromuscular Re-education, Patient/Caregiver Education, Self-Care/Home Management,Soft Tissue Mobilization, Therapeutic Exercises Modalities Hot Packs Next Visit Focus/Plan Next Note Type Treatment Note Next Visit Plan review stretches initiated today and work on STM over the piriformis region Plan of Care Dates Plan of Care Start Date 03/30/21 Plan of Care End Date 05/25/21 Electronically Signed by: Margarita Ogden, PT 03/30/21 2142 Please Sign and Return: I have reviewed this Plan of Care and certify that the skilled therapy services above are required to meet the patient?s needs. Physician Signature Date Printed Name and Credentials Clinical Instructor Signature Printed Name and Credentials
--- NOTE | 2021-04-12 11:05 | PT.OTN ---
Current Diagnoses Radiculopathy, lumbar region (04/25/21) Physical Therapy Treatment Note PT-OP-A Visit Information Start: 03/30/21 09:59 Freq: Status: Active Protocol: Document 04/12/21 09:46 [facility] (Rec: 04/25/21 11:05 [facility] [id number]) Out-Patient Physical Therapy Visit Information Visit Information Visit Type Treatment Note Visit Start Time 09:46 Visit Stop Time 10:30 Total Visit Minutes 44 Visit Number 2 PT-OP-B Current Condition Start: 03/30/21 09:59 Freq: Status: Active Protocol: Document 03/30/21 09:45 [facility] (Rec: 03/30/21 10:05 [facility] [id number]) Current Condition History of Current Condition Onset Date 3 weeks ago c/o right sided LBP and right hip pain doing yard work History of Current Condition pain is at its worst with sitting or sit-stand, she was able to walk the loop yesterday. PT-OP-C Subjective Start: 03/30/21 09:59 Freq: Status: Active Protocol: Document 04/12/21 09:46 [facility] (Rec: 04/12/21 12:56 [facility] [id number]) OP-PT Subjective Patient Comments Patient Comments pt reports she is doing better She has a tennis ball for self massage against the wall pain is 3/10 PT-OP-J Posture/Palpation/Skin Start: 03/30/21 09:59 Freq: Status: Active Protocol: Document 03/30/21 09:45 [facility] (Rec: 03/30/21 11:12 [facility] [id number]) Posture Evaluation Comments Posture Comments pt presents with anterior lean in standing, increased thoracic kyphosis Palpation Assessment Location right gluteals Palpation Findings Soft Tissue Tightness,Muscle Guarding Palpation Details right gluteals including the piriformis tender to palpation and guarded/tight PT-OP-K Range of Motion Start: 03/30/21 09:59 Freq: Status: Active Protocol: Document 03/30/21 09:45 [facility] (Rec: 03/30/21 11:12 [facility] [email or web address]) Lumbar Spine Range of Motion Lumbar Spine Active Testing Position Standing Flexion 40 ROM Limitations Soft Tissue Tightness Comments increased c/o right sided pain with lumbar flexion PT-OP-Q Treatments Start: 03/30/21 10:05 Freq: Status: Active Protocol: Document 04/12/21 09:46 [facility] (Rec: 04/12/21 12:56 [facility] [id number]) Therapeutic Exercises Supine Exercises bridges with pelvic tilt Reps/Minutes x 10 reps TA with pelvic tilt Reps/Minutes x 10 reps piriformis stretch Reps/Minutes 2 x 30 seconds each active hamstring flossing stretch Side bilateral Reps/Minutes 10 reps Comments supine with hands behind the knee, knee flexion and ext to floos the sciati double knee to chest stretch Reps/Minutes 2 reps x 30 sec single knee to chest stretch Reps/Minutes 2 reps 30 sec Other Exercises yady pose Reps/Minutes 2 reps hold 30-60 seconds quadruped side bends Reps/Minutes x 10 reps cat cow Reps/Minutes x 10 reps Manual Therapy Treatment Soft Tissue Mobilization right piriformis release Body Location right piriformis Mobilization Type Myofascial Release Intensity/Depth Moderate Body Position left sidelying Comments with therarollar 1 Intensity/Depth Superficial Body Position Sitting Manual Techniques manual right iliospoas stretch Body Position left sidelying Reps/Duration intermittent stretching x 4 min PT-OP-T Assessment and Plan Start: 03/30/21 09:59 Freq: Status: Active Protocol: Document 04/12/21 09:46 [facility] (Rec: 04/12/21 12:56 [facility] [id number]) Physical Therapy Assessment Assessment Summary Assessment overall Torie has been doing better with working on her stretch routine at home and adding in the self release with tennis balls. Her pain is a 3/10 and she feels it is decreasing Physical Therapy Plan Frequency and Duration Frequency of Treatment 2x/Week Duration of Treatment 8 Plan of Care Start Date 03/30/21 Plan of Care End Date 05/25/21 Next Visit Focus/Plan Next Note Type Treatment Note Next Visit Plan review stretches initiated today and work on STM over the piriformis region
--- NOTE | 2021-04-12 12:57 | PT.OTN ---
Current Diagnoses Radiculopathy, lumbar region (04/12/21) Physical Therapy Treatment Note PT-OP-A Visit Information Start: 03/30/21 09:59 Freq: Status: Active Protocol: Document 03/30/21 09:45 [facility] (Rec: 03/30/21 11:12 [facility] [email or web address]) Out-Patient Physical Therapy Visit Information Visit Information Visit Type Initial Evaluation Visit Start Time 09:45 Visit Stop Time 10:30 Total Visit Minutes 45 Visit Number 1 Evaluation Information Evaluation Date 03/30/21 PT-OP-B Current Condition Start: 03/30/21 09:59 Freq: Status: Active Protocol: Document 03/30/21 09:45 [facility] (Rec: 03/30/21 10:05 [facility] [id number]) Current Condition History of Current Condition Onset Date 3 weeks ago c/o right sided LBP and right hip pain doing yard work History of Current Condition pain is at its worst with sitting or sit-stand, she was able to walk the loop yesterday. PT-OP-C Subjective Start: 03/30/21 09:59 Freq: Status: Active Protocol: Document 04/12/21 09:46 [facility] (Rec: 04/12/21 12:56 [facility] [id number]) OP-PT Subjective Patient Comments Patient Comments pt reports she is doing better She has a tennis ball for self massage against the wall pain is 3/10 PT-OP-J Posture/Palpation/Skin Start: 03/30/21 09:59 Freq: Status: Active Protocol: Document 03/30/21 09:45 [facility] (Rec: 03/30/21 11:12 [facility] [email or web address]) Posture Evaluation Comments Posture Comments pt presents with anterior lean in standing, increased thoracic kyphosis Palpation Assessment Location right gluteals Palpation Findings Soft Tissue Tightness,Muscle Guarding Palpation Details right gluteals including the piriformis tender to palpation and guarded/tight PT-OP-K Range of Motion Start: 03/30/21 09:59 Freq: Status: Active Protocol: Document 03/30/21 09:45 [facility] (Rec: 03/30/21 11:12 [facility] [email or web address]) Lumbar Spine Range of Motion Lumbar Spine Active Testing Position Standing Flexion 40 ROM Limitations Soft Tissue Tightness Comments increased c/o right sided pain with lumbar flexion PT-OP-Q Treatments Start: 03/30/21 10:05 Freq: Status: Active Protocol: Document 04/12/21 09:46 [facility] (Rec: 04/12/21 12:56 [facility] [id number]) Therapeutic Exercises Supine Exercises bridges with pelvic tilt Reps/Minutes x 10 reps TA with pelvic tilt Reps/Minutes x 10 reps piriformis stretch Reps/Minutes 2 x 30 seconds each active hamstring flossing stretch Side bilateral Reps/Minutes 10 reps Comments supine with hands behind the knee, knee flexion and ext to floos the sciati double knee to chest stretch Reps/Minutes 2 reps x 30 sec single knee to chest stretch Reps/Minutes 2 reps 30 sec Other Exercises yady pose Reps/Minutes 2 reps hold 30-60 seconds quadruped side bends Reps/Minutes x 10 reps cat cow Reps/Minutes x 10 reps Manual Therapy Treatment Soft Tissue Mobilization right piriformis release Body Location right piriformis Mobilization Type Myofascial Release Intensity/Depth Moderate Body Position left sidelying Comments with therarollar 1 Intensity/Depth Superficial Body Position Sitting Manual Techniques manual right iliospoas stretch Body Position left sidelying Reps/Duration intermittent stretching x 4 min PT-OP-T Assessment and Plan Start: 03/30/21 09:59 Freq: Status: Active Protocol: Document 04/12/21 09:46 [facility] (Rec: 04/12/21 12:56 [facility] [id number]) Physical Therapy Assessment Assessment Summary Assessment overall Torie has been doing better with working on her stretch routine at home and adding in the self release with tennis balls. Her pain is a 3/10 and she feels it is decreasing Physical Therapy Plan Frequency and Duration Frequency of Treatment 2x/Week Duration of Treatment 8 Plan of Care Start Date 03/30/21 Plan of Care End Date 05/25/21 Next Visit Focus/Plan Next Note Type Treatment Note Next Visit Plan review stretches initiated today and work on STM over the piriformis region
--- NOTE | 2021-04-25 17:19 | PT.OTN ---
Current Diagnoses Radiculopathy, lumbar region (04/25/21) Physical Therapy Treatment Note PT-OP-A Visit Information Start: 03/30/21 09:59 Freq: Status: Active Protocol: Document 04/25/21 10:30 [facility] (Rec: 04/25/21 11:12 [facility] [id number]) Out-Patient Physical Therapy Visit Information Visit Information Visit Type Treatment Note Visit Start Time 10:30 Visit Stop Time 11:15 Total Visit Minutes 45 Visit Number 3 PT-OP-B Current Condition Start: 03/30/21 09:59 Freq: Status: Active Protocol: Document 03/30/21 09:45 [facility] (Rec: 03/30/21 10:05 [facility] [id number]) Current Condition History of Current Condition Onset Date 3 weeks ago c/o right sided LBP and right hip pain doing yard work History of Current Condition pain is at its worst with sitting or sit-stand, she was able to walk the loop yesterday. PT-OP-C Subjective Start: 03/30/21 09:59 Freq: Status: Active Protocol: Document 04/25/21 10:30 [facility] (Rec: 04/25/21 11:12 [facility] [id number]) OP-PT Subjective Patient Comments Patient Comments pt reports her pain is a 3/10 today, annoying pain. PT-OP-J Posture/Palpation/Skin Start: 03/30/21 09:59 Freq: Status: Active Protocol: Document 03/30/21 09:45 [facility] (Rec: 03/30/21 11:12 [facility] [email or web address]) Posture Evaluation Comments Posture Comments pt presents with anterior lean in standing, increased thoracic kyphosis Palpation Assessment Location right gluteals Palpation Findings Soft Tissue Tightness,Muscle Guarding Palpation Details right gluteals including the piriformis tender to palpation and guarded/tight PT-OP-K Range of Motion Start: 03/30/21 09:59 Freq: Status: Active Protocol: Document 03/30/21 09:45 [facility] (Rec: 03/30/21 11:12 [facility] [email or web address]) Lumbar Spine Range of Motion Lumbar Spine Active Testing Position Standing Flexion 40 ROM Limitations Soft Tissue Tightness Comments increased c/o right sided pain with lumbar flexion PT-OP-Q Treatments Start: 03/30/21 10:05 Freq: Status: Active Protocol: Document 04/25/21 10:30 [facility] (Rec: 11/02/21 11:12 [facility] [id number]) Therapeutic Exercises Supine Exercises bridges with pelvic tilt Reps/Minutes x 10 reps TA with pelvic tilt Reps/Minutes x 10 reps piriformis stretch Reps/Minutes 2 x 30 seconds each active hamstring flossing stretch Side bilateral Reps/Minutes 10 reps Comments supine with hands behind the knee, knee flexion and ext to floos the sciati double knee to chest stretch Reps/Minutes 2 reps x 30 sec single knee to chest stretch Reps/Minutes 2 reps 30 sec Other Exercises yady pose Reps/Minutes 2 reps hold 30-60 seconds quadruped side bends Reps/Minutes x 10 reps cat cow Reps/Minutes x 10 reps Manual Therapy Treatment Soft Tissue Mobilization lumbar paraspinal MFR Body Position prone with body pillow Comments right greater than left sided paraspinal tightness right piriformis release Body Location right piriformis Mobilization Type Myofascial Release Intensity/Depth Moderate Body Position prone with body pillow Comments with therarollar PT-OP-T Assessment and Plan Start: 03/30/21 09:59 Freq: Status: Active Protocol: Document 04/25/21 10:30 [facility] (Rec: 04/25/21 17:17 [facility] [email or web address]) Physical Therapy Assessment Assessment Summary Assessment Torie has been able to walk the loop with decreased pain. She is stil tight in her paraspinals but is working on her home stretching routine. Continue working on releasing tissue tension as well as dynamic lumbar stability Physical Therapy Plan Frequency and Duration Frequency of Treatment 2x/Week Duration of Treatment 8 Plan of Care Start Date 03/30/21 Plan of Care End Date 05/25/21 Therapeutic Interventions Therapeutic Interventions Home Exercise Program,Joint Mobilizations,Manual Therapy, Neuromuscular Re-education, Patient/Caregiver Education, Self-Care/Home Management,Soft Tissue Mobilization, Therapeutic Exercises Modalities Hot Packs Next Visit Focus/Plan Next Note Type Treatment Note Next Visit Plan review stretches for the LB and piriformis, self piriformis release with tennis ball against the wall, STM, lumbar stabilzation exercises
--- NOTE | 2021-04-27 11:35 | PT.OTN ---
Current Diagnoses Radiculopathy, lumbar region (04/27/21) Physical Therapy Treatment Note PT-OP-A Visit Information Start: 03/30/21 09:59 Freq: Status: Active Protocol: Document 04/27/21 10:30 [facility] (Rec: 04/27/21 11:18 [facility] [id number]) Out-Patient Physical Therapy Visit Information Visit Information Visit Type Treatment Note Visit Start Time 10:30 Visit Stop Time 11:15 Total Visit Minutes 45 Visit Number 4 PT-OP-B Current Condition Start: 03/30/21 09:59 Freq: Status: Active Protocol: Document 03/30/21 09:45 [facility] (Rec: 03/30/21 10:05 [facility] [id number]) Current Condition History of Current Condition Onset Date 3 weeks ago c/o right sided LBP and right hip pain doing yard work History of Current Condition pain is at its worst with sitting or sit-stand, she was able to walk the loop yesterday. PT-OP-C Subjective Start: 03/30/21 09:59 Freq: Status: Active Protocol: Document 04/27/21 10:30 [facility] (Rec: 04/27/21 11:18 [facility] [id number]) OP-PT Subjective Patient Comments Patient Comments pt notes she has been doing her exercises at home, she felt really good following last visit. She is walking daily [place] [address] Patient Reported Progress Improving PT-OP-J Posture/Palpation/Skin Start: 03/30/21 09:59 Freq: Status: Active Protocol: Document 03/30/21 09:45 [facility] (Rec: 03/30/21 11:12 [facility] [id number]) Posture Evaluation Comments Posture Comments pt presents with anterior lean in standing, increased thoracic kyphosis Palpation Assessment Location right gluteals Palpation Findings Soft Tissue Tightness,Muscle Guarding Palpation Details right gluteals including the piriformis tender to palpation and guarded/tight PT-OP-K Range of Motion Start: 03/30/21 09:59 Freq: Status: Active Protocol: Document 03/30/21 09:45 [facility] (Rec: 03/30/21 11:12 [facility] [email or web address]) Lumbar Spine Range of Motion Lumbar Spine Active Testing Position Standing Flexion 40 ROM Limitations Soft Tissue Tightness Comments increased c/o right sided pain with lumbar flexion PT-OP-Q Treatments Start: 03/30/21 10:05 Freq: Status: Active Protocol: Document 04/27/21 10:30 [facility] (Rec: 04/27/21 11:18 [facility] [id number]) Therapeutic Exercises Supine Exercises TA with marches Reps/Minutes 2 x 10 reps bridges with pelvic tilt Reps/Minutes x 10 reps TA with pelvic tilt Reps/Minutes x 10 reps piriformis stretch Reps/Minutes 2 x 30 seconds each active hamstring flossing stretch Side bilateral Reps/Minutes 10 reps Comments supine with hands behind the knee, knee flexion and ext to floos the sciati double knee to chest stretch Reps/Minutes 2 reps x 30 sec single knee to chest stretch Reps/Minutes 2 reps 30 sec Other Exercises yady pose Reps/Minutes 2 reps hold 30-60 seconds quadruped side bends Reps/Minutes x 10 reps cat cow Reps/Minutes x 10 reps Manual Therapy Treatment Soft Tissue Mobilization lumbar paraspinal MFR Body Position prone with body pillow Comments right greater than left sided paraspinal tightness right piriformis release Body Location right piriformis Mobilization Type Myofascial Release Intensity/Depth Moderate Body Position prone with body pillow PT-OP-T Assessment and Plan Start: 03/30/21 09:59 Freq: Status: Active Protocol: Document 04/27/21 10:30 [facility] (Rec: 04/27/21 11:35 [facility] [id number]) Physical Therapy Assessment Goals improved core strength Impairment Decreased core strength Short Term Goal (STG) Torie is able to perform Level 1 lower abdominal progression without increase in lumbar lordosis GOAL MET STG Duration 4 weeks 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) Torie is independent with a HEP addressing core strength and stability LTG Duration 8 weeks Improve full pain free spinal ROM Impairment decreased thoracic and lumbar ROM Short Term Goal (STG) Torie is able to perform seated lumbar flexion without increase in pain GOAL MET STG Duration 4 weeks 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) Torie is able to perform full standing lumbar flexion without a increase in pain GOOD Progress LTG Duration 8 weeks pt is able to walk [place] without a increase in her lbp and right gluteal pain Impairment Increased pain with walking 30 min or more 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) Pt is able to walk [place] without a increase in her LBP or right gluteal pain Excellent progress LTG Duration 8 weeks Assessment Summary Assessment Torie is making steady progress and is tolerating increased activity. I have been able to do more core stabilization with her with out pain, decreased radicular symptoms and Torie is working on her stretches at home Physical Therapy Plan Frequency and Duration Frequency of Treatment 2x/Week Duration of Treatment 8 Plan of Care Start Date 03/30/21 Plan of Care End Date 05/25/21 Therapeutic Interventions Therapeutic Interventions Home Exercise Program,Joint Mobilizations,Manual Therapy, Neuromuscular Re-education, Patient/Caregiver Education, Self-Care/Home Management,Soft Tissue Mobilization, Therapeutic Exercises Modalities Hot Packs Next Visit Focus/Plan Next Note Type Treatment Note Next Visit Plan progress lumbar stabilization exercises, work on thoracic mobilty and continue with MFR techniques for the piriformis
--- NOTE | 2021-05-01 09:45 | PT.OTN ---
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 Visit Start Time 09:00 Visit Stop Time 09:45 Total Visit Minutes 45 Visit Number 5 Number of VOICE DATA COMMUNICATIONS ENGINEER Visits 1 Evaluation Information Evaluation Date 03/30/21 PT-OP-B Current Condition Start: 03/30/21 09:59 Freq: Status: Active Protocol: Document 03/30/21 09:45 AMH (Rec: 03/30/21 10:05 AMH [id number]) Current Condition History of Current Condition Onset Date 3 weeks ago c/o right sided LBP and right hip pain doing yard work History of Current Condition pain is at its worst with sitting or sit-stand, she was able to walk the loop yesterday. PT-OP-C Subjective Start: 03/30/21 09:59 Freq: Status: Active Protocol: Document 05/01/21 09:00 SP (Rec: 05/01/21 10:08 SP [id number]) OP-PT Subjective Patient Comments Patient Comments Pt reports that doing well with HEP. Was able to stand for about 1.5 hrs cooking before needed to put back brace on and seated rest for recovery but was ableto complete what wanted. She reports having pain 3-4/10, radiating down R lateral thigh proximal to knee. Pt, upon query indicated that she does not sleep with knee pillows at night. Patient Reported Progress Improving PT-OP-J Posture/Palpation/Skin Start: 03/30/21 09:59 Freq: Status: Active Protocol: Document 03/30/21 09:45 AMH (Rec: 03/30/21 11:12 AMH [email or web address]) Posture Evaluation Comments Posture Comments pt presents with anterior lean in standing, increased thoracic kyphosis Palpation Assessment Location right gluteals Palpation Findings Soft Tissue Tightness,Muscle Guarding Palpation Details right gluteals including the piriformis tender to palpation and guarded/tight PT-OP-K Range of Motion Start: 03/30/21 09:59 Freq: Status: Active Protocol: Document 03/30/21 09:45 AMH (Rec: 03/30/21 11:12 AMH [id number]) Lumbar Spine Range of Motion Lumbar Spine Active Testing Position Standing Flexion 40 ROM Limitations Soft Tissue Tightness Comments increased c/o right sided pain with lumbar flexion PT-OP-Q Treatments Start: 03/30/21 10:05 Freq: Status: Active Protocol: Document 05/01/21 09:00 SP (Rec: 05/01/21 10:08 SP [id number]) Therapeutic Exercises Supine Exercises piriformis stretch Side bilateral Reps/Minutes 2 x 30 seconds each active hamstring flossing stretch Side bilateral Reps/Minutes 10 reps Comments supine with hands behind the knee, knee flexion and ext to floos the sciati single knee to chest stretch Side bilateral Reps/Minutes 2 reps 30 sec Other Exercises yady pose Reps/Minutes 2 reps hold 30-60 seconds quadruped side bends Side bilateral Reps/Minutes x 10 reps Comments cued proper form side bend ( look at your hip, keep LB still) cat cow Reps/Minutes x 10 reps Manual Therapy Treatment Soft Tissue Mobilization lumbar paraspinal MFR Mobilization Type Myofascial Release,Strumming, Sustained Pressure,Trigger Point Release Intensity/Depth Moderate Body Position L sidelying with knee and A/P torso pillows Comments R paraspinals L4 primarily, QL tightness right piriformis release Body Location right piriformis, glut medius Mobilization Type Myofascial Release,Sustained Pressure,Trigger Point Release Intensity/Depth Moderate Body Position L Sidelying Comments sensitive to pressure, improved softening with sustained pressure and breath Self-Care/Home Management Treatment Education Patient Education Home Exercise Program Other Education Education on back health use of pillows in sleep positioning sidelying (between knees/under lateral ribcage/ front arms, prone under pelvis and shins to decrease pain and improve axial spinal alignment. Educated on use of long stretching (30 sec+) to provide greater release of muscular tension and application to goals. Educated on use of step (shelf under sink with door open) alternating approx. every 15 min to relieve LB pain and give alternating hip stabilizers/ flexors/ extensors a rest to increase potential time in standing. 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) Torie is independent with a HEP addressing core strength and stability LTG Duration 8 weeks Improve full pain free spinal ROM Impairment decreased thoracic and lumbar ROM Short Term Goal (STG) Torie is able to perform seated lumbar flexion without increase in pain GOAL MET STG Duration 4 weeks Sawmill Moulder Operator Goal (LTG) Torie is able to perform full standing lumbar flexion without a increase in pain GOOD Progress LTG Duration 8 weeks pt is able [place] [id number] without a increase in her lbp and right gluteal pain Impairment Increased pain with walking 30 min or more Sawmill Moulder Operator Goal (LTG) Pt is able to walk [employer] without a increase in her LBP or right gluteal pain Excellent progress LTG Duration 8 weeks Assessment Summary Assessment Pt responded well to sustained pressure> strumming during manual STMs, states using tennis ball at home self application finds helpful. HEP review with cuing for proper set up, TA/ PPT stabilization with breath, see comments. Initiated sleep positioning use of pillows for back alignment/ comfort. Pt states able to walk with reduced LS pain 3/10 and 2/10 after walk at [facility] full distance 2.5 miles most of the time without use of brace. Still needs use back brace, understood incorporate stretching/self STMs/ elevate LE for back care with better understanding for ability to last extended standing stationary activities. Physical Therapy Plan Frequency and Duration Frequency of Treatment 2x/Week Duration of Treatment 8 Plan of Care Start Date 03/30/21 Plan of Care End Date 05/25/21 Therapeutic Interventions Therapeutic Interventions Home Exercise Program,Joint Mobilizations,Manual Therapy, Neuromuscular Re-education, Patient/Caregiver Education, Self-Care/Home Management,Soft Tissue Mobilization, Therapeutic Exercises Modalities Hot Packs Next Visit Focus/Plan Next Note Type Treatment Note Next Visit Plan Next tx: add open book and hooklying clamshell, review TA august. POC: progress lumbar stabilization exercises, work on thoracic mobilty and continue with MFR techniques for the piriformis
--- NOTE | 2021-05-05 09:45 | PT.OTN ---
Current Diagnoses Radiculopathy, lumbar region (05/05/21) Physical Therapy Treatment Note PT-OP-A Visit Information Start: 03/30/21 09:59 Freq: Status: Active Protocol: Document 05/05/21 09:02 SP (Rec: 05/05/21 09:48 SP [id number]) Out-Patient Physical Therapy Visit Information Visit Information Visit Type Treatment Note Visit Note TACHOA Erick assisted and provided education under under direction supervision and guidence of CRUZ Whitaker throughout tx. Visit Start Time 09:02 Visit Stop Time 09:45 Total Visit Minutes 43 Visit Number 6 Number of GAS ENGINE OPERATOR Visits 2 PT-OP-B Current Condition Start: 03/30/21 09:59 Freq: Status: Active Protocol: Document 03/30/21 09:45 AMH (Rec: 03/30/21 10:05 AMH [id number]) Current Condition History of Current Condition Onset Date 3 weeks ago c/o right sided LBP and right hip pain doing yard work History of Current Condition pain is at its worst with sitting or sit-stand, she was able to walk the loop yesterday. PT-OP-C Subjective Start: 03/30/21 09:59 Freq: Status: Active Protocol: Document 05/05/21 09:02 SP (Rec: 05/05/21 09:48 SP [id number]) OP-PT Subjective Patient Comments Patient Comments Pt. reports lifting a case of water bottles at [facility], and felt immediate shoulder pain. Pt. self stretched and used racquetball roll but still hurts. Pt still feeling pain L shld and LBP 310 R>L. PT-OP-J Posture/Palpation/Skin Start: 03/30/21 09:59 Freq: Status: Active Protocol: Document 03/30/21 09:45 AMH (Rec: 03/30/21 11:12 AMH [email or web address]) Posture Evaluation Comments Posture Comments pt presents with anterior lean in standing, increased thoracic kyphosis Palpation Assessment Location right gluteals Palpation Findings Soft Tissue Tightness,Muscle Guarding Palpation Details right gluteals including the piriformis tender to palpation and guarded/tight PT-OP-K Range of Motion Start: 03/30/21 09:59 Freq: Status: Active Protocol: Document 03/30/21 09:45 AMH (Rec: 03/30/21 11:12 AMH [email or web address]) Lumbar Spine Range of Motion Lumbar Spine Active Testing Position Standing Flexion 40 ROM Limitations Soft Tissue Tightness Comments increased c/o right sided pain with lumbar flexion PT-OP-Q Treatments Start: 03/30/21 10:05 Freq: Status: Active Protocol: Document 05/05/21 09:02 SP (Rec: 05/05/21 09:48 SP [id number]) Therapeutic Exercises Supine Exercises Bridge w/ adduction resistance Supine Exercise Name added to HEP Side bilateral Resistance L1 TB Equipment Used L1 TB Reps/Minutes 10x Comments Performed with knees/ feet apart, L1TB proximal to knees. Clamshells Supine Exercise Name added to HEP Side bilateral Resistance L1 TB Equipment Used L1 TB Reps/Minutes 10x LTR Side bilateral Reps/Minutes 5 each direction TA with marches Supine Exercise Name added to HEP Side bilateral Reps/Minutes 2 x 10 reps Comments cues to keep knee at 90 degrees piriformis stretch Supine Exercise Name reviewed HEP (discussed sitting for application out on walks on bench) Side bilateral Reps/Minutes 2 x 30 seconds each double knee to chest stretch Supine Exercise Name reviewed HEP Reps/Minutes 2 reps x 30 sec single knee to chest stretch Supine Exercise Name reviewed HEP Side bilateral Reps/Minutes 2 reps 30 sec Sitting Exercises STS arms crossed Side bilateral Resistance AROM Reps/Minutes 10x Comments Noted clicking and some discomfort at R anterior hip. Standing Exercises Band walks Standing Exercise Name added to HEP Side bilateral Resistance L1 TB around ankles Equipment Used L1 TB Reps/Minutes 10' x 4 laps Comments cued neutral pelvis Other Exercises quadruped side bends Side bilateral Reps/Minutes x 10 reps Comments cued proper form side bend ( look at your hip, keep LB still) Manual Therapy Treatment Soft Tissue Mobilization lumbar paraspinal MFR Mobilization Type Myofascial Release,Strumming, Sustained Pressure,Trigger Point Release Intensity/Depth Moderate Body Position Prone with torso pillows Comments B sparaspinals, R>L L3-L4 region. Tightness. Manual Traction Lumbar Details with traction strap Body Position hookline Comments Pt in hookline, GAS ENGINE OPERATOR on table, with traction strap behind B upper calves. Pt. reports minimal symptom relief. PT-OP-T Assessment and Plan Start: 03/30/21 09:59 Freq: Status: Active Protocol: Document 05/05/21 09:02 SP (Rec: 05/05/21 09:48 SP [id number]) Physical Therapy Assessment Goals improved core strength Impairment Decreased core strength Short Term Goal (STG) Torie is able to perform Level 1 lower abdominal progression without increase in lumbar lordosis GOAL MET STG Duration 4 weeks Retirement Goal (LTG) Torie is independent with a HEP addressing core strength and stability LTG Duration 8 weeks Improve full pain free spinal ROM Impairment decreased thoracic and lumbar ROM Short Term Goal (STG) Torie is able to perform seated lumbar flexion without increase in pain GOAL MET STG Duration 4 weeks Retirement Goal (LTG) Torie is able to perform full standing lumbar flexion without a increase in pain GOOD Progress LTG Duration 8 weeks pt is able to [place] [employer] without a increase in her lbp and right gluteal pain Impairment Increased pain with walking 30 min or more Resident Care Manager Rn Goal (LTG) Pt is able to walk [place] without a increase in her LBP or right gluteal pain Excellent progress LTG Duration 8 weeks Assessment Summary Assessment Pt improved decrease to almost no pain end of tx post manual , stretching HEP review and intiated core ther ex today: supine resisted clamshells, TB bridge, sit<>stands, band walks to improved core and hip strengthening, painfree. Provided HO for self recall. Pt requested info on caregiver education, provided booklet have in clinic given by care mgt team for families support. Physical Therapy Plan Frequency and Duration Frequency of Treatment 2x/Week Duration of Treatment 8 Plan of Care Start Date 03/30/21 Plan of Care End Date 05/25/21 Therapeutic Interventions Therapeutic Interventions Home Exercise Program,Joint Mobilizations,Manual Therapy, Neuromuscular Re-education, Patient/Caregiver Education, Self-Care/Home Management,Soft Tissue Mobilization, Therapeutic Exercises Modalities Hot Packs Next Visit Focus/Plan Next Note Type Treatment Note Next Visit Plan Recheck: hooklying resisted clamshell, TA march, sit<> Stands,band walks. Next tx: add open book for TS mobility. POC: progress lumbar stabilization exercises, work on thoracic mobilty and continue with MFR techniques for the piriformis
--- NOTE | 2021-05-08 13:45 | PT.OTN ---
Current Diagnoses Radiculopathy, lumbar region (05/08/21) Physical Therapy Treatment Note PT-OP-A Visit Information Start: 03/30/21 09:59 Freq: Status: Active Protocol: Document 05/08/21 13:02 ER (Rec: 05/08/21 14:19 ER [id number]) Out-Patient Physical Therapy Visit Information Visit Information Visit Type Treatment Note Visit Note IRVING Suarez lead treatment and provided education under the direct supervision and instruction of CRUZ Whitaker. Visit Start Time 13:02 Visit Stop Time 13:45 Total Visit Minutes 43 Visit Number 7 Number of CUTTING TABLE OPERATOR Visits 3 PT-OP-B Current Condition Start: 03/30/21 09:59 Freq: Status: Active Protocol: Document 03/30/21 09:45 AMH (Rec: 03/30/21 10:05 AMH [id number]) Current Condition History of Current Condition Onset Date 3 weeks ago c/o right sided LBP and right hip pain doing yard work History of Current Condition pain is at its worst with sitting or sit-stand, she was able to walk the loop yesterday. PT-OP-C Subjective Start: 03/30/21 09:59 Freq: Status: Active Protocol: Document 05/08/21 13:02 ER (Rec: 05/08/21 14:19 ER [id number]) OP-PT Subjective Patient Comments Patient Comments Pt. reports feeling good overall. Indicated that she may want to discontinue therapy as she is feeling a lot better. Pt. expressed B hip pain 2/10 today, and tightness/ discomfort of B calves R>L and L peroneals during exercise. Patient Reported Progress Improving PT-OP-J Posture/Palpation/Skin Start: 03/30/21 09:59 Freq: Status: Active Protocol: Document 03/30/21 09:45 AMH (Rec: 03/30/21 11:12 AMH [email or web address]) Posture Evaluation Comments Posture Comments pt presents with anterior lean in standing, increased thoracic kyphosis Palpation Assessment Location right gluteals Palpation Findings Soft Tissue Tightness,Muscle Guarding Palpation Details right gluteals including the piriformis tender to palpation and guarded/tight PT-OP-K Range of Motion Start: 03/30/21 09:59 Freq: Status: Active Protocol: Document 03/30/21 09:45 AMH (Rec: 03/30/21 11:12 AMH [email or web address]) Lumbar Spine Range of Motion Lumbar Spine Active Testing Position Standing Flexion 40 ROM Limitations Soft Tissue Tightness Comments increased c/o right sided pain with lumbar flexion PT-OP-Q Treatments Start: 03/30/21 10:05 Freq: Status: Active Protocol: Document 05/08/21 13:02 ER (Rec: 05/08/21 14:19 ER [id number]) Therapeutic Exercises Supine Exercises Bridge w/ adduction resistance Supine Exercise Name progressed to elevated bridge with hip abduction Resistance L1TB Reps/Minutes 2 x 10 Comments Good TA effort, pain free in R hip, but L prox peroneal pain irritation Clamshells Supine Exercise Name review HEP Side bilateral Resistance L1 TB Equipment Used L1 TB Reps/Minutes 10x TA with marches Supine Exercise Name progressed to perform with elevated bridge Side bilateral Reps/Minutes 10 reps each side Sitting Exercises SELF STM Sitting Exercise Name Rolling pin of quads, hams, IT Band, Calf, and peroneals. Side bilateral Comments Good feeback response. STS arms crossed Side bilateral Resistance AROM Reps/Minutes 10x Comments Noted clicking in L knee.Some discomfort in R anterior hip 2 /10. Standing Exercises SLS Standing Exercise Name In PT only due to increased ed and safety. Equipment Used contact counter as needed for stability Reps/Minutes LLE 22, 30 RLE 30, 30 Comments Second set B improved after weight shifting exercise. Weight shifting Standing Exercise Name AP Lateral weight shifting NBOS, ankle strategy Side bilateral Reps/Minutes 5 second lean each direction x 5 Comments Good control Self-Care/Home Management Treatment Education Patient Education Home Exercise Program Other Education Reviewed LE flexibility, self peformed stretches, and use of rolling pin for self-massage to decrease tightness and improve functional mobility. PT-OP-T Assessment and Plan Start: 03/30/21 09:59 Freq: Status: Active Protocol: Document 05/08/21 13:02 ER (Rec: 05/08/21 14:19 ER [id number]) Physical Therapy Assessment Goals improved core strength Impairment Decreased core strength Short Term Goal (STG) Torie is able to perform Level 1 lower abdominal progression without increase in lumbar lordosis GOAL MET STG Duration 4 weeks Rental Clerk Goal (LTG) Torie is independent with a HEP addressing core strength and stability 05/08/21: Progressing: Pt. requires cues for maintaining alignment and core/ glue fascilitation for stability. All are improved for strength progression. LTG Duration 8 weeks Improve full pain free spinal ROM Impairment decreased thoracic and lumbar ROM Short Term Goal (STG) Torie is able to perform seated lumbar flexion without increase in pain GOAL MET STG Duration 4 weeks Rental Clerk Goal (LTG) Torie is able to perform full standing lumbar flexion without a increase in pain 05/08/21: Goal met; Pt. able to perform full standing lumbar flexion with no LBP, though Pt. expressed tight calf muscles. pt is able [place] [employer] without a increase in her lbp and right gluteal pain Impairment Increased pain with walking 30 min or more Rental Clerk Goal (LTG) Pt is able to walk [place] without a increase in her LBP or right gluteal pain Excellent progress LTG Duration 8 weeks Assessment Summary Assessment Pt. demonstrated increased core strength, decreased LBP, and coordination of gross movement and balance. Weight shifting exercises improved balance performance. Pt. educated on self STM with rolling pin of LE to allow decreased discomfort with walking in park/ extended standing time. Pt. would benefit from continued PT to improve strength, functional mobility, and decrease in B anterior hips and calves. Discussed benefits of continued therapy to allow time for progression in POC. Continuing rest of scheduled appts at this time with agreement by pt. Physical Therapy Plan Frequency and Duration Frequency of Treatment 2x/Week Duration of Treatment 8 Plan of Care Start Date 03/30/21 Plan of Care End Date 05/25/21 Therapeutic Interventions Therapeutic Interventions Home Exercise Program,Joint Mobilizations,Manual Therapy, Neuromuscular Re-education, Patient/Caregiver Education, Self-Care/Home Management,Soft Tissue Mobilization, Therapeutic Exercises Modalities Hot Packs Next Visit Focus/Plan Next Note Type Treatment Note Next Visit Plan Gait training to improve endurance, flexibility, balance and functional mobility. Next tx: add open book for TS mobility., recheck standing HEP. POC: progress lumbar stabilization exercises, work on thoracic mobilty and continue with MFR techniques for the piriformis
--- NOTE | 2021-05-12 11:49 | PT.OTN ---
Current Diagnoses Radiculopathy, lumbar region (05/12/21) Physical Therapy Treatment Note PT-OP-A Visit Information Start: 03/30/21 09:59 Freq: Status: Active Protocol: Document 05/12/21 09:00 ER (Rec: 05/12/21 10:03 ER [id number]) Out-Patient Physical Therapy Visit Information Visit Information Visit Type Treatment Note Visit Note IRVING Suarez lead treatment and provided education under the direct supervision and instruction of CRUZ Whitaker. Visit Start Time 09:00 Visit Stop Time 09:42 Total Visit Minutes 45 Visit Number 8 Number of INDUSTRIAL ARTS TEACHER Visits 4 PT-OP-B Current Condition Start: 03/30/21 09:59 Freq: Status: Active Protocol: Document 03/30/21 09:45 [facility] (Rec: 03/30/21 10:05 [facility] [id number]) Current Condition History of Current Condition Onset Date 3 weeks ago c/o right sided LBP and right hip pain doing yard work History of Current Condition pain is at its worst with sitting or sit-stand, she was able to walk the loop yesterday. PT-OP-C Subjective Start: 03/30/21 09:59 Freq: Status: Active Protocol: Document 05/12/21 08:56 ER (Rec: 05/12/21 10:03 ER [id number]) OP-PT Subjective Patient Comments Patient Comments Pt said that wednesday 05/09 her back was hurting across LB when she woke up and she could hardly walk to go to the bathroom. Pt stetched in bed and pain resolved. Indicated that she moves a lot while sleeping, so cannot keep pillow between knees as advised by PT. Pt indicated that she [place] yesterday with no pain. Pt expressed that she feels ready to discharge, and that is discharging soon and cannot be left alone. She said that she feels good about her exercises and confident in her ability to perform them . PT-OP-J Posture/Palpation/Skin Start: 03/30/21 09:59 Freq: Status: Active Protocol: Document 03/30/21 09:45 [facility] (Rec: 03/30/21 11:12 [facility] [id number]) Posture Evaluation Comments Posture Comments pt presents with anterior lean in standing, increased thoracic kyphosis Palpation Assessment Location right gluteals Palpation Findings Soft Tissue Tightness,Muscle Guarding Palpation Details right gluteals including the piriformis tender to palpation and guarded/tight PT-OP-K Range of Motion Start: 03/30/21 09:59 Freq: Status: Active Protocol: Document 03/30/21 09:45 [facility] (Rec: 03/30/21 11:12 [facility] [id number]) Lumbar Spine Range of Motion Lumbar Spine Active Testing Position Standing Flexion 40 ROM Limitations Soft Tissue Tightness Comments increased c/o right sided pain with lumbar flexion PT-OP-Q Treatments Start: 03/30/21 10:05 Freq: Status: Active Protocol: Document 05/12/21 08:56 ER (Rec: 05/12/21 10:03 ER [id number]) Therapeutic Exercises Supine Exercises Open book Supine Exercise Name elbow flexed, hand cupping ear . Added to HEP Side bilateral Resistance AROM Reps/Minutes 10x each side Comments Cues to remain within pain free ROM TA with marches Side bilateral Reps/Minutes 10x Comments cues to keep knees at 90 degrees piriformis stretch Side bilateral Reps/Minutes 2 x 30 seconds each single knee to chest stretch Side bilateral Reps/Minutes 2x 30 ea Standing Exercises SLS Standing Exercise Name In PT only due to increased ed and safety. Equipment Used contact counter as needed for stability Reps/Minutes LLE 19, RLE 12 Comments Improved with cues, use of mirror, ed Weight shifting Standing Exercise Name AP, lateral with NBOS and ankle strategy Side bilateral Reps/Minutes 5 second lean each direction x 5 Comments Good control Other Exercises yady pose Reps/Minutes 2 reps hold 30-60 seconds Comments good form quadruped side bends Side bilateral Reps/Minutes x 5 reps Comments good form cat cow Reps/Minutes x 10 reps Comments good form Neuro Re-Education Treatment Balance Activities Rhomberg Balance Details EC, NBOS, head turns and tilts , tandem NBOS/Tandem added to HEP Surface firm Equipment chair Reps/Duration 30 Comments good control with EC and NBOS, 2x wall touch with head turns , but self recovered. 5x wall touches in tandem LLE front, 3x wall touches in tandem RLE. Cues for core stabilization, tall posture, less tension through UE. PT-OP-T Assessment and Plan Start: 03/30/21 09:59 Freq: Status: Active Protocol: Document 05/12/21 08:56 ER (Rec: 05/12/21 10:03 ER [id number]) Physical Therapy Assessment Goals improved core strength Impairment Decreased core strength Short Term Goal (STG) Torie is able to perform Level 1 lower abdominal progression without increase in lumbar lordosis GOAL MET STG Duration 4 weeks Filter Washer Goal (LTG) Torie is independent with a HEP addressing core strength and stability 05/08/21: Progressing: Pt. requires cues for maintaining alignment and core/ glue fascilitation for stability. All are improved for strength progression. LTG Duration 8 weeks Improve full pain free spinal ROM Impairment decreased thoracic and lumbar ROM Short Term Goal (STG) Torie is able to perform seated lumbar flexion without increase in pain GOAL MET STG Duration 4 weeks Filter Washer Goal (LTG) Torie is able to perform full standing lumbar flexion without a increase in pain 05/08/21: Goal met; Pt. able to perform full standing lumbar flexion with no LBP, though Pt. expressed tight calf muscles. pt is able to walk [employer] [place] without a increase in her lbp and right gluteal pain Impairment Increased pain with walking 30 min or more Filter Washer Goal (LTG) Pt is able to walk [place] without a increase in her LBP or right gluteal pain Excellent progress 05/11: Pt. walked [place] with no pain. LTG Duration 8 weeks Progress Towards Goals Progress Towards Goals Progressing Toward Goals Assessment Summary Assessment Pt was challenged with SLS and balance exercises, improving with cues for core stabilization, tall posture, and relaxed UE. Initiated open book for thoracic mobility, modified to bent elbows to reduce discomfort in shoulder/ bicep bilaterally. Good feedback to change. Pt will benefit from continued PT to improve core strength, balance , and to reduce LBP. Pt is going to [place] soon and she cannot leave him along . She expressed feeling ready to DC as well. Physical Therapy Plan Frequency and Duration Frequency of Treatment 2x/Week Duration of Treatment 8 Plan of Care Start Date 03/30/21 Plan of Care End Date 05/25/21 Therapeutic Interventions Therapeutic Interventions Home Exercise Program,Joint Mobilizations,Manual Therapy, Neuromuscular Re-education, Patient/Caregiver Education, Self-Care/Home Management,Soft Tissue Mobilization, Therapeutic Exercises Modalities Hot Packs Next Visit Focus/Plan Next Note Type Treatment Note Next Visit Plan Gait training to improve endurance, flexibility, balance and functional mobility. Next tx: rechmichele Smith, open book, add B shldr extension in standing with therabands for core stabilization. POC: progress lumbar stabilization exercises, work on thoracic mobilty and continue with MFR techniques for the piriformis
--- NOTE | 2021-05-16 14:30 | PT.OPDS ---
Current Diagnoses Radiculopathy, lumbar region (05/16/21) Visit Care Team Role Provider Type Tristen Houser DO Family Provider Physician Primary Care Provider Specialty: Family Practice Address: [address] [place] [address], [address] Email: [email or web address] Marian Navarro MD Attending Provider Physician Referring Provider Specialty: Orthopedic Surgery Address: [address] [place] [address], [address] Email: [email or web address] Visit Number Visit Number 9 Discharge Summary PT-OP-B Current Condition Start: 03/30/21 09:59 Freq: Status: Active Protocol: Document 03/30/21 09:45 [facility] (Rec: 03/30/21 10:05 AMH [id number]) Current Condition History of Current Condition Onset Date 3 weeks ago c/o right sided LBP and right hip pain doing yard work History of Current Condition pain is at its worst with sitting or sit-stand, she was able to walk the loop yesterday. PT-OP-C Subjective Start: 03/30/21 09:59 Freq: Status: Active Protocol: Document 05/16/21 13:46 [facility] (Rec: 05/16/21 14:04 [facility] [id number]) OP-PT Subjective Patient Comments Patient Comments pt reports her back has been doing pretty good, today is her last visit and she notes she feels independent with her HEP Patient Reported Progress Improving PT-OP-J Posture/Palpation/Skin Start: 03/30/21 09:59 Freq: Status: Active Protocol: Document 03/30/21 09:45 [facility] (Rec: 03/30/21 11:12 [facility] [id number]) Posture Evaluation Comments Posture Comments pt presents with anterior lean in standing, increased thoracic kyphosis Palpation Assessment Location right gluteals Palpation Findings Soft Tissue Tightness,Muscle Guarding Palpation Details right gluteals including the piriformis tender to palpation and guarded/tight PT-OP-K Range of Motion Start: 03/30/21 09:59 Freq: Status: Active Protocol: Document 03/30/21 09:45 [facility]H (Rec: 03/30/21 11:12 AMH [id number]) Lumbar Spine Range of Motion Lumbar Spine Active Testing Position Standing Flexion 40 ROM Limitations Soft Tissue Tightness Comments increased c/o right sided pain with lumbar flexion PT-OP-T Assessment and Plan Start: 03/30/21 09:59 Freq: Status: Active Protocol: Document 05/16/21 13:46 [facility] (Rec: 05/16/21 14:04 [facility] [id number]) Physical Therapy Assessment Goals improved core strength Impairment Decreased core strength Short Term Goal (STG) Torie is able to perform Level 1 lower abdominal progression without increase in lumbar lordosis GOAL MET STG Duration 4 weeks Snf Goal (LTG) Torie is independent with a HEP addressing core strength and stability 05/08/21: Progressing: Pt. requires cues for maintaining alignment and core/ glue fascilitation for stability. All are improved for strength progression. LTG Duration 8 weeks Improve full pain free spinal ROM Impairment decreased thoracic and lumbar ROM Short Term Goal (STG) Torie is able to perform seated lumbar flexion without increase in pain GOAL MET STG Duration 4 weeks Accounting System Expert Goal (LTG) Torie is able to perform full standing lumbar flexion without a increase in pain 05/08/21: Goal met; Pt. able to perform full standing lumbar flexion with no LBP, though Pt. expressed tight calf muscles. LTG Duration 8 weeks pt is able [place] [employer] without a increase in her lbp and right gluteal pain Impairment Increased pain with walking 30 min or more Snf Goal (LTG) Pt is able to walk [place] [employer] without a increase in her LBP or right gluteal pain Excellent progress 05/11: Pt. walked [place] [employer] with no pain. LTG Duration 8 weeks Assessment Summary Assessment Torie has progressed well with her HEP for lumbar ROM, hip flexibilty, and core strengthening. She is no longer c/o radicular symptoms and has been able to do resume her walks without pain. She would benefit from continuing her exercises at home and she has her HEP to follow. Torie will be discharged from PT at this time. Physical Therapy Plan Discharge Physical Therapy Discharge Reasons Patient Request Discharge Comments Pt will be starting daily radiation with her so needed to stop PT at this time .
--- NOTE | 2021-05-16 14:30 | PT.OTN ---
Current Diagnoses Radiculopathy, lumbar region (05/16/21) Physical Therapy Treatment Note PT-OP-A Visit Information Start: 03/30/21 09:59 Freq: Status: Active Protocol: Document 05/16/21 13:46 [facility] (Rec: 05/16/21 14:04 [facility] [id number]) Out-Patient Physical Therapy Visit Information Visit Information Visit Type Treatment Note Visit Start Time 13:45 Visit Stop Time 14:30 Total Visit Minutes 45 Visit Number 9 Number of SENIOR TECHNICAL EDITOR Visits 0 PT-OP-B Current Condition Start: 03/30/21 09:59 Freq: Status: Active Protocol: Document 03/30/21 09:45 [facility] (Rec: 03/30/21 10:05 [facility] [id number]) Current Condition History of Current Condition Onset Date 3 weeks ago c/o right sided LBP and right hip pain doing yard work History of Current Condition pain is at its worst with sitting or sit-stand, she was able to walk the loop yesterday. PT-OP-C Subjective Start: 03/30/21 09:59 Freq: Status: Active Protocol: Document 05/16/21 13:46 [facility] (Rec: 05/16/21 14:04 [facility] [id number]) OP-PT Subjective Patient Comments Patient Comments pt reports her back has been doing pretty good, today is her last visit and she notes she feels independent with her HEP Patient Reported Progress Improving PT-OP-J Posture/Palpation/Skin Start: 03/30/21 09:59 Freq: Status: Active Protocol: Document 03/30/21 09:45 [facility] (Rec: 03/30/21 11:12 [facility] [id number]) Posture Evaluation Comments Posture Comments pt presents with anterior lean in standing, increased thoracic kyphosis Palpation Assessment Location right gluteals Palpation Findings Soft Tissue Tightness,Muscle Guarding Palpation Details right gluteals including the piriformis tender to palpation and guarded/tight PT-OP-K Range of Motion Start: 03/30/21 09:59 Freq: Status: Active Protocol: Document 03/30/21 09:45 [facility] (Rec: 03/30/21 11:12 [facility] [email or web address]) Lumbar Spine Range of Motion Lumbar Spine Active Testing Position Standing Flexion 40 ROM Limitations Soft Tissue Tightness Comments increased c/o right sided pain with lumbar flexion PT-OP-Q Treatments Start: 03/30/21 10:05 Freq: Status: Active Protocol: Document 05/16/21 13:46 [facility] (Rec: 05/16/21 14:04 [facility] [id number]) Therapeutic Exercises Supine Exercises TA with pelvic tilt Reps/Minutes x 10 reps piriformis stretch Side bilateral Reps/Minutes 2 x 30 seconds each double knee to chest stretch Supine Exercise Name reviewed HEP Reps/Minutes 2 reps x 30 sec single knee to chest stretch Side bilateral Reps/Minutes 2x 30 ea Other Exercises yady pose Reps/Minutes 2 reps hold 30-60 seconds Comments good form quadruped side bends Side bilateral Reps/Minutes x 5 reps Comments good form cat cow Reps/Minutes x 10 reps Comments good form Manual Therapy Treatment Soft Tissue Mobilization lumbar paraspinal MFR Mobilization Type Myofascial Release,Strumming, Sustained Pressure,Trigger Point Release Intensity/Depth Moderate Body Position Prone with torso pillows Comments B sparaspinals, R>L L3-L4 region. Tightness. right piriformis release Body Location right piriformis, glut medius Mobilization Type Myofascial Release,Sustained Pressure,Trigger Point Release Intensity/Depth Moderate Body Position L Sidelying Comments sensitive to pressure, improved softening with sustained pressure and breath Manual Techniques manual right iliospoas stretch Body Position left sidelying Reps/Duration intermittent stretching x 4 min PT-OP-T Assessment and Plan Start: 03/30/21 09:59 Freq: Status: Active Protocol: Document 05/16/21 13:46 [facility] (Rec: 05/16/21 14:04 [facility] [id number]) Physical Therapy Assessment Goals improved core strength Impairment Decreased core strength Short Term Goal (STG) Torie is able to perform Level 1 lower abdominal progression without increase in lumbar lordosis GOAL MET STG Duration 4 weeks Skilled Nursing Goal (LTG) Torie is independent with a HEP addressing core strength and stability 05/08/21: Progressing: Pt. requires cues for maintaining alignment and core/ glue fascilitation for stability. All are improved for strength progression. LTG Duration 8 weeks Improve full pain free spinal ROM Impairment decreased thoracic and lumbar ROM Short Term Goal (STG) Torie is able to perform seated lumbar flexion without increase in pain GOAL MET STG Duration 4 weeks Business Economist Goal (LTG) Torie is able to perform full standing lumbar flexion without a increase in pain 05/08/21: Goal met; Pt. able to perform full standing lumbar flexion with no LBP, though Pt. expressed tight calf muscles. LTG Duration 8 weeks pt is able [place] [id number] without a increase in her lbp and right gluteal pain Impairment Increased pain with walking 30 min or more Skilled Nursing Goal (LTG) Pt is able to walk [place] without a increase in her LBP or right gluteal pain Excellent progress 05/11: Pt. walked [employer] [place] with no pain. LTG Duration 8 weeks Assessment Summary Assessment Torie has progressed well with her HEP for lumbar ROM, hip flexibilty, and core strengthening. She is no longer c/o radicular symptoms and has been able to do resume her walks without pain. She would benefit from continuing her exercises at home and she has her HEP to follow. Torie will be discharged from PT at this time. Physical Therapy Plan Discharge Physical Therapy Discharge Reasons Patient Request Discharge Comments Pt will be starting daily radiation with her so needed to stop PT at this time .
== END 2021-07-25 08:42 ==
LOC: PHYS 13:45
PROVIDERS: Family Provider Family Medicine; PCP Family Medicine; Referring Provider Orthopaedic Surgery; Visit Provider Orthopaedic Surgery
DX: M54.16 Radiculopathy, lumbar region (principal)
CPT/HCPCS: 97110; 97112; 97140; 97161; 97535

== ENCOUNTER → 2021-08-09 09:18 | Outpatient (CLI) | payer MEDICARE, OTHER, SELFPAY ==
[2020-08-18 16:29] VITALS: BMI 24.4
[2021-08-09 09:46] LABS: BUN Creatinine Ratio 13.3 (6-22); Blood Urea Nitrogen 12 mg/dL (7-17); Estimated Glomerular Filt Rate > 60.0 mL/min (>60)
--- NOTE | 2021-08-09 10:16 | DI.CT.S_ITS ---
PROCEDURE: CT ABDOMEN PELVIS W CON INDICATIONS: DIARRHEA, RLQ PAIN AND CONSTIPATION TECHNIQUE: After the administration of oral and IV contrast, axial sections were acquired from the lung bases to the pubic symphysis. Coronal and sagittal reformats were performed. For radiation dose reduction, the following was used: automated exposure control, adjustment of mA and/or kV according to patient size. COMPARISON: [facility], CT, ABDOMEN/PELVIS WITH CONTRAST, 04/27/2016, 8:49. FINDINGS: Image quality: Excellent. Lung bases: Unremarkable. Heart: No significant findings. ABDOMEN: Liver: There is moderate hepatic steatosis, no discrete hepatic lesion is noted. Gallbladder: Gallbladder is surgically absent. Biliary ducts: Unremarkable. Pancreas: Unremarkable. Spleen: Unremarkable. Adrenal Glands: Unremarkable. Kidneys and Ureters: Unremarkable. Stomach and Bowel: There is no bowel obstruction. There is suggestion of mild circumferential wall thickening involving gastric pylorus/proximal duodenum concerning for gastroenteritis. No other area of abnormal small bowel wall thickening is seen. Diffuse colonic wall thickening is noted without significant pericolonic fat stranding. Scattered colonic diverticuli are seen, no CT evidence of acute diverticulitis. No abscess collection. Peritoneum: No abnormal intraperitoneal fluid. No free air. Ventral Wall: No hernia. Abdominal Nodes: No retroperitoneal or mesenteric adenopathy by size criteria. Vessels: Aorta and inferior vena cava are normal in size. PELVIS: Pelvic Organs: Unremarkable. Bladder: Unremarkable. Pelvic Nodes: No enlarged lymph nodes. Miscellaneous: No inguinal hernias are seen. Bones: Patient is status post right hip arthroplasty and fusion of lumbar spine from L3 through S1 levels. No acute compression fracture or spondylolisthesis. No suspicious bony lesion. No gross hardware loosening or failure. IMPRESSION: 1. Finding is concerning for infectious or inflammatory colitis with diffuse colonic wall thickening and edema and narrowing of the lumen. Questionable wall thickening involving gastric pylorus and proximal duodenum is seen which may indicate gastroenteritis. No bowel obstruction. No abscess formation. No free fluid or free air. 2. Moderate hepatic steatosis. 3. Postsurgical changes from right hip arthroplasty and lumbar spine fusion. No acute osseous abnormality. No gross hardware complication. Dictated by: Kiet Poole M.D. on 08/09/2021 at 11:34 Approved by: Kiet Poole M.D. on 08/09/2021 at 12:47
== END ==
PROVIDERS: Family Provider Family Medicine; PCP Family Medicine; Referring Provider Physician Assistant; Visit Provider Physician Assistant
DX: R19.7 Diarrhea, unspecified (principal); R10.31 Right lower quadrant pain; K59.00 Constipation, unspecified; K76.0 Fatty (change of) liver, not elsewhere classified; Z96.641 Presence of right artificial hip joint; Z98.1 Arthrodesis status
CPT/HCPCS: 36415; 74177; 82565; 84520

== ENCOUNTER 2021-09-04 12:36 | Day surgery (SDC) | payer MEDICARE, OTHER, SELFPAY ==
[2020-08-18 16:29] VITALS: BMI 24.4
[2021-09-04] VITALS (7 sets, daily range): BP systolic 121–144; BP diastolic 74–81; PULSE 62–79; RESP 12–18; TEMP 36.3–37; O2SAT 95–98; BMI 24.7
--- NOTE | 2021-09-04 | PATH_ITS ---
[facility] Accession Number: [id number] . 01 Material submitted: . PART A: duodenum - DUODENAL BIOPSY PART B: gastrointestinal site - ANTRUM BIOPSY PART C: gastrointestinal site - GASTRIC POLYP PART D: colon - RANDOM COLON BIOPSIES PART E: colon - TRANSVERSE COLON POLYPS . 02 Diagnosis: A. Duodenum, Biopsy: Duodenal mucosa with no diagnostic abnormality. Negative for active inflammation, features of sprue, dysplasia, or malignancy. . B. Antrum, Biopsy: Gastric antral mucosa with mild chronic inflammation. Negative for Helicobacter organisms by immunohistochemistry. Negative for intestinal metaplasia. Negative for dysplasia or malignancy. . C. Gastric Polyp, Biopsy: Gastric hyperplastic polyp. Negative for Helicobacter organisms by immunohistochemistry. Negative for intestinal metaplasia. Negative for dysplasia or malignancy. . D. Random Colon, Biopsies: Colonic mucosa with no diagnostic abnormality. Negative for active, chronic, and microscopic colitis. Negative for dysplasia and malignancy. . E. Transverse Colon Polyps, Biopsies: Tubular adenoma x1. Colonic mucosa with no diagnostic abnormality, consistent with polypoid redundancy x1. Fragments of vegetable material. V 09/08/2021 1328 Local . 02 Electronically signed: . Epi Mishra MD, PhD, Pathologist NPI- [id number] . 01 Gross description: . Part A: DUODENAL BIOPSY: Received in formalin are 2 fragment(s) of murray, soft tissue measuring 0.3 x 0.2 x 0.2 cm to 0.2 x 0.1 x 0.1 cm submitted entirely in 1 cassette(s) Part B: ANTRUM BIOPSY: Received in formalin is 1 fragment(s) of murray, soft tissue measuring 0.2 x 0.1 x 0.1 cm submitted entirely in 1 cassette(s) Part C: GASTRIC POLYP: Received in formalin are 2 fragment(s) of murray, soft tissue measuring 0.2 x 0.2 x 0.1 cm to 0.2 x 0.1 x 0.1 cm submitted entirely in 1 cassette(s) Part D: RANDOM COLON BIOPSIES: Received in formalin are 2 fragment(s) of murray, soft tissue measuring 0.1 x 0.1 x 0.1 cm to 0.1 x 0.1 x 0.1 cm submitted entirely in 1 cassette(s) Part E: TRANSVERSE COLON POLYPS: Received in formalin are multiple fragment(s) of murray, soft tissue measuring 1.9 x 0.2 x 0.1 cm in aggregate submitted entirely in 1 cassette(s) /CPE 09/06/2021 1004 Local . 02 Microscopic: . B. An immunohistochemical stain is performed to evaluate for Helicobacter organisms and is negative. The control stain showed appropriate reactivity. . C. An immunohistochemical stain is performed to evaluate for Helicobacter organisms and is negative. The control stain showed appropriate reactivity. . * This test was developed and its performance characteristics determined by [facility]. It has not been cleared or approved by the U.S. Food and Drug Administration. The FDA has determined that such clearance or approval is not necessary. This test is used for clinical purposes. It should not be regarded as investigational or for research. . 02 Pathologist provided ICD-10: R10.31, K29.70, K31.7, D12.3 . 02 CPT . 245111, 097259, 399552, 224962, 196708, L23468 Specimen Comment: A courtesy copy of this report has been sent to [phone] Performed at: 01 [facility] [address] [place] [address], [place], [place] [id number] MD Aubrey Han MD Phone: [phone] Performed at: 02 [facility] [address] [place], [place] [id number] MD Rowan Chu MD Phone: [phone]
[2021-09-04 13:41] LABS: COVID19 -Nasal RAPID Negative (Negative)
[2021-09-04] MEDS: SODIUM CHLORIDE 0.9% 1,000 ML 84 ML IV (13:51)
--- NOTE | 2021-09-04 14:30 | PM.HP.1 ---
History of Present Illness History of Present Illness Date Patient Seen: 09/04/21 Time Patient Seen: 14:30 Chief complaint: [facility] [place]arrative: Abnormal CT imaging. Tendency towards constipation. Colon thickening and abnormal appearing pylorus. Right-sided abdominal pain. I reviewed Geni Najera's note. No additional changes. Patient History Medical History Abdominal pain Abnormal Pap smear of cervix (1976) Anxiety (1999) Atrophic vulvovaginitis Bruising Cellulitis Cervical cancer (1976) Chicken pox (1957) Chronic back pain (1995) Chronic headaches (1957) Cognitive impairment Colitis (1975) Constipation Dark stools Depression (1999) GERD (gastroesophageal reflux disease) Hemorrhoids (1974) Herpes History of bronchitis Hypothyroidism Insect sting Left rotator cuff tear Measles (1957) Postmenopausal Postoperative anemia due to acute blood loss JAVY (stress urinary incontinence, female) Urinary urgency Surgical History Anesthesia History of colonoscopy with polypectomy History of esophagogastroduodenoscopy (EGD) (10/24/11) History of spinal fusion (1999) History of spinal fusion (2012) History of spinal fusion (2001) History of tonsillectomy (1966) Status post appendectomy (1956) Status post biopsy (10/24/11) Status post colonoscopy (10/24/11) Status post laparoscopic cholecystectomy (2000) Status post vaginal hysterectomy (1977) Family & Social History Family History Child Age: 45 Hypertension High cholesterol Father Age: 97 Colon cancer Alcoholism Osteoarthritis Mother Age: 95 Colon cancer CAD (coronary artery disease) Hypertension Hyperlipidemia Stroke Heart disease Bladder cancer Sister Age: 74 Diabetes mellitus Adenocarcinoma, lung Hyperlipidemia Sister Age: 69 Diabetes mellitus Hyperlipidemia Sister Lung cancer Nonsmoker Social History: household members spouse Tobacco & Substance use: Tobacco type cigarettes Smoking Status Former smoker alcohol intake current alcohol intake frequency a few times a month Substance Use Type does not use Meds Home Medications and Allergies Home Medications Medication Instructions Recorded Confirmed Type ascorbic acid (vitamin C) 500 mg 500 mg PO DAILY #30 tab 02/08/18 09/04/21 Rx tablet (Vitamin C) clobetasol 0.05 % topical ointment 1 applic TOP DAILY #30 gram 09/28/20 09/04/21 Rx conjugated estrogens 0.625 mg/gram 1 applic VAGINAL .COMPLEX #60 gram 09/28/20 09/04/21 Rx vaginal cream (Premarin) acyclovir 800 mg tablet 800 mg PO DAILY PRN #20 tab 11/11/20 09/04/21 Rx Disabled Parking Permit #1 ea 01/03/21 04/28/21 Rx omeprazole 20 mg capsule,delayed 20 mg PO BID #60 cap 04/28/21 09/04/21 Rx release atorvastatin 10 mg tablet 10 mg PO DAILY #90 tab 06/28/21 09/04/21 Rx escitalopram oxalate 10 mg tablet 10 mg PO DAILY #90 tab 06/28/21 09/04/21 Rx Allergies Allergy/AdvReac Type Severity Reaction Status Date / Time trazodone AdvReac Mild Headaches Verified 09/04/21 13:43 Review of Systems Review of Systems ROS: Yes All systems reviewed with the patient and are negative except as otherwise documented Exam Vital Signs (past 8 hours): - 09/04/21 14:02 Temperature 98.4 F Pulse Rate 79 Respiratory Rate 16 Blood Pressure 139/74 Pulse Oximetry 95 Oxygen Delivery Method Room Air Const General: cooperative and comfortable Orientation: alert HENMT Head: normocephalic Ears: external ears normal Nose: external nose normal Face and sinus: normal facial exam Mouth: oral mucosae normal Eyes General: appearance normal, both eyes and all related structures Neck Neck: normal visual inspection Chest Chest: normal inspection of the chest Resp Effort & Inspection: normal respiratory effort Cardio Rate: regular rate GI Inspection: normal to inspection Skin General: no rashes or lesions noted and No jaundice Neuro General: patient alert and moves all extremities Cognition: normal cognition Speech: speech normal Extrem General: no pedal edema Psych Appearance: grossly normal Objective Labs Labs: Laboratory Results - last 24 hr 09/04/21 12:57 SARS-CoV-2 (PCR) Negative Assessment & Plan Assessment & Plan narrative: 75-year-old female with symptoms of right-sided abdominal pain tendency towards constipation (she denies chronic diarrhea) found to have abnormal CT imaging with concern for colitis and an abnormal pyloric region. Additionally there is a family history of colon cancer. And colonoscopy are pursued today. Time Spent With Patient Critical Care time: I spent a total of [] minutes of critical care time on this patient's care today; this time is exclusive of procedural time.
--- NOTE | 2021-09-04 14:32 | PM.PREOP ---
Pre-operative Note COVID-19 COVID-19 status: Negative Result date/Date tested (Pos, Neg/Pending): 09/04/21 Criteria for continued procedure: Possibility delay results in more complex future surgery or treatment Interval Note History & Physical reviewed/Exam performed by Physician: Yes Changes to H&P: No ASA Class (for procedural sedation): II
--- NOTE | 2021-09-04 16:39 | P.OP.EGD&C_ITS ---
Operative Date/Time/Diagnoses Date of procedure: 09/04/21 Time of procedure: 16:40 Pre-op diagnosis: Abnormal CT imaging right-sided abdominal pain Post-op diagnosis: same Procedure & Clinicians Study performed: Colonoscopy with hot snare polypectomy and biopsies EGD with biopsies Same procedure as scheduled: Yes Indications: Right-sided abdominal pain tendency towards constipation rare diarrhea abnormal CT imaging with suggestion of diffuse colon thickening and abnormal appearing pylorus. Surgeon: Malcom Perez Procedure Notes SCOAP/Timeout: Done Procedure in detail: After the risks and benefits were explained, written and verbal informed consent was obtained. The patient was brought into the procedure room and placed into the left lateral decubitus position. Please see nurse retirement actuary note for sedation details. The scope was introduced into the mouth through the bite block and advanced under direct visualization to the 2nd portion of the duodenum. The scope was slowly withdrawn carefully examining the mucosa for any defects or lesions. Retroflexed views were accomplished in the stomach. The stomach was decompressed, the scope was then removed from the patient who tolerated the procedure well. The patient was then turned around digital rectal examination accomplished no significant pathology appreciated. The scope was introduced into the rectum and advanced to the cecum as identified by the appendiceal orifice and ileocecal valve. The scope was slowly withdrawn to carefully examine the mucosa for any defects or lesions. Multiple direct views were made through the dentate line fo r exclusion of pathology the colon was decompressed scope removed the patient tolerated the procedure well. Bowel prep adequate Pediatric colonoscope Prolonged procedure time secondary to extreme colon tortuosity and a very difficult navigation 22 modifier is therefore requested Scope withdrawal time: 15 minutes Sedation minutes: 55 Complications: none Impression: 1. Duodenum: This appeared visually normal from the bulb through the 2nd portion. In the context of the patient's symptoms, random D2 biopsies were taken for exclusion of sprue. 2. Stomach: The patient had a minimal gastropathy appreciated in the antrum and pre-pyloric region. Biopsies were taken for exclusion of Helicobacter or other pathology. No ulcers no outlet obstruction no mass lesions. No findings to correlate with the CT report. There was a small 4-5 mm sessile gastric polyp in the body removed with cold forceps. Otherwise retroflexed Views of the LES were unremarkable. 3. Esophagus: The squamocolumnar junction correlated with the top of the gastric folds. GEJ was at 40 cm from the incisors. No acute erosive changes no strictures no mass lesions. The esophagus was unremarkable throughout. 4. Colon: This was an extremely difficult navigation. Extreme angulation and tortuosity was encountered in the rectosigmoid. Multiple points of abdominal pressure and patient position changes were required to facilitate defecation. Patient had some mild melanosis coli in the rectosigmoid region. I did not appreciate any evidence of inflammatory bowel disease. Random colon biopsies were taken for exclusion of microscopic colitis in light of the CT report. In the transverse colon there were 2 sessile polyps measuring approximately 6 mm or so in greatest dimension. The 1st of these was removed with hot snare. Unfortunately this polyp appeared to have disappeared in the accessory channel of the scope and was not found in the trap. (it was however removed). A 2nd polyp close by was removed initially with cold snare. There was some residual polypoid appearing mucosa which was addressed with an application of hot snare. A small focus of residual polyp was ablated with the tip of the snare. There was some mild diverticulosis in the left colon as well. Because of the difficulty with which we had obtaining cecal intubation I could not navigate the tip up into the terminal ileum. Endoscopic diagnosis 1. Mild gastropathy 2. Diminutive gastric polyp 3. Otherwise visually unremarkable EGD 4. Tortuous challenging colon navigation 5. Colon polyps 6. Diverticulosis Post-procedure Plan for aftercare: 1. Await histopathology 2. Continue bowel regimen for soft regular stools 3. Repeat colonoscopy would typically be recommended for about 7 years time. However this places the patient at age 82 and I would therefore recommend against routine surveillance at that point considering the degree of difficulty encountered today. 4. Follow up Geni Najera Disposition: PACU
[2021-09-05 13:38] LABS: Fecal Immunochemical Test Negative (Negative)
== END 2021-09-04 17:28 | disposition home or self-care (01) ==
LOC: ENDO 12:38
PROVIDERS: Family Provider Family Medicine; PCP Family Medicine; Referring Provider Internal Medicine Gastroenterology; Visit Provider Internal Medicine Gastroenterology
PROC: 0DJ08ZZ Inspection of Upper Intestinal Tract, Via Natural or Artificial Opening Endoscopic (ICD-10-PCS; CPT 43235; principal; 2021-09-04 14:30)
PROC: 0DJD8ZZ Inspection of Lower Intestinal Tract, Via Natural or Artificial Opening Endoscopic (ICD-10-PCS; CPT 45378; 2021-09-04 14:30)
DX: K57.30 Diverticulosis of large intestine without perforation or abscess without bleeding (principal); R19.7 Diarrhea, unspecified; K21.9 Gastro-esophageal reflux disease without esophagitis; K31.9 Disease of stomach and duodenum, unspecified; Z20.822 Contact with and (suspected) exposure to COVID-19; K29.50 Unspecified chronic gastritis without bleeding; K31.7 Polyp of stomach and duodenum; D12.3 Benign neoplasm of transverse colon
CPT/HCPCS: 45385; 45380; 43239; 82274; 87635; J2704

== ENCOUNTER → 2021-11-30 11:06 | Outpatient (CLI) | payer MEDICARE, OTHER, SELFPAY ==
[2020-08-18 16:29] VITALS: BMI 24.4
--- NOTE | 2021-11-30 11:09 | DI.RAD.S_ITS ---
PROCEDURE: XR CHEST 2V INDICATIONS: Persistent cough TECHNIQUE: 2 views of the chest were acquired. COMPARISON: [facility], CR, XR CHEST 2V, 04/10/2019, 11:51. FINDINGS: Surgical changes and devices: None. Lungs and pleura: Lungs are clear. No pleural effusions or pneumothorax. Mediastinum: Mediastinal contours are normal. Heart size is normal. Bones and chest wall: No suspicious bony abnormalities. Soft tissues appear unremarkable. IMPRESSION: No acute finding. Dictated by: Grabiel Ibrahim M.D. on 11/30/2021 at 11:45 Approved by: Grabiel Ibrahim M.D. on 11/30/2021 at 11:45
[2021-12-01 14:17] LABS: Calcium 9.4 mg/dL (8.7-10.3); Parathyroid Hormone, Intact 30 pg/mL (15-65)
== END ==
PROVIDERS: Family Provider Family Medicine; PCP Family Medicine; Referring Provider Urology; Visit Provider Urology
DX: U07.1 COVID-19 (principal); E21.3 Hyperparathyroidism, unspecified; E83.52 Hypercalcemia
CPT/HCPCS: 36415; 71046; 82310; 83970

== ENCOUNTER → 2021-12-04 14:35 | Outpatient (CLI) | payer MEDICARE, OTHER, SELFPAY ==
[2020-08-18 16:29] VITALS: BMI 24.4
--- NOTE | 2021-12-04 14:37 | DI.MG.S_ITS ---
BILATERAL DIGITAL SCREENING MAMMOGRAM 3D/2D WITH CAD: 12/04/2021 CLINICAL: Routine screening. Family history of breast cancer. Comparison is made to exams dated: 11/09/2020 mammogram, 11/01/2020 mammogram, 06/11/2019 mammogram, and 04/18/2017 mammogram - [facility]. The tissue of both breasts is heterogeneously dense. This may lower the sensitivity of mammography. Current study was also evaluated with a Computer Aided Detection (CAD) system. No significant masses, calcifications, or other findings are seen in either breast. There has been no significant interval change. IMPRESSION: NEGATIVE There is no mammographic evidence of malignancy. A 1 year screening mammogram is recommended. This exam was interpreted at Station ID: [id number]. NOTE: For mammograms, a report in lay terms will be sent to the patient. Approximately 15% of breast malignancies will not be visualized mammographically. In the management of a palpable breast mass, a negative mammogram must not discourage biopsy of a clinically suspicious lesion. Electronically Signed By: Robert [email or web address]:12/04/2021 15:37:56 letter sent: Normal Exam ACR BI-RADS Category 1: Negative [id number]
== END ==
PROVIDERS: Family Provider Family Medicine; PCP Family Medicine; Referring Provider Family Medicine; Visit Provider Family Medicine
DX: Z12.31 Encounter for screening mammogram for malignant neoplasm of breast (principal); Z80.3 Family history of malignant neoplasm of breast
CPT/HCPCS: 77063; 77067

== ENCOUNTER → 2022-02-06 14:55 | Outpatient (CLI) | payer MEDICARE, OTHER, SELFPAY ==
[2020-08-18 16:29] VITALS: BMI 24.4
[2022-02-06 16:13] LABS: Hemoglobin A1C% w Est Avg Glu 5.4 % (4.0-6.0)
== END ==
PROVIDERS: Family Provider Family Medicine; PCP Family Medicine; Referring Provider Obstetrics & Gynecology; Visit Provider Obstetrics & Gynecology
DX: R73.09 Other abnormal glucose (principal); Z86.19 Personal history of other infectious and parasitic diseases
CPT/HCPCS: 36415; 83036

== ENCOUNTER → 2022-04-10 10:31 | Outpatient (CLI) | payer MEDICARE, OTHER, SELFPAY ==
[2020-08-18 16:29] VITALS: BMI 24.4
--- NOTE | 2022-04-10 10:32 | DI.RAD.S_ITS ---
PROCEDURE: XR SHOULDER LT MIN 2V INDICATIONS: left shoulder pain TECHNIQUE: 3 views of the shoulder were acquired. COMPARISON: [facility], CR, XR SHOULDER LT MIN 2V, 03/01/2020, 12:14. FINDINGS: Bones: No fractures or dislocations. No suspicious bony lesions. [id number] acromioclavicular and glenohumeral joint degeneration. Visualized ribs appear intact. Soft tissues: No suspicious soft tissue calcifications. IMPRESSION: [id number] degenerative joint disease. If clinical symptoms persist or clinical suspicion for internal derangement is high, MRI is suggested for further evaluation. Dictated by: Gustabo Mcintyre M.D. on 04/10/2022 at 12:08 Approved by: Gustabo Mcintyre M.D. on 04/10/2022 at 12:09
== END ==
PROVIDERS: Family Provider Family Medicine; PCP Family Medicine; Referring Provider Family Medicine; Visit Provider Family Medicine
DX: M25.512 Pain in left shoulder (principal); M19.012 Primary osteoarthritis, left shoulder
CPT/HCPCS: 73030

== ENCOUNTER → 2022-04-11 09:04 | Outpatient (CLI) | payer MEDICARE, OTHER, SELFPAY ==
[2020-08-18 16:29] VITALS: BMI 24.4
[2022-04-11 10:33] LABS: Add Manual Diff / Slide Review NO; Basophils Absolute Auto 0 /uL (0-100); Basophils Percent Auto 0.5 % (0-2); Eosinophils Absolute Auto 200 /uL (0-450); Eosinophils Percent Auto 3.8 % (2-4); Hematocrit 40.6 % (36-46); Hemoglobin 13.7 g/dL (12.0-16.0); Lymphocytes Absolute Auto 900 /uL (1100-4500); Lymphocytes Percent Auto 15.2 % (25-40); Mean Corpuscular HGB Conc 33.8 % (30-36); Mean Corpuscular Hemoglobin 30.8 PG (26-34); Mean Corpuscular Volume 91.2 fL (80-100); Monocytes Absolute Auto 400 /uL (0-900); Monocytes Percent Auto 7.2 % (3-14); Neutrophils Absolute Auto 4400 /uL (1500-7000); Neutrophils Percent Auto 73.3 % (50-75); Platelet Count 191 X10^3/uL (150-400); Red Blood Cell Count 4.45 X10^6/uL (4.0-5.2); Red Cell Distribution Width 13.1 % (11.6-14.8)
[2022-04-11 11:46] LABS: Alanine Aminotransferase 37 IU/L (<35); Albumin 4.1 g/dL (3.5-5.0); Albumin Globulin Ratio 1.6 (1.0-2.8); Alkaline Phosphatase 73 U/L (38-126); Aspartate Aminotransferase 51 IU/L (14-36); BUN Creatinine Ratio 15.7 (6-22); Bilirubin Total 0.8 mg/dL (0.2-1.3); Blood Urea Nitrogen 13 mg/dL (7-17); Calcium 9.5 mg/dL (8.4-10.2); Carbon Dioxide 29 mmol/L (22-32); Chloride 103 mmol/L (98-107); Cholesterol 146 mg/dL (140-199); Estimated Glomerular Filt Rate > 60 mL/min (>60); Globulin 2.6 g/dL (1.7-4.1); Glucose 96 mg/dL (80-110); HDL Cholesterol 40 mg/dL (40-60); HEMOLYSIS < 15 (0-50); LDL Cholesterol Calculated 96 mg/dL (<100); Sodium 139 mmol/L (137-145); Total Protein 6.7 g/dL (6.3-8.2); Triglycerides 49 mg/dL (35-150)
[2022-04-11 11:55] LABS: Free T3, Triiodothyronine Free 3.53 pg/mL (2.77-5.27); Free T4, Direct Thyroxine 0.92 ng/dL (0.78-2.19)
[2022-04-11 11:59] LABS: Potassium 4.2 mmol/L (3.4-5.1)
[2022-04-11 12:08] LABS: Thyroid Stimulating Hormone 3.24 uIU/mL (0.47-4.68)
== END ==
PROVIDERS: Family Provider Family Medicine; PCP Family Medicine; Referring Provider Family Medicine; Visit Provider Family Medicine
DX: E03.9 Hypothyroidism, unspecified (principal); E78.5 Hyperlipidemia, unspecified; R03.0 Elevated blood-pressure reading, without diagnosis of hypertension; R42 Dizziness and giddiness
CPT/HCPCS: 36415; 80053; 80061; 84439; 84443; 84481; 85025

== ENCOUNTER → 2022-04-25 09:30 | Outpatient (CLI) | payer MEDICARE, OTHER, SELFPAY ==
[2020-08-18 16:29] VITALS: BMI 24.4
[2022-04-26 10:36] LABS: Candida species Negative (Negative); Gardnerella vaginalis Positive (Negative); Trichomoas vaginalis Negative (Negative)
== END ==
PROVIDERS: Family Provider Family Medicine; PCP Family Medicine; Visit Provider Obstetrics & Gynecology
DX: B37.9 Candidiasis, unspecified (principal); N89.8 Other specified noninflammatory disorders of vagina
CPT/HCPCS: 87070; 87077; 87147; 87205; 87480; 87510; 87660

== ENCOUNTER → 2022-05-31 09:17 | Outpatient (CLI) | payer MEDICARE, OTHER, SELFPAY ==
[2020-08-18 16:29] VITALS: BMI 24.4
[2022-06-01 16:29] LABS: Candida species Negative (Negative); Gardnerella vaginalis Positive (Negative); Trichomoas vaginalis Negative (Negative)
== END ==
PROVIDERS: Family Provider Family Medicine; PCP Family Medicine; Visit Provider Obstetrics & Gynecology
DX: N89.8 Other specified noninflammatory disorders of vagina (principal)
CPT/HCPCS: 87480; 87510; 87660

== ENCOUNTER 2022-07-24 15:03 | Emergency (ER) | payer MEDICARE, OTHER, SELFPAY ==
[2020-08-18 16:29] VITALS: BMI 24.4
[2022-07-24] VITALS (10 sets, daily range): BP systolic 140–169; BP diastolic 70–85; PULSE 64–85; RESP 15–32; TEMP 36.6; O2SAT 94–97; BMI 25.0
--- NOTE | 2022-07-24 15:24 | DI.RAD.S_ITS ---
1PROCEDURE: XR CHEST 1V INDICATIONS: chest pain TECHNIQUE: One view of the chest was acquired. COMPARISON: [facility], CR, XR CHEST 2V, 11/30/2021, 10:57. [facility], CR, XR CHEST 2V, 04/10/2019, 11:51. FINDINGS: Surgical changes and devices: None. Lungs and pleura: No dense consolidation or pleural effusion. Possible basal scarring/atelectasis. Mediastinum: Mediastinal contours appear normal. Heart size is normal. Bones and chest wall: No suspicious bony lesions. Overlying soft tissues appear unremarkable. IMPRESSION: No acute radiographic abnormality. Dictated by: Juan Peterson M.D. on 07/24/2022 at 15:44 Approved by: Juan Peterson M.D. on 07/24/2022 at 15:45
--- NOTE | 2022-07-24 16:06 | PC.NURSE ---
pt states that 2 weeks ago her left arm started aching with intermittent sharp jabs. this pain is intermittent in general. she was waiting hoping it would go away. starting 2 days a go, pt states her right arm started feeling the same way. pt states no other complaints except increase in GERD the last few months and a headache this morning that has already resolved
[2022-07-24 16:10] LABS: Prothrombin Time 11.4 SECONDS (10.1-12.7)
[2022-07-24 16:12] LABS: PTT Partial Thromboplastin Tim 29 SECONDS (26-36)
[2022-07-24 16:14] LABS: Add Manual Diff / Slide Review NO; Basophils Absolute Auto 100 /uL (0-100); Basophils Percent Auto 0.9 % (0-2); Eosinophils Absolute Auto 300 /uL (0-450); Eosinophils Percent Auto 3.5 % (2-4); Hematocrit 40.5 % (36-46); Hemoglobin 13.8 g/dL (12.0-16.0); Lymphocytes Absolute Auto 1900 /uL (1100-4500); Lymphocytes Percent Auto 24.2 % (25-40); Mean Corpuscular HGB Conc 34.2 % (30-36); Mean Corpuscular Volume 90.6 fL (80-100); Monocytes Absolute Auto 600 /uL (0-900); Monocytes Percent Auto 7.6 % (3-14); Neutrophils Absolute Auto 5100 /uL (1500-7000); Neutrophils Percent Auto 63.8 % (50-75); Platelet Count 220 X10^3/uL (150-400); Red Blood Cell Count 4.47 X10^6/uL (4.0-5.2); Red Cell Distribution Width 12.9 % (11.6-14.8); White Blood Cell Count 7.9 X10^3/uL (4.5-11.0)
[2022-07-24 16:16] LABS: Alanine Aminotransferase 38 IU/L (<35); Albumin 4.2 g/dL (3.5-5.0); Albumin Globulin Ratio 1.5 (1.0-2.8); Alkaline Phosphatase 75 U/L (38-126); Aspartate Aminotransferase 31 IU/L (14-36); BUN Creatinine Ratio 18.1 (6-22); Bilirubin Total 0.3 mg/dL (0.2-1.3); Blood Urea Nitrogen 13 mg/dL (7-17); Calcium 9.2 mg/dL (8.4-10.2); Carbon Dioxide 31 mmol/L (22-32); Chloride 102 mmol/L (98-107); Creatine Kinase 76 U/L (30-135); Estimated Glomerular Filt Rate > 60 mL/min (>60); Globulin 2.8 g/dL (1.7-4.1); Glucose 89 mg/dL (80-110); HEMOLYSIS 37 (0-50); Lipase 64 U/L (23-300); Potassium 4.1 mmol/L (3.4-5.1); Sodium 140 mmol/L (137-145)
[2022-07-24 16:27] LABS: Troponin I < 0.012 ng/mL (0.01-0.034)
--- NOTE | 2022-07-24 16:41 | ED.GENADULT ---
HPI - General Adult General Chief complaint: Dizziness Stated complaint: bilateral upper arm pain, dizziness Time Seen by Provider: 07/24/22 16:07 Source: patient Mode of arrival: Ambulatory Limitations: no limitations History of Present Illness HPI narrative: Patient is a 76-year-old female who is here for evaluation of bilateral upper arm pain. She also states she is what dizzy. Her pain initially started in her left arm that has moved to her right arm and now his both arms. She is no chest pain. Is difficult for her to completely describe where she is having discomfort but it seems to be in her upper arms. She is having some neck pain as well. No shortness of breath. No trauma. No change in the medications. She is taking all her medications as directed. Related Data Home Medications Medication Instructions Recorded Confirmed CBD gummies PO 11/30/21 05/31/22 cholecalciferol (vitamin D3) 50 50 mcg PO DAILY 11/30/21 05/31/22 mcg (2,000 unit) capsule multivitamin 1 tab PO DAILY 11/30/21 05/31/22 Previous Rx's Medication Instructions Recorded ascorbic acid (vitamin C) 500 mg 500 mg PO DAILY #30 tabs 02/08/18 tablet (Vitamin C) Disabled Parking Permit #1 ea 01/03/21 fluconazole 150 mg tablet 150 mg PO .COMPLEX #6 tabs 04/25/22 nystatin-triamcinolone 100,000 1 applic topical BID 14 days #30 04/25/22 unit/gram-0.1 % topical ointment grams prednisone 20 mg tablet 20 mg PO DAILY #2 tabs 07/24/22 tramadol 50 mg tablet 50 mg PO BID PRN pain #7 tabs 07/24/22 Allergies Allergy/AdvReac Type Severity Reaction Status Date / Time trazodone AdvReac Mild Headaches Verified 07/24/22 15:18 Review of Systems Constitutional Constitutional: Reports system reviewed and no additional complaints, except as documented Cardiovascular Cardiovascular: Reports system reviewed and no additional complaints, except as documented Respiratory Respiratory: Reports system reviewed and no additional complaints, except as documented Musculoskeletal Musculoskeletal: Reports system reviewed and no additional complaints, except as documented Integumentary/Breasts Skin/Breast: Reports system reviewed and no additional complaints, except as documented Neurologic Neurologic: Reports system reviewed and no additional complaints, except as documented Hematologic/Lymphatic On Anticoagulants: No Patient History Medical History Abdominal pain Abnormal Pap smear of cervix (1976) Anxiety (1999) Atrophic vulvovaginitis Borderline hypertension Cellulitis Cervical cancer (1976) Chicken pox (1957) Chronic back pain (1995) Chronic headaches (1957) Cognitive impairment Colitis (1975) Constipation COVID-19 Dark stools Depression (1999) GERD (gastroesophageal reflux disease) Hemorrhoids (1974) Herpes History of bronchitis Hypothyroidism Insect sting Left rotator cuff tear Measles (1957) Postmenopausal Postoperative anemia due to acute blood loss JAVY (stress urinary incontinence, female) Urinary urgency Surgical History Anesthesia History of colonoscopy with polypectomy History of esophagogastroduodenoscopy (EGD) (10/24/11) History of spinal fusion (1999) History of spinal fusion (2012) History of spinal fusion (2001) History of tonsillectomy (1966) Status post appendectomy (1956) Status post biopsy (10/24/11) Status post colonoscopy (10/24/11) Status post laparoscopic cholecystectomy (2000) Status post vaginal hysterectomy (1977) Family History Child Age: 46 Hypertension High cholesterol Father Age: 98 Colon cancer Alcoholism Osteoarthritis Mother Age: 96 Colon cancer CAD (coronary artery disease) Hypertension Hyperlipidemia Stroke Heart disease Bladder cancer Sister Age: 75 Diabetes mellitus Adenocarcinoma, lung Hyperlipidemia Sister Age: 70 Diabetes mellitus Hyperlipidemia Sister Lung cancer Nonsmoker Social History household members: spouse Smoking Status: Former smoker alcohol intake: current substance use type: does not use Smoking Status: Former smoker alcohol intake frequency: a few times a month Substance Use Type: does not use Exam Initial Vital Signs Initial Vital Signs: Vital Signs Temperature 97.8 F 07/24/22 15:18 Pulse Rate 85 07/24/22 15:18 Respiratory Rate 16 07/24/22 15:18 Blood Pressure 169/77 H 07/24/22 15:18 Pulse Oximetry 97 07/24/22 15:18 Oxygen Delivery Method 07/24/22 15:18 Const General: cooperative, healthy appearing, well developed and No ill appearing HENMT Head: normal to inspection and normocephalic Resp Effort & Inspection: normal respiratory effort Auscultation: clear to auscultation bilaterally Cardio Rate: regular rate Rhythm: regular rhythm Back/Spine/Pelvis Cervical Spine: cervical muscular tenderness Skin General: no rashes or lesions noted Neuro General: patient alert, patient awake and moves all extremities Extrem General: normal to inspection and capillary refill normal Other: Full range of motion of bilateral shoulders and elbows. Course Orders Ordered: ED Orders 07/24/22 15:24 XR chest 1V Stat EKG-12 Lead Stat 07/24/22 15:46 Complete Blood Count AUTO DIFF Stat Comprehensive Metabolic Panel Stat Lipase Stat Magnesium Stat Partial Thromboplastin Time Stat Prothrombin Time INR Stat Troponin & CK Cardiac Panel Stat 07/24/22 17:03 Troponin & CK Cardiac Panel Stat Discontinued Medications Hydrocodone Bitart/Acetaminophen (Hydrocodone/Acet 5/325 Tablet) 1 tab PO NOW ONE Stop: 07/24/22 16:42 Last Admin: 07/24/22 17:00 Dose: 1 tab Documented By: JOYCE Aspirin (Aspirin 81 Mg Chew Tab) 324 mg PO NOW ONE Stop: 07/24/22 15:25 Last Admin: 07/24/22 18:20 Dose: Not Given Documented By: CAMILA Ketorolac Tromethamine (Ketorolac 30 Mg/Ml Vial) 30 mg IV NOW ONE Stop: 07/24/22 16:42 Last Admin: 07/24/22 17:00 Dose: 30 mg Documented By: JOYCE Prednisone (Prednisone 20 Mg Tablet) 20 mg PO NOW ONE Stop: 07/24/22 18:46 Last Admin: 07/24/22 19:03 Dose: 20 mg Documented By: JOYCE Vital Signs Vital signs: Vital Signs - 8 hr 07/24/22 15:18 07/24/22 15:52 07/24/22 15:52 Temperature 97.8 F Pulse Rate 85 83 Respiratory Rate 16 23 Blood Pressure 169/77 H 155/84 H Pulse Oximetry 97 95 Oxygen Delivery Method Room Air 07/24/22 16:00 07/24/22 16:00 07/24/22 16:30 Temperature Pulse Rate 79 69 Respiratory Rate 21 28 H Blood Pressure 149/72 H Pulse Oximetry 94 95 Oxygen Delivery Method 07/24/22 16:31 07/24/22 16:31 07/24/22 17:00 Temperature Pulse Rate 69 Respiratory Rate 20 Blood Pressure 154/73 H 159/74 H Pulse Oximetry 95 Oxygen Delivery Method 07/24/22 17:00 07/24/22 17:30 07/24/22 17:30 Temperature Pulse Rate 67 65 Respiratory Rate 31 H 15 Blood Pressure 146/70 H Pulse Oximetry 94 95 Oxygen Delivery Method 07/24/22 18:00 07/24/22 18:00 07/24/22 18:30 Temperature Pulse Rate 66 64 Respiratory Rate 32 H 20 Blood Pressure 140/85 Pulse Oximetry 94 96 Oxygen Delivery Method 07/24/22 19:00 Temperature Pulse Rate 69 Respiratory Rate 30 H Blood Pressure Pulse Oximetry 95 Oxygen Delivery Method Medical Decision Making Differential Diagnosis Differential Diagnosis: ACS, cervical radiculopathy, cellulitis, PE, fractures and others Condition is:: Improved Lab Data Lab results reviewed: Yes I reviewed the patient's lab results. 07/24/22 15:46 07/24/22 15:46 Labs: Lab Results 07/24/22 07/24/22 07/24/22 Range/Units 15:46 15:46 15:46 WBC 7.9 (4.5-11.0) X10^3/uL RBC 4.47 (4.0-5.2) X10^6/uL Hgb 13.8 (12.0-16.0) g/dL Hct 40.5 (36-46) % MCV 90.6 (80-100) fL MCH 31.0 (26-34) PG MCHC 34.2 (30-36) % RDW 12.9 (11.6-14.8) % Plt Count 220 (150-400) X10^3/uL Neut % (Auto) 63.8 (50-75) % Lymph % (Auto) 24.2 L (25-40) % Cecil % (Auto) 7.6 (3-14) % Eos % (Auto) 3.5 (2-4) % Baso % (Auto) 0.9 (0-2) % Neut # (Auto) 5100 (0013-7756) /uL Lymph # (Auto) 1900 (0414-7402) /uL Cecil # (Auto) 600 (0-900) /uL Eos # (Auto) 300 (0-450) /uL Baso # (Auto) 100 (0-100) /uL PT 11.4 (10.1-12.7) SECONDS INR 1.0 (0.9-1.3) APTT 29 (26-36) SECONDS Sodium 140 (137-145) mmol/L Potassium 4.1 (3.4-5.1) mmol/L Chloride 102 (98-107) mmol/L Carbon Dioxide 31 (22-32) mmol/L BUN 13 (7-17) mg/dL Creatinine 0.72 (0.52-1.04) mg/dL Estimated GFR > 60 (>60) mL/min BUN/Creatinine Ratio 18.1 (6-22) Glucose 89 (80-110) mg/dL Calcium 9.2 (8.4-10.2) mg/dL Magnesium 2.0 (1.6-2.3) mg/dL Total Bilirubin 0.3 (0.2-1.3) mg/dL AST 31 (14-36) IU/L ALT 38 H (<35) IU/L Alkaline Phosphatase 75 (38-126) U/L Total Creatine Kinase 76 (30-135) U/L CK-MB (CK-2) TNP CK-MB (CK-2) Rel Index TNP Troponin I < 0.012 (0.01-0.034) ng/mL Total Protein 7.0 (6.3-8.2) g/dL Albumin 4.2 (3.5-5.0) g/dL Globulin 2.8 (1.7-4.1) g/dL Albumin/Globulin Ratio 1.5 (1.0-2.8) Lipase 64 (23-300) U/L 07/24/22 Range/Units 17:03 WBC (4.5-11.0) X10^3/uL RBC (4.0-5.2) X10^6/uL Hgb (12.0-16.0) g/dL Hct (36-46) % MCV (80-100) fL MCH (26-34) PG MCHC (30-36) % RDW (11.6-14.8) % Plt Count (150-400) X10^3/uL Neut % (Auto) (50-75) % Lymph % (Auto) (25-40) % Cecil % (Auto) (3-14) % Eos % (Auto) (2-4) % Baso % (Auto) (0-2) % Neut # (Auto) (0457-7077) /uL Lymph # (Auto) (7868-9716) /uL Cecil # (Auto) (0-900) /uL Eos # (Auto) (0-450) /uL Baso # (Auto) (0-100) /uL PT (10.1-12.7) SECONDS INR (0.9-1.3) APTT (26-36) SECONDS Sodium (137-145) mmol/L Potassium (3.4-5.1) mmol/L Chloride (98-107) mmol/L Carbon Dioxide (22-32) mmol/L BUN (7-17) mg/dL Creatinine (0.52-1.04) mg/dL Estimated GFR (>60) mL/min BUN/Creatinine Ratio (6-22) Glucose (80-110) mg/dL Calcium (8.4-10.2) mg/dL Magnesium (1.6-2.3) mg/dL Total Bilirubin (0.2-1.3) mg/dL AST (14-36) IU/L ALT (<35) IU/L Alkaline Phosphatase (38-126) U/L Total Creatine Kinase 73 (30-135) U/L CK-MB (CK-2) TNP CK-MB (CK-2) Rel Index TNP Troponin I < 0.012 (0.01-0.034) ng/mL Total Protein (6.3-8.2) g/dL Albumin (3.5-5.0) g/dL Globulin (1.7-4.1) g/dL Albumin/Globulin Ratio (1.0-2.8) Lipase (23-300) U/L Imaging Data Chest x-ray: Radiologist's Impression: [address] [address] XRay Report Signed Patient: Charlene Jacob MR#: [id number] : 1945 Acct:[id number] Age/Sex: 76 / F Date of Service: 07/24/22 Loc: ED Accession Number: [id number] ?? Procedure: XR chest 1V Ordering Provider: Chay Brown D.O. 1PROCEDURE:? XR CHEST 1V ? INDICATIONS:? chest pain ? TECHNIQUE:? One view of the chest was acquired.? ? COMPARISON:? [facility], CR, XR CHEST 2V, 11/30/2021, 10:57.? [facility], CR, XR CHEST 2V, 04/10/2019, 11:51. ? FINDINGS:? ? Surgical changes and devices:? None.? ? Lungs and pleura:? No dense consolidation or pleural effusion.? Possible basal scarring/atelectasis. ? Mediastinum:? Mediastinal contours appear normal.? Heart size is normal.? ? Bones and chest wall:? No suspicious bony lesions.? Overlying soft tissues appear unremarkable.? ? IMPRESSION:? No acute radiographic abnormality. ? ? Dictated by: Juan Peterson M.D. on 07/24/2022 at 15:44 ? ? Approved by: Juan Peterson M.D. on 07/24/2022 at 15:45?? ECG Data Attestation: I personally reviewed and interpreted this ECG as follows: Interpretation: Sinus rhythm Ventricular rate 87 Normal axis Normal QRS Normal QTC No ST T wave changes MDM Narrative Medical decision making narrative: Cardiac workup is unremarkable 2- troponins. Given the fact that her symptoms have from 1 arm to the other I do have low suspicion for ACS. She did report improvement in symptoms with medications here in the emergency department. I suspect this is cervical in nature. Will discharge home with symptom treatment. She was given return precautions. She expressed understanding and agreement. Discharge Plan Departure Patient Disposition: Home Clinical Impression: Arm pain Instructions: DI for Cervical Radiculopathy Activity Restrictions/Additional Instructions: Continue to take all of your medications as directed. [facility] [place] [facility] [place] [facility] tomorrow. Return to the emergency department for new symptoms. Prescriptions: New prednisone 20 mg tablet 20 mg PO DAILY Qty: 2 0RF tramadol 50 mg tablet 50 mg PO BID PRN (Reason: pain) Qty: 7 0RF No Action (DME) Disabled Parking Permit See Rx Instructions .ROUTE .MEDSUPPLY Qty: 1 0RF Rx Instructions: Valid for 5 years cholecalciferol (vitamin D3) 50 mcg (2,000 unit) capsule 50 mcg PO DAILY multivitamin Tablet 1 tab PO DAILY CBD gummies PO fluconazole 150 mg tablet 150 mg PO .COMPLEX Qty: 6 2RF Rx Instructions: 150 mg orally q72 hr x 3 dose then weekly x 3 months; as a single dose nystatin-triamcinolone 100,000-0.1 unit/gram-% ointment 1 applic topical BID 14 Days Qty: 30 1RF ascorbic acid (vitamin C) [Vitamin C] 500 mg Tablet 500 mg PO DAILY Qty: 30 0RF Referrals: Jocelin Alfaro DO [Primary Care Provider] - Stand Alone Forms: Patient Portal/API
[2022-07-24] MEDS: HYDROCODONE/ACET 5/325 TABLET 1 TAB PO (17:00)
[2022-07-24] MEDS: KETOROLAC 30 MG/ML VIAL IV (17:00)
[2022-07-24 17:34] LABS: Creatine Kinase 73 U/L (30-135)
[2022-07-24 17:46] LABS: Troponin I < 0.012 ng/mL (0.01-0.034)
[2022-07-24] MEDS: predniSONE 20 MG TABLET PO (19:03)
== END 2022-07-24 19:09 | disposition home or self-care (01) ==
PROVIDERS: Emergency Provider Emergency Medicine; Family Provider Family Medicine; PCP Family Medicine
DX: M79.622 Pain in left upper arm (principal); M54.2 Cervicalgia; R07.9 Chest pain, unspecified
CPT/HCPCS: 36415; 71045; 80053; 82550; 83690; 83735; 84484; 85025; 85610; 85730; 93005; 96374; 99284; J1885

== ENCOUNTER → 2022-08-14 12:20 | Outpatient (CLI) | payer MEDICARE, OTHER, SELFPAY ==
[2020-08-18 16:29] VITALS: BMI 24.4
[2022-08-14 14:31] LABS: Hematocrit 42.6 % (36-46); Hemoglobin 14.4 g/dL (12.0-16.0); Mean Corpuscular HGB Conc 33.9 % (30-36); Mean Corpuscular Hemoglobin 30.8 PG (26-34); Mean Corpuscular Volume 90.8 fL (80-100); Platelet Count 234 X10^3/uL (150-400); Red Blood Cell Count 4.69 X10^6/uL (4.0-5.2); Red Cell Distribution Width 13.2 % (11.6-14.8); White Blood Cell Count 7.9 X10^3/uL (4.5-11.0)
[2022-08-15 09:26] LABS: Interpretation Negative (Negative)
== END ==
PROVIDERS: Family Provider Family Medicine; PCP Family Medicine; Referring Provider Nurse Practitioner Family; Visit Provider Nurse Practitioner Family
DX: K92.2 Gastrointestinal hemorrhage, unspecified (principal); K21.9 Gastro-esophageal reflux disease without esophagitis
CPT/HCPCS: 36415; 83013; 85027

== ENCOUNTER → 2022-09-19 08:51 | Outpatient (CLI) | payer MEDICARE, OTHER, SELFPAY ==
[2020-08-18 16:29] VITALS: BMI 24.4
== END ==
PROVIDERS: Family Provider Family Medicine; PCP Family Medicine; Visit Provider Urology
DX: N39.41 Urge incontinence (principal); N32.81 Overactive bladder; R82.81 Pyuria
CPT/HCPCS: 51798; 81002; 87086; 99213

== ENCOUNTER → 2022-12-07 09:12 | Outpatient (CLI) | payer MEDICARE, OTHER, SELFPAY ==
[2020-08-18 16:29] VITALS: BMI 24.4
--- NOTE | 2022-12-07 09:16 | DI.RAD.S_ITS ---
PROCEDURE: XR CHEST 2V INDICATIONS: cough TECHNIQUE: 2 views of the chest were acquired. COMPARISON: [facility], CR, XR CHEST 1V, 07/24/2022, 15:25. [facility], CR, XR CHEST 2V, 11/30/2021, 10:57. FINDINGS: Surgical changes and devices: Spine hardware. Cholecystectomy clips. Lungs and pleura: Lungs are clear. No pleural effusions or pneumothorax. Mediastinum: Mediastinal contours are normal. Heart size is normal. Bones and chest wall: No suspicious bony abnormalities. Soft tissues appear unremarkable. IMPRESSION: No acute cardiopulmonary abnormality. Dictated by: Tino Dillard M.D. on 12/07/2022 at 10:01 Approved by: Tino Dillard M.D. on 12/07/2022 at 10:02
== END ==
PROVIDERS: Family Provider Family Medicine; PCP Family Medicine; Referring Provider Family Medicine; Visit Provider Family Medicine
DX: R05.3 Chronic cough (principal); R10.11 Right upper quadrant pain; G89.29 Other chronic pain
CPT/HCPCS: 71046

== ENCOUNTER 2022-12-20 10:30 | Outpatient (RCR) | payer MEDICARE, OTHER, SELFPAY ==
[2020-08-18 16:29] VITALS: BMI 24.4
--- NOTE | 2022-10-11 18:37 | PT.OIE ---
Current Diagnoses Pain in right shoulder (10/11/22) Pain in left shoulder (10/11/22) Past Medical History (Last Updated 10/07/22 @ 20:03 by Rosette Xiong MD) Abdominal pain Abnormal Pap smear of cervix (1976) Anxiety (1999) Atrophic vulvovaginitis Borderline hypertension Cellulitis Cervical cancer (1976) Chicken pox (1957) Chronic back pain (1995) Chronic headaches (1957) Cognitive impairment Colitis (1975) Constipation COVID-19 Dark stools Depression (1999) GERD (gastroesophageal reflux disease) Hemorrhoids (1974) Herpes History of bronchitis Hypothyroidism Insect sting Left rotator cuff tear Lichen sclerosus Measles (1957) Overactive bladder Postmenopausal Postoperative anemia due to acute blood loss JAVY (stress urinary incontinence, female) Urge incontinence Urinary urgency Past Surgical History (Last Reviewed 03/08/22 @ 09:30 by LESLIE Rico) Anesthesia History of colonoscopy with polypectomy History of esophagogastroduodenoscopy (EGD) (10/24/11) History of spinal fusion (1999) History of spinal fusion (2012) History of spinal fusion (2001) History of tonsillectomy (1966) Status post appendectomy (1956) Status post biopsy (10/24/11) Status post colonoscopy (10/24/11) Status post laparoscopic cholecystectomy (2000) Status post vaginal hysterectomy (1977) Visit Care Team Role Provider Type Jocelin Alfaro DO Family Provider Physician Primary Care Provider Specialty: Medical Address: [address] [place] [address], [address] Email: [email or web address] LESLIE Sanchez Attending Provider Advanced Cyber Intelligence Analyst Referring Provider Specialty: Medical Address: [address] [place] [address], [address] Email: [email or web address] Physical Therapy Initial Evaluation PT-OP-A Visit Information Start: 10/11/22 09:50 Freq: Status: Active Protocol: Document 10/11/22 09:45 [facility] (Rec: 10/11/22 12:11 [facility] [id number]) Out-Patient Physical Therapy Visit Information Visit Information Visit Type Initial Evaluation Visit Start Time 09:45 Visit Stop Time 10:30 Total Visit Minutes 45 Visit Number 1 Evaluation Information Evaluation Date 10/11/22 PT-OP-B Current Condition Start: 10/11/22 09:50 Freq: Status: Active Protocol: Document 10/11/22 09:45 [facility] (Rec: 10/11/22 10:36 [facility] [id number]) Current Condition History of Current Condition History of Current Condition pt complains of left greater than right shoulder pain that has been off and on for 3 months. On the left side the pain radiates down her arm to her elbow. She lost her this past year and she has been doing the yard work and this has aggravated her shoulders. PT-OP-C Subjective Start: 10/11/22 09:50 Freq: Status: Active Protocol: Document 10/11/22 09:45 [facility] (Rec: 10/11/22 18:35 [facility] [id number]) Patient Questionnaires Quick Dash- Upper Extremity Quick Dash UE Score 27 Quick Dash UE Impairment 20 to 39% Impaired (Score 20- 39) OP-PT Pain Assessment Location right shoulder Pain Location Details right shoulder Intensity 3 Scale Used Numeric (0 - 10) Description Aching,Pressure,Tightness,With Movement Frequency Frequent PT-OP-F Manual Assessment Start: 10/11/22 09:50 Freq: Status: Active Protocol: Document 10/11/22 09:45 [facility] (Rec: 10/11/22 18:35 [facility] [id number]) Manual Assessments Soft Tissue Assessment Soft Tissue Mobility Assessment tightness of the upper trapezius and pec min B, pt has pain into the deltiod and there is guarding of the deltoid noted Joint Mobility Assessment Joint Mobility Assessment decreased posterior and inferior glide bilateral shoulders PT-OP-K Range of Motion Start: 10/11/22 09:50 Freq: Status: Active Protocol: Document 10/11/22 09:45 [facility] (Rec: 10/11/22 18:35 [facility] [id number]) Shoulder Goniometric Range of Motion Shoulder left Shoulder ROM WFL No Testing Position Sitting Flexion 120 Abduction 95 External Rotation at 0 degrees Abduction 30 Internal Rotation 20 Internal Rotation Behind Back (text) T 12 right Shoulder ROM WFL No Testing Position Sitting Flexion 150 Extension 30 Abduction 130 External Rotation at 0 degrees Abduction 35 Internal Rotation 20 Internal Rotation Behind Back (text) T12 Shoulder ROM Limitations Shoulder ROM Limitations Soft Tissue Tightness,Pain Comments audible shoulder clicking on the left with AROM PT-OP-M Strength Start: 10/11/22 09:50 Freq: Status: Active Protocol: Document 10/11/22 09:45 [facility] (Rec: 10/11/22 18:35 [facility] [id number]) Shoulder Strength Shoulder Manual Muscle Testing Right Flexion 3 Fair Extension 3 Fair Abduction (C5) 3 Fair External Rotation 3 Fair Internal Rotation 3 Fair Left Flexion 3 Fair Extension 3 Fair Abduction (C5) 3 Fair External Rotation 3 Fair Internal Rotation 3 Fair PT-OP-Q Treatments Start: 10/11/22 09:50 Freq: Status: Active Protocol: Document 10/11/22 09:45 [facility] (Rec: 10/11/22 18:36 [facility] [id number]) Therapeutic Exercises Other Exercises pec minor stretch in doorway Side bilateral Reps/Minutes hold 30 sec to 1 min x 2 Comments straight arm standing scapula squeezes Reps/Minutes x 10 standing wall slides Other Exercise Name wall slides for forward flexion Reps/Minutes 2 x 10 reps Comments with pillow case PT-OP-T Assessment and Plan Start: 10/11/22 09:50 Freq: Status: Active Protocol: Document 10/11/22 09:45 [facility] (Rec: 10/11/22 18:35 [facility] [id number]) Physical Therapy Assessment Rehab Potential Rehabilitation Potential Good Evaluation Complexity Number of Personal Factors/Comorbidities 0 Number of Body Systems Impaired 1-2 Clinical Presentation at Evaluation Stable Impairments Impairments Activity Tolerance,Functional Activities,Functional Mobility ,Pain,Posture,ROM,Soft Tissue Mobility,Strength Goals 2 Impairment Decreased shoulder strength B and pt has difficulty carrying shopping bags Short Term Goal (STG) Torie is educated in a HEP for shoulder strengthening STG Duration 3 weeks Fdc Goal (LTG) Torie presents with an improvement of shoulder strength in B shoulders by 1 muscle grade for improved functional use of her shoulder with ADL's at home LTG Duration 8 weeks 1 Impairment decreased shoulder ROM and pt has moderate difficulty reaching and lifting overhead at home Short Term Goal (STG) Torie is educated on a HEP for shoulder ROM STG Duration 3 weeks Forging Dies Final Finisher Goal (LTG) Torie presents with Shoulder ROM that is painfree and WFL LTG Duration 8 weeks Assessment Summary Assessment Torie is a 76 year old female who returns to PT today with bilateral shoulder pain and lack of full ROM and decreased strength. 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 Torie reports she lost her approximately 1 year ago and has been trying to do more of the yard work and she feels she has over pushed her shoulders. Her pain is rated 3/10 and worse with activity especially overhead activity. She presents with tightness in the pec minor and upper trapezius, left shoulder is more restricted as far as ROM goes and she has pain begining at 95 deg flexion and abduction. Strength is decreased in B UE. Torie is a good candidate for PT working on improved posture, improving shoulder ROM and shoulder strength as well as body mechanics training to avoid undo strain to the shoulders. Physical Therapy Plan Frequency and Duration Frequency of Treatment 2x/Week Duration of treatment (weeks) 8 Plan of Care Start Date 10/11/22 Plan of Care End Date 12/06/22 Therapeutic Interventions Therapeutic Interventions Home Exercise Program,Joint Mobilizations,Manual Therapy, Patient/Caregiver Education, Self-Care/Home Management, Therapeutic Exercises Next Visit Focus/Plan Next Note Type Treatment Note Next Visit Plan review stretches for the pec minor and wall slides given today, progress shoulder ROM exercises and begin rotator cuff strengthening
--- NOTE | 2022-10-11 18:37 | PT.OPPOC ---
Physical, Occupational & Speech Therapy At [facility] Current Diagnoses Pain in right shoulder (10/11/22) Pain in left shoulder (10/11/22) Visit Care Team Role Provider Type Jocelin Alfaro DO Family Provider Physician Primary Care Provider Specialty: Medical Address: [address] [place] [address], [address], [place], [address] Email: [email or web address] LESLIE Sanchez Attending Provider Advanced Diamond Picker Referring Provider Specialty: Medical Address: [address] [place] [address] [place] [address], [address] Email: [email or web address] Plan Of Care PT-OP-T Assessment and Plan Start: 10/11/22 09:50 Freq: Status: Active Protocol: Document 10/11/22 09:45 [facility] (Rec: 10/11/22 18:35 [facility] [id number]) Physical Therapy Assessment Rehab Potential Rehabilitation Potential Good Evaluation Complexity Number of Personal Factors/Comorbidities 0 Number of Body Systems Impaired 1-2 Clinical Presentation at Evaluation Stable Impairments Impairments Activity Tolerance,Functional Activities,Functional Mobility ,Pain,Posture,ROM,Soft Tissue Mobility,Strength Goals 2 Impairment Decreased shoulder strength B and pt has difficulty carrying shopping bags Short Term Goal (STG) Torie is educated in a HEP for shoulder strengthening STG Duration 3 weeks Fuse Assembler Goal (LTG) Torie presents with an improvement of shoulder strength in B shoulders by 1 muscle grade for improved functional use of her shoulder with ADL's at home LTG Duration 8 weeks 1 Impairment decreased shoulder ROM and pt has moderate difficulty reaching and lifting overhead at home Short Term Goal (STG) Torie is educated on a HEP for shoulder ROM STG Duration 3 weeks Fuse Assembler Goal (LTG) Torie presents with Shoulder ROM that is painfree and WFL LTG Duration 8 weeks Assessment Summary Assessment Torie is a 76 year old female who returns to PT today with bilateral shoulder pain and lack of full ROM and decreased strength. 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 Torie reports she lost her approximately 1 year ago and has been trying to do more of the yard work and she feels she has over pushed her shoulders. Her pain is rated 3/10 and worse with activity especially overhead activity. She presents with tightness in the pec minor and upper trapezius, left shoulder is more restricted as far as ROM goes and she has pain beginning at 95 deg flexion and abduction. Strength is decreased in B UE. Torie is a good candidate for PT working on improved posture, improving shoulder ROM and shoulder strength as well as body mechanics training to avoid undo strain to the shoulders. Physical Therapy Plan Frequency and Duration Frequency of Treatment 2x/Week Duration of treatment (weeks) 8 Plan of Care Start Date 10/11/22 Plan of Care End Date 12/06/22 Therapeutic Interventions Therapeutic Interventions Home Exercise Program,Joint Mobilizations,Manual Therapy, Patient/Caregiver Education, Self-Care/Home Management, Therapeutic Exercises Next Visit Focus/Plan Next Note Type Treatment Note Next Visit Plan review stretches for the pec minor and wall slides given today, progress shoulder ROM exercises and begin rotator cuff strengthening Plan of Care Dates Plan of Care Start Date 10/11/22 Plan of Care End Date 12/06/22 Electronically Signed by: Margarita Ogden, PT 10/11/22 3535 If you are in agreement with this Plan of Care, please return a signed and dated copy. I have reviewed this Plan of Care and certify that the skilled therapy services above are required to meet the patient?s needs. Physician Signature Date Printed Name and Credentials Clinical Instructor Signature Printed Name and Credentials
--- NOTE | 2022-10-15 16:38 | PT.OTN ---
Current Diagnoses Pain in right shoulder (10/15/22) Pain in left shoulder (10/15/22) Physical Therapy Treatment Note PT-OP-A Visit Information Start: 10/11/22 09:50 Freq: Status: Active Protocol: Document 10/15/22 14:10 SW (Rec: 10/15/22 16:35 [id number]) Out-Patient Physical Therapy Visit Information Visit Information Visit Type Treatment Note Visit Start Time 14:15 Visit Stop Time 15:08 Total Visit Minutes 53 Visit Number 2 Number of HAND MEAT SALTER Visits 1 PT-OP-B Current Condition Start: 10/11/22 09:50 Freq: Status: Active Protocol: Document 10/11/22 09:45 [facility] (Rec: 10/11/22 10:36 [facility] [id number]) Current Condition History of Current Condition History of Current Condition pt complains of left greater than right shoulder pain that has been off and on for 3 months. On the left side the pain radiates down her arm to her elbow. She lost her this past year and she has been doing the yard work and this has aggravated her shoulders. PT-OP-C Subjective Start: 10/11/22 09:50 Freq: Status: Active Protocol: Document 10/15/22 14:10 [facility] (Rec: 10/15/22 16:35 [id number]) OP-PT Subjective Patient Comments Patient Comments pt reports pain in BUE after the last session. Reported having hotpack during last session, good feedback. PT-OP-F Manual Assessment Start: 10/11/22 09:50 Freq: Status: Active Protocol: Document 10/11/22 09:45 [facility] (Rec: 10/11/22 18:35 [facility] [id number]) Manual Assessments Soft Tissue Assessment Soft Tissue Mobility Assessment tightness of the upper trapezius and pec min B, pt has pain into the deltiod and there is guarding of the deltoid noted Joint Mobility Assessment Joint Mobility Assessment decreased posterior and inferior glide bilateral shoulders PT-OP-K Range of Motion Start: 10/11/22 09:50 Freq: Status: Active Protocol: Document 10/11/22 09:45 [facility] (Rec: 10/11/22 18:35 [facility] [id number]) Shoulder Goniometric Range of Motion Shoulder left Shoulder ROM WFL No Testing Position Sitting Flexion 120 Abduction 95 External Rotation at 0 degrees Abduction 30 Internal Rotation 20 Internal Rotation Behind Back (text) T 12 right Shoulder ROM WFL No Testing Position Sitting Flexion 150 Extension 30 Abduction 130 External Rotation at 0 degrees Abduction 35 Internal Rotation 20 Internal Rotation Behind Back (text) T12 Shoulder ROM Limitations Shoulder ROM Limitations Soft Tissue Tightness,Pain Comments audible shoulder clicking on the left with AROM PT-OP-M Strength Start: 10/11/22 09:50 Freq: Status: Active Protocol: Document 10/11/22 09:45 [facility] (Rec: 10/11/22 18:35 [facility] [id number]) Shoulder Strength Shoulder Manual Muscle Testing Right Flexion 3 Fair Extension 3 Fair Abduction (C5) 3 Fair External Rotation 3 Fair Internal Rotation 3 Fair Left Flexion 3 Fair Extension 3 Fair Abduction (C5) 3 Fair External Rotation 3 Fair Internal Rotation 3 Fair PT-OP-Q Treatments Start: 10/11/22 09:50 Freq: Status: Active Protocol: Document 10/15/22 14:10 [facility] (Rec: 10/15/22 16:35 SW [id number]) Therapeutic Exercises Supine Exercises AROM Supine Exercise Name Shoulder ROM Side bilateral Resistance AROM Comments Scapular plane flex, forward flex, ER/IR pain free range Pec Stretch Supine Exercise Name Supine gravity assist pec stretch, W Reps/Minutes 2 x 15 sec hold Sitting Exercises Shoulder ER/IR Sitting Exercise Name Isometric shldr ER/IR Side bilateral Resistance Therapist assist isometric Reps/Minutes 10 x 3 sec hold Comments VC for posture Other Exercises standing scapula squeezes Reps/Minutes x 10 Comments VC for posture, and tactile cueing for mm activation Manual Therapy Treatment Soft Tissue Mobilization Pec Body Location Pec/RC/bicep Mobilization Type Myofascial Release,Strain/ Counterstrain Intensity/Depth Superficial Body Position Supine Comments BUE Self-Care/Home Management Treatment Education Patient Education Body Mechanics,Pain Management ,Posture PT-OP-T Assessment and Plan Start: 10/11/22 09:50 Freq: Status: Active Protocol: Document 10/15/22 14:10 [facility] (Rec: 10/15/22 16:35 [facility] [id number]) Physical Therapy Assessment Goals 2 Impairment Decreased shoulder strength B and pt has difficulty carrying shopping bags Short Term Goal (STG) Torie is educated in a HEP for shoulder strengthening STG Duration 3 weeks Penitentiary Goal (LTG) Torie presents with an improvement of shoulder strength in B shoulders by 1 muscle grade for improved functional use of her shoulder with ADL's at home LTG Duration 8 weeks Assessment Summary Assessment Pt reported pain after last session. She was questioning whether she wanted to continue PT. Visited STM this session, gentle ROM within pain free range, and initiation of gentle isometric RC strength, good feedback, sensitive to the touch. Eucated patient on mechanics of the shoulder complex and the progressions/ regressions in therapy. Monitored symptoms throughout session and stayed within pain free range. Physical Therapy Plan Frequency and Duration Frequency of Treatment 2x/Week Duration of treatment (weeks) 8 Plan of Care Start Date 10/11/22 Plan of Care End Date 12/06/22 Therapeutic Interventions Therapeutic Interventions Home Exercise Program,Joint Mobilizations,Manual Therapy, Patient/Caregiver Education, Self-Care/Home Management, Therapeutic Exercises Next Visit Focus/Plan Next Note Type Treatment Note
--- NOTE | 2022-10-31 13:19 | PT.OTN ---
Current Diagnoses Pain in right shoulder (10/31/22) Pain in left shoulder (10/31/22) Physical Therapy Treatment Note PT-OP-A Visit Information Start: 10/11/22 09:50 Freq: Status: Active Protocol: Document 10/31/22 12:16 [facility] (Rec: 10/31/22 13:18 [facility] [id number]) Out-Patient Physical Therapy Visit Information Visit Information Visit Type Treatment Note Visit Start Time 12:15 Visit Stop Time 13:00 Total Visit Minutes 45 Visit Number 3 Number of AD SETTER Visits 0 PT-OP-B Current Condition Start: 10/11/22 09:50 Freq: Status: Active Protocol: Document 10/11/22 09:45 [facility] (Rec: 10/11/22 10:36 [facility] [id number]) Current Condition History of Current Condition History of Current Condition pt complains of left greater than right shoulder pain that has been off and on for 3 months. On the left side the pain radiates down her arm to her elbow. She lost her this past year and she has been doing the yard work and this has aggravated her shoulders. PT-OP-C Subjective Start: 10/11/22 09:50 Freq: Status: Active Protocol: Document 10/31/22 12:16 [facility] (Rec: 10/31/22 13:18 [facility] [id number]) OP-PT Subjective Patient Comments Patient Comments pt notes her pain is intermittent but left shoulder is the worst. She has been doing yard work and trying to do her stretches PT-OP-F Manual Assessment Start: 10/11/22 09:50 Freq: Status: Active Protocol: Document 10/11/22 09:45 [facility] (Rec: 10/11/22 18:35 [facility] [id number]) Manual Assessments Soft Tissue Assessment Soft Tissue Mobility Assessment tightness of the upper trapezius and pec min B, pt has pain into the deltiod and there is guarding of the deltoid noted Joint Mobility Assessment Joint Mobility Assessment decreased posterior and inferior glide bilateral shoulders PT-OP-K Range of Motion Start: 10/11/22 09:50 Freq: Status: Active Protocol: Document 10/11/22 09:45 [facility] (Rec: 10/11/22 18:35 [facility] [id number]) Shoulder Goniometric Range of Motion Shoulder left Shoulder ROM WFL No Testing Position Sitting Flexion 120 Abduction 95 External Rotation at 0 degrees Abduction 30 Internal Rotation 20 Internal Rotation Behind Back (text) T 12 right Shoulder ROM WFL No Testing Position Sitting Flexion 150 Extension 30 Abduction 130 External Rotation at 0 degrees Abduction 35 Internal Rotation 20 Internal Rotation Behind Back (text) T12 Shoulder ROM Limitations Shoulder ROM Limitations Soft Tissue Tightness,Pain Comments audible shoulder clicking on the left with AROM PT-OP-M Strength Start: 10/11/22 09:50 Freq: Status: Active Protocol: Document 10/11/22 09:45 [facility] (Rec: 10/11/22 18:35 [facility] [id number]) Shoulder Strength Shoulder Manual Muscle Testing Right Flexion 3 Fair Extension 3 Fair Abduction (C5) 3 Fair External Rotation 3 Fair Internal Rotation 3 Fair Left Flexion 3 Fair Extension 3 Fair Abduction (C5) 3 Fair External Rotation 3 Fair Internal Rotation 3 Fair PT-OP-Q Treatments Start: 10/11/22 09:50 Freq: Status: Active Protocol: Document 10/31/22 12:16 [facility] (Rec: 10/31/22 13:18 [facility] [id number]) Therapeutic Exercises Sitting Exercises Shoulder ER/IR Sitting Exercise Name standing shoulder ER/IR Reps/Minutes 1 x 10 reps Comments able to use level 1 theraband good tolerance Standing Exercises standing shoulder extension with wand Reps/Minutes x 10 Other Exercises wall slides for abduction Reps/Minutes x 10 standing scapula squeezes Reps/Minutes x 10 Comments VC for posture, and tactile cueing for mm activation standing wall slides Other Exercise Name wall slides for forward flexion Reps/Minutes 2 x 10 reps Comments with pillow case Manual Therapy Treatment Soft Tissue Mobilization STM over the deltoid and biceps tendon Body Location left shoulder deltoid and biceps Mobilization Type Strumming Intensity/Depth Moderate Body Position Supine Comments good tolerance Manual Techniques manual left shoulder ROM all planes Reps/Duration 10 reps each direction Comments improvements with shoulder ROM into ER, IR , flexion and abduction PT-OP-R Modalities Start: 10/16/22 17:37 Freq: Status: Active Protocol: Document 10/31/22 12:15 [facility] (Rec: 10/31/22 13:19 [facility] [id number]) Hot Pack/Cold Pack Treatment Hot Pack Location cervical spine Patient Position Supine Treatment Duration (minutes) 8 Ultrasound Therapy Treatment left deltiod region Treatment Duration (minutes) 8 Patient Position Supine Coupling Medium Ultrasound Gel Applicator Size (cm2) 5 Frequency Setting (mHz) 1 Intensity Setting (w/cm2) 1.5 PT-OP-T Assessment and Plan Start: 10/11/22 09:50 Freq: Status: Active Protocol: Document 10/31/22 12:16 [facility] (Rec: 10/31/22 13:18 [facility] [id number]) Physical Therapy Assessment Assessment Summary Assessment pain is the limiting factor for Torie. She notes most of her pain is in the left shoulder. I did do a trial of heat to her neck and US to the left lateral shoulder today followed by STM and ROM prior to her exercises. Her ROM is improving and she is was able to tolerate level 1 TB for shoulder IR/ER today. She notes she will have intermittent pain with certain movements. We will continue to slowly try and progress both her strength and ROM with gentle exercises. Pt tolerated today's treatment well. Physical Therapy Plan Frequency and Duration Frequency of Treatment 2x/Week Duration of treatment (weeks) 8 Plan of Care Start Date 10/11/22 Plan of Care End Date 12/06/22 Therapeutic Interventions Therapeutic Interventions Home Exercise Program,Joint Mobilizations,Manual Therapy, Patient/Caregiver Education, Self-Care/Home Management, Therapeutic Exercises Next Visit Focus/Plan Next Note Type Treatment Note Next Visit Plan check in with how pt did with ultrasound to her shoulder and heat to her neck and review shoulder IR/ER with theraband. Add in resistance with standing shoulder blade squeeze
--- NOTE | 2022-11-06 17:42 | PT.OTN ---
Current Diagnoses Pain in right shoulder (11/06/22) Pain in left shoulder (11/06/22) Physical Therapy Treatment Note PT-OP-A Visit Information Start: 10/11/22 09:50 Freq: Status: Active Protocol: Document 11/06/22 09:04 [facility] (Rec: 11/06/22 09:47 ON LICENSE OF [facility] [id number]) Out-Patient Physical Therapy Visit Information Visit Information Visit Type Treatment Note Visit Start Time 09:03 Visit Stop Time 09:45 Total Visit Minutes 42 Visit Number 4 PT-OP-B Current Condition Start: 10/11/22 09:50 Freq: Status: Active Protocol: Document 10/11/22 09:45 [facility] (Rec: 10/11/22 10:36 [facility] [id number]) Current Condition History of Current Condition History of Current Condition pt complains of left greater than right shoulder pain that has been off and on for 3 months. On the left side the pain radiates down her arm to her elbow. She lost her this past year and she has been doing the yard work and this has aggravated her shoulders. PT-OP-C Subjective Start: 10/11/22 09:50 Freq: Status: Active Protocol: Document 11/06/22 09:04 [facility] (Rec: 11/06/22 09:47 [facility] [id number]) OP-PT Subjective Patient Comments Patient Comments pt notes the treatment last visit really helped Patient Reported Progress Improving PT-OP-F Manual Assessment Start: 10/11/22 09:50 Freq: Status: Active Protocol: Document 10/11/22 09:45 [facility] (Rec: 10/11/22 18:35 [facility] [id number]) Manual Assessments Soft Tissue Assessment Soft Tissue Mobility Assessment tightness of the upper trapezius and pec min B, pt has pain into the deltiod and there is guarding of the deltoid noted Joint Mobility Assessment Joint Mobility Assessment decreased posterior and inferior glide bilateral shoulders PT-OP-K Range of Motion Start: 10/11/22 09:50 Freq: Status: Active Protocol: Document 10/11/22 09:45 [facility] (Rec: 10/11/22 18:35 [facility] [id number]) Shoulder Goniometric Range of Motion Shoulder left Shoulder ROM WFL No Testing Position Sitting Flexion 120 Abduction 95 External Rotation at 0 degrees Abduction 30 Internal Rotation 20 Internal Rotation Behind Back (text) T 12 right Shoulder ROM WFL No Testing Position Sitting Flexion 150 Extension 30 Abduction 130 External Rotation at 0 degrees Abduction 35 Internal Rotation 20 Internal Rotation Behind Back (text) T12 Shoulder ROM Limitations Shoulder ROM Limitations Soft Tissue Tightness,Pain Comments audible shoulder clicking on the left with AROM PT-OP-M Strength Start: 10/11/22 09:50 Freq: Status: Active Protocol: Document 10/11/22 09:45 [facility] (Rec: 10/11/22 18:35 ON LICENSE OF [facility] [id number]) Shoulder Strength Shoulder Manual Muscle Testing Right Flexion 3 Fair Extension 3 Fair Abduction (C5) 3 Fair External Rotation 3 Fair Internal Rotation 3 Fair Left Flexion 3 Fair Extension 3 Fair Abduction (C5) 3 Fair External Rotation 3 Fair Internal Rotation 3 Fair PT-OP-Q Treatments Start: 10/11/22 09:50 Freq: Status: Active Protocol: Document 11/06/22 09:04 [facility] (Rec: 11/06/22 09:47 ON LICENSE OF [facility] [id number]) Therapeutic Exercises Standing Exercises standing shoulder extension with theraband Reps/Minutes 3 x10 level 1 TB PT-OP-R Modalities Start: 10/16/22 17:37 Freq: Status: Active Protocol: Document 11/06/22 09:00 [facility] (Rec: 11/06/22 17:41 [facility] [id number]) Ultrasound Therapy Treatment left deltiod region Treatment Duration (minutes) 8 Patient Position Supine Coupling Medium Ultrasound Gel Applicator Size (cm2) 5 Frequency Setting (mHz) 1 Intensity Setting (w/cm2) 1.5 PT-OP-T Assessment and Plan Start: 10/11/22 09:50 Freq: Status: Active Protocol: Document 11/06/22 09:04 [facility] (Rec: 11/06/22 09:47 ON LICENSE OF [facility] [id number]) Physical Therapy Assessment Assessment Summary Assessment pt has a large bruise on her lateral deltoid on the left arm from her covid shot 4 days ago. She responded well to the ultrasound last visit so this was performed again prior to exercisess Physical Therapy Plan Frequency and Duration Frequency of Treatment 2x/Week Duration of treatment (weeks) 8 Plan of Care Start Date 10/11/22 Plan of Care End Date 12/06/22 Therapeutic Interventions Therapeutic Interventions Home Exercise Program,Joint Mobilizations,Manual Therapy, Patient/Caregiver Education, Self-Care/Home Management, Therapeutic Exercises Next Visit Focus/Plan Next Note Type Treatment Note Next Visit Plan continue with US prior to manual work and ther ex, work on increasing rotator cuff strength
--- NOTE | 2022-11-08 09:00 | PT.OTN ---
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 On the left side the pain radiates down her arm to her elbow. She lost her this past year and she has been doing the yard work and this has aggravated her shoulders. PT-OP-C Subjective Start: 10/11/22 09:50 Freq: Status: Active Protocol: Document 11/08/22 08:20 SP (Rec: 11/08/22 09:03 SP [id number]) OP-PT Subjective Patient Comments Patient Comments Pt reports felt ok after last tx and doing exercises again feeling good. This am was hosing off bench primarily with RUE and had brief sharp pain over bicep LUE and still lingering. PT-OP-F Manual Assessment Start: 10/11/22 09:50 Freq: Status: Active Protocol: Document 10/11/22 09:45 [facility] (Rec: 10/11/22 18:35 [facility] [id number]) Manual Assessments Soft Tissue Assessment Soft Tissue Mobility Assessment tightness of the upper trapezius and pec min B, pt has pain into the deltiod and there is guarding of the deltoid noted Joint Mobility Assessment Joint Mobility Assessment decreased posterior and inferior glide bilateral shoulders PT-OP-K Range of Motion Start: 10/11/22 09:50 Freq: Status: Active Protocol: Document 10/11/22 09:45 [facility] (Rec: 10/11/22 18:35 [facility] [id number]) Shoulder Goniometric Range of Motion Shoulder left Shoulder ROM WFL No Testing Position Sitting Flexion 120 Abduction 95 External Rotation at 0 degrees Abduction 30 Internal Rotation 20 Internal Rotation Behind Back (text) T 12 right Shoulder ROM WFL No Testing Position Sitting Flexion 150 Extension 30 Abduction 130 External Rotation at 0 degrees Abduction 35 Internal Rotation 20 Internal Rotation Behind Back (text) T12 Shoulder ROM Limitations Shoulder ROM Limitations Soft Tissue Tightness,Pain Comments audible shoulder clicking on the left with AROM PT-OP-M Strength Start: 10/11/22 09:50 Freq: Status: Active Protocol: Document 10/11/22 09:45 [facility] (Rec: 10/11/22 18:35 [facility] [id number]) Shoulder Strength Shoulder Manual Muscle Testing Right Flexion 3 Fair Extension 3 Fair Abduction (C5) 3 Fair External Rotation 3 Fair Internal Rotation 3 Fair Left Flexion 3 Fair Extension 3 Fair Abduction (C5) 3 Fair External Rotation 3 Fair Internal Rotation 3 Fair PT-OP-Q Treatments Start: 10/11/22 09:50 Freq: Status: Active Protocol: Document 11/08/22 08:20 SP (Rec: 11/08/22 09:03 SP [id number]) Therapeutic Exercises Standing Exercises standing shoulder IR/ ER with theraband Side left Resistance TB #1 Reps/Minutes 2x10 alternating Comments cued scap set eccentric return standing shoulder extension with theraband Resistance level 1 TB Reps/Minutes 3 x10 Comments cued scap set retract/depress eccentric return Other Exercises sink stretch Other Exercise Name initiated in PT post TB ex for back/shld Resistance BUE on rail Reps/Minutes 15SH x3 Comments good feedback stretch LB and not pec minor stretch in doorway Side bilateral Reps/Minutes hold 30 sec to 1 min x 2 Comments straight arm and bent armsd Manual Therapy Treatment Soft Tissue Mobilization STM over the deltoid and biceps tendon Body Location left shoulder deltoid and biceps Mobilization Type Strumming Intensity/Depth Moderate Body Position Supine Comments good tolerance Joint Mobilizations L GH jt Direction inferior, posterior Grade II Body Position Hooklying Comments manual PT-OP-R Modalities Start: 10/16/22 17:37 Freq: Status: Active Protocol: Document 11/08/22 08:20 SP (Rec: 11/08/22 09:03 SP [id number]) Ultrasound Therapy Treatment left deltiod region Treatment Duration (minutes) 8 Patient Position Supine Coupling Medium Ultrasound Gel Applicator Size (cm2) 2 Frequency Setting (mHz) 1 Intensity Setting (w/cm2) 1.5 Comments good feedback lessened soreness. 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 Occasional cues for scap set and maintain during theraband exercises with no adverse affects today. Pt requested continued use of US modality due to more mobility in shld post pre exercises. Pt is out out of town over the next week and will continue HEP as instructed. Physical Therapy Plan Frequency and Duration Frequency of Treatment 2x/Week Duration of treatment (weeks) 8 Plan of Care Start Date 10/11/22 Plan of Care End Date 12/06/22 Therapeutic Interventions Therapeutic Interventions Home Exercise Program,Joint Mobilizations,Manual Therapy, Patient/Caregiver Education, Self-Care/Home Management, Therapeutic Exercises Next Visit Focus/Plan Next Note Type Treatment Note Next Visit Plan REcheck return to TB HEP last tx response. POC: continue with US prior to manual work and ther ex, work on increasing rotator cuff strength
--- NOTE | 2022-11-15 11:27 | PT.OTN ---
Current Diagnoses Pain in right shoulder (11/15/22) Pain in left shoulder (11/15/22) Physical Therapy Treatment Note PT-OP-A Visit Information Start: 10/11/22 09:50 Freq: Status: Active Protocol: Document 11/15/22 10:30 [facility] (Rec: 11/15/22 11:25 [facility] [id number]) Out-Patient Physical Therapy Visit Information Visit Information Visit Type Treatment Note Visit Start Time 10:35 Visit Stop Time 11:15 Total Visit Minutes 40 Visit Number 6 PT-OP-B Current Condition Start: 10/11/22 09:50 Freq: Status: Active Protocol: Document 10/11/22 09:45 [facility] (Rec: 10/11/22 10:36 [facility] [id number]) Current Condition History of Current Condition History of Current Condition pt complains of left greater than right shoulder pain that has been off and on for 3 months. On the left side the pain radiates down her arm to her elbow. She lost her this past year and she has been doing the yard work and this has aggravated her shoulders. PT-OP-C Subjective Start: 10/11/22 09:50 Freq: Status: Active Protocol: Document 11/15/22 10:30 [facility] (Rec: 11/15/22 11:25 [facility] [id number]) OP-PT Subjective Patient Comments Patient Comments Torie reports she felt good after last visit and did well during her trip to [facility] but then lifted a suitcase overhead and now her shoulder is really painful again PT-OP-F Manual Assessment Start: 10/11/22 09:50 Freq: Status: Active Protocol: Document 10/11/22 09:45 [facility] (Rec: 10/11/22 18:35 [facility] [id number]) Manual Assessments Soft Tissue Assessment Soft Tissue Mobility Assessment tightness of the upper trapezius and pec min B, pt has pain into the deltiod and there is guarding of the deltoid noted Joint Mobility Assessment Joint Mobility Assessment decreased posterior and inferior glide bilateral shoulders PT-OP-K Range of Motion Start: 10/11/22 09:50 Freq: Status: Active Protocol: Document 10/11/22 09:45 [facility] (Rec: 10/11/22 18:35 [facility] [id number]) Shoulder Goniometric Range of Motion Shoulder left Shoulder ROM WFL No Testing Position Sitting Flexion 120 Abduction 95 External Rotation at 0 degrees Abduction 30 Internal Rotation 20 Internal Rotation Behind Back (text) T 12 right Shoulder ROM WFL No Testing Position Sitting Flexion 150 Extension 30 Abduction 130 External Rotation at 0 degrees Abduction 35 Internal Rotation 20 Internal Rotation Behind Back (text) T12 Shoulder ROM Limitations Shoulder ROM Limitations Soft Tissue Tightness,Pain Comments audible shoulder clicking on the left with AROM PT-OP-M Strength Start: 10/11/22 09:50 Freq: Status: Active Protocol: Document 10/11/22 09:45 [facility] (Rec: 10/11/22 18:35 [facility] [id number]) Shoulder Strength Shoulder Manual Muscle Testing Right Flexion 3 Fair Extension 3 Fair Abduction (C5) 3 Fair External Rotation 3 Fair Internal Rotation 3 Fair Left Flexion 3 Fair Extension 3 Fair Abduction (C5) 3 Fair External Rotation 3 Fair Internal Rotation 3 Fair PT-OP-Q Treatments Start: 10/11/22 09:50 Freq: Status: Active Protocol: Document 11/15/22 10:30 [facility] (Rec: 11/15/22 11:27 [facility] [id number]) Therapeutic Exercises Standing Exercises standing rows with theraband Equipment Used level 1 Reps/Minutes x 10 standing shoulder extension with theraband Resistance level 1 TB Reps/Minutes 3 x10 Comments cued scap set retract/depress eccentric return standing shoulder extension with wand Reps/Minutes x 10 Manual Therapy Treatment Soft Tissue Mobilization STM over the deltoid and biceps tendon Body Location left shoulder deltoid and biceps Mobilization Type Strumming Intensity/Depth Moderate Body Position Supine Comments good tolerance Pec Body Location Pec/RC/bicep Mobilization Type Myofascial Release,Strain/ Counterstrain Intensity/Depth Superficial Body Position Supine Comments BUE Manual Techniques manual resistance through IR/ER Reps/Duration 2 x 10 each manual left shoulder ROM all planes Reps/Duration 10 reps each direction Comments improvements with shoulder ROM into ER, IR , flexion and abduction PT-OP-R Modalities Start: 10/16/22 17:37 Freq: Status: Active Protocol: Document 11/15/22 11:21 AM[facility] (Rec: 11/15/22 11:25 [facility] [id number]) Ultrasound Therapy Treatment left deltiod region Treatment Duration (minutes) 8 Patient Position Supine Coupling Medium Ultrasound Gel Applicator Size (cm2) 2 Frequency Setting (mHz) 1 Intensity Setting (w/cm2) 1.5 Comments good feedback lessened soreness. L deltoid, bicep prox<> Mid PT-OP-T Assessment and Plan Start: 10/11/22 09:50 Freq: Status: Active Protocol: Document 11/15/22 11:21 [facility] (Rec: 11/15/22 11:25 [facility] [id number]) Physical Therapy Assessment Assessment Summary Assessment Torie was flared again in her left shoulder after lifting a suitcase overhead with traveling. I worked on manual resistance through ER/IR today and she was able to do rows and shoulder extensions. Physical Therapy Plan Frequency and Duration Frequency of Treatment 2x/Week Duration of treatment (weeks) 8 Plan of Care Start Date 10/11/22 Plan of Care End Date 12/06/22
--- NOTE | 2022-11-29 11:35 | PT.OTN ---
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 On the left side the pain radiates down her arm to her elbow. She lost her this past year and she has been doing the yard work and this has aggravated her shoulders. PT-OP-C Subjective Start: 10/11/22 09:50 Freq: Status: Active Protocol: Document 11/29/22 10:27 (Rec: 11/29/22 11:34 [id number]) OP-PT Subjective Patient Comments Patient Comments Pt reports pain still present in proximal/distal deltoid. Gardening is painful. PT-OP-F Manual Assessment Start: 10/11/22 09:50 Freq: Status: Active Protocol: Document 10/11/22 09:45 [facility] (Rec: 10/11/22 18:35 [facility] [id number]) Manual Assessments Soft Tissue Assessment Soft Tissue Mobility Assessment tightness of the upper trapezius and pec min B, pt has pain into the deltiod and there is guarding of the deltoid noted Joint Mobility Assessment Joint Mobility Assessment decreased posterior and inferior glide bilateral shoulders PT-OP-K Range of Motion Start: 10/11/22 09:50 Freq: Status: Active Protocol: Document 10/11/22 09:45 [facility] (Rec: 10/11/22 18:35 [facility] [id number]) Shoulder Goniometric Range of Motion Shoulder left Shoulder ROM WFL No Testing Position Sitting Flexion 120 Abduction 95 External Rotation at 0 degrees Abduction 30 Internal Rotation 20 Internal Rotation Behind Back (text) T 12 right Shoulder ROM WFL No Testing Position Sitting Flexion 150 Extension 30 Abduction 130 External Rotation at 0 degrees Abduction 35 Internal Rotation 20 Internal Rotation Behind Back (text) T12 Shoulder ROM Limitations Shoulder ROM Limitations Soft Tissue Tightness,Pain Comments audible shoulder clicking on the left with AROM PT-OP-M Strength Start: 10/11/22 09:50 Freq: Status: Active Protocol: Document 10/11/22 09:45 [facility] (Rec: 10/11/22 18:35 [facility] [id number]) Shoulder Strength Shoulder Manual Muscle Testing Right Flexion 3 Fair Extension 3 Fair Abduction (C5) 3 Fair External Rotation 3 Fair Internal Rotation 3 Fair Left Flexion 3 Fair Extension 3 Fair Abduction (C5) 3 Fair External Rotation 3 Fair Internal Rotation 3 Fair PT-OP-Q Treatments Start: 10/11/22 09:50 Freq: Status: Active Protocol: Document 11/29/22 10:27 SW (Rec: 11/29/22 11:34 SW [id number]) Therapeutic Exercises Standing Exercises Shoulder IR/ER Standing Exercise Name Isometrics Side bilateral Resistance isometric Equipment Used Therapist Assist Reps/Minutes 2 x 10 Comments verbal/tactile cues for abduction compensation standing rows with theraband Equipment Used level 1 Reps/Minutes x 10 standing shoulder IR/ ER with theraband Side left Resistance TB #1 Reps/Minutes Attempted> switched to isometric d/t pain Comments cued posture scap set eccentric return standing shoulder extension with theraband Resistance level 1 TB Reps/Minutes 3 x10 Comments cued scap set retract/depress eccentric return Manual Therapy Treatment Soft Tissue Mobilization STM over the deltoid and biceps tendon Body Location left shoulder deltoid and biceps Mobilization Type Strumming Intensity/Depth Moderate Body Position Supine Comments good tolerance Pec Body Location Pec/RC/bicep Mobilization Type Myofascial Release,Strain/ Counterstrain Intensity/Depth Superficial Body Position Supine Comments BUE Self-Care/Home Management Treatment Education Patient Education Pain Management Other Education Discussed pain management and the physiological effects of heat vs ice. PT-OP-R Modalities Start: 10/16/22 17:37 Freq: Status: Active Protocol: Document 11/29/22 10:27 SW (Rec: 11/29/22 11:34 SW [id number]) Ultrasound Therapy Treatment left deltiod region Treatment Duration (minutes) 8 Patient Position Supine Coupling Medium Ultrasound Gel Applicator Size (cm2) 2 Frequency Setting (mHz) 1 Intensity Setting (w/cm2) 1.5 Comments good feedback lessened soreness. 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 Utilized US and STM for pain relief, tolerated well, good response with decreased tissue congestion palpable. Instructed patient on Isometric IR/ER for strengthening, good response with decreased in pain while still getting mm fatigue. Physical Therapy Plan Frequency and Duration Frequency of Treatment 2x/Week Duration of treatment (weeks) 8 Plan of Care Start Date 10/11/22 Plan of Care End Date 12/06/22 Therapeutic Interventions Therapeutic Interventions Home Exercise Program,Joint Mobilizations,Manual Therapy, Patient/Caregiver Education, Self-Care/Home Management, Therapeutic Exercises Next Visit Focus/Plan Next Note Type Treatment Note Next Visit Plan REcheck return to TB HEP last tx response. POC: continue with US prior to manual work and ther ex, work on increasing rotator cuff strength
--- NOTE | 2022-12-06 16:00 | PT.OTN ---
Current Diagnoses Pain in right shoulder (12/06/22) Pain in left shoulder (12/06/22) Physical Therapy Treatment Note PT-OP-A Visit Information Start: 10/11/22 09:50 Freq: Status: Active Protocol: Document 12/06/22 10:32 AM[facility] (Rec: 12/06/22 11:07 AM[facility] [id number]) Out-Patient Physical Therapy Visit Information Visit Information Visit Type Progress Note Visit Start Time 10:32 Visit Stop Time 11:15 Total Visit Minutes 43 Visit Number 8 PT-OP-B Current Condition Start: 10/11/22 09:50 Freq: Status: Active Protocol: Document 10/11/22 09:45 AM[facility] (Rec: 10/11/22 10:36 [facility] [id number]) Current Condition History of Current Condition History of Current Condition pt complains of left greater than right shoulder pain that has been off and on for 3 months. On the left side the pain radiates down her arm to her elbow. She lost her this past year and she has been doing the yard work and this has aggravated her shoulders. PT-OP-C Subjective Start: 10/11/22 09:50 Freq: Status: Active Protocol: Document 12/06/22 10:32 [facility] (Rec: 12/06/22 11:28 [facility] [id number]) OP-PT Subjective Patient Comments Patient Comments Torie notes she has to do all the yard work herself now that her is no longer living. She notes her shoulder will be doing well but then after yardwork she has increased pain Patient Reported Progress Same PT-OP-F Manual Assessment Start: 10/11/22 09:50 Freq: Status: Active Protocol: Document 10/11/22 09:45 [facility] (Rec: 10/11/22 18:35 [facility] [id number]) Manual Assessments Soft Tissue Assessment Soft Tissue Mobility Assessment tightness of the upper trapezius and pec min B, pt has pain into the deltiod and there is guarding of the deltoid noted Joint Mobility Assessment Joint Mobility Assessment decreased posterior and inferior glide bilateral shoulders PT-OP-K Range of Motion Start: 10/11/22 09:50 Freq: Status: Active Protocol: Document 10/11/22 09:45 [facility] (Rec: 10/11/22 18:35 [facility] [id number]) Shoulder Goniometric Range of Motion Shoulder left Shoulder ROM WFL No Testing Position Sitting Flexion 120 Abduction 95 External Rotation at 0 degrees Abduction 30 Internal Rotation 20 Internal Rotation Behind Back (text) T 12 right Shoulder ROM WFL No Testing Position Sitting Flexion 150 Extension 30 Abduction 130 External Rotation at 0 degrees Abduction 35 Internal Rotation 20 Internal Rotation Behind Back (text) T12 Shoulder ROM Limitations Shoulder ROM Limitations Soft Tissue Tightness,Pain Comments audible shoulder clicking on the left with AROM PT-OP-M Strength Start: 10/11/22 09:50 Freq: Status: Active Protocol: Document 10/11/22 09:45 [facility] (Rec: 10/11/22 18:35 [facility] [id number]) Shoulder Strength Shoulder Manual Muscle Testing Right Flexion 3 Fair Extension 3 Fair Abduction (C5) 3 Fair External Rotation 3 Fair Internal Rotation 3 Fair Left Flexion 3 Fair Extension 3 Fair Abduction (C5) 3 Fair External Rotation 3 Fair Internal Rotation 3 Fair PT-OP-Q Treatments Start: 10/11/22 09:50 Freq: Status: Active Protocol: Document 12/06/22 10:32 AM[facility] (Rec: 12/06/22 11:24 [facility] [id number]) Therapeutic Exercises Supine Exercises AROM Supine Exercise Name Shoulder ROM Side bilateral Resistance AROM Comments Scapular plane flex, forward flex, ER/IR pain free range Pec Stretch Supine Exercise Name Supine gravity assist pec stretch, W Reps/Minutes 2 x 15 sec hold Sitting Exercises seated pec stretch in chair with ball behind her back Reps/Minutes hold 1-2 min Comments pt kept hands by her sides and was able to turn palms up to feel stretch Standing Exercises standing rows with theraband Equipment Used level 1 Reps/Minutes 2 x 10 reps Manual Therapy Treatment Soft Tissue Mobilization STM over the deltoid and biceps tendon Body Location left shoulder deltoid and biceps Mobilization Type Strumming Intensity/Depth Moderate Body Position Supine Comments good tolerance Pec Body Location Pec/RC/bicep Mobilization Type Myofascial Release,Strain/ Counterstrain Intensity/Depth Superficial Body Position Supine Comments BUE Joint Mobilizations L GH jt Direction inferior, posterior Grade II Body Position Hooklying Comments manual Manual Techniques manual resistance through IR/ER Reps/Duration 2 x 10 each PT-OP-R Modalities Start: 10/16/22 17:37 Freq: Status: Active Protocol: Document 11/29/22 10:27 SW (Rec: 11/29/22 11:34 SW [id number]) Ultrasound Therapy Treatment left deltiod region Treatment Duration (minutes) 8 Patient Position Supine Coupling Medium Ultrasound Gel Applicator Size (cm2) 2 Frequency Setting (mHz) 1 Intensity Setting (w/cm2) 1.5 Comments good feedback lessened soreness. L deltoid, bicep prox<> Mid PT-OP-T Assessment and Plan Start: 10/11/22 09:50 Freq: Status: Active Protocol: Document 12/06/22 10:32 [facility] (Rec: 12/06/22 11:28 [facility] [id number]) Physical Therapy Assessment Goals 2 Impairment Decreased shoulder strength B and pt has difficulty carrying shopping bags Short Term Goal (STG) Torie is educated in a HEP for shoulder strengthening good progress STG Duration 3 weeks Research Phlebotomist Goal (LTG) Torie presents with an improvement of shoulder strength in B shoulders by 1 muscle grade for improved functional use of her shoulder with ADL's at home some progress LTG Duration 8 weeks 1 Impairment decreased shoulder ROM and pt has moderate difficulty reaching and lifting overhead at home Short Term Goal (STG) Torie is educated on a HEP for shoulder ROM GOAL MET STG Duration 3 weeks Senior Care Goal (LTG) Torie presents with Shoulder ROM that is painfree and WFL GOAL NOT YET MET LTG Duration 8 weeks Assessment Summary Assessment I talked with Torie about doing her yard work in smaller shifts and then stretching her chest out afterward. I added in a seated chest stretch with a ball behind her back and she tolerated that well today Physical Therapy Plan Frequency and Duration Frequency of Treatment 2x/Week Duration of treatment (weeks) 8 Plan of Care Start Date 12/06/22 Plan of Care End Date 01/31/23 Therapeutic Interventions Therapeutic Interventions Home Exercise Program,Joint Mobilizations,Manual Therapy, Patient/Caregiver Education, Self-Care/Home Management, Therapeutic Exercises Next Visit Focus/Plan Next Note Type Treatment Note Next Visit Plan REcheck return to TB HEP last tx response. POC: continue with US prior to manual work and ther ex, work on increasing rotator cuff strength
--- NOTE | 2022-12-13 12:16 | PT.OTN ---
Current Diagnoses Pain in right shoulder (12/13/22) Pain in left shoulder (12/13/22) Physical Therapy Treatment Note PT-OP-A Visit Information Start: 10/11/22 09:50 Freq: Status: Active Protocol: Document 12/13/22 11:39 [facility] (Rec: 12/13/22 12:10 [facility] [id number]) Out-Patient Physical Therapy Visit Information Visit Information Visit Type Treatment Note Visit Start Time 11:35 Visit Stop Time 12:25 Total Visit Minutes 50 Visit Number 9 PT-OP-B Current Condition Start: 10/11/22 09:50 Freq: Status: Active Protocol: Document 10/11/22 09:45 [facility] (Rec: 10/11/22 10:36 [facility] [id number]) Current Condition History of Current Condition History of Current Condition pt complains of left greater than right shoulder pain that has been off and on for 3 months. On the left side the pain radiates down her arm to her elbow. She lost her this past year and she has been doing the yard work and this has aggravated her shoulders. PT-OP-C Subjective Start: 10/11/22 09:50 Freq: Status: Active Protocol: Document 12/13/22 11:39 [facility] (Rec: 12/13/22 12:10 [facility] [id number]) OP-PT Subjective Patient Comments Patient Comments Torie notes she had to lift a bucket full of dirt and weeds with her right side and this really aggravated her. PT-OP-F Manual Assessment Start: 10/11/22 09:50 Freq: Status: Active Protocol: Document 10/11/22 09:45 [facility] (Rec: 10/11/22 18:35 [facility] [id number]) Manual Assessments Soft Tissue Assessment Soft Tissue Mobility Assessment tightness of the upper trapezius and pec min B, pt has pain into the deltiod and there is guarding of the deltoid noted Joint Mobility Assessment Joint Mobility Assessment decreased posterior and inferior glide bilateral shoulders PT-OP-K Range of Motion Start: 10/11/22 09:50 Freq: Status: Active Protocol: Document 10/11/22 09:45 [facility] (Rec: 10/11/22 18:35 [facility] [id number]) Shoulder Goniometric Range of Motion Shoulder left Shoulder ROM WFL No Testing Position Sitting Flexion 120 Abduction 95 External Rotation at 0 degrees Abduction 30 Internal Rotation 20 Internal Rotation Behind Back (text) T 12 right Shoulder ROM WFL No Testing Position Sitting Flexion 150 Extension 30 Abduction 130 External Rotation at 0 degrees Abduction 35 Internal Rotation 20 Internal Rotation Behind Back (text) T12 Shoulder ROM Limitations Shoulder ROM Limitations Soft Tissue Tightness,Pain Comments audible shoulder clicking on the left with AROM PT-OP-M Strength Start: 10/11/22 09:50 Freq: Status: Active Protocol: Document 10/11/22 09:45 [facility] (Rec: 10/11/22 18:35 [facility] [id number]) Shoulder Strength Shoulder Manual Muscle Testing Right Flexion 3 Fair Extension 3 Fair Abduction (C5) 3 Fair External Rotation 3 Fair Internal Rotation 3 Fair Left Flexion 3 Fair Extension 3 Fair Abduction (C5) 3 Fair External Rotation 3 Fair Internal Rotation 3 Fair PT-OP-Q Treatments Start: 10/11/22 09:50 Freq: Status: Active Protocol: Document 12/13/22 12:10 [facility] (Rec: 12/13/22 12:15 [facility] [id number]) Therapeutic Exercises Supine Exercises Pec Stretch Supine Exercise Name Supine gravity assist pec stretch, W Reps/Minutes 2 x 15 sec hold Standing Exercises Shoulder IR/ER Side bilateral Equipment Used level 1 theraband Reps/Minutes 2 x 10 Comments verbal/tactile cues for abduction compensation standing rows with theraband Equipment Used level 1 Reps/Minutes 2 x 10 reps standing shoulder extension with theraband Resistance level 1 TB Reps/Minutes 3 x10 Comments cued scap set retract/depress eccentric return Manual Therapy Treatment Soft Tissue Mobilization STM over the deltoid and biceps tendon Body Location right shoulder deltoid and biceps Mobilization Type Strumming Intensity/Depth Moderate Body Position Supine Comments good tolerance Pec Body Location Pec/RC/bicep Mobilization Type Myofascial Release,Strain/ Counterstrain Intensity/Depth Superficial Body Position Supine Comments BUE Manual Techniques manual resistance through IR/ER Reps/Duration 2 x 10 each PT-OP-R Modalities Start: 10/16/22 17:37 Freq: Status: Active Protocol: Document 12/13/22 12:15 [facility] (Rec: 12/13/22 12:16 [facility] [id number]) Hot Pack/Cold Pack Treatment Hot Pack Location Bilateral hotpacks to the shoulders Treatment Duration (minutes) 8 Comments good tolerance PT-OP-T Assessment and Plan Start: 10/11/22 09:50 Freq: Status: Active Protocol: Document 12/13/22 11:39 [facility] (Rec: 12/13/22 12:10 [facility] [id number]) Physical Therapy Assessment Assessment Summary Assessment WE discussed only filling up the weeding bucket half way as to not have too heavy of a load to lift. Torie was able to tolerate her resistance exercises today Physical Therapy Plan Frequency and Duration Frequency of Treatment 2x/Week Duration of treatment (weeks) 8 Plan of Care Start Date 12/06/22 Plan of Care End Date 01/31/23
--- NOTE | 2022-12-20 19:05 | PT.OTN ---
Current Diagnoses Pain in right shoulder (12/20/22) Pain in left shoulder (12/20/22) Physical Therapy Treatment Note PT-OP-A Visit Information Start: 10/11/22 09:50 Freq: Status: Active Protocol: Document 12/20/22 10:33 [facility] (Rec: 12/20/22 11:28 [facility] [id number]) Out-Patient Physical Therapy Visit Information Visit Information Visit Type Treatment Note Visit Start Time 10:30 Visit Stop Time 11:15 Total Visit Minutes 45 Visit Number 10 PT-OP-B Current Condition Start: 10/11/22 09:50 Freq: Status: Active Protocol: Document 10/11/22 09:45 [facility] (Rec: 10/11/22 10:36 [facility] [id number]) Current Condition History of Current Condition History of Current Condition pt complains of left greater than right shoulder pain that has been off and on for 3 months. On the left side the pain radiates down her arm to her elbow. She lost her this past year and she has been doing the yard work and this has aggravated her shoulders. PT-OP-C Subjective Start: 10/11/22 09:50 Freq: Status: Active Protocol: Document 12/20/22 19:02 [facility] (Rec: 12/20/22 19:05 [facility] [id number]) OP-PT Subjective Patient Comments Patient Comments Torie reports she is having a 14 year old come help her with her yard work she is also being more careful about filling her weed bucked 1/2 full to decrease shoulder strain PT-OP-F Manual Assessment Start: 10/11/22 09:50 Freq: Status: Active Protocol: Document 10/11/22 09:45 [facility] (Rec: 10/11/22 18:35 [facility] [id number]) Manual Assessments Soft Tissue Assessment Soft Tissue Mobility Assessment tightness of the upper trapezius and pec min B, pt has pain into the deltiod and there is guarding of the deltoid noted Joint Mobility Assessment Joint Mobility Assessment decreased posterior and inferior glide bilateral shoulders PT-OP-K Range of Motion Start: 10/11/22 09:50 Freq: Status: Active Protocol: Document 10/11/22 09:45 [facility] (Rec: 10/11/22 18:35 [facility] [id number]) Shoulder Goniometric Range of Motion Shoulder left Shoulder ROM WFL No Testing Position Sitting Flexion 120 Abduction 95 External Rotation at 0 degrees Abduction 30 Internal Rotation 20 Internal Rotation Behind Back (text) T 12 right Shoulder ROM WFL No Testing Position Sitting Flexion 150 Extension 30 Abduction 130 External Rotation at 0 degrees Abduction 35 Internal Rotation 20 Internal Rotation Behind Back (text) T12 Shoulder ROM Limitations Shoulder ROM Limitations Soft Tissue Tightness,Pain Comments audible shoulder clicking on the left with AROM PT-OP-M Strength Start: 10/11/22 09:50 Freq: Status: Active Protocol: Document 10/11/22 09:45 [facility] (Rec: 10/11/22 18:35 [facility] [id number]) Shoulder Strength Shoulder Manual Muscle Testing Right Flexion 3 Fair Extension 3 Fair Abduction (C5) 3 Fair External Rotation 3 Fair Internal Rotation 3 Fair Left Flexion 3 Fair Extension 3 Fair Abduction (C5) 3 Fair External Rotation 3 Fair Internal Rotation 3 Fair PT-OP-Q Treatments Start: 10/11/22 09:50 Freq: Status: Active Protocol: Document 12/20/22 19:02 [facility] (Rec: 12/20/22 19:05 [facility] [id number]) Manual Therapy Treatment Soft Tissue Mobilization STM over the deltoid and biceps tendon Body Location right shoulder deltoid and biceps Mobilization Type Strumming Intensity/Depth Moderate Body Position Supine Comments good tolerance Pec Body Location Pec/RC/bicep Mobilization Type Myofascial Release,Strain/ Counterstrain Intensity/Depth Superficial Body Position Supine Comments BUE Joint Mobilizations L GH jt Direction inferior, posterior Grade II Body Position Hooklying Comments manual Manual Techniques manual resistance through IR/ER Reps/Duration 2 x 10 each manual left shoulder ROM all planes Reps/Duration 10 reps each direction Comments improvements with shoulder ROM into ER, IR , flexion and abduction PT-OP-R Modalities Start: 10/16/22 17:37 Freq: Status: Active Protocol: Document 12/13/22 12:15 [facility] (Rec: 12/13/22 12:16 [facility] [id number]) Hot Pack/Cold Pack Treatment Hot Pack Location Bilateral hotpacks to the shoulders Treatment Duration (minutes) 8 Comments good tolerance PT-OP-T Assessment and Plan Start: 10/11/22 09:50 Freq: Status: Active Protocol: Document 12/20/22 19:02 [facility] (Rec: 12/20/22 19:05 [facility] [id number]) Physical Therapy Assessment Goals 2 Impairment Decreased shoulder strength B and pt has difficulty carrying shopping bags Short Term Goal (STG) Torie is educated in a HEP for shoulder strengthening good progress STG Duration 3 weeks [employer] Goal (LTG) Torie presents with an improvement of shoulder strength in B shoulders by 1 muscle grade for improved functional use of her shoulder with ADL's at home some progress LTG Duration 8 weeks 1 Impairment decreased shoulder ROM and pt has moderate difficulty reaching and lifting overhead at home Short Term Goal (STG) Torie is educated on a HEP for shoulder ROM GOAL MET STG Duration 3 weeks [employer] Developer [employer] Goal (LTG) Torie presents with Shoulder ROM that is painfree and WFL GOAL NOT YET MET LTG Duration 8 weeks Assessment Summary Assessment Torie is independent with her HEP at this time. She still has intermittent shoulder pain . We have gone over stratagies for yard work to help reduce shoulder pain and she does have help now for her yard which I think will be very beneficial for her. She will be discharge to a HEP at this time Physical Therapy Plan Discharge Physical Therapy Discharge Reasons Plateau in Progress
== END 2023-01-18 09:14 ==
LOC: PHYS 10:30
PROVIDERS: Absent Provider Nurse Practitioner Family; Family Provider Family Medicine; PCP Family Medicine; Referring Provider Nurse Practitioner Family; Visit Provider Nurse Practitioner Family
DX: M25.511 Pain in right shoulder (principal); M25.512 Pain in left shoulder
CPT/HCPCS: 97035; 97110; 97140; 97161; 97535

== ENCOUNTER → 2023-02-15 11:09 | Outpatient (CLI) | payer MEDICARE, OTHER, SELFPAY ==
[2020-08-18 16:29] VITALS: BMI 24.4
--- NOTE | 2023-02-15 11:10 | DI.RAD.S_ITS ---
PROCEDURE: XR CHEST 2V INDICATIONS: mass TECHNIQUE: 2 views of the chest were acquired. COMPARISON: [facility], CR, XR CHEST 2V, 12/07/2022, 9:11. [facility], CR, XR CHEST 1V, 07/24/2022, 15:25. FINDINGS: Surgical changes and devices: Cholecystectomy clips. Lungs and pleura: Lungs are clear. No pleural effusions or pneumothorax. Mediastinum: Mediastinal contours are normal. Heart size is normal. Bones and chest wall: No suspicious bony abnormalities. Soft tissues appear unremarkable. IMPRESSION: No acute cardiopulmonary process. Dictated by: Charles Barnard M.D. on 02/15/2023 at 12:10 Approved by: Charles Barnard M.D. on 02/15/2023 at 12:11
== END ==
PROVIDERS: Family Provider Family Medicine; PCP Family Medicine; Referring Provider Obstetrics & Gynecology; Visit Provider Obstetrics & Gynecology
DX: R05.9 Cough, unspecified (principal)
CPT/HCPCS: 71046

== ENCOUNTER → 2023-02-18 10:08 | Outpatient (CLI) | payer MEDICARE, OTHER, SELFPAY ==
[2020-08-18 16:29] VITALS: BMI 24.4
--- NOTE | 2023-02-18 | DI.US.S_ITS ---
LIMITED ULTRASOUND OF RIGHT BREAST: 02/18/2023 CLINICAL: Focal right breast pain. Comparison is made to exams dated: 02/18/2023 mammogram, 12/04/2021 mammogram, 11/01/2020 mammogram, 06/11/2019 mammogram, and 04/18/2017 mammogram - [facility]. Color flow and real-time ultrasound of the right breast 6 o'clock region were performed. Calabrese scale images of the real-time examination were reviewed. No significant abnormalities were seen sonographically in the right breast. IMPRESSION: NEGATIVE There is no sonographic evidence of malignancy. No mass or cyst in the region of concern. A 1 year screening mammogram is recommended. Exam findings were conveyed to the patient. Patient is advised to monitor for significant change. Clinical follow-up as needed. This exam was interpreted at Station ID: [id number]. Electronically Signed By: Tino Dillard M.D. slc/:02/18/2023 11:18:27 letter sent: Normal Exam Ultrasound BI-RADS: 1 Negative
--- NOTE | 2023-02-18 10:09 | DI.MG.S_ITS ---
BILATERAL DIGITAL DIAGNOSTIC MAMMOGRAM 3D/2D: 02/18/2023 CLINICAL: Right breast mass. Comparison is made to exams dated: 11/09/2020 mammogram, 11/01/2020 mammogram, 06/11/2019 mammogram, and 12/04/2021 mammogram - [facility]. Both breasts are heterogeneously dense, which may obscure small masses (category c / 51-75% glandular tissue). No significant masses, calcifications, or other findings are seen in either breast. Left breast scar marker. IMPRESSION: INCOMPLETE: NEEDS ADDITIONAL IMAGING EVALUATION No mammographic evidence of malignancy. A targeted ultrasound is recommended and will immediately follow. Based on the Tyrer Cuzick model (a risk assessment model) the patient's lifetime risk is 3.4% and her 10 year risk is 3.4%. According to the ACR, ACS, and NCCN guidelines, an annual breast MRI exam along with mammogram is recommended if the patient's lifetime risk is 20% or greater. This exam was interpreted at Station ID: [id number]. NOTE: For mammograms, a report in lay terms will be sent to the patient. Approximately 15% of breast malignancies will not be visualized mammographically. In the management of a palpable breast mass, a negative mammogram must not discourage biopsy of a clinically suspicious lesion. Electronically Signed By: Tino Dillard M.D. slc/:02/18/2023 11:00:46 ACR BI-RADS Category 0: Incomplete 3340F
== END ==
PROVIDERS: Family Provider Family Medicine; PCP Family Medicine; Referring Provider Obstetrics & Gynecology; Visit Provider Obstetrics & Gynecology
DX: R92.2 Inconclusive mammogram (principal); N64.4 Mastodynia
CPT/HCPCS: 76642; 77066; G0279

== ENCOUNTER → 2023-04-08 09:03 | Outpatient (CLI) | payer MEDICARE, OTHER, SELFPAY ==
[2020-08-18 16:29] VITALS: BMI 24.4
[2023-04-08 10:06] LABS: Hematocrit 42.9 % (36-46); Hemoglobin 14.8 g/dL (12.0-16.0); Mean Corpuscular HGB Conc 34.6 % (30-36); Mean Corpuscular Hemoglobin 31.6 PG (26-34); Mean Corpuscular Volume 91.5 fL (80-100); Platelet Count 231 X10^3/uL (150-400); Red Blood Cell Count 4.69 X10^6/uL (4.0-5.2); Red Cell Distribution Width 13.3 % (11.6-14.8); White Blood Cell Count 7.5 X10^3/uL (4.5-11.0)
[2023-04-08 10:26] LABS: Alanine Aminotransferase 31 IU/L (<35); Albumin 4.3 g/dL (3.5-5.0); Albumin Globulin Ratio 1.6 (1.0-2.8); Alkaline Phosphatase 70 U/L (38-126); Aspartate Aminotransferase 28 IU/L (14-36); Bilirubin Total 0.8 mg/dL (0.2-1.3); Blood Urea Nitrogen 15 mg/dL (7-17); Calcium 9.4 mg/dL (8.4-10.2); Carbon Dioxide 28 mmol/L (22-32); Chloride 104 mmol/L (98-107); Cholesterol 233 mg/dL (140-199); Estimated Glomerular Filt Rate > 60 mL/min (>60); Globulin 2.7 g/dL (1.7-4.1); Glucose 99 mg/dL (80-110); HDL Cholesterol 43 mg/dL (40-60); HEMOLYSIS < 15 (0-50); LDL Cholesterol Calculated 162 mg/dL (<100); Potassium 4.5 mmol/L (3.4-5.1); Sodium 139 mmol/L (137-145); Triglycerides 142 mg/dL (35-150)
[2023-04-08 10:29] LABS: Hemoglobin A1C% w Est Avg Glu 5.3 % (4.0-6.0)
[2023-04-08 10:54] LABS: TSH w/ Reflex to FT4 4.42 uIU/mL (0.47-4.68)
== END ==
PROVIDERS: Family Provider Family Medicine; PCP Family Medicine; Referring Provider Family Medicine; Visit Provider Family Medicine
DX: E78.5 Hyperlipidemia, unspecified (principal); R73.9 Hyperglycemia, unspecified; E03.9 Hypothyroidism, unspecified
CPT/HCPCS: 36415; 80053; 80061; 83036; 84443; 85027

== ENCOUNTER → 2023-06-20 10:15 | Outpatient (CLI) | payer MEDICARE, OTHER, SELFPAY ==
[2020-08-18 16:29] VITALS: BMI 24.4
--- NOTE | 2023-06-20 10:17 | DI.US.S_ITS ---
PROCEDURE: US CAROTID DOPPLER BI INDICATIONS: heartbeat heard in ears TECHNIQUE: Color and pulse Doppler interrogation was performed of both carotid systems, with image documentation and velocity measurements. COMPARISON: None. FINDINGS: Stenosis calculations are based on SRU (Society of Radiologists in Ultrasound) criteria. The flow velocities and the arterial waveforms are normal within both carotid arterial systems. Minimal atherosclerotic plaque is seen on both sides. The estimated degree of internal carotid artery stenosis is less than 50%. Antegrade flow is confirmed within both vertebral arteries. IMPRESSION: No hemodynamically significant stenosis is seen. No significant change from the prior. Dictated by: Amos Khan M.D. on 06/20/2023 at 10:48 Approved by: Amos Khan M.D. on 06/20/2023 at 10:49
== END ==
PROVIDERS: Family Provider Family Medicine; PCP Family Medicine; Referring Provider Family Medicine; Visit Provider Family Medicine
DX: H93.A9 Pulsatile tinnitus, unspecified ear (principal)
CPT/HCPCS: 93880

== ENCOUNTER → 2023-08-29 13:59 | Outpatient (CLI) | payer MEDICARE, OTHER, SELFPAY ==
[2020-08-18 16:29] VITALS: BMI 24.4
[2023-08-29 15:43] LABS: Influenza A - CEPHEID Flu A NEGATIVE (NEGATIVE); Influenza B - CEPHEID Flu B NEGATIVE (NEGATIVE); Respiratory Syncytial Virus Negative (Negative)
[2023-08-29 15:48] LABS: COVID-19 CEPHEID 4-PLEX PCR Negative (Negative)
== END ==
PROVIDERS: Family Provider Family Medicine; PCP Family Medicine; Visit Provider Nurse Practitioner Family
DX: R05.9 Cough, unspecified (principal)
CPT/HCPCS: 0241U

== ENCOUNTER → 2023-11-26 11:36 | Outpatient (CLI) | payer MEDICARE, OTHER, SELFPAY ==
[2020-08-18 16:29] VITALS: BMI 24.4
[2023-11-26 13:17] LABS: Add Manual Diff / Slide Review NO; Basophils Absolute Auto 0 /uL (0-100); Basophils Percent Auto 0.5 % (0-2); Eosinophils Absolute Auto 200 /uL (0-450); Eosinophils Percent Auto 2.5 % (2-4); Hematocrit 42.4 % (36-46); Hemoglobin 14.6 g/dL (12.0-16.0); Lymphocytes Absolute Auto 1400 /uL (1100-4500); Lymphocytes Percent Auto 18.6 % (25-40); Mean Corpuscular HGB Conc 34.3 % (30-36); Mean Corpuscular Hemoglobin 31.6 PG (26-34); Mean Corpuscular Volume 92.1 fL (80-100); Monocytes Absolute Auto 400 /uL (0-900); Monocytes Percent Auto 5.3 % (3-14); Neutrophils Absolute Auto 5500 /uL (1500-7000); Neutrophils Percent Auto 73.1 % (50-75); Platelet Count 228 X10^3/uL (150-400); Red Cell Distribution Width 13.6 % (11.6-14.8); White Blood Cell Count 7.6 X10^3/uL (4.5-11.0)
[2023-11-26 13:51] LABS: HEMOLYSIS < 15 (0-50); Iron 83 ug/dL (37-170)
[2023-11-26 13:59] LABS: Alanine Aminotransferase 20 IU/L (<35); Albumin 4.3 g/dL (3.5-5.0); Albumin Globulin Ratio 2.2 (1.0-2.8); Alkaline Phosphatase 73 U/L (38-126); Aspartate Aminotransferase 24 IU/L (14-36); BUN Creatinine Ratio 23.4 (6-22); Bilirubin Total 0.6 mg/dL (0.2-1.3); Blood Urea Nitrogen 18 mg/dL (7-17); Calcium 8.9 mg/dL (8.4-10.2); Carbon Dioxide 27 mmol/L (22-32); Chloride 106 mmol/L (98-107); Estimated Glomerular Filt Rate > 60 mL/min (>60); Glucose 89 mg/dL (80-110); HEMOLYSIS < 15 (0-50); Potassium 4.7 mmol/L (3.4-5.1); Sodium 138 mmol/L (137-145); Total Protein 6.3 g/dL (6.3-8.2)
[2023-11-26 14:02] LABS: Percent Iron Saturation 24 % (15-50); Total Iron Binding Capacity 352 ug/dL (265-497); Transferrin 278 mg/dL (206-381)
[2023-11-26 14:46] LABS: Vitamin B12 486 pg/mL (239-931)
== END ==
PROVIDERS: Family Provider Family Medicine; PCP Family Medicine; Referring Provider Physician Assistant; Visit Provider Physician Assistant
DX: R10.11 Right upper quadrant pain (principal); R53.83 Other fatigue; R10.2 Pelvic and perineal pain; R11.0 Nausea; R05.3 Chronic cough; R07.89 Other chest pain
CPT/HCPCS: 36415; 80053; 82607; 83540; 83550; 84443; 85025

== ENCOUNTER → 2023-12-10 14:05 | Outpatient (CLI) | payer MEDICARE, OTHER, SELFPAY ==
[2020-08-18 16:29] VITALS: BMI 24.4
--- NOTE | 2023-12-10 14:07 | DI.US.S_ITS ---
PROCEDURE: US ABDOMEN COMPLETE INDICATIONS: RUQ PAIN; NAUSEA TECHNIQUE: Real-time scanning was performed of the abdominal and retroperitoneal organs, with image documentation. COMPARISON: [facility], US, ABDOMEN COMPLETE, 09/17/2014, 10:12. FINDINGS: Liver: 13 centimeters. Overall echotexture is within normal limits. Gallbladder: Absent Biliary ducts: Intrahepatic bile ducts are non-dilated. Extrahepatic bile duct caliber measures 7 mm. Normal is 6-7 mm or less in diameter, or 10 mm or less post-cholecystectomy. Pancreas: Unremarkable where visualized Spleen: Spleen is normal in size and homogeneous in echotexture. Kidneys: Kidneys are normal in size and echotexture. Right kidney measures 10 cm long; left kidney measures 11 cm long. No hydronephrosis or nephrolithiasis. No solid masses. Aorta: Visualized aorta is normal in caliber at less than 3 cm. Iliacs: Proximal common iliac arteries are normal in caliber at less than 2.5 cm. IVC: Intrahepatic inferior vena cava is patent. Miscellaneous: No free abdominal fluid. IMPRESSION: No significant or acute sonographic abnormalities. Cholecystectomy. Dictated by: Juan Peterson M.D. on 12/10/2023 at 16:30 Approved by: Juan Peterson M.D. on 12/10/2023 at 16:31
--- NOTE | 2023-12-10 14:07 | DI.RAD.S_ITS ---
PROCEDURE: XR CHEST 2V INDICATIONS: RUQ pain; nausea TECHNIQUE: 2 views of the chest were acquired. COMPARISON: [facility], , XR CHEST 2V, 02/15/2023, 11:13. FINDINGS: Surgical changes and devices: Surgical hardware is seen in included portion of lumbar spine. Surgical clips also noted in gallbladder fossa. Lungs and pleura: Lungs are clear. No pleural effusions or pneumothorax. Mediastinum: Mediastinal contours are normal. Heart size is normal. Bones and chest wall: No suspicious bony abnormalities. Soft tissues appear unremarkable. IMPRESSION: No acute cardiopulmonary pathology. Dictated by: Kiet Poole M.D. on 12/10/2023 at 15:09 Approved by: Kiet Poole M.D. on 12/10/2023 at 15:09
--- NOTE | 2023-12-10 14:07 | DI.US.S_ITS ---
PROCEDURE: US PELVIC COMPLETE INDICATIONS: PAIN TECHNIQUE: Real-time scanning was performed of the pelvic organs, with image documentation. Additional endovaginal scanning was necessary due to incomplete visualization of the adnexal and endometrial structures by transabdominal scanning. COMPARISON: [facility], , PELVIC COMPLETE, 10/30/2016, 14:29. FINDINGS: Uterus: Absent Ovaries: Not seen sonographically. Other: No pathologic fluid. IMPRESSION: The uterus is absent. The ovaries were not identified on ultrasound. No acute sonographic abnormalities on this limited study. Dictated by: Juan Peterson M.D. on 12/10/2023 at 16:31 Approved by: Juan Peterson M.D. on 12/10/2023 at 16:32
== END ==
LOC: US 14:07
PROVIDERS: Family Provider Family Medicine; PCP Family Medicine; Referring Provider Physician Assistant; Visit Provider Physician Assistant
DX: R10.11 Right upper quadrant pain (principal); R53.83 Other fatigue; R11.0 Nausea; R10.2 Pelvic and perineal pain; R05.3 Chronic cough; R07.89 Other chest pain; Z90.49 Acquired absence of other specified parts of digestive tract
CPT/HCPCS: 71046; 76700; 76830; 76856

== ENCOUNTER → 2024-03-02 10:17 | Outpatient (CLI) | payer MEDICARE, OTHER, SELFPAY ==
[2020-08-18 16:29] VITALS: BMI 24.4
--- NOTE | 2024-03-02 | DI.MG.S_ITS ---
BILATERAL DIGITAL DIAGNOSTIC MAMMOGRAM 3D/2D: 03/02/2024 CLINICAL: Left breast pain and itching. Comparison is made to exams dated: 02/18/2023 mammogram, 12/04/2021 mammogram, and 11/01/2020 mammogram - [facility]. Both breasts are heterogeneously dense, which may obscure small masses (category c / 51-75% glandular tissue). No significant masses, calcifications, or other findings are seen in either breast. IMPRESSION: INCOMPLETE: NEEDS ADDITIONAL IMAGING EVALUATION There is no abnormality seen in the left breast to correspond with the area of clinical concern, pain, and now resolved correlating skin lesion indicated by the square marker in the middle depth, however, ultrasound is recommended for further evaluation and is scheduled to immediately follow this examination. Based on the Tyrer Cuzick model (a risk assessment model) the patient's lifetime risk is 3.2% and her 10 year risk is 0.0%. According to the ACR, ACS, and NCCN guidelines, an annual breast MRI exam along with mammogram is recommended if the patient's lifetime risk is 20% or greater. This exam was interpreted at Station ID: [id number]. NOTE: For mammograms, a report in lay terms will be sent to the patient. Approximately 15% of breast malignancies will not be visualized mammographically. In the management of a palpable breast mass, a negative mammogram must not discourage biopsy of a clinically suspicious lesion. Electronically Signed By: Adam Pulido M.D. aty/:03/02/2024 13:34:11 ACR BI-RADS Category 0: Incomplete 3340F
--- NOTE | 2024-03-02 10:18 | DI.US.S_ITS ---
LIMITED ULTRASOUND OF LEFT BREAST: 03/02/2024 CLINICAL: Focal left breast pain, resolved. Comparison is made to exams dated: 03/02/2024 mammogram and 02/18/2023 mammogram - [facility]. Real-time ultrasound of the left breast 1-2 o'clock region was performed. Calabrese scale images of the real-time examination were reviewed. No significant abnormalities were seen sonographically in the left breast. IMPRESSION: NEGATIVE There is no sonographic evidence of malignancy. There is no abnormality seen in the left breast to correspond with the area of clinical concern, pain, and now resolved correlating skin lesion indicated by square marker seen on comparison mammogram, however, recommend clinical follow up for persistent or worsening symptoms, or development of any clinically suspicious findings. A 1 year screening mammogram is recommended. Findings and recommendations were conveyed to the patient during today's evaluation. This exam was interpreted at Station ID: [id number]. Electronically Signed By: Adam Pulido M.D. at/:03/02/2024 13:36:06 letter sent: Clinical Evaluation Ultrasound BI-RADS: 1 Negative
== END ==
LOC: MAMMO 10:18
PROVIDERS: Family Provider Family Medicine; PCP Family Medicine; Referring Provider Family Medicine; Visit Provider Family Medicine
DX: R92.2 Inconclusive mammogram (principal); N64.4 Mastodynia; R92.333 Mammographic heterogeneous density, bilateral breasts
CPT/HCPCS: 76642; 77066; G0279

== ENCOUNTER → 2024-04-23 08:25 | Outpatient (CLI) | payer MEDICARE, OTHER, SELFPAY ==
[2020-08-18 16:29] VITALS: BMI 24.4
[2024-04-23 09:55] LABS: Cholesterol 235 mg/dL (140-199); HDL Cholesterol 54 mg/dL (40-60); LDL Cholesterol Calculated 166 mg/dL (<100); Triglycerides 77 mg/dL (35-150)
[2024-04-23 09:58] LABS: High Sensitivity CRP - Cardiac 0.7 mg/L (1.0-3.0)
== END ==
PROVIDERS: Family Provider Family Medicine; PCP Family Medicine; Referring Provider Family Medicine; Visit Provider Family Medicine
DX: E78.2 Mixed hyperlipidemia (principal); Z82.49 Family history of ischemic heart disease and other diseases of the circulatory system; F32.A Depression, unspecified; G47.00 Insomnia, unspecified; K21.9 Gastro-esophageal reflux disease without esophagitis; R42 Dizziness and giddiness
CPT/HCPCS: 36415; 80061; 86140

== ENCOUNTER 2024-09-12 11:33 | Emergency (ER) | payer MEDICARE, OTHER, SELFPAY ==
[2020-08-18 16:29] VITALS: BMI 24.4
[2024-09-12] VITALS (11 sets, daily range): BP systolic 144–226; BP diastolic 74–102; PULSE 60–75; RESP 15–27; TEMP 36.7; O2SAT 95–98; BMI 23.6
--- NOTE | 2024-09-12 11:48 | DI.RAD.S_ITS ---
PROCEDURE: XR CHEST 1V INDICATIONS: chest pain TECHNIQUE: One view of the chest was acquired. COMPARISON: [facility], CR, XR CHEST 2V, 12/10/2023, 14:11. [facility], CR, XR CHEST 2V, 02/15/2023, 11:13. [facility], CR, XR CHEST 2V, 12/07/2022, 9:11. [facility], , CHEST 2 VIEW, 12/27/2015, 10:56. FINDINGS: Surgical changes and devices: None. Lungs and pleura: Lungs are clear. No pleural effusions or pneumothorax. Mediastinum: Mediastinal contours appear normal. Heart size is normal. Bones and chest wall: No suspicious bony lesions. Overlying soft tissues appear unremarkable. IMPRESSION: No acute cardiothoracic process. Dictated by: Joseph Munoz M.D. on 09/12/2024 at 11:41 Approved by: Joseph Munoz M.D. on 09/12/2024 at 11:41
--- NOTE | 2024-09-12 11:53 | EKG_ITS ---
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
--- NOTE | 2024-09-12 12:00 | ED.GENADULT ---
HPI - General Adult General Chief complaint: Hypertension Stated complaint: [facility]-BP 182/36, headache, blurry vision Time Seen by Provider: 09/12/24 11:46 Source: patient and family Mode of arrival: Ambulatory History of Present Illness HPI narrative: 78-year-old female with recent elevated blood pressure in dental clinic, saw her primary care provider yesterday and was started on lisinopril 10 mg new dose, has headache and elevated blood pressure readings at home. No focal weakness to face arm or leg. No focal numbness to face arm or leg. No visual disturbances. No chest pain or shortness of breath. Patient also admitted to intermittent lower abdominal discomfort, no fevers or chills, no black or red stools, no loose stools, no hard stools. No no sign of vomiting. No painful or frequent urination. Related Data Home Medications Medication Instructions Recorded Confirmed CBD gummy 1 ea PO QAM 11/26/23 09/10/24 Lifewise patches transdermal 04/14/24 09/10/24 clobetasol 0.05 % topical ointment 1 applic topical DAILY PRN 09/10/24 Previous Rx's Medication Instructions Recorded Disabled Parking Permit #1 ea 01/03/21 Prometrium 200 mg capsule 200 mg PO BEDTIME #90 caps 04/14/24 (progesterone micronized) vibegron 75 mg tablet (Gemtesa) 75 mg PO DAILY #90 tabs 05/14/24 estradiol 0.01% (0.1 mg/gram) 0.5 g vaginal 2XW #42.5 grams 07/10/24 vaginal cream (Estrace) lisinopril 10 mg tablet 10 mg PO DAILY #60 tabs 09/10/24 Allergies Allergy/AdvReac Type Severity Reaction Status Date / Time trazodone AdvReac Mild Headaches Verified 09/10/24 10:52 Patient History Medical History (Updated 09/12/24 @ 14:22 by Brian Patel MD) Left rotator cuff tear Colitis (1975) Sessile colonic polyp (11/21/14) Urinary incontinence Weakness of pelvic floor Overactive bladder COVID-19 Cognitive impairment Insect sting JAVY (stress urinary incontinence, female) Atrophic vulvovaginitis Lichen sclerosus Postoperative anemia due to acute blood loss Postmenopausal History of bronchitis Herpes Hemorrhoids (1974) Abnormal Pap smear of cervix (1976) Chicken pox (1957) Measles (1957) Chronic back pain (1995) Chronic headaches (1957) Depression (1999) Anxiety (1999) Hypothyroidism Constipation Cervical cancer (1976) Surgical History History of colonoscopy with polypectomy Anesthesia Status post biopsy (10/24/11) History of esophagogastroduodenoscopy (EGD) (10/24/11) Status post colonoscopy (10/24/11) History of spinal fusion (2001) History of spinal fusion (2012) History of tonsillectomy (1966) Status post appendectomy (1956) Status post vaginal hysterectomy (1977) Status post laparoscopic cholecystectomy (2000) History of spinal fusion (1999) Family History (Updated 11/26/23 @ 11:03 by Destiney Thomas PA-C) Daughter Age: 49 No problems noted. Father Colon cancer Alcoholism Osteoarthritis Mother Colon cancer CAD (coronary artery disease) Hypertension Hyperlipidemia Stroke Heart disease Bladder cancer Sister Adenocarcinoma, lung Hyperlipidemia Sister Age: 73 Hyperlipidemia Son No problems noted. Social History household members: spouse Smoking Status: Former smoker alcohol intake: current substance use type: does not use Smoking Status: Former smoker alcohol intake frequency: a few times a month Exam Narrative Exam Narrative: GENERAL: Well-developed patient, in mild distress. HEAD: Atraumatic. Normocephalic. EYES: Pupils equal round and reactive. Extraocular motions intact. No scleral icterus. No injection or drainage. ENT: Nose without bleeding, purulent drainage. Throat without erythema, tonsillar hypertrophy or exudate. Airway patent. NECK: Trachea midline. Non tender CARDIOVASCULAR: Regular rate and rhythm without murmurs, gallops, or rubs. RESPIRATORY: Clear to auscultation. Breath sounds equal bilaterally. No wheezes, rales, or rhonchi. GASTROINTESTINAL: Abdomen soft, non-tender, nondistended. EXTREMITIES: No edema or joint tenderness. BACK: Nontender without deformity or crepitance. No flank tenderness. NEURO: AOx3. Motor functions grossly nonfocal SKIN: No rash or erythema of visible areas Initial Vital Signs Initial Vital Signs: Vital Signs Temperature 98.1 F 09/12/24 11:35 Pulse Rate 75 09/12/24 11:35 Respiratory Rate 16 09/12/24 11:35 Blood Pressure 226/102 H 09/12/24 11:35 Pulse Oximetry 98 09/12/24 11:35 Oxygen Delivery Method Room Air 09/12/24 11:35 Course Orders Ordered: Discontinued Medications Acetaminophen (Acetaminophen 325 Mg Tablet) 975 mg PO NOW ONE Stop: 09/12/24 12:44 Last Admin: 09/12/24 12:49 Dose: 975 mg Documented By: LINDA Aspirin (Aspirin 81 Mg Chew Tab) 324 mg PO NOW ONE Stop: 09/12/24 11:49 Last Admin: 09/12/24 12:27 Dose: Not Given Documented By: LINDA Hydralazine HCl (Hydralazine 20 Mg/Ml Vial) 5 mg IV NOW ONE Stop: 09/12/24 11:51 Last Admin: 09/12/24 12:26 Dose: Not Given Documented By: LINDA Vital Signs Vital signs: Vital Signs - 8 hr 09/12/24 13:30 09/12/24 14:30 09/12/24 14:50 Pulse Rate 60 64 60 Respiratory Rate 27 H 15 20 Blood Pressure 144/74 H Pulse Oximetry 97 97 97 Medical Decision Making Lab Data Lab results reviewed: Yes I reviewed the patient's lab results. Lab results narrative: White blood cell count 6800, hemoglobin 14.6, platelets adequate. Basic metabolic panel unremarkable. Liver functions and lipase normal. Troponin negative/unmeasurable. 09/12/24 12:23 09/12/24 12:23 Labs: Lab Results 09/12/24 Range/Units 12:23 WBC 6.8 (4.5-11.0) X10^3/uL RBC 4.68 (4.0-5.2) X10^6/uL Hgb 14.6 (12.0-16.0) g/dL Hct 43.0 (36-46) % MCV 91.8 (80-100) fL MCH 31.1 (26-34) PG MCHC 33.9 (30-36) % RDW 14.2 (11.6-14.8) % Plt Count 209 (150-400) X10^3/uL Neut % (Auto) 73.7 (50-75) % Lymph % (Auto) 17.3 L (25-40) % Woodruff % (Auto) 5.6 (3-14) % Eos % (Auto) 2.8 (2-4) % Baso % (Auto) 0.6 (0-2) % Neut # (Auto) 5000 (2056-5994) /uL Lymph # (Auto) 1200 (9697-1227) /uL Woodruff # (Auto) 400 (0-900) /uL Eos # (Auto) 200 (0-450) /uL Baso # (Auto) 0 (0-100) /uL PT 10.9 (9.4-12.5) SECONDS INR 1.0 (0.9-1.3) APTT 30 (25.1-36.5) SECONDS Sodium 139 (137-145) mmol/L Potassium 4.2 (3.4-5.1) mmol/L Chloride 104 (98-107) mmol/L Carbon Dioxide 28 (22-32) mmol/L BUN 16 (7-17) mg/dL Creatinine 0.81 (0.52-1.04) mg/dL Estimated GFR > 60 (>60) mL/min BUN/Creatinine Ratio 19.8 (6-22) Glucose 94 (80-110) mg/dL Calcium 9.6 (8.4-10.2) mg/dL Magnesium 2.4 H (1.6-2.3) mg/dL Total Bilirubin 0.7 (0.2-1.3) mg/dL AST 30 (14-36) IU/L ALT 36 H (<35) IU/L Alkaline Phosphatase 75 (38-126) U/L Total Creatine Kinase 104 (30-135) U/L Troponin I < 0.012 (0.01-0.034) ng/mL NT-Pro-B Natriuret Pep 49 (<450) pg/mL Total Protein 7.2 (6.3-8.2) g/dL Albumin 4.5 (3.5-5.0) g/dL Globulin 2.7 (1.7-4.1) g/dL Albumin/Globulin Ratio 1.7 (1.0-2.8) Lipase 62 (23-300) U/L Imaging Data CT angiogram chest abdomen and pelvis: Radiologist's Impression: Close Chest/Abdomen/Pelvis CTA (Signed) Joseph Munoz - 09/12/24 Chest X-Ray (Signed) Joseph Munoz - 09/12/24 Launch?[address] [address] [address] Scan Report Signed Patient: Charlene Jacob MR#: [id number] : 1945 Acct:[id number] Age/Sex: 78 / F Date of Service: 09/12/24 Loc: ED Accession Number: [id number] Procedure: CT angio chest abdomen pelvis Ordering Provider: Brian Patel MD PROCEDURE: CT ANGIO CHEST ABDOMEN PELVIS INDICATIONS: very high blood pressures TECHNIQUE: Precontrast 5 mm thick sections acquired from the lung apices to the iliac crests. After the administration of intravenous contrast, 2.5 mm thick sections again acquired from the lung apices to the iliac crests. Maximum intensity projection (MIP) oblique sagittal and coronal reformats were then acquired. For radiation dose reduction, the following was used: automated exposure control. COMPARISON: None. FINDINGS: Image quality: Diagnostic. Thyroid: Within normal limits. Cardiac: Heart size within normal limits. No pericardial effusion. Aorta: Thoracic aortic diameter within normal limits. No intramural hematoma, aneurysm, or dissection. Pulmonary Artery: Main pulmonary artery diameter within normal limits. Lungs: No focal lung consolidation. Pleura: No pneumothorax or pleural effusion. Airways: The trachea and mainstem bronchi are patent. Lymph Nodes: No mediastinal, hilar, or axillary lymphadenopathy. Esophagus: Within normal limits. Peritoneum: No pneumoperitoneum or ascites. Bones: No acute osseous abnormality. Diffuse osseous demineralization. Status post L3-L4 TLIF as well as L4-L5 and L5-S1 disc cage placement. Status post right hip total arthroplasty. No hardware complication in the field of view. Liver: Normal in size and contour. Gallbladder: Surgically absent. Biliary tree: No intrahepatic or extrahepatic biliary ductal dilatation. Pancreas: Within normal limits. Spleen: Normal in size and contour. Kidneys: No hydronephrosis or obstructive urolithiasis. Adrenals: No adrenal nodularity. Bladder: Normal in size and wall thickness. : No acute abnormality. Stomach: Normal in size and contour. Bowel: Normal in diameter without any bowel obstruction. Nonvisualization of the appendix without secondary signs of acute appendicitis. Scattered colonic diverticulosis, predominantly at the sigmoid colon (5/272). Lymph Nodes: No retroperitoneal, mesenteric, or inguinal lymphadenopathy. Vascular: No abdominal aortic aneurysm. The visualized arterial vasculature is patent. Soft Tissues: No acute abnormality. IMPRESSION: 1. No acute aortic syndrome. 2. No acute CT abnormality of the chest/abdomen/pelvis. Dictated by: Joseph Munoz M.D. on 09/12/2024 at 12:29 Approved by: Joseph Munoz M.D. on 09/12/2024 at 12:38 ECG Data Attestation: I personally reviewed and interpreted this ECG as follows: Interpretation: Normal sinus rhythm with rate of 61, no obvious ST segment elevation or depression changes. NC 156, QRS 70, QTC 386. MDM Narrative Medical decision making narrative: 78-year-old female with recent diagnosis hypertension started on lisinopril 10 mg yesterday, with headache and elevated blood pressure home reading. Nonfocal neuro exam. Initial significant blood pressure elevation systolic 220 at triage, initial order for IV hydralazine, this was discontinued as her blood pressure seemed to improve systolic 170-180 range without specific treatment shortly thereafter and persisting through emergency evaluation. CT angiogram chest abdomen and pelvis study had been ordered, no acute changes, no or aortic pathology, renovascular stenosis, no acute changes. No acute changes to explain intermittent lower abdominal discomfort. Advised patient to increase her dose of lisinopril from 10 mg to 20 mg for now, she has a supply to do this, also advised she might need to have further titration of lisinopril by her regular doctor in follow up, and/or addition of other classes of antihypertensive medications to adequately control her blood pressure. She expressed understanding of the plan. Follow up with regular provider advised. Return precautions discussed. Home with family. Discharge Plan Departure Patient Disposition: Home Clinical Impression: Hypertension Activity Restrictions/Additional Instructions: Recent treatment for hypertension starting lisinopril yesterday, markedly elevated blood pressures earlier today, initially 220 systolic blood pressure at triage, initial IV hydralazine was to be ordered but held as your blood pressure was 175, not quite so emergent in that setting. Blood screen testing was unremarkable. CT angiogram aortogram of the chest abdomen and pelvis showed no acute changes, no aortic dissection, no aortic coarctation, no renal vascular stenosis, no obvious explanation for the elevated blood pressure, nor any acute changes in the chest abdomen and pelvis. You happened to have some lower abdominal discomfort, no acute findings were noted on imaging. Increase your dose of lisinopril from 10 mg daily to 20 mg for now. You might require further titration up of your lisinopril in follow up, and/or addition of other classes of anti hypertensive medications to adequately control your blood pressure. Hopefully this will continue to be titrated in follow up as an outpatient. Take Tylenol as needed for abdominal discomfort. Recheck with your regular doctor early this week as above. Return to this/nearest emergency department for any change worsening symptoms or any concerns prior. Thank you for allowing our team to take care of you today. Prescriptions: No Action estradiol [Estrace] 0.01 % (0.1 mg/gram) cream 0.5 g vaginal 2XW Qty: 42.5 3RF Rx Instructions: Apply to effected area on the external genitalia twice a week (DME) Disabled Parking Permit See Rx Instructions .ROUTE .MEDSUPPLY Qty: 1 0RF Rx Instructions: Valid for 5 years progesterone micronized [Prometrium] 200 mg capsule 200 mg PO BEDTIME Qty: 90 3RF Hold Instructions: not taking Rx Instructions: Take nightly 21 nights, then pause 7 nights to let receptors re-sensitize. Lifewise patches transdermal Patient Comments: Trying for memory, started 03/2024 clobetasol 0.05 % ointment 1 applic topical DAILY PRN Rx Instructions: Apply to effected area on the external genitalia twice a week lisinopril 10 mg tablet 10 mg PO DAILY Qty: 60 0RF CBD gummy 1 ea PO QAM Gemtesa 75 mg tablet 75 mg PO DAILY Qty: 90 3RF Referrals: Jocelin Alfaro DO [Primary Care Provider] - Stand Alone Forms: Patient Portal/API/Survey
[2024-09-12 12:35] LABS: Add Manual Diff / Slide Review NO; Basophils Absolute Auto 0 /uL (0-100); Basophils Percent Auto 0.6 % (0-2); Eosinophils Absolute Auto 200 /uL (0-450); Eosinophils Percent Auto 2.8 % (2-4); Hemoglobin 14.6 g/dL (12.0-16.0); Lymphocytes Absolute Auto 1200 /uL (1100-4500); Lymphocytes Percent Auto 17.3 % (25-40); Mean Corpuscular HGB Conc 33.9 % (30-36); Mean Corpuscular Hemoglobin 31.1 PG (26-34); Mean Corpuscular Volume 91.8 fL (80-100); Monocytes Absolute Auto 400 /uL (0-900); Monocytes Percent Auto 5.6 % (3-14); Neutrophils Absolute Auto 5000 /uL (1500-7000); Neutrophils Percent Auto 73.7 % (50-75); Platelet Count 209 X10^3/uL (150-400); Red Blood Cell Count 4.68 X10^6/uL (4.0-5.2); Red Cell Distribution Width 14.2 % (11.6-14.8); White Blood Cell Count 6.8 X10^3/uL (4.5-11.0)
[2024-09-12 12:36] LABS: Prothrombin Time 10.9 SECONDS (9.4-12.5)
[2024-09-12 12:38] LABS: PTT Partial Thromboplastin Tim 30 SECONDS (25.1-36.5)
[2024-09-12 12:42] LABS: Alanine Aminotransferase 36 IU/L (<35); Albumin 4.5 g/dL (3.5-5.0); Albumin Globulin Ratio 1.7 (1.0-2.8); Alkaline Phosphatase 75 U/L (38-126); Aspartate Aminotransferase 30 IU/L (14-36); BUN Creatinine Ratio 19.8 (6-22); Bilirubin Total 0.7 mg/dL (0.2-1.3); Blood Urea Nitrogen 16 mg/dL (7-17); Calcium 9.6 mg/dL (8.4-10.2); Carbon Dioxide 28 mmol/L (22-32); Chloride 104 mmol/L (98-107); Creatine Kinase 104 U/L (30-135); Estimated Glomerular Filt Rate > 60 mL/min (>60); Globulin 2.7 g/dL (1.7-4.1); Glucose 94 mg/dL (80-110); HEMOLYSIS < 15 (0-50); Lipase 62 U/L (23-300); Magnesium 2.4 mg/dL (1.6-2.3); Potassium 4.2 mmol/L (3.4-5.1); Sodium 139 mmol/L (137-145); Total Protein 7.2 g/dL (6.3-8.2)
[2024-09-12] MEDS: ACETAMINOPHEN 325 MG TABLET 975 MG PO (12:49)
[2024-09-12 12:54] LABS: NT-proBNP (BNP-Adult 18+) 49 pg/mL (<450); Troponin I < 0.012 ng/mL (0.01-0.034)
--- NOTE | 2024-09-12 12:57 | DI.CT.S_ITS ---
PROCEDURE: CT ANGIO CHEST ABDOMEN PELVIS INDICATIONS: very high blood pressures TECHNIQUE: Precontrast 5 mm thick sections acquired from the lung apices to the iliac crests. After the administration of intravenous contrast, 2.5 mm thick sections again acquired from the lung apices to the iliac crests. Maximum intensity projection (MIP) oblique sagittal and coronal reformats were then acquired. For radiation dose reduction, the following was used: automated exposure control. COMPARISON: None. FINDINGS: Image quality: Diagnostic. Thyroid: Within normal limits. Cardiac: Heart size within normal limits. No pericardial effusion. Aorta: Thoracic aortic diameter within normal limits. No intramural hematoma, aneurysm, or dissection. Pulmonary Artery: Main pulmonary artery diameter within normal limits. Lungs: No focal lung consolidation. Pleura: No pneumothorax or pleural effusion. Airways: The trachea and mainstem bronchi are patent. Lymph Nodes: No mediastinal, hilar, or axillary lymphadenopathy. Esophagus: Within normal limits. Peritoneum: No pneumoperitoneum or ascites. Bones: No acute osseous abnormality. Diffuse osseous demineralization. Status post L3-L4 TLIF as well as L4-L5 and L5-S1 disc cage placement. Status post right hip total arthroplasty. No hardware complication in the field of view. Liver: Normal in size and contour. Gallbladder: Surgically absent. Biliary tree: No intrahepatic or extrahepatic biliary ductal dilatation. Pancreas: Within normal limits. Spleen: Normal in size and contour. Kidneys: No hydronephrosis or obstructive urolithiasis. Adrenals: No adrenal nodularity. Bladder: Normal in size and wall thickness. : No acute abnormality. Stomach: Normal in size and contour. Bowel: Normal in diameter without any bowel obstruction. Nonvisualization of the appendix without secondary signs of acute appendicitis. Scattered colonic diverticulosis, predominantly at the sigmoid colon (5/272). Lymph Nodes: No retroperitoneal, mesenteric, or inguinal lymphadenopathy. Vascular: No abdominal aortic aneurysm. The visualized arterial vasculature is patent. Soft Tissues: No acute abnormality. IMPRESSION: 1. No acute aortic syndrome. 2. No acute CT abnormality of the chest/abdomen/pelvis. Dictated by: Joseph Munoz M.D. on 09/12/2024 at 12:29 Approved by: Joseph Munoz M.D. on 09/12/2024 at 12:38
== END 2024-09-12 15:04 | disposition home or self-care (01) ==
PROVIDERS: Emergency Provider Emergency Medicine; Family Provider Family Medicine; PCP Family Medicine
DX: I10 Essential (primary) hypertension (principal); R10.30 Lower abdominal pain, unspecified; Z87.891 Personal history of nicotine dependence
CPT/HCPCS: 36415; 71045; 71275; 74174; 80053; 82550; 83690; 83735; 83880; 84484; 85025; 85610; 85730; 93005; 93010; 99284; Q9967

== ENCOUNTER 2024-09-16 09:36 | Emergency (ER) | payer MEDICARE, OTHER, SELFPAY ==
[2020-08-18 16:29] VITALS: BMI 24.4
[2024-09-16 09:52] VITALS: BP 196/85; PULSE 66; RESP 28; TEMP 36.4; O2SAT 98; BMI 23.6
--- NOTE | 2024-09-16 09:56 | DI.RAD.S_ITS ---
PROCEDURE: XR CHEST 1V INDICATIONS: chest pain TECHNIQUE: One view of the chest was acquired. COMPARISON: [facility], CR, XR CHEST 1V, 09/12/2024, 11:52. FINDINGS: Surgical changes and devices: None. Lungs and pleura: Lungs are clear. No pleural effusions or pneumothorax. Mediastinum: Mediastinal contours appear normal. Heart size is normal. Bones and chest wall: No suspicious bony lesions. Overlying soft tissues appear unremarkable. IMPRESSION: No acute cardiopulmonary abnormality is seen. Approved by: Robetr Pinon M.D. on 09/16/2024 at 10:30
--- NOTE | 2024-09-16 10:01 | EKG_ITS ---
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
[2024-09-16 10:21] LABS: Add Manual Diff / Slide Review NO; Basophils Absolute Auto 100 /uL (0-100); Basophils Percent Auto 0.8 % (0-2); Eosinophils Absolute Auto 200 /uL (0-450); Eosinophils Percent Auto 3.2 % (2-4); Hematocrit 43.6 % (36-46); Hemoglobin 14.7 g/dL (12.0-16.0); Lymphocytes Absolute Auto 1200 /uL (1100-4500); Lymphocytes Percent Auto 17.8 % (25-40); Mean Corpuscular HGB Conc 33.7 % (30-36); Monocytes Absolute Auto 400 /uL (0-900); Monocytes Percent Auto 6.1 % (3-14); Neutrophils Absolute Auto 5100 /uL (1500-7000); Neutrophils Percent Auto 72.1 % (50-75); Platelet Count 217 X10^3/uL (150-400); Red Blood Cell Count 4.74 X10^6/uL (4.0-5.2); Red Cell Distribution Width 14.1 % (11.6-14.8)
[2024-09-16 10:24] LABS: INR 0.9 (0.9-1.3); Prothrombin Time 10.5 SECONDS (9.4-12.5)
[2024-09-16 10:27] LABS: PTT Partial Thromboplastin Tim 31 SECONDS (25.1-36.5)
[2024-09-16 10:29] LABS: Alanine Aminotransferase 39 IU/L (<35); Albumin 4.8 g/dL (3.5-5.0); Albumin Globulin Ratio 1.7 (1.0-2.8); Alkaline Phosphatase 81 U/L (38-126); Aspartate Aminotransferase 37 IU/L (14-36); BUN Creatinine Ratio 25.9 (6-22); Bilirubin Total 0.9 mg/dL (0.2-1.3); Blood Urea Nitrogen 21 mg/dL (7-17); Calcium 9.7 mg/dL (8.4-10.2); Carbon Dioxide 27 mmol/L (22-32); Chloride 103 mmol/L (98-107); Creatine Kinase 152 U/L (30-135); Estimated Glomerular Filt Rate > 60 mL/min (>60); Globulin 2.8 g/dL (1.7-4.1); Glucose 98 mg/dL (80-110); HEMOLYSIS < 15 (0-50); Lipase 58 U/L (23-300); Magnesium 2.2 mg/dL (1.6-2.3); Potassium 4.2 mmol/L (3.4-5.1); Sodium 139 mmol/L (137-145); Total Protein 7.6 g/dL (6.3-8.2)
[2024-09-16 10:41] LABS: NT-proBNP (BNP-Adult 18+) 95 pg/mL (<450); Troponin I < 0.012 ng/mL (0.01-0.034)
[2024-09-16 12:09] VITALS: BP 167/80; PULSE 62; RESP 14; O2SAT 97
--- NOTE | 2024-09-16 12:43 | ED_ITS ---
HPI - General Adult <Jessica Quinteros PA-C - Last Filed: 09/16/24 14:03> General Chief complaint: Hypertension Stated complaint: High blood pressure Time Seen by Provider: 09/16/24 12:30 Source: patient Mode of arrival: Family Vehicle History of Present Illness HPI narrative: Ms. Jacob is a pleasant 78-year-old female with a past medical history of hypertension, osteoarthritis, hiatal hernia, acquired hypothyroidism, cognitive impairment who presents to the emergency department with her daughter for elevated blood pressure this morning. Patient states on 09/11/2024 she was recently started on lisinopril for blood pressure. She came to the emergency department 4 days ago due to elevated blood pressure at home and some abdominal discomfort. Her lisinopril was increased from 10 mg to 20mg. Patient states this morning she was feeling some head pressure, took her blood pressure and found systolics in the 200s which prompted her emergency department arrival. Blood pressure was initially 196/85 with the emergency department, now 167/80 in the emergency department. She admits to some mild head pressure but denies chest pain, shortness of breath, dizziness, lightheadedness, visual disturbance, urinary concerns. Related Data Home Medications Medication Instructions Recorded Confirmed CBD gummy 1 ea PO QAM 11/26/23 09/10/24 Lifewise patches transdermal 04/14/24 09/10/24 clobetasol 0.05 % topical ointment 1 applic topical DAILY PRN 09/10/24 Previous Rx's Medication Instructions Recorded Disabled Parking Permit #1 ea 01/03/21 Prometrium 200 mg capsule 200 mg PO BEDTIME #90 caps 04/14/24 (progesterone micronized) vibegron 75 mg tablet (Gemtesa) 75 mg PO DAILY #90 tabs 05/14/24 estradiol 0.01% (0.1 mg/gram) 0.5 g vaginal 2XW #42.5 grams 07/10/24 vaginal cream (Estrace) lisinopril 20 mg tablet 20 mg PO DAILY #90 tabs 09/15/24 Allergies Allergy/AdvReac Type Severity Reaction Status Date / Time trazodone AdvReac Mild Headaches Verified 09/16/24 09:55 Review of Systems <Jessica Quinteros PA-C - Last Filed: 09/16/24 14:03> Review of Systems ROS Unobtainable: All systems reviewed & are unremarkable except as noted in HPI and below Patient History <Jessica Quinteros PA-C - Last Filed: 09/16/24 14:03> Medical History Left rotator cuff tear Colitis (1975) Sessile colonic polyp (11/21/14) Urinary incontinence Weakness of pelvic floor Overactive bladder COVID-19 Cognitive impairment Insect sting JAVY (stress urinary incontinence, female) Atrophic vulvovaginitis Lichen sclerosus Postoperative anemia due to acute blood loss Postmenopausal History of bronchitis Herpes Hemorrhoids (1974) Abnormal Pap smear of cervix (1976) Chicken pox (1957) Measles (1957) Chronic back pain (1995) Chronic headaches (1957) Depression (1999) Anxiety (1999) Hypothyroidism Constipation Cervical cancer (1976) Surgical History History of colonoscopy with polypectomy Anesthesia Status post biopsy (10/24/11) History of esophagogastroduodenoscopy (EGD) (10/24/11) Status post colonoscopy (10/24/11) History of spinal fusion (2001) History of spinal fusion (2012) History of tonsillectomy (1966) Status post appendectomy (1956) Status post vaginal hysterectomy (1977) Status post laparoscopic cholecystectomy (2000) History of spinal fusion (1999) Family History Daughter Age: 49 No problems noted. Father Colon cancer Alcoholism Osteoarthritis Mother Colon cancer CAD (coronary artery disease) Hypertension Hyperlipidemia Stroke Heart disease Bladder cancer Sister Adenocarcinoma, lung Hyperlipidemia Sister Age: 73 Hyperlipidemia Son No problems noted. Social History household members: spouse Smoking Status: Former smoker alcohol intake: current substance use type: does not use Smoking Status: Former smoker alcohol intake frequency: a few times a month Exam <Jessica Quinteros PA-C - Last Filed: 09/16/24 14:03> Narrative Exam Narrative: GENERAL: 78 year old patient appears stated age. Well-developed patient, in no acute distress. HEAD: Atraumatic. Normocephalic. EYES: PERRL. Extraocular motions intact. No scleral icterus. No injection or drainage. ENT: Nose without bleeding, purulent drainage. Airway patent. NECK: Trachea midline. Cervical ROM intact. CARDIOVASCULAR: Regular rate and rhythm. RESPIRATORY: ?Nonlabored respirations. ?Speaking in clear, full sentences. ?Clear to auscultation. Breath sounds equal bilaterally. No wheezes, rales, or rhonchi. ? GASTROINTESTINAL: Abdomen soft, non-tender, nondistended. EXTREMITIES: No edema or joint tenderness. BACK: Nontender without deformity or crepitance. No flank tenderness. NEURO: Alert and oriented. ?Clear speech. No pronator drift. Normal heel- cedeno. ?Moves all 4 extremities appropriately with the exception of pain and left shoulder with abduction SKIN: No rash or erythema of visible areas Initial Vital Signs Initial Vital Signs: Vital Signs Temperature 97.6 F 09/16/24 09:52 Pulse Rate 66 09/16/24 09:52 Respiratory Rate 28 H 09/16/24 09:52 Blood Pressure 196/85 H 09/16/24 09:52 Pulse Oximetry 98 09/16/24 09:52 Oxygen Delivery Method Room Air 09/16/24 09:52 <Mariah Anderson MD - Last Filed: 09/19/24 04:07> Initial Vital Signs Initial Vital Signs: Vital Signs Temperature 97.6 F 09/16/24 09:52 Pulse Rate 66 09/16/24 09:52 Respiratory Rate 28 H 09/16/24 09:52 Blood Pressure 196/85 H 09/16/24 09:52 Pulse Oximetry 98 09/16/24 09:52 Oxygen Delivery Method Room Air 09/16/24 09:52 Course <Jessica Quinteros PA-C - Last Filed: 09/16/24 14:03> Orders Ordered: Discontinued Medications Acetaminophen (Acetaminophen 325 Mg Tablet) 975 mg PO NOW ONE Stop: 09/16/24 13:09 Last Admin: 09/16/24 13:21 Dose: 975 mg Documented By: MARZENA Aspirin (Aspirin 81 Mg Chew Tab) 324 mg PO NOW ONE Stop: 09/16/24 09:56 Last Admin: 09/16/24 12:25 Dose: Not Given Documented By: RLS Vital Signs Vital signs: Vital Signs - 8 hr 09/16/24 09:52 09/16/24 12:09 09/16/24 13:17 Temperature 97.6 F Pulse Rate 66 62 62 Respiratory Rate 28 H 14 14 Blood Pressure 196/85 H 167/80 H 160/74 H Pulse Oximetry 98 97 96 Oxygen Delivery Method Room Air Room Air <Mariah Anderson MD - Last Filed: 09/19/24 04:07> Orders Ordered: Discontinued Medications Acetaminophen (Acetaminophen 325 Mg Tablet) 975 mg PO NOW ONE Stop: 09/16/24 13:09 Last Admin: 09/16/24 13:21 Dose: 975 mg Documented By: MARZENA Aspirin (Aspirin 81 Mg Chew Tab) 324 mg PO NOW ONE Stop: 09/16/24 09:56 Last Admin: 09/16/24 12:25 Dose: Not Given Documented By: RLS Vital Signs Vital signs: Vital Signs - 8 hr 09/16/24 09:52 09/16/24 12:09 09/16/24 13:17 Temperature 97.6 F Pulse Rate 66 62 62 Respiratory Rate 28 H 14 14 Blood Pressure 196/85 H 167/80 H 160/74 H Pulse Oximetry 98 97 96 Oxygen Delivery Method Room Air Room Air Medical Decision Making <Jessica Quinteros PA-C - Last Filed: 09/16/24 14:03> Medical Records Medical records reviewed: Yes I reviewed the patient's medical records. Lab Data 09/16/24 10:09 09/16/24 10:09 Labs: Lab Results 09/16/24 09/16/24 Range/Units 10:09 13:07 WBC 7.0 (4.5-11.0) X10^3/uL RBC 4.74 (4.0-5.2) X10^6/uL Hgb 14.7 (12.0-16.0) g/dL Hct 43.6 (36-46) % MCV 92.0 (80-100) fL MCH 31.0 (26-34) PG MCHC 33.7 (30-36) % RDW 14.1 (11.6-14.8) % Plt Count 217 (150-400) X10^3/uL Neut % (Auto) 72.1 (50-75) % Lymph % (Auto) 17.8 L (25-40) % [place] % (Auto) 6.1 (3-14) % Eos % (Auto) 3.2 (2-4) % Baso % (Auto) 0.8 (0-2) % Neut # (Auto) 5100 (4885-4312) /uL Lymph # (Auto) 1200 (2639-6205) /uL [place] # (Auto) 400 (0-900) /uL Eos # (Auto) 200 (0-450) /uL Baso # (Auto) 100 (0-100) /uL PT 10.5 (9.4-12.5) SECONDS INR 0.9 (0.9-1.3) APTT 31 (25.1-36.5) SECONDS Sodium 139 (137-145) mmol/L Potassium 4.2 (3.4-5.1) mmol/L Chloride 103 (98-107) mmol/L Carbon Dioxide 27 (22-32) mmol/L BUN 21 H (7-17) mg/dL Creatinine 0.81 (0.52-1.04) mg/dL Estimated GFR > 60 (>60) mL/min BUN/Creatinine Ratio 25.9 H (6-22) Glucose 98 (80-110) mg/dL Calcium 9.7 (8.4-10.2) mg/dL Magnesium 2.2 (1.6-2.3) mg/dL Total Bilirubin 0.9 (0.2-1.3) mg/dL AST 37 H (14-36) IU/L ALT 39 H (<35) IU/L Alkaline Phosphatase 81 (38-126) U/L Total Creatine Kinase 152 H (30-135) U/L Troponin I < 0.012 < 0.012 (0.01-0.034) ng/mL NT-Pro-B Natriuret Pep 95 (<450) pg/mL Total Protein 7.6 (6.3-8.2) g/dL Albumin 4.8 (3.5-5.0) g/dL Globulin 2.8 (1.7-4.1) g/dL Albumin/Globulin Ratio 1.7 (1.0-2.8) Lipase 58 (23-300) U/L MDM Narrative Medical decision making narrative: 78-year-old female with a past medical history of hypertension, osteoarthritis, hiatal hernia, acquired hypothyroidism, cognitive impairment who presents to the emergency department with her daughter for elevated blood pressure this morning. Differential diagnosis includes but is not limited to hypertensive urgency, hypertensive emergency, elevated blood pressure, end-organ dysfunction, tension headache, etc. On exam patient is in no acute distress, nontoxic appearing, vital signs appropriate except for elevated blood pressure of 167/80 at my time of evaluation. Workup was initially started in triage and then she was moved to my fast track area of the emergency department. This time she has no focal neurologic deficits, no chest pain or shortness of breath, no difficulty with urination. Since starting on blood pressure medications a few days ago, she has been taking her blood pressure frequently and finding that it is often elevated. Labs reveal normal WBC count 7.0. Platelets 217. Normal renal function with a creatinine of 0.81. Normal electrolytes. Troponin negative x2. BNP negative. Chest x-ray reveals no acute cardiopulmonary abnormality. Patient continues to be asymptomatic and her blood pressure is down trending. Discussed that there is no sign of end-organ dysfunction at this time, no indication for abrupt blood pressure lowering. Recommended rest, hydration, follow up with PCP, continue taking lisinopril. Both patient and daughter verbalized understanding of all information agreeable to the plan. ED return precautions discussed. She is stable for discharge home. <Mariah Anderson MD - Last Filed: 09/19/24 04:07> Lab Data Labs: Lab Results 09/16/24 09/16/24 Range/Units 10:09 13:07 WBC 7.0 (4.5-11.0) X10^3/uL RBC 4.74 (4.0-5.2) X10^6/uL Hgb 14.7 (12.0-16.0) g/dL Hct 43.6 (36-46) % MCV 92.0 (80-100) fL MCH 31.0 (26-34) PG MCHC 33.7 (30-36) % RDW 14.1 (11.6-14.8) % Plt Count 217 (150-400) X10^3/uL Neut % (Auto) 72.1 (50-75) % Lymph % (Auto) 17.8 L (25-40) % [place] % (Auto) 6.1 (3-14) % Eos % (Auto) 3.2 (2-4) % Baso % (Auto) 0.8 (0-2) % Neut # (Auto) 5100 (2185-9742) /uL Lymph # (Auto) 1200 (9292-0711) /uL [place] # (Auto) 400 (0-900) /uL Eos # (Auto) 200 (0-450) /uL Baso # (Auto) 100 (0-100) /uL PT 10.5 (9.4-12.5) SECONDS INR 0.9 (0.9-1.3) APTT 31 (25.1-36.5) SECONDS Sodium 139 (137-145) mmol/L Potassium 4.2 (3.4-5.1) mmol/L Chloride 103 (98-107) mmol/L Carbon Dioxide 27 (22-32) mmol/L BUN 21 H (7-17) mg/dL Creatinine 0.81 (0.52-1.04) mg/dL Estimated GFR > 60 (>60) mL/min BUN/Creatinine Ratio 25.9 H (6-22) Glucose 98 (80-110) mg/dL Calcium 9.7 (8.4-10.2) mg/dL Magnesium 2.2 (1.6-2.3) mg/dL Total Bilirubin 0.9 (0.2-1.3) mg/dL AST 37 H (14-36) IU/L ALT 39 H (<35) IU/L Alkaline Phosphatase 81 (38-126) U/L Total Creatine Kinase 152 H (30-135) U/L Troponin I < 0.012 < 0.012 (0.01-0.034) ng/mL NT-Pro-B Natriuret Pep 95 (<450) pg/mL Total Protein 7.6 (6.3-8.2) g/dL Albumin 4.8 (3.5-5.0) g/dL Globulin 2.8 (1.7-4.1) g/dL Albumin/Globulin Ratio 1.7 (1.0-2.8) Lipase 58 (23-300) U/L Discharge Plan Departure Patient Disposition: Home Clinical Impression: Hypertension Qualifiers: Hypertension type: unspecified Qualified Code(s): I10 - Essential (primary) hypertension Instructions: DI for High Blood Pressure Activity Restrictions/Additional Instructions: Dear Ms. Jacob, Thank you for coming to the emergency department. Today you were evaluated for elevated blood pressure. Your lab work and imaging today were all very reassuring. Please continue taking your 20 mg lisinopril as prescribed, and follow up with the primary care doctor for further evaluation. At your next primary care doctor's appointment, please be sure to bring your blood pressure cuff with you to make sure that it is calibrated appropriately. Please return to the emergency department if you develop any signs or symptoms such as chest pain, difficulty breathing or shortness of breath, dizziness, lightheadedness, weakness numbness or tingling, or any other concerns. Please follow up with your primary care doctor within the next 2-3 days for ER follow-up. (If you do not have a PCP you can call [phone]. ?to schedule an appointment with an [facility] Primary Care Provider) IF YOU DEVELOP ANY NEW OR WORSENING SYMPTOMS, RETURN TO THE ER! Please read the attached instructions, they highlight more specific treatments and interventions for you at home. Thank you for letting me participate in your care, Jessica Quinteros PA-C Prescriptions: No Action estradiol [Estrace] 0.01 % (0.1 mg/gram) cream 0.5 g vaginal 2XW Qty: 42.5 3RF Rx Instructions: Apply to effected area on the external genitalia twice a week (DME) Disabled Parking Permit See Rx Instructions .ROUTE .MEDSUPPLY Qty: 1 0RF Rx Instructions: Valid for 5 years progesterone micronized [Prometrium] 200 mg capsule 200 mg PO BEDTIME Qty: 90 3RF Hold Instructions: not taking Rx Instructions: Take nightly 21 nights, then pause 7 nights to let receptors re-sensitize. Lifewise patches transdermal Patient Comments: Trying for memory, started 03/2024 clobetasol 0.05 % ointment 1 applic topical DAILY PRN Rx Instructions: Apply to effected area on the external genitalia twice a week lisinopril 20 mg tablet 20 mg PO DAILY Qty: 90 0RF CBD gummy 1 ea PO QAM Gemtesa 75 mg tablet 75 mg PO DAILY Qty: 90 3RF Referrals: Jocelin Alfaro DO [Primary Care Provider] - Stand Alone Forms: Patient Portal/API/Survey ED Sign-out <Mariah Anderson MD - Last Filed: 09/19/24 04:07> Cosign ED Attending Agnes Attestation: I was immediately available in the department for consultation throughout this patient's visit. Mariah Anderson MD
[2024-09-16 13:17] VITALS: BP 160/74; PULSE 62; RESP 14; O2SAT 96
[2024-09-16] MEDS: ACETAMINOPHEN 325 MG TABLET 975 MG PO (13:21)
[2024-09-16 13:44] LABS: Troponin I < 0.012 ng/mL (0.01-0.034)
--- NOTE | 2024-09-16 14:15 | PC.NURSE ---
Pt reports ongoing high blood pressure. Pt states she also has a headache that does respond to tyelonal. Respirations regular and unlabored. Pt states she recently started on lisinopril. Pt denies chest pain.
[2024-09-16 14:17] VITALS: BP 173/79; PULSE 62; RESP 16; O2SAT 94
== END 2024-09-16 14:18 | disposition home or self-care (01) ==
PROVIDERS: Emergency Medicine; Emergency Provider Physician Assistant; Family Provider Family Medicine; PCP Family Medicine
DX: I10 Essential (primary) hypertension (principal); R10.9 Unspecified abdominal pain; R07.9 Chest pain, unspecified
CPT/HCPCS: 36415; 71045; 80053; 82550; 83690; 83735; 83880; 84484; 85025; 85610; 85730; 93005; 93010; 99283; 99284

== ENCOUNTER → 2024-10-03 08:37 | Outpatient (CLI) | payer MEDICARE, OTHER, SELFPAY ==
[2020-08-18 16:29] VITALS: BMI 24.4
[2024-10-03 10:38] LABS: Alanine Aminotransferase 26 IU/L (<35); Albumin 4.5 g/dL (3.5-5.0); Albumin Globulin Ratio 2.1 (1.0-2.8); Alkaline Phosphatase 64 U/L (38-126); Aspartate Aminotransferase 27 IU/L (14-36); BUN Creatinine Ratio 19.3 (6-22); Bilirubin Total 1.1 mg/dL (0.2-1.3); Blood Urea Nitrogen 17 mg/dL (7-17); Calcium 10.1 mg/dL (8.4-10.2); Carbon Dioxide 28 mmol/L (22-32); Chloride 103 mmol/L (98-107); Estimated Glomerular Filt Rate > 60 mL/min (>60); Globulin 2.1 g/dL (1.7-4.1); Glucose 99 mg/dL (80-110); HEMOLYSIS < 15 (0-50); Potassium 4.5 mmol/L (3.4-5.1); Sodium 139 mmol/L (137-145); Total Protein 6.6 g/dL (6.3-8.2)
[2024-10-03 11:05] LABS: TSH w/ Reflex to FT4 0.03 uIU/mL (0.47-4.68)
[2024-10-03 11:24] LABS: Vitamin B12 730 pg/mL (239-931)
[2024-10-03 13:07] LABS: Free T4, Direct Thyroxine 0.98 ng/dL (0.78-2.19)
== END ==
LOC: LAB 08:40
PROVIDERS: Family Provider Family Medicine; PCP Family Medicine; Referring Provider Family Medicine; Visit Provider Family Medicine
DX: I10 Essential (primary) hypertension (principal); R41.3 Other amnesia
CPT/HCPCS: 36415; 80053; 82607; 84439; 84443

== ENCOUNTER → 2024-11-03 18:47 | Outpatient (CLI) | payer MEDICARE, OTHER, SELFPAY ==
[2020-08-18 16:29] VITALS: BMI 24.4
--- NOTE | 2024-11-03 18:49 | DI.MRI.S_ITS ---
PROCEDURE: MR CERVICAL SPINE WO CON INDICATIONS: rule out nerve compression TECHNIQUE: Noncontrast sagittal T1 spin echo and T2 fast spin echo, sagittal STIR, foraminal oblique sagittal T2 fast spin echo, and axial gradient echo or T2 fast spin echo through the cervical spine. COMPARISON: None. FINDINGS: Image quality: Excellent. Alignment and Curvature: There is normal bony alignment. Bone Marrow: Marrow demonstrates normal overall signal. Spinal Cord: Visualized spinal cord has normal size and signal. No cerebellar tonsillar herniation. Paraspinous Soft Tissues: No paravertebral masses. Prevertebral soft tissues are normal in thickness. C2-C3: Disc desiccation. No significant central canal or neural foraminal stenosis. C3-C4: Disc desiccation and mild height loss. Posterior disc osteophyte complex. Facet and uncovertebral arthropathy. No central canal stenosis. Mild bilateral neural foraminal stenosis. C4-C5: Disc desiccation and mild posterior disc osteophyte complex. Facet uncovertebral arthropathy. No central canal stenosis. [id number] right and mild left neural foraminal stenosis. C5-C6: Disc desiccation and mild height loss. Posterior disc osteophyte complex. Facet uncovertebral arthropathy. Moderate to severe right and moderate left neural foraminal stenosis. C6-C7: Disc desiccation and posterior disc osteophyte complex. Facet uncovertebral arthropathy. No significant central canal stenosis. [id number] bilateral neural foraminal stenosis. C7-T1: No central canal stenosis. Facet and uncovertebral arthropathy. Mild bilateral neural foraminal stenosis. IMPRESSION: 1. Multilevel degenerative changes of the cervical spine as described above. 2. No significant central canal stenosis. 3. Moderate to severe right and moderate left neural foraminal stenosis at C5-C6. More mild neural foraminal stenosis at other levels. Dictated by: Charles Barnard M.D. on 11/04/2024 at 8:45 Approved by: Charles Barnard M.D. on 11/04/2024 at 8:55
== END ==
LOC: MRI 18:48
PROVIDERS: Family Provider Family Medicine; PCP Family Medicine; Referring Provider Family Medicine; Visit Provider Family Medicine
DX: M47.22 Other spondylosis with radiculopathy, cervical region (principal); M48.02 Spinal stenosis, cervical region; R20.2 Paresthesia of skin
CPT/HCPCS: 72141

== ENCOUNTER → 2024-11-26 07:50 | Outpatient (CLI) | payer MEDICARE, OTHER, SELFPAY ==
[2020-08-18 16:29] VITALS: BMI 24.4
== END ==
PROVIDERS: Family Provider Family Medicine; PCP Family Medicine; Referring Provider Family Medicine; Visit Provider Family Medicine
DX: R20.2 Paresthesia of skin (principal)
CPT/HCPCS: 95886; 95910

== ENCOUNTER → 2024-12-14 09:03 | Outpatient (CLI) | payer MEDICARE, OTHER, SELFPAY ==
[2020-08-18 16:29] VITALS: BMI 24.4
[2024-12-14 13:09] LABS: Appearance Urine UA CLEAR; Bilirubin Urine UA NEGATIVE (NEGATIVE); Color Urine UA YELLOW; Glucose Urine UA NEGATIVE (Negative); Ketones Urine UA NEGATIVE (NEGATIVE); Leukocyte Esterase Urine UA NEGATIVE (NEGATIVE); Nitrite Urine UA NEGATIVE (Negative); Occult Blood Urine UA NEGATIVE (Negative); Protein Urine UA NEGATIVE (Negative); Specific Gravity Urine UA <=1.005 (1.000-1.035); Urobilinogen Urine UA 0.2 E.U./dL (0.2)
[2024-12-14 13:25] LABS: Bacteria Urine Occasional (0-1); Culture Indicated Urine Cult Not Indicated; RBC Urine 0-1/HPF (0-5/HPF); Squamous Epithelial Cell Urine 0-1 /HPF (0-5/HPF); Urine Volume 10mL (spun); WBC Urine 0-1/HPF (0-5/HPF)
== END ==
PROVIDERS: PCP Family Medicine; Visit Provider Obstetrics & Gynecology Gynecology
DX: N39.3 Stress incontinence (female) (male) (principal); N95.2 Postmenopausal atrophic vaginitis
CPT/HCPCS: 81001

== ENCOUNTER 2024-12-15 20:56 | Inpatient (IN) | payer MEDICARE, OTHER, SELFPAY ==
[2020-08-18 16:29] VITALS: BMI 24.4
[2024-12-15] VITALS (7 sets, daily range): BP systolic 121–172; BP diastolic 64–92; PULSE 66–75; RESP 17–21; TEMP 36.9; O2SAT 95–98; BMI 23.6
[2024-12-15 21:32] LABS: Add Manual Diff / Slide Review NO; Basophils Absolute Auto 100 /uL (0-100); Basophils Percent Auto 0.5 % (0-2); Eosinophils Absolute Auto 200 /uL (0-450); Eosinophils Percent Auto 1.7 % (2-4); Hematocrit 45.2 % (36-46); Hemoglobin 15.8 g/dL (12.0-16.0); Lymphocytes Absolute Auto 1300 /uL (1100-4500); Lymphocytes Percent Auto 9.6 % (25-40); Mean Corpuscular HGB Conc 34.9 % (30-36); Mean Corpuscular Volume 91.9 fL (80-100); Monocytes Absolute Auto 700 /uL (0-900); Monocytes Percent Auto 5.1 % (3-14); Neutrophils Absolute Auto 11500 /uL (1500-7000); Neutrophils Percent Auto 83.1 % (50-75); Platelet Count 233 X10^3/uL (150-400); Red Blood Cell Count 4.92 X10^6/uL (4.0-5.2); Red Cell Distribution Width 13.1 % (11.6-14.8); White Blood Cell Count 13.8 X10^3/uL (4.5-11.0)
--- NOTE | 2024-12-15 21:33 | EKG_ITS ---
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
[2024-12-15] MEDS: HYDROMORPHONE 0.5 MG INJ IV (21:35)
[2024-12-15] MEDS: ONDANSETRON 4 MG/2 ML INJ IV (21:35)
[2024-12-15 21:44] LABS: Alanine Aminotransferase 30 IU/L (<35); Albumin Globulin Ratio 1.6 (1.0-2.8); Alkaline Phosphatase 83 U/L (38-126); Aspartate Aminotransferase 34 IU/L (14-36); BUN Creatinine Ratio 18.4 (6-22); Blood Urea Nitrogen 18 mg/dL (7-17); Calcium 10.4 mg/dL (8.4-10.2); Carbon Dioxide 28 mmol/L (22-32); Chloride 103 mmol/L (98-107); Estimated Glomerular Filt Rate 59 mL/min (>60); Globulin 3.2 g/dL (1.7-4.1); Glucose 113 mg/dL (70-99); HEMOLYSIS < 15 (0-50); Lipase 50 U/L (23-300); Potassium 4.3 mmol/L (3.4-5.1); Sodium 139 mmol/L (137-145); Total Protein 8.2 g/dL (6.3-8.2)
--- NOTE | 2024-12-15 22:50 | ED.GENADULT ---
HPI - General Adult General Chief complaint: Abdominal Pain Stated complaint: Abdominal Pain, Nausea Time Seen by Provider: 12/15/24 21:10 Source: patient Mode of arrival: Ambulatory History of Present Illness HPI narrative: 79-year-old female with history of prior appendectomy and cholecystectomy and anterior approach lumbar surgery, has prior history of remote colitis episode, complains of nontraumatic abdominal pain onset 4:00 p.m. today epigastrium at the same time as right lower quadrant and left lower quadrant. Last bowel movement earlier today unremarkable, no black or red color. No recent nausea or vomiting. Denies chest pain cough shortness of breath. No blood thinner medications recalled. No changes in medications. No painful or frequent urination. No flank area back pain. Related Data Home Medications ?Medication ?Instructions ?Recorded ?Confirmed CBD gummy 1 ea PO QAM 11/26/23 12/14/24 Lifewise patches transdermal 04/14/24 12/14/24 clobetasol 0.05 % topical ointment 1 applic topical DAILY PRN 09/10/24 12/14/24 melatonin PO 10/27/24 12/14/24 Previous Rx's ?Medication ?Instructions ?Recorded Disabled Parking Permit #1 ea 01/03/21 estradiol 0.01% (0.1 mg/gram) 0.5 g vaginal 2XW #42.5 grams 07/10/24 vaginal cream (Estrace) acyclovir 800 mg tablet 800 mg PO DAILY PRN herpes #30 10/06/24 tabs amlodipine 2.5 mg tablet 2.5 mg PO DAILY #90 tabs 10/06/24 lisinopril 20 mg tablet 20 mg PO DAILY #90 tabs 10/06/24 Prometrium 200 mg capsule 200 mg PO BEDTIME #90 caps 10/27/24 (progesterone micronized) tolterodine 2 mg capsule,extended 2 mg PO DAILY #90 caps 11/11/24 release 24 hr hydroxyzine HCl 25 mg tablet 25 mg PO BEDTIME #30 tabs 11/12/24 Myrbetriq 50 mg tablet,extended 50 mg PO DAILY #90 tabs 11/17/24 release (mirabegron) Allergies Allergy/AdvReac Type Severity Reaction Status Date / Time trazodone AdvReac Mild Headaches Verified 12/14/24 09:00 Patient History Medical History (Updated 12/16/24 @ 02:15 by Brian Patel MD) Urge incontinence Left rotator cuff tear Colitis (1975) Sessile colonic polyp (11/21/14) Urinary incontinence Weakness of pelvic floor Overactive bladder COVID-19 Cognitive impairment Insect sting JAVY (stress urinary incontinence, female) Atrophic vulvovaginitis Lichen sclerosus Postoperative anemia due to acute blood loss Postmenopausal History of bronchitis Herpes Hemorrhoids (1974) Abnormal Pap smear of cervix (1976) Chicken pox (1957) Measles (1957) Chronic back pain (1995) Chronic headaches (1957) Depression (1999) Anxiety (1999) Hypothyroidism Constipation Cervical cancer (1976) Surgical History History of colonoscopy with polypectomy Anesthesia Status post biopsy (10/24/11) History of esophagogastroduodenoscopy (EGD) (10/24/11) Status post colonoscopy (10/24/11) History of spinal fusion (2001) History of spinal fusion (2012) History of tonsillectomy (1966) Status post appendectomy (1956) Status post vaginal hysterectomy (1977) Status post laparoscopic cholecystectomy (2000) History of spinal fusion (1999) Family History Daughter Age: 49 No problems noted. Father Colon cancer Alcoholism Osteoarthritis Mother Colon cancer CAD (coronary artery disease) Hypertension Hyperlipidemia Stroke Heart disease Bladder cancer Sister Adenocarcinoma, lung Hyperlipidemia Sister Age: 73 Hyperlipidemia Son No problems noted. Social History household members: spouse Smoking Status: Never smoker alcohol intake: current substance use type: does not use Smoking Status: Never smoker alcohol intake frequency: a few times a month Exam Narrative Exam Narrative: GENERAL: Well-developed patient, in mild distress. HEAD: Atraumatic. Normocephalic. EYES: Pupils equal round and reactive. Extraocular motions intact. No scleral icterus. No injection or drainage. ENT: Nose without bleeding, purulent drainage. Throat without erythema, tonsillar hypertrophy or exudate. Airway patent. NECK: Trachea midline. Non tender CARDIOVASCULAR: Regular rate and rhythm without murmurs, gallops, or rubs. RESPIRATORY: Clear to auscultation. Breath sounds equal bilaterally. No wheezes, rales, or rhonchi. GASTROINTESTINAL: Abdomen soft, non-tender, nondistended. Not particularly tender in area of epigastrium, but some tenderness right lower quadrant and left lower quadrant. Nondistended. Normal bowel tones without rushes or tinkles. EXTREMITIES: No edema or joint tenderness. BACK: Nontender without deformity or crepitance. No flank tenderness. NEURO: AOx3. Motor functions grossly nonfocal. SKIN: No rash or erythema of visible areas Initial Vital Signs Initial Vital Signs: Vital Signs Temperature 98.4 F 12/15/24 20:58 Pulse Rate 73 12/15/24 20:58 Respiratory Rate 20 12/15/24 20:58 Blood Pressure 172/85 H 12/15/24 20:58 Pulse Oximetry 98 12/15/24 20:58 Oxygen Delivery Method Room Air 12/15/24 20:58 Course Orders Ordered: ED Orders 12/16/24 00:59 CT abdomen pelvis w con Stat Amlodipine Besylate (Amlodipine 5 Mg Tablet) 2.5 mg PO DAILY DENISE Sodium Chloride (Normal Saline 0.9%) 1,000 mls @ 100 mls/hr IV CONT DENISE Morphine Sulfate (Morphine 4 Mg/Ml Inj) 4 mg IV Q4HR PRN PRN Reason: Pain, Severe (7-10) Ondansetron HCl (Ondansetron 4 Mg/2 Ml Inj) 4 mg IV NOW PRN PRN Reason: Nausea And Vomiting Last Admin: 12/15/24 21:35 Dose: 4 mg Documented By: GABRIELE Ondansetron HCl (Ondansetron 4 Mg Odt) 4 mg PO NOW PRN PRN Reason: Nausea And Vomiting Discontinued Medications Hydromorphone HCl (Hydromorphone 0.5 Mg Inj) 0.5 mg IV NOW ONE Stop: 12/15/24 21:29 Last Admin: 12/15/24 21:35 Dose: 0.5 mg Documented By: GABRIELE Hydromorphone HCl (Hydromorphone 0.5 Mg Inj) 0.5 mg IV NOW ONE Stop: 12/16/24 02:11 Last Admin: 12/16/24 02:16 Dose: 0.5 mg Documented By: GABRIELE Ondansetron HCl (Ondansetron 4 Mg/2 Ml Inj) 4 mg IV NOW ONE Stop: 12/16/24 02:24 Last Admin: 12/16/24 02:26 Dose: 4 mg Documented By: GABRIELE Vital Signs Vital signs: Vital Signs - 8 hr 12/16/24 00:00 12/16/24 00:30 12/16/24 01:00 Pulse Rate 64 62 69 Respiratory Rate 18 16 17 Blood Pressure 155/77 H 131/73 133/70 Pulse Oximetry 98 97 97 Oxygen Delivery Method Nasal Cannula Nasal Cannula Nasal Cannula Oxygen Flow Rate 2 2 2 Medical Decision Making Lab Data 12/15/24 21:25 12/15/24 21:25 Labs: Lab Results 12/15/24 Range/Units 21:25 WBC 13.8 H (4.5-11.0) X10^3/uL RBC 4.92 (4.0-5.2) X10^6/uL Hgb 15.8 (12.0-16.0) g/dL Hct 45.2 (36-46) % MCV 91.9 (80-100) fL MCH 32.0 (26-34) PG MCHC 34.9 (30-36) % RDW 13.1 (11.6-14.8) % Plt Count 233 (150-400) X10^3/uL Neut % (Auto) 83.1 H (50-75) % Lymph % (Auto) 9.6 L (25-40) % [place] % (Auto) 5.1 (3-14) % Eos % (Auto) 1.7 L (2-4) % Baso % (Auto) 0.5 (0-2) % Neut # (Auto) 75687 H (4647-8770) /uL Lymph # (Auto) 1300 (2380-8642) /uL [place] # (Auto) 700 (0-900) /uL Eos # (Auto) 200 (0-450) /uL Baso # (Auto) 100 (0-100) /uL Sodium 139 (137-145) mmol/L Potassium 4.3 (3.4-5.1) mmol/L Chloride 103 (98-107) mmol/L Carbon Dioxide 28 (22-32) mmol/L BUN 18 H (7-17) mg/dL Creatinine 0.98 (0.52-1.04) mg/dL Estimated GFR 59 L (>60) mL/min BUN/Creatinine Ratio 18.4 (6-22) Glucose 113 H (70-99) mg/dL Calcium 10.4 H (8.4-10.2) mg/dL Total Bilirubin 1.0 (0.2-1.3) mg/dL AST 34 (14-36) IU/L ALT 30 (<35) IU/L Alkaline Phosphatase 83 (38-126) U/L Total Protein 8.2 (6.3-8.2) g/dL Albumin 5.0 (3.5-5.0) g/dL Globulin 3.2 (1.7-4.1) g/dL Albumin/Globulin Ratio 1.6 (1.0-2.8) Lipase 50 (23-300) U/L Urine Dip Bedside Urine Glucose Negative Bedside Urine Bilirubin - Negative Bedside Urine Ketone - Negative Urine Specific Novelty 1.020 Bedside Urine Occult Blood - Negative Bedside Urine pH 6.0 Bedside Urine Protein - Negative Bedside Urine Urobilinogen - Negative Bedside Urine Nitrite - Negative Bedside Urine Leukocytes - Negative Esterase Point of care testing: Urine Dip Bedside Urine Glucose Negative Bedside Urine Bilirubin - Negative Bedside Urine Ketone - Negative Urine Specific Novelty 1.020 Bedside Urine Occult Blood - Negative Bedside Urine pH 6.0 Bedside Urine Protein - Negative Bedside Urine Urobilinogen - Negative Bedside Urine Nitrite - Negative Bedside Urine Leukocytes - Negative Esterase ECG Data Attestation: I personally reviewed and interpreted this ECG as follows: Interpretation: Normal sinus rhythm with rate of 70, no obvious ST segment elevation or depression changes. NH 174, QRS 84, QTC 397. MDM Narrative Medical decision making narrative: 79-year-old female with multiple previous abdominopelvic surgeries including prior appendectomy and cholecystectomy in anterior approach lumbar spinal surgery, prior episode of colitis, complains of epigastric and bilateral lower abdominal pain, no trauma. Afebrile, sirs screen negative. Tenderness predominantly right and left lower quadrant more so than in epigastrium. Labs pending. IV Dilaudid dose, pain seems to be improved. Keep NPO. CT abdomen and pelvis ordered. CT abdomen and pelvis shows possible partial small-bowel obstruction, with transition point right lower quadrant. See radiology report. NG tube ordered, to low intermittent wall suction. 0215, case discussed with general surgery Dr Grant, agrees with NG tube. Can consult, admit to hospitalist service. We will page hospitalist. 0230, case discussed with hospitalist Dr. Joyner who accepts patient for admission to inpatient service. Critical Care Time Critical Care Time Critical Care Time: Yes Total Critical Care Time: 35 Attestation: The high probability of a clinically significant, sudden or life threatening deterioration of the [gastrointestinal] system(s) required my full and direct attention, intervention and personal management. The aggregate critical care time was [35] minutes. This time is in addition to time spent performing reported procedures but includes the following: [x] Data Review and interpretation [x] Patient assessment and monitoring of vital signs [x] Documentation [x] Medication orders and management Discharge Plan Departure Patient Disposition: Admitted As Inpatient Clinical Impression: Partial small bowel obstruction Admit Date/Time: 12/16/24 02:28 Admit Provider: Shay Joyner
[2024-12-16] VITALS: BP 155/77; PULSE 64; RESP 18; O2SAT 98
[2024-12-16 00:30] VITALS: BP 131/73; PULSE 62; RESP 16; O2SAT 97
--- NOTE | 2024-12-16 00:59 | DI.CT.S_ITS ---
PROCEDURE: CT ABDOMEN PELVIS W CON INDICATIONS: abd pain TECHNIQUE: After the administration of intravenous contrast, axial sections acquired from the lung bases to the pubic symphysis. Coronal and sagittal reformats were performed. For radiation dose reduction, the following was used: automated exposure control, adjustment of mA and/or kV according to patient size. COMPARISON: [facility], CT, CT ABDOMEN PELVIS W CON, 08/09/2021, 10:11. FINDINGS: Image quality: Diagnostic. Lower Chest: No significant findings. ABDOMEN: Liver: No solid mass. Steatosis. Gallbladder: Removed. Biliary ducts: No biliary dilation. Pancreas: No ductal dilation. Spleen: Size is within normal limits. Adrenal Glands: No adrenal nodules. Kidneys and Ureters: No hydronephrosis. No solid mass. No complex renal cystic lesion which requires follow up. Stomach and Bowel: Dilated fluid-filled loops of small with greatest dimension measuring 3.1 cm. Transition point may be in the right lower quadrant. Peritoneum: No abnormal intraperitoneal fluid. No free air. Ventral Wall: No significant ventral hernia. Abdominal Nodes: No retroperitoneal or mesenteric adenopathy by size criteria. Vessels: Aorta and inferior vena cava are normal in size. PELVIS: Pelvic Organs: Unremarkable. Bladder: No bladder wall thickening, accounting for underdistention. Pelvic Nodes: No enlarged lymph nodes. Miscellaneous: No inguinal hernias are seen. Bones: No aggressive osseous abnormality. Multilevel posterior fusion. IMPRESSION: Dilated fluid-filled loops of small bowel most consistent with partial small obstruction. Dictated by: Krista Jiménez M.D. on 12/16/2024 at 1:52 Approved by: Krista Jiménez M.D. on 12/16/2024 at 1:54
[2024-12-16 01:00] VITALS: BP 133/70; PULSE 69; RESP 17; O2SAT 97
[2024-12-16] MEDS: HYDROMORPHONE 0.5 MG INJ IV (02:16)
[2024-12-16] MEDS: ONDANSETRON 4 MG/2 ML INJ IV (02:26)
[2024-12-16 02:30] VITALS: BP 149/79; PULSE 66; RESP 19; O2SAT 92
[2024-12-16 02:32] VITALS: BMI 23.6
--- NOTE | 2024-12-16 02:32 | PC.NURSE ---
Report given to Jose OROZCOclinical care coordinator
--- NOTE | 2024-12-16 07:06 | PM.HP.1 ---
History of Present Illness History of Present Illness Date Patient Seen: 12/16/24 Time Patient Seen: 00:45 Chief complaint: Abdominal Pain, Nausea Narrative: 79-year-old female with past medical history of cholecystectomy, appendectomy, anterior approach lumbar surgery, prior colitis, hypertension and depression presents with complaints of abdominal pain, nausea and vomiting. Per the patient's report, the patient had an acute onset of nausea, vomiting and abdominal pain that started around 4 PM yesterday. The patient described her abdominal pain as epigastric, but also some in her lower quadrant. The patient last bowel movement was today. The patient denies any recent fever, chills, diarrhea, chest pain, shortness of breath or coughing. The patient also denies any GI bleed or dysuria. In the emergency room, the patient was hemodynamically stable. CT abdomen shows partial small bowel obstruction with a transition point at the right lower quadrant. Patient labs were relatively benign except for WBC of 13,000. NG tube was ordered. General surgery was also consulted and agreed that the patient should be admitted for pain control, IV fluid, antiemetics and general surgery will consult in the morning. [facility] Medical History (Updated 12/16/24 @ 02:15 by Brian Patel MD) Urge incontinence Left rotator cuff tear Colitis (1975) Sessile colonic polyp (11/21/14) Urinary incontinence Weakness of pelvic floor Overactive bladder COVID-19 Cognitive impairment Insect sting JAVY (stress urinary incontinence, female) Atrophic vulvovaginitis Lichen sclerosus Postoperative anemia due to acute blood loss Postmenopausal History of bronchitis Herpes Hemorrhoids (1974) Abnormal Pap smear of cervix (1976) Chicken pox (1957) Measles (1957) Chronic back pain (1995) Chronic headaches (1957) Depression (1999) Anxiety (1999) Hypothyroidism Constipation Cervical cancer (1976) Surgical History History of colonoscopy with polypectomy Anesthesia Status post biopsy (10/24/11) History of esophagogastroduodenoscopy (EGD) (10/24/11) Status post colonoscopy (10/24/11) History of spinal fusion (2001) History of spinal fusion (2012) History of tonsillectomy (1966) Status post appendectomy (1956) Status post vaginal hysterectomy (1977) Status post laparoscopic cholecystectomy (2000) History of spinal fusion (1999) Family History Daughter Age: 49 No problems noted. Father Colon cancer Alcoholism Osteoarthritis Mother Colon cancer CAD (coronary artery disease) Hypertension Hyperlipidemia Stroke Heart disease Bladder cancer Sister Adenocarcinoma, lung Hyperlipidemia Sister Age: 73 Hyperlipidemia Son No problems noted. Social History household members: spouse Smoking Status: Never smoker alcohol intake: current substance use type: does not use Meds Home Medications and Allergies Home Medications ?Medication ?Instructions ?Recorded ?Confirmed ?Type Disabled Parking Permit #1 ea 01/03/21 12/14/24 Rx CBD gummy 1 ea PO QAM 11/26/23 12/14/24 History Lifewise patches transdermal 04/14/24 12/14/24 History estradiol 0.01% (0.1 mg/gram) 0.5 g vaginal 2XW #42.5 grams 07/10/24 12/14/24 Rx vaginal cream (Estrace) clobetasol 0.05 % topical ointment 1 applic topical DAILY PRN 09/10/24 12/14/24 History acyclovir 800 mg tablet 800 mg PO DAILY PRN herpes #30 10/06/24 12/14/24 Rx tabs amlodipine 2.5 mg tablet 2.5 mg PO DAILY #90 tabs 10/06/24 12/14/24 Rx lisinopril 20 mg tablet 20 mg PO DAILY #90 tabs 10/06/24 12/14/24 Rx Prometrium 200 mg capsule 200 mg PO BEDTIME #90 caps 10/27/24 12/14/24 Rx (progesterone micronized) melatonin PO 10/27/24 12/14/24 History tolterodine 2 mg capsule,extended 2 mg PO DAILY #90 caps 11/11/24 12/14/24 Rx release 24 hr hydroxyzine HCl 25 mg tablet 25 mg PO BEDTIME #30 tabs 11/12/24 12/14/24 Rx Myrbetriq 50 mg tablet,extended 50 mg PO DAILY #90 tabs 11/17/24 12/14/24 Rx release (mirabegron) Allergies Allergy/AdvReac Type Severity Reaction Status Date / Time trazodone AdvReac Mild Headaches Verified 12/14/24 09:00 Review of Systems Review of Systems ROS: Yes All systems reviewed with the patient and are negative except as otherwise documented Exam Vital Signs (past 8 hours): - 12/15/24 23:30 12/16/24 00:00 12/16/24 00:30 Pulse Rate 66 64 62 Respiratory Rate 17 18 16 Blood Pressure 139/69 155/77 H 131/73 Pulse Oximetry 98 98 97 Oxygen Delivery Method Nasal Cannula Nasal Cannula Nasal Cannula Oxygen Flow Rate 2 2 2 12/16/24 01:00 12/16/24 02:30 Pulse Rate 69 66 Respiratory Rate 17 19 Blood Pressure 133/70 149/79 H Pulse Oximetry 97 92 Oxygen Delivery Method Nasal Cannula Room Air Oxygen Flow Rate 2 Oxygen Delivery Method Room Air Oxygen Flow Rate 2 Narrative Exam Narrative: Physical Exam: GENERAL: The patient is not in any acute distressed. Awake and alert. HEENT: Nonicteric sclerae, PERRLA, EOMI. Oropharynx clear. Moist mucous membranes. Conjunctivae appear well perfused. HEART: Regular rate and rhythm without murmurs. No lower extremities edema. LUNGS: Clear to auscultation bilaterally. No wheezing, crackles or rhonchi ABDOMEN: Soft, positive bowel sounds, nontender. SKIN: No rash, no excessive bruising, petechiae, or purpura. NEUROLOGIC: AxO x 3. Cranial nerves II-XII intact without motor/sensory deficit. Objective Labs 12/15/24 21:25 12/15/24 21:25 Labs: Laboratory Results - last 24 hr 12/15/24 21:25 WBC 13.8 H RBC 4.92 Hgb 15.8 Hct 45.2 MCV 91.9 MCH 32.0 MCHC 34.9 RDW 13.1 Plt Count 233 Neut % (Auto) 83.1 H Lymph % (Auto) 9.6 L [place] % (Auto) 5.1 Eos % (Auto) 1.7 L Baso % (Auto) 0.5 Neut # (Auto) 21276 H Lymph # (Auto) 1300 [place] # (Auto) 700 Eos # (Auto) 200 Baso # (Auto) 100 Sodium 139 Potassium 4.3 Chloride 103 Carbon Dioxide 28 BUN 18 H Creatinine 0.98 Estimated GFR 59 L BUN/Creatinine Ratio 18.4 Glucose 113 H Calcium 10.4 H Total Bilirubin 1.0 AST 34 ALT 30 Alkaline Phosphatase 83 Total Protein 8.2 Albumin 5.0 Globulin 3.2 Albumin/Globulin Ratio 1.6 Lipase 50 Assessment & Plan Assessment & Plan narrative: Partial small bowel obstruction. Admit the patient to medical inpatient. Patient is hemodynamically stable without signs of sepsis. Continue n.p.o., IV fluid, pain medication IV as needed and antiemetics. Appreciate general surgery input and management. Continue NG tube placement. Dehydration. IV fluid. Hypertension. Monitor blood pressure and resume home medication accordingly. Leukocytosis. WBC 13. Mild. Likely stress-induced. Monitor for now. DVT prophylaxis SCDs. CODE STATUS full code. Disposition likely home in 2 days. - As the provider of this telehealth evaluation, requested by the patient's evaluating physician, I attest that I introduced myself to the patient, provided my credentials and determined that telemedicine via a real-time, 2 way interactive audio and video platform is an appropriate and effective means of providing this service. - I reviewed the patient's chart and had a discussion with the member of the patient's treatment team. - The patient and I mutually agreed with continuation of this evaluation via telemedicine. The patient consented for the telemedicine evaluation. - This virtual encounter was taken place from [place] by Dr. Shay Joyner. The patient was evaluated at [facility]. The encounter was approximately 35 minutes. The nurse was present during the entire time of the encounter and was able to move the stethoscope in appropriate directions. Time-Based Coding :: [TOTAL MINUTES] spent with patient and on the chart (including review of chart, obtaining history, exam, reviewing outside data, placing orders, documenting exam and treatment plan, and counseling patient) on [DATE].
[2024-12-16 08:00] VITALS: BP 141/84; PULSE 85; RESP 17; TEMP 36.3; O2SAT 94
--- NOTE | 2024-12-16 10:41 | PM.HP.1 ---
History of Present Illness History of Present Illness Date Patient Seen: 12/16/24 Time Patient Seen: 09:20 Chief complaint: Abdominal Pain, Nausea Narrative: Per overnight provider, 79-year-old female with past medical history of cholecystectomy, appendectomy, anterior approach lumbar surgery, prior colitis, hypertension and depression presents with complaints of abdominal pain, nausea and vomiting. Per the patient's report, the patient had an acute onset of nausea, vomiting and abdominal pain that started around 4 PM yesterday. The patient described her abdominal pain as epigastric, but also some in her lower quadrant. The patient last bowel movement was today. The patient denies any recent fever, chills, diarrhea, chest pain, shortness of breath or coughing. The patient also denies any GI bleed or dysuria. In the emergency room, the patient was hemodynamically stable. CT abdomen shows partial small bowel obstruction with a transition point at the right lower quadrant. Patient labs were relatively benign except for WBC of 13,000. NG tube was ordered. General surgery was also consulted and agreed that the patient should be admitted for pain control, IV fluid, antiemetics and general surgery will consult in the morning. Interval history: NG tube remains in place, about 100 cc in canister this AM. She has improvement in pain with IV narcotics, but no gas or bowel movement this morning. Remains nauseous. Surgery consulted. FORMERLY [facility] Medical History Urge incontinence Left rotator cuff tear Colitis (1975) Sessile colonic polyp (11/21/14) Urinary incontinence Weakness of pelvic floor Overactive bladder COVID-19 Cognitive impairment Insect sting JAVY (stress urinary incontinence, female) Atrophic vulvovaginitis Lichen sclerosus Postoperative anemia due to acute blood loss Postmenopausal History of bronchitis Herpes Hemorrhoids (1974) Abnormal Pap smear of cervix (1976) Chicken pox (1957) Measles (1957) Chronic back pain (1995) Chronic headaches (1957) Depression (1999) Anxiety (1999) Hypothyroidism Constipation Cervical cancer (1976) Surgical History History of colonoscopy with polypectomy Anesthesia Status post biopsy (10/24/11) History of esophagogastroduodenoscopy (EGD) (10/24/11) Status post colonoscopy (10/24/11) History of spinal fusion (2001) History of spinal fusion (2012) History of tonsillectomy (1966) Status post appendectomy (1956) Status post vaginal hysterectomy (1977) Status post laparoscopic cholecystectomy (2000) History of spinal fusion (1999) Family History Daughter Age: 49 No problems noted. Father Colon cancer Alcoholism Osteoarthritis Mother Colon cancer CAD (coronary artery disease) Hypertension Hyperlipidemia Stroke Heart disease Bladder cancer Sister Adenocarcinoma, lung Hyperlipidemia Sister Age: 73 Hyperlipidemia Son No problems noted. Social History household members: spouse Smoking Status: Never smoker alcohol intake: current substance use type: does not use Meds Home Medications and Allergies Home Medications ?Medication ?Instructions ?Recorded ?Confirmed ?Type Disabled Parking Permit #1 ea 01/03/21 12/14/24 Rx CBD gummy 1 ea PO QAM 11/26/23 12/14/24 History Lifewise patches transdermal 04/14/24 12/14/24 History estradiol 0.01% (0.1 mg/gram) 0.5 g vaginal 2XW #42.5 grams 07/10/24 12/14/24 Rx vaginal cream (Estrace) clobetasol 0.05 % topical ointment 1 applic topical DAILY PRN 09/10/24 12/14/24 History acyclovir 800 mg tablet 800 mg PO DAILY PRN herpes #30 10/06/24 12/14/24 Rx tabs amlodipine 2.5 mg tablet 2.5 mg PO DAILY #90 tabs 10/06/24 12/14/24 Rx lisinopril 20 mg tablet 20 mg PO DAILY #90 tabs 10/06/24 12/14/24 Rx Prometrium 200 mg capsule 200 mg PO BEDTIME #90 caps 10/27/24 12/14/24 Rx (progesterone micronized) melatonin PO 10/27/24 12/14/24 History tolterodine 2 mg capsule,extended 2 mg PO DAILY #90 caps 11/11/24 12/14/24 Rx release 24 hr hydroxyzine HCl 25 mg tablet 25 mg PO BEDTIME #30 tabs 11/12/24 12/14/24 Rx Myrbetriq 50 mg tablet,extended 50 mg PO DAILY #90 tabs 11/17/24 12/14/24 Rx release (mirabegron) Allergies Allergy/AdvReac Type Severity Reaction Status Date / Time trazodone AdvReac Mild Headaches Verified 12/14/24 09:00 Review of Systems Review of Systems Narrative: All other systems reviewed with the patient and are negative unless otherwise stated. Exam Vital Signs (past 8 hours): - 12/16/24 08:00 Temperature 97.4 F L Pulse Rate 85 Respiratory Rate 17 Blood Pressure 141/84 H Pulse Oximetry 94 Oxygen Flow Rate 0 Oxygen Delivery Method Room Air Oxygen Flow Rate 0 Narrative Exam Narrative: General:? Patient is well developed and well nourished, in no distress at this time. Mildly ill appearing HEENT:? Normocephalic, atraumatic, extraocular muscles intact, oral pharynx is clear and mucous membranes are dry. NG tube in place in R nostril. Lungs:? CTA b/l no wheezing rhonchi or rales. Cardio:?RRR no m/r/g. Abdomen: soft, mild tenderness epigastrium, non distended Musculoskeletal:? Muscle strength and tone are equal within normal limits, no deformity. Extremities: No edema or joint effusions. No cyanosis or clubbing. Objective ECG Impression: Normal sinus rhythm Imaging CT scan - abdomen: Radiologist's impression: Patient: Charlene Jacob MR#: [id number] : 1945 Acct:[id number] Age/Sex: 79 / F Date of Service: 12/16/24 Loc: ED Accession Number: [id number] Procedure: CT abdomen pelvis w con Ordering Provider: Brian Patel MD PROCEDURE: CT ABDOMEN PELVIS W CON INDICATIONS: abd pain TECHNIQUE: After the administration of intravenous contrast, axial sections acquired from the lung bases to the pubic symphysis. Coronal and sagittal reformats were performed. For radiation dose reduction, the following was used: automated exposure control, adjustment of mA and/or kV according to patient size. COMPARISON: [facility], CT, CT ABDOMEN PELVIS W CON, 08/09/2021, 10:11. FINDINGS: Image quality: Diagnostic. Lower Chest: No significant findings. ABDOMEN: Liver: No solid mass. Steatosis. Gallbladder: Removed. Biliary ducts: No biliary dilation. Pancreas: No ductal dilation. Spleen: Size is within normal limits. Adrenal Glands: No adrenal nodules. Kidneys and Ureters: No hydronephrosis. No solid mass. No complex renal cystic lesion which requires follow up. Stomach and Bowel: Dilated fluid-filled loops of small with greatest dimension measuring 3.1 cm. Transition point may be in the right lower quadrant. Peritoneum: No abnormal intraperitoneal fluid. No free air. Ventral Wall: No significant ventral hernia. Abdominal Nodes: No retroperitoneal or mesenteric adenopathy by size criteria. Vessels: Aorta and inferior vena cava are normal in size. PELVIS: Pelvic Organs: Unremarkable. Bladder: No bladder wall thickening, accounting for underdistention. Pelvic Nodes: No enlarged lymph nodes. Miscellaneous: No inguinal hernias are seen. Bones: No aggressive osseous abnormality. Multilevel posterior fusion. IMPRESSION: Dilated fluid-filled loops of small bowel most consistent with partial small obstruction. Labs 12/15/24 21:25 12/15/24 21:25 Labs: Laboratory Results - last 24 hr 12/15/24 21:25 WBC 13.8 H RBC 4.92 Hgb 15.8 Hct 45.2 MCV 91.9 MCH 32.0 MCHC 34.9 RDW 13.1 Plt Count 233 Neut % (Auto) 83.1 H Lymph % (Auto) 9.6 L [place] % (Auto) 5.1 Eos % (Auto) 1.7 L Baso % (Auto) 0.5 Neut # (Auto) 56362 H Lymph # (Auto) 1300 [place] # (Auto) 700 Eos # (Auto) 200 Baso # (Auto) 100 Sodium 139 Potassium 4.3 Chloride 103 Carbon Dioxide 28 BUN 18 H Creatinine 0.98 Estimated GFR 59 L BUN/Creatinine Ratio 18.4 Glucose 113 H Calcium 10.4 H Total Bilirubin 1.0 AST 34 ALT 30 Alkaline Phosphatase 83 Total Protein 8.2 Albumin 5.0 Globulin 3.2 Albumin/Globulin Ratio 1.6 Lipase 50 Assessment & Plan Assessment & Plan narrative: Partial small bowel obstruction secondary to adhesions - continue NPO, IVF - discussed with surgery regarding timing of gastrograffin / small bowel follow through, he will see the patient later today and decide. - continue NG tube to intermittent suction, monitor output. - mild / borderline elevated calcium at 10.4 likely due to dehydration, continue IV fluids. Leukocytosis presumed reactive, no other signs/symptoms of infection. - cr 0.98, monitor (baseline around 0.7). Hypertension. - hold home medications while NPO, on lisinopril and amlodipine at home. Code: Full, surrogate is patient's spouse DVT: SCDs for now I have utilized all available immediate resources to obtain, update, or review the patient's current medications. Dispo: patient admitted under inpatient status. Likely discharge home in a couple of days, pending resolution of SBO. Possibly longer if surgery is needed. Additional history obtained via discussions with the overnight provider and surgeon. These discussions contributed to the creation of the above assessment and plan. I have reviewed patient's presenting documentation, labs, and imaging personally. Time-Based Coding :: [TOTAL MINUTES] spent with patient and on the chart (including review of chart, obtaining history, exam, reviewing outside data, placing orders, documenting exam and treatment plan, and counseling patient) on [DATE].
[2024-12-16] MEDS: MORPHINE 4 MG/ML INJ IV ×2 (12:07→19:15)
[2024-12-16] MEDS: SODIUM CHLORIDE 0.9% 1,000 ML 100 ML IV ×2 (12:08→23:00)
--- NOTE | 2024-12-16 12:24 | DI.RAD.S_ITS ---
PROCEDURE: XR KUB INDICATIONS: NGT placement verification TECHNIQUE: One view of the abdomen acquired. COMPARISON: None. FINDINGS: Surgical changes and devices: Gastric tube tip and side port project over the stomach. Surgical fusion of the lower lumbar spine. Cholecystectomy clips. Bowel: Bowel gas pattern is normal. Soft tissues: No suspicious abdominal calcifications. Visualized solid organ contours appear normal in size. Bones: No suspicious bony lesions. IMPRESSION: Gastric tube tip and side port project over the stomach. Dictated by: Darrion Pang M.D. on 12/16/2024 at 13:53 Approved by: Darrion Pang M.D. on 12/16/2024 at 13:53
--- NOTE | 2024-12-16 12:44 | CM.DANOTE ---
Initial DCP Assessment Note Pt is a 79 yo female, resident of [place], admitted for management of partial SBO. General surgery consulted. PCP: Jocelin Alfaro Payer: KRISTIE/Mona Reviewed chart, pt discussed in multidisciplinary rounds this morning. continue NPO, IVF, possible gastrograffin / small bowel follow through. NG tube to intermittent suction. Attempted bedside assessment and patient has NGtube in and sleeping soundly, will attempt again 12/17. Patient is reportedly independent at baseline. No barriers identified at this time to patient's eventual safe discharge home w/family to assist; close outpatient f/u recommended. CM team will plan to follow clinical course closely. SHANDA Arvizu Discharge Planning/Care Management CM Discharge Assessment Start: 12/16/24 02:32 Freq: Status: Active Protocol: Document 12/16/24 11:52 CONSTANCE (Rec: 12/16/24 12:21 CONSTANCE [id number]) Discharge Planning Assessment Assigned Discharge SHANDA Kiser Site Damage Prevention Technician DPOA/Assigned Annie Serrano, daughter Designee Name Contact Information [phone] Advance Directives? Yes Advance Directives Yes on File History Provided By Patient,Medical Record Prior Living House Arrangements Household Members spouse Type of Drives own vehicle transporation used prior to admit Independent with ADL Yes 's Is patient alert and Yes oriented? Discharge Plan Home Transportation Family Arrangement Referrals Initiated None needed
--- NOTE | 2024-12-16 13:32 | PM.CN.IH.1 ---
History of Present Illness Consult details Date Patient Seen: 12/16/24 Time Patient Seen: 13:32 Chief complaint: Abdominal Pain, Nausea Narrative: Torie is a 79-year-old woman who presented to the emergency room overnight complaining of several hours of abdominal pain and nausea. She had a CT scan which suggested a small bowel obstruction. Her last bowel movement or flatus was the morning of December 15. Prior surgeries include a laparoscopic cholecystectomy, open appendectomy as a child and anterior approach to a spine surgery. She has never had a prior bowel obstruction. An NG-tube was placed in the emergency room and there has been minimal output. Meds Home Medications and Allergies Home Medications ?Medication ?Instructions ?Recorded ?Confirmed ?Type Disabled Parking Permit #1 ea 01/03/21 12/14/24 Rx CBD gummy 1 ea PO QAM 11/26/23 12/14/24 History Lifewise patches transdermal 04/14/24 12/14/24 History estradiol 0.01% (0.1 mg/gram) 0.5 g vaginal 2XW #42.5 grams 07/10/24 12/14/24 Rx vaginal cream (Estrace) clobetasol 0.05 % topical ointment 1 applic topical DAILY PRN 09/10/24 12/14/24 History acyclovir 800 mg tablet 800 mg PO DAILY PRN herpes #30 10/06/24 12/14/24 Rx tabs amlodipine 2.5 mg tablet 2.5 mg PO DAILY #90 tabs 10/06/24 12/14/24 Rx lisinopril 20 mg tablet 20 mg PO DAILY #90 tabs 10/06/24 12/14/24 Rx Prometrium 200 mg capsule 200 mg PO BEDTIME #90 caps 10/27/24 12/14/24 Rx (progesterone micronized) melatonin PO 10/27/24 12/14/24 History tolterodine 2 mg capsule,extended 2 mg PO DAILY #90 caps 11/11/24 12/14/24 Rx release 24 hr hydroxyzine HCl 25 mg tablet 25 mg PO BEDTIME #30 tabs 11/12/24 12/14/24 Rx Myrbetriq 50 mg tablet,extended 50 mg PO DAILY #90 tabs 11/17/24 12/14/24 Rx release (mirabegron) Allergies Allergy/AdvReac Type Severity Reaction Status Date / Time trazodone AdvReac Mild Headaches Verified 12/14/24 09:00 Exam Vital Signs (past 8 hours): - 12/16/24 08:00 Temperature 97.4 F L Pulse Rate 85 Respiratory Rate 17 Blood Pressure 141/84 H Pulse Oximetry 94 Oxygen Flow Rate 0 Oxygen Delivery Method Room Air Oxygen Flow Rate 0 Objective Labs 12/15/24 21:25 12/15/24 21:25 Labs: Laboratory Results - last 24 hr 12/15/24 21:25 WBC 13.8 H RBC 4.92 Hgb 15.8 Hct 45.2 MCV 91.9 MCH 32.0 MCHC 34.9 RDW 13.1 Plt Count 233 Neut % (Auto) 83.1 H Lymph % (Auto) 9.6 L [place] % (Auto) 5.1 Eos % (Auto) 1.7 L Baso % (Auto) 0.5 Neut # (Auto) 88577 H Lymph # (Auto) 1300 [place] # (Auto) 700 Eos # (Auto) 200 Baso # (Auto) 100 Sodium 139 Potassium 4.3 Chloride 103 Carbon Dioxide 28 BUN 18 H Creatinine 0.98 Estimated GFR 59 L BUN/Creatinine Ratio 18.4 Glucose 113 H Calcium 10.4 H Total Bilirubin 1.0 AST 34 ALT 30 Alkaline Phosphatase 83 Total Protein 8.2 Albumin 5.0 Globulin 3.2 Albumin/Globulin Ratio 1.6 Lipase 50 PFSH Medical History Urge incontinence Left rotator cuff tear Colitis (1975) Sessile colonic polyp (11/21/14) Urinary incontinence Weakness of pelvic floor Overactive bladder COVID-19 Cognitive impairment Insect sting JAVY (stress urinary incontinence, female) Atrophic vulvovaginitis Lichen sclerosus Postoperative anemia due to acute blood loss Postmenopausal History of bronchitis Herpes Hemorrhoids (1974) Abnormal Pap smear of cervix (1976) Chicken pox (1957) Measles (1957) Chronic back pain (1995) Chronic headaches (1957) Depression (1999) Anxiety (1999) Hypothyroidism Constipation Cervical cancer (1976) Surgical History History of colonoscopy with polypectomy Anesthesia Status post biopsy (10/24/11) History of esophagogastroduodenoscopy (EGD) (10/24/11) Status post colonoscopy (10/24/11) History of spinal fusion (2001) History of spinal fusion (2012) History of tonsillectomy (1966) Status post appendectomy (1956) Status post vaginal hysterectomy (1977) Status post laparoscopic cholecystectomy (2000) History of spinal fusion (1999) Family History Daughter Age: 49 No problems noted. Father Colon cancer Alcoholism Osteoarthritis Mother Colon cancer CAD (coronary artery disease) Hypertension Hyperlipidemia Stroke Heart disease Bladder cancer Sister Adenocarcinoma, lung Hyperlipidemia Sister Age: 73 Hyperlipidemia Son No problems noted. Social History household members: spouse Tobacco & Substance Use Smoking Status: Never smoker alcohol intake: current substance use type: does not use Assessment & Plan Assessment and plan (1) Partial small bowel obstruction: Status: Acute Plan We should check a chest x-ray to see if the NG tube is in position If it he was in the esophagus we should advance it If there is no flatus by tomorrow morning we should proceed with a Gastrografin study Time-Based Coding :: [TOTAL MINUTES] spent with patient and on the chart (including review of chart, obtaining history, exam, reviewing outside data, placing orders, documenting exam and treatment plan, and counseling patient) on [DATE]. PROFEE Charge Codes Inpatient or Observation consultation: 76135
[2024-12-16 17:00] VITALS: BP 146/74; PULSE 73; RESP 14; TEMP 36.3; O2SAT 93
[2024-12-16 21:04] LABS: POC Glucose 97 mg/dL (70-99)
[2024-12-17 00:16] VITALS: BP 133/64; PULSE 68; RESP 16; TEMP 36.3; O2SAT 92
[2024-12-17 00:18] LABS: POC Glucose 101 mg/dL (70-99)
[2024-12-17] MEDS: MORPHINE 4 MG/ML INJ IV (03:16)
[2024-12-17 04:39] VITALS: BP 129/69; PULSE 70; RESP 18; TEMP 36.1; O2SAT 93
[2024-12-17 06:23] LABS: POC Glucose 90 mg/dL (70-99)
--- NOTE | 2024-12-17 08:16 | PM.PN.1 ---
Subjective Subjective Interval history: Summary (From H&P): 79-year-old female with past medical history of cholecystectomy, appendectomy, anterior approach lumbar surgery, prior colitis, hypertension and depression presents with complaints of abdominal pain, nausea and vomiting. Per the patient's report, the patient had an acute onset of nausea, vomiting and abdominal pain that started around 4 PM yesterday. The patient described her abdominal pain as epigastric, but also some in her lower quadrant. The patient last bowel movement was today. The patient denies any recent fever, chills, diarrhea, chest pain, shortness of breath or coughing. The patient also denies any GI bleed or dysuria. In the emergency room, the patient was hemodynamically stable. CT abdomen shows partial small bowel obstruction with a transition point at the right lower quadrant. Patient labs were relatively benign except for WBC of 13,000. NG tube was ordered. General surgery was also consulted and agreed that the patient should be admitted for pain control, IV fluid, antiemetics and general surgery will consult in the morning. Interval history: NG tube remains in place, about 100 cc in canister this AM. She has improvement in pain with IV narcotics, but no gas or bowel movement this morning. Remains nauseous. Surgery consulted. S: She feels a little bit better. She is taking a clear liquid diet. She was had flatus but no bowel movement. She was having some gurgling but denies nausea. Her abdomen distention is better. Exam Vital Signs (past 8 hours): - 12/17/ 04:39 Temperature 96.9 F L Pulse Rate 70 Respiratory Rate 18 Blood Pressure 129/69 Pulse Oximetry 93 Oxygen Flow Rate 0 Oxygen Delivery Method Room Air Oxygen Flow Rate 0 Narrative Exam Narrative: NAD, alert and oriented. Fluent speech. Lungs are clear, normal rate and effort. Heart is regular, no murmur gallop or rub. Abdomen is soft, non distended. Non-tender. Extremities are free of edema. Objective Imaging CT scan - abdomen: Radiologist's impression: FINDINGS: Image quality: Diagnostic. Lower Chest: No significant findings. ABDOMEN: Liver: No solid mass. Steatosis. Gallbladder: Removed. Biliary ducts: No biliary dilation. Pancreas: No ductal dilation. Spleen: Size is within normal limits. Adrenal Glands: No adrenal nodules. Kidneys and Ureters: No hydronephrosis. No solid mass. No complex renal cystic lesion which requires follow up. Stomach and Bowel: Dilated fluid-filled loops of small with greatest dimension measuring 3.1 cm. Transition point may be in the right lower quadrant. Peritoneum: No abnormal intraperitoneal fluid. No free air. Ventral Wall: No significant ventral hernia. Abdominal Nodes: No retroperitoneal or mesenteric adenopathy by size criteria. Vessels: Aorta and inferior vena cava are normal in size. PELVIS: Pelvic Organs: Unremarkable. Bladder: No bladder wall thickening, accounting for underdistention. Pelvic Nodes: No enlarged lymph nodes. Miscellaneous: No inguinal hernias are seen. Bones: No aggressive osseous abnormality. Multilevel posterior fusion. IMPRESSION: Dilated fluid-filled loops of small bowel most consistent with partial small obstruction. Labs 12/15/24 21:25 12/15/24 21:25 Labs: Laboratory Results - last 24 hr 12/16/24 12/17/24 12/17/24 20:51 00:10 06:21 POC Whole Bld Glucose 97 101 H 90 PFSH Medical History Urge incontinence Left rotator cuff tear Colitis (1975) Sessile colonic polyp (11/21/14) Urinary incontinence Weakness of pelvic floor Overactive bladder COVID-19 Cognitive impairment Insect sting JAVY (stress urinary incontinence, female) Atrophic vulvovaginitis Lichen sclerosus Postoperative anemia due to acute blood loss Postmenopausal History of bronchitis Herpes Hemorrhoids (1974) Abnormal Pap smear of cervix (1976) Chicken pox (1957) Measles (1957) Chronic back pain (1995) Chronic headaches (1957) Depression (1999) Anxiety (1999) Hypothyroidism Constipation Cervical cancer (1976) Surgical History History of colonoscopy with polypectomy Anesthesia Status post biopsy (10/24/11) History of esophagogastroduodenoscopy (EGD) (10/24/11) Status post colonoscopy (10/24/11) History of spinal fusion (2001) History of spinal fusion (2012) History of tonsillectomy (1966) Status post appendectomy (1956) Status post vaginal hysterectomy (1977) Status post laparoscopic cholecystectomy (2000) History of spinal fusion (1999) Family History Daughter Age: 49 No problems noted. Father Colon cancer Alcoholism Osteoarthritis Mother Colon cancer CAD (coronary artery disease) Hypertension Hyperlipidemia Stroke Heart disease Bladder cancer Sister Adenocarcinoma, lung Hyperlipidemia Sister Age: 73 Hyperlipidemia Son No problems noted. Social History household members: spouse Smoking Status: Never smoker alcohol intake: current substance use type: does not use Assessment & Plan Assessment & Plan narrative: Partial small bowel obstruction secondary to adhesions, possibly improving. - clear liquid diet - ambulate Hypertension. Stable. - hold home medications resumed. PLAN: -monitor progress over the next several hours and advance diet if she shows indication of further improvement. JEANNINE: . Code: Full, surrogate is patient's spouse DVT: SCDs for now I have utilized all available immediate resources to obtain, update, or review the patient's current medications. Dispo: patient admitted under inpatient status. Likely discharge home in a couple of days, pending resolution of SBO. Possibly longer if surgery is needed. Time-Based Coding :: [TOTAL MINUTES] spent with patient and on the chart (including review of chart, obtaining history, exam, reviewing outside data, placing orders, documenting exam and treatment plan, and counseling patient) on [DATE].
[2024-12-17] MEDS: ACETAMINOPHEN 325 MG TABLET 650 MG PO ×2 (08:39→15:50)
[2024-12-17] MEDS: AMLODIPINE 5 MG TABLET 2.5 MG PO (08:39)
[2024-12-17] MEDS: SODIUM CHLORIDE 0.9% 1,000 ML 100 ML IV ×2 (08:39→21:52)
[2024-12-17 11:45] LABS: POC Glucose 95 mg/dL (70-99)
[2024-12-17 12:13] VITALS: BP 176/73; PULSE 74; RESP 18; TEMP 36; O2SAT 99
[2024-12-17] MEDS: HYDROCODONE/ACET 5/325 TABLET 1 TAB PO (12:40)
--- NOTE | 2024-12-17 16:21 | PM.PN.IH.1 ---
Subjective Subjective Date Patient Seen: 12/17/24 Time Patient Seen: 16:21 Interval history: Torie has a headache and some abdominal distention today however she has passed more gas. No real appetite for solid food yet. Exam Vital Signs (past 8 hours): - 12/17/24 12:13 Temperature 96.8 F L Pulse Rate 74 Respiratory Rate 18 Blood Pressure 176/73 H Pulse Oximetry 99 Oxygen Flow Rate 0 Oxygen Delivery Method Room Air Oxygen Flow Rate 0 Narrative Exam Narrative: Abdomen is soft, nontender Objective Labs 12/15/24 21:25 12/15/24 21:25 Labs: Laboratory Results - last 24 hr 12/16/24 12/17/24 12/17/24 20:51 00:10 06:21 POC Whole Bld Glucose 97 101 H 90 12/17/24 11:40 POC Whole Bld Glucose 95 PFSH Medical History Urge incontinence Left rotator cuff tear Colitis (1975) Sessile colonic polyp (11/21/14) Urinary incontinence Weakness of pelvic floor Overactive bladder COVID-19 Cognitive impairment Insect sting JAVY (stress urinary incontinence, female) Atrophic vulvovaginitis Lichen sclerosus Postoperative anemia due to acute blood loss Postmenopausal History of bronchitis Herpes Hemorrhoids (1974) Abnormal Pap smear of cervix (1976) Chicken pox (1957) Measles (1957) Chronic back pain (1995) Chronic headaches (1957) Depression (1999) Anxiety (1999) Hypothyroidism Constipation Cervical cancer (1976) Surgical History History of colonoscopy with polypectomy Anesthesia Status post biopsy (10/24/11) History of esophagogastroduodenoscopy (EGD) (10/24/11) Status post colonoscopy (10/24/11) History of spinal fusion (2001) History of spinal fusion (2012) History of tonsillectomy (1966) Status post appendectomy (1956) Status post vaginal hysterectomy (1977) Status post laparoscopic cholecystectomy (2000) History of spinal fusion (1999) Family History Daughter Age: 49 No problems noted. Father Colon cancer Alcoholism Osteoarthritis Mother Colon cancer CAD (coronary artery disease) Hypertension Hyperlipidemia Stroke Heart disease Bladder cancer Sister Adenocarcinoma, lung Hyperlipidemia Sister Age: 73 Hyperlipidemia Son No problems noted. Social History household members: spouse Smoking Status: Never smoker alcohol intake: current substance use type: does not use Assessment & Plan Assessment and plan (1) Partial small bowel obstruction: Status: Acute Plan Advance diet to regular once she has somewhat of an appetite Time-Based Coding :: [TOTAL MINUTES] spent with patient and on the chart (including review of chart, obtaining history, exam, reviewing outside data, placing orders, documenting exam and treatment plan, and counseling patient) on [DATE]. PROFEE Cardiovascular Lab Director Document charge(s): No
[2024-12-17 17:28] LABS: POC Glucose 97 mg/dL (70-99)
[2024-12-17 21:01] VITALS: BP 157/65; PULSE 66; RESP 16; TEMP 35.9; O2SAT 95
[2024-12-18] MEDS: METOCLOPRAMIDE 10 MG/2 ML INJ 5 MG IV (05:06)
[2024-12-18 05:09] VITALS: BP 128/63; PULSE 56; RESP 16; TEMP 36.4; O2SAT 97
[2024-12-18] MEDS: SODIUM CHLORIDE 0.9% 1,000 ML 100 ML IV ×2 (07:47→18:23)
--- NOTE | 2024-12-18 07:48 | PM.PN.1 ---
Subjective Subjective Interval history: S: She feels better today, less abdominal pain, still a little bit of pain. She would 2 bowel movements. She was been on clear liquids up until this point. Her abdomen distention has resolved. Exam Vital Signs (past 8 hours): - 12/18/24 05:09 Temperature 97.6 F Pulse Rate 56 L Respiratory Rate 16 Blood Pressure 128/63 Pulse Oximetry 97 Oxygen Flow Rate 0 Oxygen Delivery Method Room Air Oxygen Flow Rate 0 Narrative Exam Narrative: NAD, alert and oriented. Fluent speech. Lungs are clear, normal rate and effort. Heart is regular, no murmur gallop or rub. Abdomen is soft, non distended. Minimal tenderness of the abdomen. Extremities are free of edema. Objective Labs 12/15/24 21:25 12/15/24 21:25 Labs: Laboratory Results - last 24 hr 12/17/24 12/17/24 11:40 17:27 POC Whole Bld Glucose 95 97 PFSH Medical History Urge incontinence Left rotator cuff tear Colitis (1975) Sessile colonic polyp (11/21/14) Urinary incontinence Weakness of pelvic floor Overactive bladder COVID-19 Cognitive impairment Insect sting JAVY (stress urinary incontinence, female) Atrophic vulvovaginitis Lichen sclerosus Postoperative anemia due to acute blood loss Postmenopausal History of bronchitis Herpes Hemorrhoids (1974) Abnormal Pap smear of cervix (1976) Chicken pox (1957) Measles (1957) Chronic back pain (1995) Chronic headaches (1957) Depression (1999) Anxiety (1999) Hypothyroidism Constipation Cervical cancer (1976) Surgical History History of colonoscopy with polypectomy Anesthesia Status post biopsy (10/24/11) History of esophagogastroduodenoscopy (EGD) (10/24/11) Status post colonoscopy (10/24/11) History of spinal fusion (2001) History of spinal fusion (2012) History of tonsillectomy (1966) Status post appendectomy (1956) Status post vaginal hysterectomy (1977) Status post laparoscopic cholecystectomy (2000) History of spinal fusion (1999) Family History Daughter Age: 49 No problems noted. Father Colon cancer Alcoholism Osteoarthritis Mother Colon cancer CAD (coronary artery disease) Hypertension Hyperlipidemia Stroke Heart disease Bladder cancer Sister Adenocarcinoma, lung Hyperlipidemia Sister Age: 73 Hyperlipidemia Son No problems noted. Social History household members: spouse Smoking Status: Never smoker alcohol intake: current substance use type: does not use Assessment & Plan Assessment & Plan narrative: 1. Partial small bowel obstruction secondary to adhesions, possibly improving. 2. Hypertension. Stable. PLAN: -ambulate and advance to full liquids. -continue home medications for blood pressure. JEANNINE: 12/18-. Code: Full, surrogate is patient's spouse DVT: SCDs for now Time-Based Coding :: [TOTAL MINUTES] spent with patient and on the chart (including review of chart, obtaining history, exam, reviewing outside data, placing orders, documenting exam and treatment plan, and counseling patient) on [DATE].
[2024-12-18] MEDS: PANTOPRAZOLE 40 MG VIAL IV (08:36)
[2024-12-18] MEDS: AMLODIPINE 5 MG TABLET 2.5 MG PO (08:37)
[2024-12-18] MEDS: ACETAMINOPHEN 325 MG TABLET 650 MG PO ×2 (08:37→18:22)
[2024-12-18 13:00] VITALS: BP 126/68; PULSE 73; RESP 16; TEMP 36.4; O2SAT 98
--- NOTE | 2024-12-18 16:02 | CM.DPNOTE ---
JOELLEP Cont Reviewed chart. Patient discussed in multidisciplinary rounds. Patient's partial SBO resolving without surgical intervention. PLAN for today is ambulate and advance to full liquids. Plan remains discharge home w/family with close outpatient follow up. CM team following closely in case any discharge needs or concerns arise. CONSTANCE
--- NOTE | 2024-12-18 17:38 | P.PN_ITS ---
Subjective Subjective Date Patient Seen: 12/18/24 Time Patient Seen: 17:39 Interval history: She has passed flatus and bowel movements this morning but nothing since then. She had some full liquid diet but now feels full and distended again. Exam Vital Signs (past 8 hours): - 12/18/24 13:00 Temperature 97.5 F L Pulse Rate 73 Respiratory Rate 16 Blood Pressure 126/68 Pulse Oximetry 98 Oxygen Delivery Method Room Air Oxygen Flow Rate 0 Const General: No acute distress Objective Labs 12/15/24 21:25 12/15/24 21:25 [facility] Medical History Urge incontinence Left rotator cuff tear Colitis (1975) Sessile colonic polyp (11/21/14) Urinary incontinence Weakness of pelvic floor Overactive bladder COVID-19 Cognitive impairment Insect sting JAVY (stress urinary incontinence, female) Atrophic vulvovaginitis Lichen sclerosus Postoperative anemia due to acute blood loss Postmenopausal History of bronchitis Herpes Hemorrhoids (1974) Abnormal Pap smear of cervix (1976) Chicken pox (1957) Measles (1957) Chronic back pain (1995) Chronic headaches (1957) Depression (1999) Anxiety (1999) Hypothyroidism Constipation Cervical cancer (1976) Surgical History History of colonoscopy with polypectomy Anesthesia Status post biopsy (10/24/11) History of esophagogastroduodenoscopy (EGD) (10/24/11) Status post colonoscopy (10/24/11) History of spinal fusion (2001) History of spinal fusion (2012) History of tonsillectomy (1966) Status post appendectomy (1956) Status post vaginal hysterectomy (1977) Status post laparoscopic cholecystectomy (2000) History of spinal fusion (1999) Family History Daughter Age: 49 No problems noted. Father Colon cancer Alcoholism Osteoarthritis Mother Colon cancer CAD (coronary artery disease) Hypertension Hyperlipidemia Stroke Heart disease Bladder cancer Sister Adenocarcinoma, lung Hyperlipidemia Sister Age: 73 Hyperlipidemia Son No problems noted. Social History household members: spouse Smoking Status: Never smoker alcohol intake: current substance use type: does not use Assessment & Plan Assessment and plan (1) Partial small bowel obstruction: Status: Acute Assessment & Plan narrative: Go slow with full liquid diet If more flatus and less distention tomorrow we can try regular Time-Based Coding :: [TOTAL MINUTES] spent with patient and on the chart (including review of chart, obtaining history, exam, reviewing outside data, placing orders, documenting exam and treatment plan, and counseling patient) on [DATE]. PROFEE Oriental Rug Repairer Document charge(s): No
[2024-12-18 21:15] VITALS: BP 166/70; PULSE 65; RESP 16; TEMP 35.9; O2SAT 97
[2024-12-19] MEDS: SODIUM CHLORIDE 0.9% 1,000 ML 100 ML IV (04:12)
[2024-12-19 06:07] VITALS: BP 143/84; PULSE 69; RESP 16; TEMP 36.4; O2SAT 94
[2024-12-19] MEDS: AMLODIPINE 5 MG TABLET 2.5 MG PO (09:34)
[2024-12-19] MEDS: PANTOPRAZOLE 40 MG VIAL IV (09:34)
[2024-12-19] MEDS: ACETAMINOPHEN 325 MG TABLET 650 MG PO (09:35)
--- NOTE | 2024-12-19 10:44 | PM.PN.IH.1 ---
Subjective Subjective Date Patient Seen: 12/19/24 Time Patient Seen: 10:44 Interval history: Bowel movement again this morning. Did well with oatmeal for breakfast this morning. Exam Vital Signs (past 8 hours): - 12/19/24 06:07 Temperature 97.5 F L Pulse Rate 69 Respiratory Rate 16 Blood Pressure 143/84 H Pulse Oximetry 94 Oxygen Delivery Method Room Air Oxygen Flow Rate 0 Narrative Exam Narrative: Abdomen soft, nontender Objective Labs 12/15/24 21:25 12/15/24 21:25 [facility] Medical History Urge incontinence Left rotator cuff tear Colitis (1975) Sessile colonic polyp (11/21/14) Urinary incontinence Weakness of pelvic floor Overactive bladder COVID-19 Cognitive impairment Insect sting JAVY (stress urinary incontinence, female) Atrophic vulvovaginitis Lichen sclerosus Postoperative anemia due to acute blood loss Postmenopausal History of bronchitis Herpes Hemorrhoids (1974) Abnormal Pap smear of cervix (1976) Chicken pox (1957) Measles (1957) Chronic back pain (1995) Chronic headaches (1957) Depression (1999) Anxiety (1999) Hypothyroidism Constipation Cervical cancer (1976) Surgical History History of colonoscopy with polypectomy Anesthesia Status post biopsy (10/24/11) History of esophagogastroduodenoscopy (EGD) (10/24/11) Status post colonoscopy (10/24/11) History of spinal fusion (2001) History of spinal fusion (2012) History of tonsillectomy (1966) Status post appendectomy (1956) Status post vaginal hysterectomy (1977) Status post laparoscopic cholecystectomy (2000) History of spinal fusion (1999) Family History Daughter Age: 49 No problems noted. Father Colon cancer Alcoholism Osteoarthritis Mother Colon cancer CAD (coronary artery disease) Hypertension Hyperlipidemia Stroke Heart disease Bladder cancer Sister Adenocarcinoma, lung Hyperlipidemia Sister Age: 73 Hyperlipidemia Son No problems noted. Social History household members: spouse Smoking Status: Never smoker alcohol intake: current substance use type: does not use Assessment & Plan Assessment and plan (1) Partial small bowel obstruction: Status: Acute Plan Small bowel obstruction resolved Discharge home today Time-Based Coding :: [TOTAL MINUTES] spent with patient and on the chart (including review of chart, obtaining history, exam, reviewing outside data, placing orders, documenting exam and treatment plan, and counseling patient) on [DATE]. PROFEE Medical Esthetician Document charge(s): No
--- NOTE | 2024-12-19 13:33 | P.DS_ITS ---
History of Present Illness History of Present Illness Chief complaint: Abdominal Pain, Nausea Narrative: From H&P: 79-year-old female with past medical history of cholecystectomy, appendectomy, anterior approach lumbar surgery, prior colitis, hypertension and depression presents with complaints of abdominal pain, nausea and vomiting. Per the patient's report, the patient had an acute onset of nausea, vomiting and abdominal pain that started around 4 PM yesterday. The patient described her abdominal pain as epigastric, but also some in her lower quadrant. The patient last bowel movement was today. The patient denies any recent fever, chills, diarrhea, chest pain, shortness of breath or coughing. The patient also denies any GI bleed or dysuria. In the emergency room, the patient was hemodynamically stable. CT abdomen shows partial small bowel obstruction with a transition point at the right lower quadrant. Patient labs were relatively benign except for WBC of 13,000. NG tube was ordered. General surgery was also consulted and agreed that the patient should be admitted for pain control, IV fluid, antiemetics and general surgery will consult in the morning. Interval history: NG tube remains in place, about 100 cc in canister this AM. She has improvement in pain with IV narcotics, but no gas or bowel movement this morning. Remains nauseous. Surgery consulted. Discharge Providers Provider Date of admission: 12/16/24 02:28 Discharge Date: 12/19/24 Primary care physician: Jocelin Alfaro DO Consults: 12/16/24 08:00 Consult to General Surgery Routine Comment: Consulting Provider: Roc Phan Reason for consultation: SBO Discharge provider: Murali Talbot MD Summary Hospital Course Discharge Diagnosis: 1. Partial small bowel obstruction secondary to adhesions, resolved. 2. Hypertension. Stable. Hospital Course: She was admitted with evidence of bowel obstruction. She initially was treated with an NG-tube decompression. Ultimately this tube was removed and she was able to slowly advance to a clear diet. She had improvement of symptoms was able to advance to a regular diet and was felt to be stable for discharge. She was discussed with surgery in the day of discharge. Status at Discharge Cognitive/behavioral status at discharge: oriented Functional status at discharge: independent ambulation Overall status at discharge: patient is back to baseline Time Spent with Patient Time spent: Greater than 30 minutes Exam Vital Signs (past 8 hours): - 12/19/24 06:07 Temperature 97.5 F L Pulse Rate 69 Respiratory Rate 16 Blood Pressure 143/84 H Pulse Oximetry 94 Oxygen Delivery Method Room Air Oxygen Flow Rate 0 Narrative Exam Narrative: NAD, alert and oriented. Fluent speech. Lungs are clear, normal rate and effort. Heart is regular, no murmur gallop or rub. Abdomen is soft, non distended. Extremities are free of edema. Objective ECG Impression: Normal sinus rhythm Imaging CT scan - abdomen: Radiologist's impression: Dilated fluid-filled loops of small bowel most consistent with partial small obstruction. Labs 12/15/24 21:25 12/15/24 21:25 [facility] Medical History Urge incontinence Left rotator cuff tear Colitis (1975) Sessile colonic polyp (11/21/14) Urinary incontinence Weakness of pelvic floor Overactive bladder COVID-19 Cognitive impairment Insect sting JAVY (stress urinary incontinence, female) Atrophic vulvovaginitis Lichen sclerosus Postoperative anemia due to acute blood loss Postmenopausal History of bronchitis Herpes Hemorrhoids (1974) Abnormal Pap smear of cervix (1976) Chicken pox (1957) Measles (1957) Chronic back pain (1995) Chronic headaches (1957) Depression (1999) Anxiety (1999) Hypothyroidism Constipation Cervical cancer (1976) Surgical History History of colonoscopy with polypectomy Anesthesia Status post biopsy (10/24/11) History of esophagogastroduodenoscopy (EGD) (10/24/11) Status post colonoscopy (10/24/11) History of spinal fusion (2001) History of spinal fusion (2012) History of tonsillectomy (1966) Status post appendectomy (1956) Status post vaginal hysterectomy (1977) Status post laparoscopic cholecystectomy (2000) History of spinal fusion (1999) Family History Daughter Age: 49 No problems noted. Father Colon cancer Alcoholism Osteoarthritis Mother Colon cancer CAD (coronary artery disease) Hypertension Hyperlipidemia Stroke Heart disease Bladder cancer Sister Adenocarcinoma, lung Hyperlipidemia Sister Age: 73 Hyperlipidemia Son No problems noted. Social History household members: spouse Smoking Status: Never smoker alcohol intake: current substance use type: does not use Discharge Assessment & Plan Assessment and Plan Assessment: 1. PSBO, resolved. Plan of Treatment: Discharge home with soft mechanical diet and close follow up with primary care within the next several days. Discharge Plan Discharge Plan Patient Disposition: Home Provider Discharge Comment: Stable for discharge home on a soft diet with close follow up. Discharge orders & Medications Prescriptions: Continued estradiol [Estrace] 0.01 % (0.1 mg/gram) cream 0.5 g vaginal 2XW Qty: 42.5 3RF Rx Instructions: Apply to effected area on the external genitalia twice a week mirabegron [Myrbetriq] 50 mg tablet extended release 24 hr 50 mg PO DAILY Qty: 90 0RF (DME) Disabled Parking Permit See Rx Instructions .ROUTE .MEDSUPPLY Qty: 1 0RF Rx Instructions: Valid for 5 years Lifewise patches 1 patch transdermal PRN Patient Comments: Trying for memory, started 03/2024 clobetasol 0.05 % ointment 1 applic topical DAILY PRN (Reason: itching) Rx Instructions: Apply to effected area on the external genitalia twice a week amlodipine 2.5 mg tablet 2.5 mg PO DAILY Qty: 90 1RF lisinopril 20 mg tablet 20 mg PO DAILY Qty: 90 0RF progesterone micronized [Prometrium] 200 mg capsule 200 mg PO BEDTIME Qty: 90 3RF melatonin 6 mg PO BEDTIME CBD gummy 1 ea PO QAM hydroxyzine HCl 25 mg tablet 25 mg PO BEDTIME Qty: 30 0RF tolterodine 2 mg capsule,extended release 24hr 2 mg PO DAILY Qty: 90 0RF Follow up/Referrals: Jocelin Alfaro DO [Primary Care Provider, Medical] Diet/Activity/Treatments Diet: Diet as Tolerated Diet comment: Soft diet for the next week. Visit Report/Discharge Packet Instructions: DI for Small Bowel Obstruction Stand Alone Forms: Patient Portal/API, Stroke Signs & Symptoms Discharge Data Primary Care Provider: Jocelin Alfaro
--- NOTE | 2024-12-19 14:09 | PC.NURSE ---
PIV removed, pt tolerated well. All belongings with pt. Provided discharge education on diet, activity, and follow up. Pt stated all questions answered. All belongings with pt. Pt escorted via WC to main entrance by VINCENZO Lira, picked up by pt friend Rani in [facility] for home transport.
== END 2024-12-19 14:11 | disposition home or self-care (01) | DRG 390 ==
LOC: ED 12-16 02:22 → AC 12-16 02:29
PROVIDERS: Admitting Provider Internal Medicine; Emergency Provider Emergency Medicine; PCP Family Medicine; Referring Provider Emergency Medicine; Visit Provider Internal Medicine
DX: K56.51 Intestinal adhesions [bands], with partial obstruction (principal); E86.0 Dehydration; I10 Essential (primary) hypertension; N32.81 Overactive bladder; Z90.49 Acquired absence of other specified parts of digestive tract
CPT/HCPCS: 36415; 74018; 74177; 80053; 81001; 81003; 82962; 83690; 85025; 93005; 93010; 96374; 96375; 96376; 99285; 99291; J1171; J2270; J2405; J2470; J2765; Q9967

== ENCOUNTER → 2025-01-28 10:28 | Outpatient (CLI) | payer MEDICARE, OTHER, SELFPAY ==
[2025-01-28 12:38] LABS: Appearance Urine UA CLEAR; Bilirubin Urine UA NEGATIVE (NEGATIVE); Color Urine UA YELLOW; Glucose Urine UA NEGATIVE (Negative); Ketones Urine UA NEGATIVE (NEGATIVE); Leukocyte Esterase Urine UA NEGATIVE (NEGATIVE); Nitrite Urine UA NEGATIVE (Negative); Occult Blood Urine UA NEGATIVE (Negative); Protein Urine UA NEGATIVE (Negative); Specific Gravity Urine UA 1.015 (1.000-1.035); Urobilinogen Urine UA 0.2 E.U./dL (0.2)
[2025-01-28 12:39] LABS: pH Urine UA 6.5 (4.5-8.0)
[2025-01-28 12:59] LABS: Culture Indicated Urine Cult Not Indicated
[2025-01-28 13:42] LABS: Urine N gonorrhoeae NOT DETECTED
[2025-01-28 13:43] LABS: Urine Chlamydia NOT DETECTED
== END ==
PROVIDERS: PCP Family Medicine; Visit Provider Family Medicine
DX: R82.90 Unspecified abnormal findings in urine (principal); Z11.3 Encounter for screening for infections with a predominantly sexual mode of transmission
CPT/HCPCS: 81001; 87491; 87591

== ENCOUNTER → 2025-01-28 10:37 | Outpatient (CLI) | payer MEDICARE, OTHER, SELFPAY ==
[2025-01-28 15:32] LABS: Hepatitis B Surface Antigen NEGATIVE s/c (NEGATIVE)
[2025-01-28 16:15] LABS: HIV 1 & 2 Ab/Ag 4th Gen Combo NEGATIVE (NEGATIVE); Hep C Virus Ab w/Reflex Quant NEGATIVE s/c (NEGATIVE)
[2025-01-30 06:38] LABS: Hepatitis B Surf Ab Qualitativ Non Reactive (.)
== END ==
LOC: LAB 10:39
PROVIDERS: PCP Family Medicine; Referring Provider Family Medicine; Visit Provider Family Medicine
DX: Z11.3 Encounter for screening for infections with a predominantly sexual mode of transmission (principal); R82.90 Unspecified abnormal findings in urine
CPT/HCPCS: 36415; 81001; 86592; 86704; 86706; 86803; 87340; 87389; 87491; 87591

== ENCOUNTER 2025-03-16 13:00 | Outpatient (RCR) | payer MEDICARE, OTHER, SELFPAY ==
[2020-08-18 16:29] VITALS: BMI 24.4
--- NOTE | 2024-12-24 17:27 | PT.OIE ---
Current Diagnoses Pain in left shoulder (12/24/24) Other specified dorsopathies, cervical region (12/24/24) Paresthesia of skin (12/24/24) Past Medical History (Last Updated 12/23/24 @ 12:51 by Jocelin Alfaro DO) Abnormal Pap smear of cervix (1976) Anxiety (1999) Atrophic vulvovaginitis Cervical cancer (1976) Chicken pox (1957) Chronic back pain (1995) Chronic headaches (1957) Cognitive impairment Colitis (1975) Constipation COVID-19 Depression (1999) Hemorrhoids (1974) Herpes History of bronchitis Hypothyroidism Insect sting Left rotator cuff tear Lichen sclerosus Measles (1957) Overactive bladder Postmenopausal Postoperative anemia due to acute blood loss Sessile colonic polyp (11/21/14) JAVY (stress urinary incontinence, female) Urinary incontinence Weakness of pelvic floor White coat syndrome without diagnosis of hypertension Past Surgical History (Last Reviewed 12/17/24 @ 08:16 by Murali Talbot MD) Anesthesia History of colonoscopy with polypectomy History of esophagogastroduodenoscopy (EGD) (10/24/11) History of spinal fusion (1999) History of spinal fusion (2012) History of spinal fusion (2001) History of tonsillectomy (1966) Status post appendectomy (1956) Status post biopsy (10/24/11) Status post colonoscopy (10/24/11) Status post laparoscopic cholecystectomy (2000) Status post vaginal hysterectomy (1977) Visit Care Team Role Provider Type Jocelin Alfaro DO Attending Provider Physician Primary Care Provider Referring Provider Specialty: Medical Address: [address] [place] [address], [address] [place] [address], [facility] Email: [email or web address] Physical Therapy Initial Evaluation PT-OP-A Visit Information Start: 12/22/24 14:36 Freq: Status: Active Protocol: Document 12/24/24 11:30 [facility] (Rec: 12/24/24 12:28 [facility] [id number]) Out-Patient Physical Therapy Visit Information Visit Information Visit Type Initial Evaluation Visit Start Time 11:30 Visit Stop Time 12:15 Visit Number 1 Evaluation Information Evaluation Date 12/24/24 PT-OP-B Current Condition Start: 12/22/24 14:36 Freq: Status: Active Protocol: Document 12/24/24 11:30 [facility] (Rec: 12/24/24 11:50 [facility] [id number]) Current Condition History of Current Condition Current Complaints left shoulder pain with radicular symptoms down left UE to her hand History of Current she is getting a referred pain down her left arm to her Condition hand 3 times per day tingling and numbness , she will notice weakness in her hand she has almost spilled a cup of coffee 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, moderate to severe R and moderate L neural foraminal stenosis of C5-6 PT-OP-C Subjective Start: 12/22/24 14:36 Freq: Status: Active Protocol: Document 12/24/24 11:30 [facility] (Rec: 12/24/24 11:50 [facility] [id number]) OP-PT Subjective Patient Comments Patient Comments pt reports she missed her first visit in PT due to a blockage in her colon, she did have a little movement this am Patient Questionnaires Neck Disability Index NDI Score 12 Neck Disability 20 to 39% Impaired (Score 10-19) Index Impairment Quick Dash- Work and Sports Modules Quick Dash W&S Score 27 Quick Dash Work and 20 to 39% Impaired (Score 20-39) Sport Impairment OP-PT Pain Assessment Pain Assessment Grid Paper Pain Yes Assessment Grid Completed Location right shoulder Pain Location right shoulder pain is more intermittent and now as Details severe as left side Intensity 7 Scale Used Numeric (0 - 10) Description Acute left shoulder Pain Location left shoulder with radicular pain down the left arm to Details hand Intensity 8 Scale Used Numeric (0 - 10) Description Aching,Shooting Description- Other radicular symptoms happen approx 3 times per day Frequency Intermittent PT-OP-F Manual Assessment Start: 12/24/24 17:08 Freq: Status: Active Protocol: Document 12/24/24 10:45 [facility] (Rec: 12/24/24 17:10 [facility] [id number]) Manual Assessments Soft Tissue Assessment Soft Tissue Mobility B SCM tightness and guarding Assessment Left upper trapezius and scalene tightness and guarding suboccipital tightness Joint Mobility Assessment Joint Mobility upper thoracic hypomobility Assessment tightness with upper cervical flexion from C1 -C2 PT-OP-J Posture/Palpation/Skin Start: 12/22/24 14:36 Freq: Status: Active Protocol: Document 12/24/24 11:30 [facility] (Rec: 12/24/24 17:08 [facility] [id number]) Posture Evaluation Position Sitting Evaluation View Lateral Head/C-Spine Posture Extended Shoulder Posture (L) Rounded,(R) Rounded PT-OP-K Range of Motion Start: 12/22/24 14:36 Freq: Status: Active Protocol: Document 12/24/24 11:30 [facility] (Rec: 12/24/24 17:07 [facility] [id number]) Cervical Spine Range of Motion Cervical Spine Active Flexion 80 Extension 40 Rotation Left 30 Rotation Right 30 Lateral Flexion Left 10 Lateral Flexion 10 Right ROM Limitations Soft Tissue Tightness,Muscle Tone,Pain PT-OP-Q Treatments Start: 12/24/24 11:31 Freq: Status: Active Protocol: Document 12/24/24 11:30 [facility] (Rec: 12/24/24 12:30 [facility] [id number]) Therapeutic Exercises Supine Exercises cupine cervical rotation AROM Reps/Minutes x 5 each direction supine chin tucks Comments Torie was shown chin tucks in both seated and supine positions Sitting Exercises posterior shoulder rolls Reps/Minutes x 10 reps cervical chin tucks Reps/Minutes 5-10 reps holding 3-5 sec Manual Therapy Treatment Consent Patient gave verbal Yes consent for manual treatment Soft Tissue Mobilization left upper trapezius Mobilization Type Myofascial Release Body Position Hooklying Comments good tolerance suboccipital release Mobilization Type Sustained Pressure Body Position Hooklying Comments good tolerance PT-OP-T Assessment and Plan Start: 12/22/24 14:36 Freq: Status: Active Protocol: Document 12/24/24 11:30 [facility] (Rec: 12/24/24 17:19 [facility] [id number]) Physical Therapy Assessment Rehab Potential Rehabilitation Good Potential Evaluation Complexity Number of Personal 1-2 Factors/ Comorbidities Number of Body 3 Systems Impaired Clinical Evolving Presentation at Evaluation Impairments Impairments Activity Tolerance,Pain,Posture,ROM,Soft Tissue Mobility,Strength Goals 3 Impairment Muscle guarding and tightness of the sub occipitals, SCM, and upper trapezius L>R Sheet Rock Sander Goal (LTG) Torie presents with decreased muscle guarding and spasm of the cervical spine musculature LTG Duration 8 weeks 2 Impairment Decreased thoracic mobility and decreased cervical spine ROM Sheet Rock Sander Goal (LTG) Torie presents with improved cervical spine ROM and thoracic mobility 1 Impairment left >Right shoulder pain with radicular symptoms exacerbated by C 5-C6 stenosis Sheet Rock Sander Goal (LTG) Torie reports a overall reduction of pain from 8/10 left shoulder and 7/10 right shoulder to 3/10 or less LTG Duration 8 weeks Physical Therapy Plan Frequency and Duration Frequency of 2x/Week Treatment Duration of 8 treatment (weeks) Plan of Care Start 12/24/24 Date Plan of Care End 02/18/25 Date Therapeutic Interventions Therapeutic Home Exercise Program,Joint Mobilizations,Manual Interventions Therapy,Neuromuscular Re-education,Patient/Caregiver Education,Self-Care/Home Management,Soft Tissue Mobilization,Therapeutic Exercises Next Visit Focus/Plan Next Note Type Treatment Note Next Visit Plan review exercises given today, manual STM/MFR for SCM's, left upper trap, suboccipitals, begin thoracic mobility exercise of reach and pull
--- NOTE | 2024-12-24 17:27 | PT.OPPOC ---
Physical, Occupational & Speech Therapy At [facility] Current Diagnoses Pain in left shoulder (12/24/24) Other specified dorsopathies, cervical region (12/24/24) Paresthesia of skin (12/24/24) Visit Care Team Role Provider Type Jocelin Alfaro DO Attending Provider Physician Primary Care Provider Referring Provider Specialty: Medical Address: [address] [place] [address], [address], [place], [address] Email: [email or web address] Plan Of Care PT-OP-B Current Condition Start: 12/22/24 14:36 Freq: Status: Active Protocol: Document 12/24/24 11:30 [facility] (Rec: 12/24/24 11:50 [facility] [id number]) Current Condition History of Current Condition Current Complaints left shoulder pain with radicular symptoms down left UE to her hand History of Current she is getting a referred pain down her left arm to her Condition hand 3 times per day tingling and numbness , she will notice weakness in her hand she has almost spilled a cup of coffee 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, moderate to severe R and moderate L neural foraminal stenosis of C5-6 PT-OP-T Assessment and Plan Start: 12/22/24 14:36 Freq: Status: Active Protocol: Document 12/24/24 11:30 [facility] (Rec: 12/24/24 17:19 [facility] [id number]) Physical Therapy Assessment Rehab Potential Rehabilitation Good Potential Evaluation Complexity Number of Personal 1-2 Factors/ Comorbidities Number of Body 3 Systems Impaired Clinical Evolving Presentation at Evaluation Impairments Impairments Activity Tolerance,Pain,Posture,ROM,Soft Tissue Mobility,Strength Goals 3 Impairment Muscle guarding and tightness of the sub occipitals, SCM, and upper trapezius L>R Spoilage Worker Goal (LTG) Torie presents with decreased muscle guarding and spasm of the cervical spine musculature LTG Duration 8 weeks 2 Impairment Decreased thoracic mobility and decreased cervical spine ROM Group Home Goal (LTG) Torie presents with improved cervical spine ROM and thoracic mobility 1 Impairment left >Right shoulder pain with radicular symptoms exacerbated by C 5-C6 stenosis Group Home Goal (LTG) Torie reports a overall reduction of pain from 8/10 left shoulder and 7/10 right shoulder to 3/10 or less LTG Duration 8 weeks Physical Therapy Plan Frequency and Duration Frequency of 2x/Week Treatment Duration of 8 treatment (weeks) Plan of Care Start 12/24/24 Date Plan of Care End 02/18/25 Date Therapeutic Interventions Therapeutic Home Exercise Program,Joint Mobilizations,Manual Interventions Therapy,Neuromuscular Re-education,Patient/Caregiver Education,Self-Care/Home Management,Soft Tissue Mobilization,Therapeutic Exercises Next Visit Focus/Plan Next Note Type Treatment Note Next Visit Plan review exercises given today, manual STM/MFR for SCM's, left upper trap, suboccipitals, begin thoracic mobility exercise of reach and pull Plan of Care Dates Plan of Care Start Date 12/24/24 Plan of Care End Date 02/18/25 Electronically Signed by: Margarita Ogden, PT 12/24/24 1323 If you are in agreement with this Plan of Care, please return a signed and dated copy. I have reviewed this Plan of Care and certify that the skilled therapy services above are required to meet the patient?s needs. Physician Signature Date Printed Name and Credentials Clinical Instructor Signature Printed Name and Credentials
--- NOTE | 2024-12-28 12:17 | PT.OTN ---
Current Diagnoses Pain in left shoulder (12/28/24) Other specified dorsopathies, cervical region (12/28/24) Paresthesia of skin (12/28/24) Physical Therapy Treatment Note PT-OP-A Visit Information Start: 12/22/24 14:36 Freq: Status: Active Protocol: Document 12/28/24 11:38 SP (Rec: 12/28/24 12:28 SP [id number]) Out-Patient Physical Therapy Visit Information Visit Information Visit Type Treatment Note Visit Start Time 11:38 Visit Stop Time 12:17 Visit Number 2 Number of RN DISEASE MANAGEMENT Visits 1 Evaluation Information Evaluation Date 12/24/24 PT-OP-B Current Condition Start: 12/22/24 14:36 Freq: Status: Active Protocol: Document 12/24/24 11:30 [facility] (Rec: 12/24/24 11:50 [facility] [id number]) Current Condition History of Current Condition Current Complaints left shoulder pain with radicular symptoms down left UE to her hand History of Current she is getting a referred pain down her left arm to her Condition hand 3 times per day tingling and numbness , she will notice weakness in her hand she has almost spilled a cup of coffee 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, moderate to severe R and moderate L neural foraminal stenosis of C5-6 PT-OP-C Subjective Start: 12/22/24 14:36 Freq: Status: Active Protocol: Document 12/28/24 11:38 SP (Rec: 12/28/24 12:28 SP [id number]) OP-PT Subjective Patient Comments Patient Comments Pt 8 min late for appt, reports felt ok and doing ok with HEP. L arm and hand still going numb. Pt inquired if would be ok if started going to Yoga? PT-OP-F Manual Assessment Start: 12/24/24 17:08 Freq: Status: Active Protocol: Document 12/24/24 10:45 [facility] (Rec: 12/24/24 17:10 [facility] [id number]) Manual Assessments Soft Tissue Assessment Soft Tissue Mobility B SCM tightness and guarding Assessment Left upper trapezius and scalene tightness and guarding suboccipital tightness Joint Mobility Assessment Joint Mobility upper thoracic hypomobility Assessment tightness with upper cervical flexion from C1 -C2 PT-OP-J Posture/Palpation/Skin Start: 12/22/24 14:36 Freq: Status: Active Protocol: Document 12/24/24 11:30 [facility] (Rec: 12/24/24 17:08 [facility] [id number]) Posture Evaluation Position Sitting Evaluation View Lateral Head/C-Spine Posture Extended Shoulder Posture (L) Rounded,(R) Rounded PT-OP-K Range of Motion Start: 12/22/24 14:36 Freq: Status: Active Protocol: Document 12/24/24 11:30 [facility] (Rec: 12/24/24 17:07 [facility] [id number]) Cervical Spine Range of Motion Cervical Spine Active Flexion 80 Extension 40 Rotation Left 30 Rotation Right 30 Lateral Flexion Left 10 Lateral Flexion 10 Right ROM Limitations Soft Tissue Tightness,Muscle Tone,Pain PT-OP-Q Treatments Start: 12/24/24 11:31 Freq: Status: Active Protocol: Document 12/28/24 11:38 SP (Rec: 12/28/24 12:28 SP [id number]) Therapeutic Exercises Supine Exercises cupine cervical rotation AROM Reps/Minutes x 5 each direction supine chin tucks Comments Torie was shown chin tucks in both seated and supine positions Sidelying Exercises open book Sidelying Exercise added to HEP with HO Name Side bilateral Resistance ROM Reps/Minutes 8 reps each side Comments cued for slow pacing, arm, scapular and TS rotation fluid motion Manual Therapy Treatment Consent Patient gave verbal Yes consent for manual treatment Soft Tissue Mobilization L arm Body Location pec minor, bicep, forearm flexors, extensors, hand intrinics Comments gentle STMs, and PROM forearm arm pron/sup left upper trapezius Body Location L>R UT, LS, Scalene Mobilization Type Myofascial Release Body Position Hooklying Comments good tolerance suboccipital release Mobilization Type Sustained Pressure Body Position Hooklying Comments good tolerance Joint Mobilizations L scapulothoracic Joint PROM Direction retraction/depression Grade II Comments gentle PROM with ed for self mobility and open book ex. PT-OP-T Assessment and Plan Start: 12/22/24 14:36 Freq: Status: Active Protocol: Document 12/28/24 11:38 SP (Rec: 12/28/24 12:28 SP [id number]) Physical Therapy Assessment Goals 3 Impairment Muscle guarding and tightness of the sub occipitals, SCM, and upper trapezius L>R Long-Term Goal (LTG) Torie presents with decreased muscle guarding and spasm of the cervical spine musculature LTG Duration 8 weeks 2 Impairment Decreased thoracic mobility and decreased cervical spine ROM Mitten Stitcher Goal (LTG) Torie presents with improved cervical spine ROM and thoracic mobility 1 Impairment left >Right shoulder pain with radicular symptoms exacerbated by C 5-C6 stenosis Long-Term Goal (LTG) Torie reports a overall reduction of pain from 8/10 left shoulder and 7/10 right shoulder to 3/10 or less LTG Duration 8 weeks Assessment Summary Assessment Pt improved less tension posterolateral neck after manual, Initiated HABD open book for open anterior chain and encourage scapulothoracic and TS mobility with good feedback response, provided HO for carryover support set up and recall home. Brief review HEP and education continue to perform home. Physical Therapy Plan Frequency and Duration Frequency of 2x/Week Treatment Duration of 8 treatment (weeks) Plan of Care Start 12/24/24 Date Plan of Care End 02/18/25 Date Therapeutic Interventions Therapeutic Home Exercise Program,Joint Mobilizations,Manual Interventions Therapy,Neuromuscular Re-education,Patient/Caregiver Education,Self-Care/Home Management,Soft Tissue Mobilization,Therapeutic Exercises Next Visit Focus/Plan Next Note Type Treatment Note Next Visit Plan Review HEP. manual STM/MFR for SCM's, left upper trap, suboccipitals, and neural pathway to hand. Next tx Begin thoracic mobility exercise of reach and pull.
--- NOTE | 2024-12-30 13:19 | PT.OTN ---
Current Diagnoses Pain in left shoulder (12/30/24) Other specified dorsopathies, cervical region (12/30/24) Paresthesia of skin (12/30/24) Physical Therapy Treatment Note PT-OP-A Visit Information Start: 12/22/24 14:36 Freq: Status: Active Protocol: Document 12/30/24 10:46 [facility] (Rec: 12/30/24 10:52 [facility] [id number]) Out-Patient Physical Therapy Visit Information Visit Information Visit Type Treatment Note Visit Start Time 10:45 Visit Stop Time 11:30 Visit Number 3 Number of MATCH MAKER Visits 0 PT-OP-B Current Condition Start: 12/22/24 14:36 Freq: Status: Active Protocol: Document 12/24/24 11:30 [facility] (Rec: 12/24/24 11:50 [facility] [id number]) Current Condition History of Current Condition Current Complaints left shoulder pain with radicular symptoms down left UE to her hand History of Current she is getting a referred pain down her left arm to her Condition hand 3 times per day tingling and numbness , she will notice weakness in her hand she has almost spilled a cup of coffee 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, moderate to severe R and moderate L neural foraminal stenosis of C5-6 PT-OP-C Subjective Start: 12/22/24 14:36 Freq: Status: Active Protocol: Document 12/30/24 10:46 [facility] (Rec: 12/30/24 10:52 [facility] [id number]) OP-PT Subjective Patient Comments Patient Comments pt notes she is doing better She is having a biopsy on her urethra on January 05 so needed to cx her appt in PT. Left arm and hand still going numb but not as often now. It is now approx 1 time per week vs the 3-4 times per day that it was happening. It seems to happen when she is getting up in the am. The numbness lasts about a minute. PT-OP-F Manual Assessment Start: 12/24/24 17:08 Freq: Status: Active Protocol: Document 12/24/24 10:45 [facility] (Rec: 12/24/24 17:10 [facility] [id number]) Manual Assessments Soft Tissue Assessment Soft Tissue Mobility B SCM tightness and guarding Assessment Left upper trapezius and scalene tightness and guarding suboccipital tightness Joint Mobility Assessment Joint Mobility upper thoracic hypomobility Assessment tightness with upper cervical flexion from C1 -C2 PT-OP-J Posture/Palpation/Skin Start: 12/22/24 14:36 Freq: Status: Active Protocol: Document 12/24/24 11:30 [facility] (Rec: 12/24/24 17:08 [facility] [id number]) Posture Evaluation Position Sitting Evaluation View Lateral Head/C-Spine Posture Extended Shoulder Posture (L) Rounded,(R) Rounded PT-OP-K Range of Motion Start: 12/22/24 14:36 Freq: Status: Active Protocol: Document 12/24/24 11:30 [facility] (Rec: 12/24/24 17:07 [facility] [id number]) Cervical Spine Range of Motion Cervical Spine Active Flexion 80 Extension 40 Rotation Left 30 Rotation Right 30 Lateral Flexion Left 10 Lateral Flexion 10 Right ROM Limitations Soft Tissue Tightness,Muscle Tone,Pain PT-OP-Q Treatments Start: 12/24/24 11:31 Freq: Status: Active Protocol: Document 12/30/24 10:45 [facility] (Rec: 12/30/24 11:31 [facility] [id number]) Therapeutic Exercises Supine Exercises cupine cervical rotation AROM Reps/Minutes x 5 times each direction Comments no pain and decreased clicking either side supine chin tucks Reps/Minutes x 10 reps Sidelying Exercises open book Side bilateral Resistance ROM Comments cued for slow pacing, arm, scapular and TS rotation fluid motion Sitting Exercises posterior shoulder rolls Reps/Minutes x 10 reps cervical chin tucks Reps/Minutes 5-10 reps holding 3-5 sec Manual Therapy Treatment Consent Patient gave verbal Yes consent for manual treatment Soft Tissue Mobilization L arm Body Location pec minor, bicep, forearm flexors, extensors, hand intrinics Comments gentle STMs, and PROM forearm arm pron/sup left upper trapezius Body Location L>R UT, LS, Scalene Mobilization Type Myofascial Release Body Position Hooklying Comments good tolerance suboccipital release Mobilization Type Sustained Pressure Body Position Hooklying Comments good tolerance Joint Mobilizations L scapulothoracic Joint PROM Direction retraction/depression Grade II Comments gentle PROM with ed for self mobility and open book ex. Manual Techniques median nerve glides Comments worked in limited ROM of the right shoulder, pt limited with shoulder ER ROM PT-OP-T Assessment and Plan Start: 12/22/24 14:36 Freq: Status: Active Protocol: Document 12/30/24 10:45 [facility] (Rec: 12/30/24 13:16 [facility] [id number]) Physical Therapy Assessment Goals 3 Impairment Muscle guarding and tightness of the sub occipitals, SCM, and upper trapezius L>R Wire Temperer Goal (LTG) Torie presents with decreased muscle guarding and spasm of the cervical spine musculature LTG Duration 8 weeks 2 Impairment Decreased thoracic mobility and decreased cervical spine ROM Custodial Goal (LTG) Torie presents with improved cervical spine ROM and thoracic mobility 1 Impairment left >Right shoulder pain with radicular symptoms exacerbated by C 5-C6 stenosis Wire Temperer Goal (LTG) Torie reports a overall reduction of pain from 8/10 left shoulder and 7/10 right shoulder to 3/10 or less LTG Duration 8 weeks Assessment Summary Assessment Torie is showing good progress today. She has improved cervical ROM and pain is decreasing. I did try adding in some median nerve glides for the left shoulder and Torie has limited ROM so it would be good to start working on shoulder ROM. Episodes of numbness are decreasing Physical Therapy Plan Frequency and Duration Frequency of 2x/Week Treatment Duration of 8 treatment (weeks) Plan of Care Start 12/24/24 Date Plan of Care End 02/18/25 Date Therapeutic Interventions Therapeutic Home Exercise Program,Joint Mobilizations,Manual Interventions Therapy,Neuromuscular Re-education,Patient/Caregiver Education,Self-Care/Home Management,Soft Tissue Mobilization,Therapeutic Exercises Next Visit Focus/Plan Next Note Type Treatment Note Next Visit Plan begin working on shoulder ROM for the left shoulder and trial of median and ulnar nerve glides again, continue with STM and cervical ROM exercises and scapular mobility
--- NOTE | 2025-01-14 13:34 | PT.OTN ---
Current Diagnoses Pain in left shoulder (01/14/25) Other specified dorsopathies, cervical region (01/14/25) Paresthesia of skin (01/14/25) Physical Therapy Treatment Note PT-OP-A Visit Information Start: 12/22/24 14:36 Freq: Status: Active Protocol: Document 01/14/25 10:53 [facility] (Rec: 01/14/25 11:34 [facility] [id number]) Out-Patient Physical Therapy Visit Information Visit Information Visit Type Treatment Note Visit Start Time 10:45 Visit Stop Time 11:30 Visit Number 4 Number of LINER ROLL CHANGER Visits 0 Evaluation Information Evaluation Date 12/24/24 PT-OP-B Current Condition Start: 12/22/24 14:36 Freq: Status: Active Protocol: Document 12/24/24 11:30 [facility] (Rec: 12/24/24 11:50 [facility] [id number]) Current Condition History of Current Condition Current Complaints left shoulder pain with radicular symptoms down left UE to her hand History of Current she is getting a referred pain down her left arm to her Condition hand 3 times per day tingling and numbness , she will notice weakness in her hand she has almost spilled a cup of coffee 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, moderate to severe R and moderate L neural foraminal stenosis of C5-6 PT-OP-C Subjective Start: 12/22/24 14:36 Freq: Status: Active Protocol: Document 01/14/25 13:22 [facility] (Rec: 01/14/25 13:30 [facility] [id number]) OP-PT Subjective Patient Comments Patient Comments Torie reports she is sore in her left arm today with tingling down to her fingertips that is coming and going PT-OP-F Manual Assessment Start: 12/24/24 17:08 Freq: Status: Active Protocol: Document 12/24/24 10:45 [facility] (Rec: 12/24/24 17:10 [facility] [id number]) Manual Assessments Soft Tissue Assessment Soft Tissue Mobility B SCM tightness and guarding Assessment Left upper trapezius and scalene tightness and guarding suboccipital tightness Joint Mobility Assessment Joint Mobility upper thoracic hypomobility Assessment tightness with upper cervical flexion from C1 -C2 PT-OP-J Posture/Palpation/Skin Start: 12/22/24 14:36 Freq: Status: Active Protocol: Document 12/24/24 11:30 [facility] (Rec: 12/24/24 17:08 [facility] [id number]) Posture Evaluation Position Sitting Evaluation View Lateral Head/C-Spine Posture Extended Shoulder Posture (L) Rounded,(R) Rounded PT-OP-K Range of Motion Start: 12/22/24 14:36 Freq: Status: Active Protocol: Document 12/24/24 11:30 [facility] (Rec: 12/24/24 17:07 [facility] [id number]) Cervical Spine Range of Motion Cervical Spine Active Flexion 80 Extension 40 Rotation Left 30 Rotation Right 30 Lateral Flexion Left 10 Lateral Flexion 10 Right ROM Limitations Soft Tissue Tightness,Muscle Tone,Pain PT-OP-Q Treatments Start: 12/24/24 11:31 Freq: Status: Active Protocol: Document 01/14/25 13:22 [facility] (Rec: 01/14/25 13:30 [facility] [id number]) Therapeutic Exercises Supine Exercises cupine cervical rotation AROM Reps/Minutes x 5 times each direction Comments no pain and decreased clicking either side supine chin tucks Reps/Minutes x 10 reps Sitting Exercises posterior shoulder rolls Reps/Minutes x 10 reps cervical chin tucks Reps/Minutes 5-10 reps holding 3-5 sec Manual Therapy Treatment Consent Patient gave verbal Yes consent for manual treatment Soft Tissue Mobilization L arm Body Location pec minor, bicep, forearm flexors, extensors, hand intrinics Comments gentle STMs, and PROM forearm arm pron/sup left upper trapezius Body Location L>R UT, LS, Scalene Mobilization Type Myofascial Release Body Position Hooklying Comments good tolerance suboccipital release Mobilization Type Sustained Pressure Body Position Hooklying Comments good tolerance PT-OP-T Assessment and Plan Start: 12/22/24 14:36 Freq: Status: Active Protocol: Document 01/14/25 13:22 [facility] (Rec: 01/14/25 13:30 [facility] [id number]) Physical Therapy Assessment Goals 3 Impairment Muscle guarding and tightness of the sub occipitals, SCM, and upper trapezius L>R Afloat Cryptologic Manager Goal (LTG) Torie presents with decreased muscle guarding and spasm of the cervical spine musculature LTG Duration 8 weeks 2 Impairment Decreased thoracic mobility and decreased cervical spine ROM Shelter Goal (LTG) Torie presents with improved cervical spine ROM and thoracic mobility 1 Impairment left >Right shoulder pain with radicular symptoms exacerbated by C 5-C6 stenosis Afloat Cryptologic Manager Goal (LTG) Torie reports a overall reduction of pain from 8/10 left shoulder and 7/10 right shoulder to 3/10 or less LTG Duration 8 weeks Assessment Summary Assessment Torie was more guarded today in the left upper trap and scalenes, i encouraged her thoracic mobility exercises for home as she is tight and limited with throacic mobility Physical Therapy Plan Frequency and Duration Frequency of 2x/Week Treatment Duration of 8 treatment (weeks) Plan of Care Start 12/24/24 Plan of Care End 02/18/25 Date Therapeutic Interventions Therapeutic Home Exercise Program,Joint Mobilizations,Manual Interventions Therapy,Neuromuscular Re-education,Patient/Caregiver Education,Self-Care/Home Management,Soft Tissue Mobilization,Therapeutic Exercises Next Visit Focus/Plan Next Note Type Treatment Note Next Visit Plan add in standing ROWS and T exercise with level 1 TB next visit PT-Therapy Code Fee Billing Start: 12/22/24 14:36 Freq: Status: Active Protocol: Document 01/14/25 10:53 [facility] (Rec: 01/14/25 11:34 [facility] [id number]) Physical Therapy Total Visit Minutes 45 PT Charge Codes - Fee KX Modifier Therapy Cap No Exclusion Modifier Therapeutic Exercise (09075) Minutes 15 PT Unit(s) per 15 1 min Manual Therapy (73489) Minutes 30 PT Unit(s) per 15 2 min LINER ROLL CHANGER-Therapy Code Fee Billing Start: 12/28/24 11:32 Freq: Status: Active Protocol: Document 12/28/24 11:38 SP (Rec: 12/28/24 12:28 SP [id number]) Physical Therapy Total Visit Minutes 39 LINER ROLL CHANGER Charge Codes - Fee KX Modifier Therapy Cap No Exclusion Modifier Therapeutic Exercise (83492) Minutes 8 LINER ROLL CHANGER Unit(s) per 15 1 min Manual Therapy (09922) Minutes 30 LINER ROLL CHANGER Unit(s) per 15 2 min
--- NOTE | 2025-01-21 09:29 | PT.OTN ---
Current Diagnoses Pain in left shoulder (01/21/25) Other specified dorsopathies, cervical region (01/21/25) Paresthesia of skin (01/21/25) Physical Therapy Treatment Note PT-OP-A Visit Information Start: 12/22/24 14:36 Freq: Status: Active Protocol: Document 01/21/25 07:26 AB (Rec: 01/21/25 09:05 AB [id number]) Out-Patient Physical Therapy Visit Information Visit Information Visit Type Treatment Note Visit Note Access Code [email or web address] Visit Start Time 08:19 Visit Stop Time 09:02 Visit Number 5 Number of FASHION DESIGNER Visits 1 PT-OP-B Current Condition Start: 12/22/24 14:36 Freq: Status: Active Protocol: Document 12/24/24 11:30 [facility] (Rec: 12/24/24 11:50 [facility] [id number]) Current Condition History of Current Condition Current Complaints left shoulder pain with radicular symptoms down left UE to her hand History of Current she is getting a referred pain down her left arm to her Condition hand 3 times per day tingling and numbness , she will notice weakness in her hand she has almost spilled a cup of coffee 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 CS Rotation AROM limited to R>L, AROM shoulder flexion 119 deg L UE PT-OP-F Manual Assessment Start: 12/24/24 17:08 Freq: Status: Active Protocol: Document 12/24/24 10:45 [facility] (Rec: 12/24/24 17:10 [facility] [id number]) Manual Assessments Soft Tissue Assessment Soft Tissue Mobility B SCM tightness and guarding Assessment Left upper trapezius and scalene tightness and guarding suboccipital tightness Joint Mobility Assessment Joint Mobility upper thoracic hypomobility Assessment tightness with upper cervical flexion from C1 -C2 PT-OP-J Posture/Palpation/Skin Start: 12/22/24 14:36 Freq: Status: Active Protocol: Document 12/24/24 11:30 [facility] (Rec: 12/24/24 17:08 [facility] [id number]) Posture Evaluation Position Sitting Evaluation View Lateral Head/C-Spine Posture Extended Shoulder Posture (L) Rounded,(R) Rounded PT-OP-K Range of Motion Start: 12/22/24 14:36 Freq: Status: Active Protocol: Document 12/24/24 11:30 [facility] (Rec: 12/24/24 17:07 [facility] [id number]) Cervical Spine Range of Motion Cervical Spine Active Flexion 80 Extension 40 Rotation Left 30 Rotation Right 30 Lateral Flexion Left 10 Lateral Flexion 10 Right ROM Limitations Soft Tissue Tightness,Muscle Tone,Pain PT-OP-Q Treatments Start: 12/24/24 11:31 Freq: Status: Active Protocol: Document 01/21/25 07:26 AB (Rec: 01/21/25 09:05 AB [id number]) Therapeutic Exercises Supine Exercises supine shoulder flexion Supine Exercise Name Hands clasped post first trial L without clasped Equipment Used HEP Reps/Minutes X 10 Comments verbal cues to hold 10 sec end ROM cupine cervical rotation AROM Supine Exercise Name on occipital float Sitting Exercises breathing from diaphgragm Sitting Exercise UE' on pillows HEP Name Reps/Minutes 3 min Comments Verbal cues self tactile cues UT stretch Sitting Exercise HEP Name Side bilateral Reps/Minutes 60 sec X each side Comments VC to hold seat, visual cues for side bend Manual Therapy Treatment Consent Patient gave verbal Yes consent for manual treatment Soft Tissue Mobilization L UE Body Location pec ant sub delt Mobilization Type Cross-Friction,Rolling Intensity/Depth Moderate Body Position Hooklying neck/CS Body Location scalene at lat clavicle L, B CS parasp UT levat scap Mobilization Type Cross-Friction,Rolling,Sustained Pressure Intensity/Depth Moderate Body Position Sitting PT-OP-T Assessment and Plan Start: 12/22/24 14:36 Freq: Status: Active Protocol: Document 01/21/25 07:26 AB (Rec: 01/21/25 09:05 AB [id number]) Physical Therapy Assessment Goals 3 Impairment Muscle guarding and tightness of the sub occipitals, SCM, and upper trapezius L>R Nursing Home Goal (LTG) Torie presents with decreased muscle guarding and spasm of the cervical spine musculature LTG Duration 8 weeks 2 Impairment Decreased thoracic mobility and decreased cervical spine ROM Dietetic Intern Goal (LTG) Torie presents with improved cervical spine ROM and thoracic mobility 1 Impairment left >Right shoulder pain with radicular symptoms exacerbated by C 5-C6 stenosis Dietetic Intern Goal (LTG) Torie reports a overall reduction of pain from 8/10 left shoulder and 7/10 right shoulder to 3/10 or less LTG Duration 8 weeks Assessment Summary Assessment Torie reports neck feels better with CS rotation R end of session. AROM L shoulder flexion 134 deg end of session. Physical Therapy Plan Frequency and Duration Frequency of 2x/Week Treatment Duration of 8 treatment (weeks) Plan of Care Start 12/24/24 Date Plan of Care End 02/18/25 Date Next Visit Focus/Plan Next Note Type Progress Note Next Visit Plan add in standing ROWS and T exercise with level 1 TB next visit
--- NOTE | 2025-02-02 16:57 | PT.OPPOC ---
Physical, Occupational & Speech Therapy At [facility] Current Diagnoses Pain in left shoulder (02/02/25) Other specified dorsopathies, cervical region (02/02/25) Paresthesia of skin (02/02/25) Visit Care Team Role Provider Type Jocelin Alfaro DO Attending Provider Physician Primary Care Provider Referring Provider Specialty: Medical Address: [address] [place] [address], [address], [place], [address] Email: [email or web address] Plan Of Care PT-OP-A Visit Information Start: 12/22/24 14:36 Freq: Status: Active Protocol: Document 02/02/25 11:30 [facility] (Rec: 02/02/25 16:55 [facility] [id number]) Out-Patient Physical Therapy Visit Information Visit Information Visit Type Treatment Note Visit Start Time 11:30 Visit Stop Time 12:15 Visit Number 6 Number of EPILEPSY PHYSICIAN Visits 0 PT-OP-B Current Condition Start: 12/22/24 14:36 Freq: Status: Active Protocol: Document 12/24/24 11:30 [facility] (Rec: 12/24/24 11:50 [facility] [id number]) Current Condition History of Current Condition Current Complaints left shoulder pain with radicular symptoms down left UE to her hand History of Current she is getting a referred pain down her left arm to her Condition hand 3 times per day tingling and numbness , she will notice weakness in her hand she has almost spilled a cup of coffee 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 She also reports she wakes up at night with left arm pain PT-OP-F Manual Assessment Start: 12/24/24 17:08 Freq: Status: Active Protocol: Document 12/24/24 10:45 [facility] (Rec: 12/24/24 17:10 [facility] [id number]) Manual Assessments Soft Tissue Assessment Soft Tissue Mobility B SCM tightness and guarding Assessment Left upper trapezius and scalene tightness and guarding suboccipital tightness Joint Mobility Assessment Joint Mobility upper thoracic hypomobility Assessment tightness with upper cervical flexion from C1 -C2 PT-OP-J Posture/Palpation/Skin Start: 12/22/24 14:36 Freq: Status: Active Protocol: Document 12/24/24 11:30 [facility] (Rec: 12/24/24 17:08 [facility] [id number]) Posture Evaluation Position Sitting Evaluation View Lateral Head/C-Spine Posture Extended Shoulder Posture (L) Rounded,(R) Rounded PT-OP-K Range of Motion Start: 12/22/24 14:36 Freq: Status: Active Protocol: Document 12/24/24 11:30 [facility] (Rec: 12/24/24 17:07 [facility] [id number]) Cervical Spine Range of Motion Cervical Spine Active Flexion 80 Extension 40 Rotation Left 30 Rotation Right 30 Lateral Flexion Left 10 Lateral Flexion 10 Right ROM Limitations Soft Tissue Tightness,Muscle Tone,Pain PT-OP-Q Treatments Start: 12/24/24 11:31 Freq: Status: Active Protocol: Document 02/02/25 11:30 [facility] (Rec: 02/02/25 16:55 [facility] [id number]) Therapeutic Exercises Supine Exercises supine chin tucks Reps/Minutes x 10 reps Manual Therapy Treatment Soft Tissue Mobilization L UE Body Location pec ant sub delt Mobilization Type Cross-Friction,Rolling Intensity/Depth Moderate Body Position Hooklying left upper trapezius Body Position Prone Comments worked in prone today and Torie tolerated this well Joint Mobilizations thoracic Joint upper thoracic spine Direction PA Grade II Body Position Prone Comments good tolerance for thoracic mobilization in prone today Manual Techniques manual upper trapezius and scalene stretch Body Position Supine Reps/Duration 2 reps each side holding 30 sec PT-OP-T Assessment and Plan Start: 12/22/24 14:36 Freq: Status: Active Protocol: Document 02/02/25 11:30 [facility] (Rec: 02/02/25 16:55 [facility] [id number]) Physical Therapy Assessment Goals 3 Impairment Muscle guarding and tightness of the sub occipitals, SCM, and upper trapezius L>R Behavioral Analyst Goal (LTG) Torie presents with decreased muscle guarding and spasm of the cervical spine musculature Despite efforts Torie continues to present with muscle guarding and spasm of the upper trapezius and scalenes LTG Duration 8 weeks 2 Impairment Decreased thoracic mobility and decreased cervical spine ROM Care Home Goal (LTG) Torie presents with improved cervical spine ROM and thoracic mobility Yuriy has made some progress towards improved cervical and thoracic ROM however she remains limited with her home program due to continued radicular symptoms down the left arm and hand 1 Impairment left >Right shoulder pain with radicular symptoms exacerbated by C 5-C6 stenosis Behavioral Analyst Goal (LTG) Torie reports a overall reduction of pain from 8/10 left shoulder and 7/10 right shoulder to 3/10 or less No change LTG Duration 8 weeks Assessment Summary Assessment AROM of the left shoulder is 134 degrees and there is a small amount of improvement with cervical ROM however Torie continues to c/o left sided radicular symptoms from the shoulder to her hand. She feels her shoulder pain is worsening. She would like to continue PT but I feel it may be beneficial to consider a cervical epidural steroid injection along with continued PT. Physical Therapy Plan Frequency and Duration Frequency of 2x/Week Treatment Duration of 8 treatment (weeks) Plan of Care Start 02/02/25 Date Plan of Care End 03/30/25 Date Next Visit Focus/Plan Next Note Type Treatment Note Next Visit Plan continue with exercises to promote improved thoracic and cervical ROM, postural ex, and manual therapy techniques Plan of Care Dates Plan of Care Start Date 02/02/25 Plan of Care End Date 03/30/25 Electronically Signed by: Margarita Ogden, PT 02/02/25 0629 If you are in agreement with this Plan of Care, please return a signed and dated copy. I have reviewed this Plan of Care and certify that the skilled therapy services above are required to meet the patient?s needs. Physician Signature Date Printed Name and Credentials Clinical Instructor Signature Printed Name and Credentials
--- NOTE | 2025-02-04 16:51 | PT.OTN ---
Current Diagnoses Pain in left shoulder (02/04/25) Other specified dorsopathies, cervical region (02/04/25) Paresthesia of skin (02/04/25) Physical Therapy Treatment Note PT OP: Cervical/Upper Extremity Start: 02/02/25 16:55 Freq: Status: Active Protocol: Document 02/04/25 08:12 [facility] (Rec: 02/04/25 08:18 [facility] [id number]) Out-Patient Physical Therapy Visit Information Visit Information Visit Type Treatment Note Visit Start Time 08:15 Visit Stop Time 09:00 Visit Number 7 OP-PT Subjective Patient Comments Patient Comments tingling has been a little better and its not strong in her hand as it has been. Torie reports she has been working on her shoulder blade squeezes Patient Reported Improving Progress Therapeutic Exercises Sitting Exercises UT stretch Sitting Exercise HEP Name Side bilateral Reps/Minutes 60 sec X each side Comments VC to hold seat, visual cues for side bend Standing Exercises standing doorway stretch Reps/Minutes hold 30sec to a min x 2 reps each side Comments worked on arm straight and arm at 90deg angle Manual Therapy Treatment Consent Patient gave verbal Yes consent for manual treatment Soft Tissue Mobilization neck/CS Body Location scalene at lat clavicle L, B CS parasp UT levat scap Mobilization Type Cross-Friction,Rolling,Sustained Pressure Intensity/Depth Moderate Body Position Sitting left upper trapezius Body Position Prone Comments worked in prone today and Torie tolerated this well Joint Mobilizations thoracic Joint upper thoracic spine Direction PA Grade II Body Position Prone Comments good tolerance for thoracic mobilization in prone today L scapulothoracic Joint PROM Direction retraction/depression Grade II Comments gentle PROM with ed for self mobility and open book ex. Physical Therapy Assessment Goals 3 Impairment Muscle guarding and tightness of the sub occipitals, SCM, and upper trapezius L>R Fpc Goal (LTG) Torie presents with decreased muscle guarding and spasm of the cervical spine musculature Despite efforts Torie continues to present with muscle guarding and spasm of the upper trapezius and scalenes LTG Duration 8 weeks 2 Impairment Decreased thoracic mobility and decreased cervical spine ROM Fpc Goal (LTG) Torie presents with improved cervical spine ROM and thoracic mobility Yuriy has made some progress towards improved cervical and thoracic ROM however she remains limited with her home program due to continued radicular symptoms down the left arm and hand 1 Impairment left >Right shoulder pain with radicular symptoms exacerbated by C 5-C6 stenosis Junior Net Developer Goal (LTG) Torie reports a overall reduction of pain from 8/10 left shoulder and 7/10 right shoulder to 3/10 or less No change LTG Duration 8 weeks Assessment Summary Assessment Torie seems to be doing better adding in thoracic mobilizations, I have been working in prone over body pillow on mobilizing the thoracic spine and she is tolerating this well. She was able to place left arm in door way both at a 90 deg angle and with arm straight for doorway stretch and tolerated this well today Physical Therapy Plan Frequency and Duration Frequency of 2x/Week Treatment Duration of 8 treatment (weeks) Plan of Care Start 02/02/25 Date Plan of Care End 03/30/25 Date Next Visit Focus/Plan Next Note Type Treatment Note Next Visit Plan review door way stretch, continue with exercises to promote improved thoracic and cervical ROM, postural ex , and manual therapy techniques
--- NOTE | 2025-02-08 08:48 | PT-OP ANOTE ---
Addendum entered and electronically signed by Julianne Peterson PTA 02/08/25 08:50: Pt has 2 more appts 1st with PT then SUPERVISOR CRACK OFF, next appt add more appts. Original Note: Pt called and left message cancelling today's appt, no reason given.
--- NOTE | 2025-02-16 13:36 | PT.OTN ---
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 OP-PT Subjective Patient Comments Patient Comments pt notes she is not experiencing as much of the left side now and radicular symptoms have lessened Patient Reported Improving Progress Manual Therapy Treatment Soft Tissue Mobilization left upper trapezius Body Location worked on bilateral upper trapezius Body Position Prone Comments worked in prone today and Torie tolerated this well using the body pillow Joint Mobilizations thoracic Joint upper thoracic spine Direction PA Grade II Body Position Prone Comments good tolerance for thoracic mobilization in prone today L scapulothoracic Joint PROM Direction retraction/depression Grade II Comments gentle PROM with ed for self mobility and open book ex. Physical Therapy Assessment Goals 3 Impairment Muscle guarding and tightness of the sub occipitals, SCM, and upper trapezius L>R Snf Goal (LTG) Torie presents with decreased muscle guarding and spasm of the cervical spine musculature Despite efforts Torie continues to present with muscle guarding and spasm of the upper trapezius and scalenes LTG Duration 8 weeks 2 Impairment Decreased thoracic mobility and decreased cervical spine ROM Crown Ironer Goal (LTG) Torie presents with improved cervical spine ROM and thoracic mobility Be has made some progress towards improved cervical and thoracic ROM however she remains limited with her home program due to continued radicular symptoms down the left arm and hand 1 Impairment left >Right shoulder pain with 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 She is not experiencing the radicular symptoms she was having Physical Therapy Plan Frequency and Duration Frequency of 2x/Week Treatment Duration of 8 treatment (weeks) Plan of Care Start 02/02/25 Date Plan of Care End 03/30/25 Date Next Visit Focus/Plan Next Note Type Treatment Note Next Visit Plan begin with reviewing pec stretch and start theraband rows and shoulder ER , continue with thoracic mobilizations and manual therapy techniques
--- NOTE | 2025-02-18 09:01 | PT.OTN ---
Current Diagnoses Pain in left shoulder (02/18/25) Other specified dorsopathies, cervical region (02/18/25) Paresthesia of skin (02/18/25) Physical Therapy Treatment Note PT OP: Cervical/Upper Extremity Start: 02/02/25 16:55 Freq: Status: Active Protocol: Document 02/18/25 08:21 [facility] (Rec: 02/18/25 09:06 [facility] [id number]) Out-Patient Physical Therapy Visit Information Visit Information Visit Type Treatment Note Visit Note 08/29 from last [place] Visit Start Time 08:21 Visit Stop Time 09:01 Visit Number [address] Visits 1 Progress Note Due 03/04/25 Evaluation Information Evaluation Date 12/24/24 OP-PT Subjective Patient Comments Patient Comments Pt reports havign shotting pain into L arm posterolateral from reaching overhead yard work. Therapeutic Exercises Supine Exercises over noodle Supine Exercise Name pec stretch, protraction, HABD- added to HEP with HO Resistance *cued CS nod neutral, SLOW scap & GH fluid movement Equipment Used 1 flat pillow under noodle at head provide 20 deg lift, spine over noodle Reps/Minutes 5 reps each Comments reduction and movement radicular symptom elimination cupine cervical rotation AROM Reps/Minutes 5 reps post manual and on noodle Comments cued CS nod neutral, slow R and L small fluid range supine chin tucks Reps/Minutes x 10 reps Comments causes radicular suymptoms Sitting Exercises breathing from diaphgragm Comments throughout tx during thersex posterior shoulder rolls Reps/Minutes x 10 reps Comments elongated posture with NS nod neutral, slow scap fluid movement cervical chin tucks Reps/Minutes 5-10 reps holding 3-5 sec Comments not push into pain/radic. symptoms Standing Exercises Resisted Shld Ext Standing Exercise 02/18/25 Name Comments cued posture and scap set and not pull behind body, still rad symptoms- DC Resisted Rows Standing Exercise added to HEP with HO Name Resistance Tb #2 Reps/Minutes 10 reps Comments cued scap retraction Other Exercises self STMs Other Exercise Name ball wall post scap Equipment Used ball in pillowcase Comments decrease tension, ed gentle pressure massage, not into pain Manual Therapy Treatment Consent Patient gave verbal Yes consent for manual treatment Soft Tissue Mobilization L UE Body Location pec ant sub delt Mobilization Type Cross-Friction,Rolling Intensity/Depth Moderate Body Position Hooklying neck/CS Body Location scalene at lat clavicle L, B CS parasp UT levat scap Mobilization Type Cross-Friction,Rolling,Sustained Pressure Intensity/Depth Moderate Body Position Sitting Joint Mobilizations L scapulothoracic Joint PROM Direction retraction/depression Grade II Comments gentle PROM with ed for self mobility and open book ex. Manual Traction CS Comments 10 sec hold x5 reps- symptoms radicular elimination Self-Care/Home Management Treatment Education Patient Education Body Mechanics,Home Exercise Program,Joint Protection, Pain Management,Posture,Safety Other Education Time spent education on CS and UE anatomy with nerve pathway to hand, spinal and scapular alignment with body mechanics during ADLs to assist radicuar symptom relief L arm into hand with better understanding and postural corrections. Further discussion postural alignment static, various positions and moving to make changes in support symptom reduction/elimination at this time. Physical Therapy Assessment Goals 3 Impairment Muscle guarding and tightness of the sub occipitals, SCM, and upper trapezius L>R Jail Goal (LTG) Torie presents with decreased muscle guarding and spasm of the cervical spine musculature Despite efforts Torie continues to present with muscle guarding and spasm of the upper trapezius and scalenes LTG Duration 8 weeks 2 Impairment Decreased thoracic mobility and decreased cervical spine ROM Learning Facilitator Goal (LTG) Torie presents with improved cervical spine ROM and thoracic mobility Be has made some progress towards improved cervical and thoracic ROM however she remains limited with her home program due to continued radicular symptoms down the left arm and hand 1 Impairment left >Right shoulder pain with radicular 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 Understands and making self corrections of spinal and scap alignment post education and cues for improved posture and symptom reduction with carryover during gait and ADLs, would beneift from HOs for this next tx. Physical Therapy Plan Frequency and Duration Frequency of 2x/Week Treatment Duration of 8 treatment (weeks) Plan of Care Start 02/02/25 Date Plan of Care End 03/30/25 Date Therapeutic Interventions Therapeutic Home Exercise Program,Joint Mobilizations,Manual Interventions Therapy,Neuromuscular Re-education,Patient/Caregiver Education,Self-Care/Home Management,Soft Tissue Mobilization,Therapeutic Exercises Next Visit Focus/Plan Next Note Type Treatment Note Next Visit Plan Review: pec stretch, AROM over noodle, theraband rows. Next add shoulder ER, check sleep positioning, continue with thoracic mobilizations and manual therapy techniques, Mechanical traction?
--- NOTE | 2025-02-24 09:04 | PT.OTN ---
Addendum entered and electronically signed by Julianne Peterson, PYTHON JAVA DEVELOPER 02/25/25 16:47: Instruction use of theracane posterior neck STMs and MWM head nods/turns, self STMs parascapular region ball in pillowcase between body and wall- rolling with good feedback response. this feels good Original Note: Current Diagnoses Pain in left shoulder (02/24/25) Other specified dorsopathies, cervical region (02/24/25) Paresthesia of skin (02/24/25) Physical Therapy Treatment Note PT OP: Cervical/Upper Extremity Start: 02/02/25 16:55 Freq: Status: Active Protocol: Document 02/24/25 08:23 [facility] (Rec: 02/24/25 08:25 [facility] [id number]) Out-Patient Physical Therapy Visit Information Visit Information Visit Type Treatment Note Visit Note 09/29 from last [place] Visit Start Time 08:23 Visit Stop Time 09:04 Visit Number 10 (4 from last PN) Number of PYTHON JAVA DEVELOPER Visits 2 Progress Note Due 03/04/25 Evaluation Information Evaluation Date 12/24/24 OP-PT Subjective Patient Comments Patient Comments Pt reports her L shoulder is feeling worse, thinks hurt it during yard work trimming her tree. Therapeutic Exercises Sidelying Exercises ABD Sidelying Exercise In PT Name Side left Resistance AAROM Reps/Minutes 8 reps Comments cues for scap inferior (LT) & adduction (rhom) w/ OH & eccentric return ER Sidelying Exercise added to HEP with HO Name Side left Reps/Minutes 5 reps 5 sec hold Comments tactile & VCs rhomboid and LT fac open book Sidelying Exercise verbal review hand on head Name Side left Comments cued for home carryover if pnfree movement Sitting Exercises breathing from diaphgragm Comments throughout tx during ther ex posterior shoulder rolls Sitting Exercise reviewed HEP added to HO Name Reps/Minutes x 10 reps Comments elongated posture with NS nod neutral, slow scap fluid movement cervical chin tucks Reps/Minutes 5-10 reps holding 3-5 sec Comments not push into pain/radic. symptoms Manual Therapy Treatment Consent Patient gave verbal Yes consent for manual treatment Soft Tissue Mobilization L UE Body Location pec, supraspinatus, infraspinatus, Teres, SA, Lat Mobilization Type Cross-Friction,Rolling Intensity/Depth Moderate Body Position Hooklying and R SL Comments gentle neck/CS Body Location scalene at lat clavicle L, B CS parasp UT levat scap Mobilization Type Cross-Friction,Rolling,Sustained Pressure Intensity/Depth Moderate Body Position SL Joint Mobilizations L GH JT Direction inferior, posterior glide Comments very gentle motion- uncomfortable to stopped 02/24/25 L scapulothoracic Joint PROM then AAROM Direction retraction/depression Grade II Reps/Duration SL Comments gentle PROM then AAROM with ed for self mobility SL and standing and continue open book ex. Self-Care/Home Management Treatment Education Patient Education Body Mechanics,Home Exercise Program,Joint Protection, Pain Management,Posture,Safety Other Education Ed scap mobility retraction/depression with sit, stand, activity carryover decrease/eliminate pain neck/ anterior/lateral shld during all activities. Especially has latent response. Discussed can use MHP or CP as needed for pain recovery. Physical Therapy Assessment Goals 3 Impairment Muscle guarding and tightness of the sub occipitals, SCM, and upper trapezius L>R Skilled Nursing Goal (LTG) Torie presents with decreased muscle guarding and spasm of the cervical spine musculature Despite efforts Torie continues to present with muscle guarding and spasm of the upper trapezius and scalenes LTG Duration 8 weeks 2 Impairment Decreased thoracic mobility and decreased cervical spine ROM Skilled Nursing Goal (LTG) Torie presents with improved cervical spine ROM and thoracic mobility Be has made some progress towards improved cervical and thoracic ROM however she remains limited with her home program due to continued radicular symptoms down the left arm and hand 1 Impairment left >Right shoulder pain with 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 Continued cues posterior shoulder rolls and reinforcement scapular set positioning of LT and rhomboid during humeral ER ther ex for carryover improve functional mobility and postural awareness to improve ADLs. ALso discussed be mindful of activities doing if not strong enough, will have latent response of pain as did with trimming her tree noted. Discussed can use MHP or CP as needed for pain recovery. Pt reports decreased radicular symptoms into L arm/hand with scap correction activities during tx today. Would benefit from check her sleep positioning and postural education in all positions and carryover ADLs. Physical Therapy Plan Frequency and Duration Frequency of 2x/Week Treatment Duration of 8 treatment (weeks) Plan of Care Start 02/02/25 Date Plan of Care End 03/30/25 Date Therapeutic Interventions Therapeutic Home Exercise Program,Joint Mobilizations,Manual Interventions Therapy,Neuromuscular Re-education,Patient/Caregiver Education,Self-Care/Home Management,Soft Tissue Mobilization,Therapeutic Exercises Next Visit Focus/Plan Next Note Type Treatment Note Next Visit Plan Review: pec stretch, humeral ER added, AROM over noodle if tolerated, progress theraband ex tolerated. Next check sleep positioning, continue with thoracic mobilizations and manual therapy techniques, Mechanical traction for decreased radicular symptoms into L arm/ hand?
--- NOTE | 2025-03-04 11:35 | PT.OTN ---
Current Diagnoses Pain in left shoulder (03/04/25) Other specified dorsopathies, cervical region (03/04/25) Paresthesia of skin (03/04/25) Physical Therapy Treatment Note PT OP: Cervical/Upper Extremity Start: 02/02/25 16:55 Freq: Status: Active Protocol: Document 03/04/25 10:52 [facility] (Rec: 03/04/25 11:37 SP [id number]) Out-Patient Physical Therapy Visit Information Visit Information Visit Type Treatment Note Visit Note 10/29 from last [place] CARLEY Thibodeaux assisted with manual, ther ex and nerve glide AAROM and instruction performance as tolerated painfree, while under direct instruction of CRITICAL CARE NURSE SPECIALIST Julianne. Visit Start Time 10:52 Visit Stop Time 11:35 Visit Number 11 (10/29 from last PN) Number of CRITICAL CARE NURSE SPECIALIST Visits 3 Progress Note Due 03/04/25 Evaluation Information Evaluation Date 12/24/24 OP-PT Subjective Patient Comments Patient Comments Pt states still having radicular symptoms continue down L arm still comes and goes, pain around mid lateral humerus at distal deltoid region and when raises arm FF approx 45 derg in front of her causes a shooting pain down arm into hand. Always has pain when dressign self. Last night slept really good amazingly. Uses pillowsfor support. She is having pain in R 2nd MCP and will be calling physician, shoot pain when lifts up coffee cup. Therapeutic Exercises Sidelying Exercises ABD Sidelying Exercise In PT Name Side left Resistance AAROM>AROM Reps/Minutes 8 reps Comments cues for scap inferior (LT) & adduction (rhom) w/ OH & eccentric return open book Sidelying Exercise verbal review hand on head Name Side left Resistance AAROM>AROM Reps/Minutes 5 reps Comments tactile cue parascapular engagement Sitting Exercises ER Sitting Exercise External rotation, elbows at sides, AROM > L1 band- Name declined HO Side bilateral Resistance L1 Reps/Minutes 10 Comments cues for elbows at sides, slow scap retraction Nerve Glides Sitting Exercise median modified range- trialed in PT Name Side left Reps/Minutes 2 Comments Tolerated 2 modified glides to 45 degrees elbow ext, stopped due to pn. breathing from diaphgragm Comments throughout tx during ther ex posterior shoulder rolls Sitting Exercise reviewed HEP added to HO Name Reps/Minutes x 10 reps Comments elongated posture with NS nod neutral, slow scap fluid movement cervical chin tucks Reps/Minutes 5-10 reps holding 3-5 sec Comments not push into pain/radic. symptoms Standing Exercises Resisted Rows Standing Exercise Gentle resisted rows with L1 band-declined HO Name Side bilateral Resistance L1 band Reps/Minutes 10 Comments Cues for posture, scapular retraction, slow out and back. Manual Therapy Treatment Consent Patient gave verbal Yes consent for manual treatment Soft Tissue Mobilization L UE Body Location pec, supraspinatus, infraspinatus, Teres, SA, Lat Mobilization Type Cross-Friction,Rolling Intensity/Depth Moderate Body Position R SL Comments gentle STMs neck/CS Body Location L UT levat scap Mobilization Type Cross-Friction,Rolling,Sustained Pressure Intensity/Depth Moderate Body Position SL Comments gentle STMs Joint Mobilizations L scapulothoracic Joint PROM, AAROM, AROM Direction retraction/depression Grade II Reps/Duration SL Comments gentle PROM followed by AAROM>AROM with ed for self mobility SL and standing and continue open book ex, cues for using rhomboid, LT, Lat. Self-Care/Home Management Treatment Education Patient Education Body Mechanics,Home Exercise Program,Joint Protection, Pain Management,Posture,Safety Other Education Continued Ed scap mobility retraction/depression with sit, stand, activity carryover decrease/eliminate pain neck/anterior/lateral shld during all activities and maybe discontinue activities as getting apples off her tree, even though usually using just L hand. Instruction on putting L UE in clothing first, stay in pain free range. Physical Therapy Assessment Goals 3 Impairment Muscle guarding and tightness of the sub occipitals, SCM, and upper trapezius L>R [facility] Goal (LTG) Torie presents with decreased muscle guarding and spasm of the cervical spine musculature Despite efforts Torie continues to present with muscle guarding and spasm of the upper trapezius and scalenes 03/04/25: MET GOAL: no pain with CS ROM or muscle guarding not. Is mindful of posture walkign and helps. LTG Duration 8 weeks MET Goal 03/04/25 2 Impairment Decreased thoracic mobility and decreased cervical spine ROM [employer] Dem[employer] Goal (LTG) Torie presents with improved cervical spine ROM and thoracic mobility Be has made some progress towards improved cervical and thoracic ROM however she remains limited with her home program due to continued radicular symptoms down the left arm and hand 03/04/25: CS Rotation is fine but CS flexion caused pain in R parascapular region with radicular symptom down arm to hand to palmar 2-5 fingers. 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 LTG Duration 8 weeks slow progress due to pain and symptoms 03/04/25 Assessment Summary Assessment Pt continues to have LUE radicular symptoms, improved with almost completed diminished with tactile cues for interscapular engagement in sidelying UE Abduction and HABD with less over recruitment pain response anterior and distal deltoid region. She tolerated progression resisted rows and humeral ER with cues for elongated posture and range with no pain. PT to complete PN today . Physical Therapy Plan Frequency and Duration Frequency of 2x/Week Treatment Duration of 8 treatment (weeks) Plan of Care Start 02/02/25 Date Plan of Care End 03/30/25 Date Therapeutic Interventions Therapeutic Home Exercise Program,Joint Mobilizations,Manual Interventions Therapy,Neuromuscular Re-education,Patient/Caregiver Education,Self-Care/Home Management,Soft Tissue Mobilization,Therapeutic Exercises Next Visit Focus/Plan Next Note Type Treatment Note Next Visit Plan Review: pec stretch, resisted rows and humeral ER added, AROM and or add resistance band over noodle if tolerated, progress theraband ex tolerated. Next check sleep positioning, continue with thoracic mobilizations and manual therapy techniques, Mechanical traction for decreased radicular symptoms into L arm/ hand?
--- NOTE | 2025-03-04 16:33 | PT.OPPOC ---
Physical, Occupational & Speech Therapy At [facility] Current Diagnoses Pain in left shoulder (03/04/25) Other specified dorsopathies, cervical region (03/04/25) Paresthesia of skin (03/04/25) Visit Care Team Role Provider Type Jocelin Alfaro DO Attending Provider Physician Primary Care Provider Referring Provider Specialty: Medical Address: [address] [place] [address], [address], [place], [address] Email: [email or web address] Plan Of Care PT OP: Cervical/Upper Extremity Start: 02/02/25 16:55 Freq: Status: Active Protocol: Document 03/04/25 10:52 SP (Rec: 03/04/25 11:37 SP [id number]) Out-Patient Physical Therapy Visit Information Visit Information Visit Type Treatment Note Visit Note 10/29 from last OH CARLEY Thibodeaux assisted with manual, ther ex and nerve glide AAROM and instruction performance as tolerated painfree, while under direct instruction of CASEWORKER Julianne. Visit Start Time 10:52 Visit Stop Time 11:35 Visit Number 11 (10/29 from last PN) Number of CASEWORKER Visits 3 Progress Note Due 03/04/25 Evaluation Information Evaluation Date 12/24/24 OP-PT Subjective Patient Comments Patient Comments Pt states still having radicular symptoms continue down L arm still comes and goes, pain around mid lateral humerus at distal deltoid region and when raises arm FF approx 45 derg in front of her causes a shooting pain down arm into hand. Always has pain when dressign self. Last night slept really good amazingly. Uses pillowsfor support. She is having pain in R 2nd MCP and will be calling physician, shoot pain when lifts up coffee cup. Therapeutic Exercises Sidelying Exercises ABD Sidelying Exercise In PT Name Side left Resistance AAROM>AROM Reps/Minutes 8 reps Comments cues for scap inferior (LT) & adduction (rhom) w/ OH & eccentric return open book Sidelying Exercise verbal review hand on head Name Side left Resistance AAROM>AROM Reps/Minutes 5 reps Comments tactile cue parascapular engagement Sitting Exercises ER Sitting Exercise External rotation, elbows at sides, AROM > L1 band- Name declined HO Side bilateral Resistance L1 Reps/Minutes 10 Comments cues for elbows at sides, slow scap retraction Nerve Glides Sitting Exercise median modified range- trialed in PT Name Side left Reps/Minutes 2 Comments Tolerated 2 modified glides to 45 degrees elbow ext, stopped due to pn. breathing from diaphgragm Comments throughout tx during ther ex posterior shoulder rolls Sitting Exercise reviewed HEP added to HO Name Reps/Minutes x 10 reps Comments elongated posture with NS nod neutral, slow scap fluid movement cervical chin tucks Reps/Minutes 5-10 reps holding 3-5 sec Comments not push into pain/radic. symptoms Standing Exercises Resisted Rows Standing Exercise Gentle resisted rows with L1 band-declined HO Name Side bilateral Resistance L1 band Reps/Minutes 10 Comments Cues for posture, scapular retraction, slow out and back. Manual Therapy Treatment Consent Patient gave verbal Yes consent for manual treatment Soft Tissue Mobilization L UE Body Location pec, supraspinatus, infraspinatus, Teres, SA, Lat Mobilization Type Cross-Friction,Rolling Intensity/Depth Moderate Body Position R SL Comments gentle STMs neck/CS Body Location L UT levat scap Mobilization Type Cross-Friction,Rolling,Sustained Pressure Intensity/Depth Moderate Body Position SL Comments gentle STMs Joint Mobilizations L scapulothoracic Joint PROM, AAROM, AROM Direction retraction/depression Grade II Reps/Duration SL Comments gentle PROM followed by AAROM>AROM with ed for self mobility SL and standing and continue open book ex, cues for using rhomboid, LT, Lat. Self-Care/Home Management Treatment Education Patient Education Body Mechanics,Home Exercise Program,Joint Protection, Pain Management,Posture,Safety Other Education Continued Ed scap mobility retraction/depression with sit, stand, activity carryover decrease/eliminate pain neck/anterior/lateral shld during all activities and maybe discontinue activities as getting apples off her tree, even though usually using just L hand. Instruction on putting L UE in clothing first, stay in pain free range. Physical Therapy Assessment Goals 3 Impairment Muscle guarding and tightness of the sub occipitals, SCM, and upper trapezius L>R Electronics Research Engineer Goal (LTG) Torie presents with decreased muscle guarding and spasm of the cervical spine musculature Despite efforts Torie continues to present with muscle guarding and spasm of the upper trapezius and scalenes 03/04/25: MET GOAL: no pain with CS ROM or muscle guarding not. Is mindful of posture walkign and helps. LTG Duration 8 weeks MET Goal 03/04/25 2 Impairment Decreased thoracic mobility and decreased cervical spine ROM Mcfp Goal (LTG) Torie presents with improved cervical spine ROM and thoracic mobility Be has made some progress towards improved cervical and thoracic ROM however she remains limited with her home program due to continued radicular symptoms down the left arm and hand 03/04/25: CS Rotation is fine but CS flexion caused pain in R parascapular region with radicular symptom down arm to hand to palmar 2-5 fingers. 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 LTG Duration 8 weeks slow progress due to pain and symptoms 03/04/25 Assessment Summary Assessment Pt continues to have LUE radicular symptoms, improved with almost completed diminished with tactile cues for interscapular engagement in sidelying UE Abduction and HABD with less over recruitment pain response anterior and distal deltoid region. She tolerated progression resisted rows and humeral ER with cues for elongated posture and range with no pain. PT to complete PN today . Physical Therapy Plan Frequency and Duration Frequency of 2x/Week Treatment Duration of 8 treatment (weeks) Plan of Care Start 02/02/25 Date Plan of Care End 03/30/25 Date Therapeutic Interventions Therapeutic Home Exercise Program,Joint Mobilizations,Manual Interventions Therapy,Neuromuscular Re-education,Patient/Caregiver Education,Self-Care/Home Management,Soft Tissue Mobilization,Therapeutic Exercises Next Visit Focus/Plan Next Note Type Treatment Note Next Visit Plan Review: pec stretch, resisted rows and humeral ER added, AROM and or add resistance band over noodle if tolerated, progress theraband ex tolerated. Next check sleep positioning, continue with thoracic mobilizations and manual therapy techniques, Mechanical traction for decreased radicular symptoms into L arm/ hand? Plan of Care Dates Plan of Care Start Date 02/02/25 Plan of Care End Date 03/30/25 Electronically Signed by: Margarita Ogden, PT 03/04/25 2551 If you are in agreement with this Plan of Care, please return a signed and dated copy. I have reviewed this Plan of Care and certify that the skilled therapy services above are required to meet the patient?s needs. Physician Signature Date Printed Name and Credentials Clinical Instructor Signature Printed Name and Credentials
--- NOTE | 2025-03-16 17:03 | PT.OPDS ---
Current Diagnoses Pain in left shoulder (03/16/25) Other specified dorsopathies, cervical region (03/16/25) Paresthesia of skin (03/16/25) Visit Care Team Role Provider Type Jocelin Alfaro DO Attending Provider Physician Primary Care Provider Referring Provider Specialty: Medical Address: [address] [place] [address], [address], [place], [address] Email: [email or web address] Visit Number Visit Number 12 Discharge Summary PT OP: Cervical/Upper Extremity Start: 02/02/25 16:55 Freq: Status: Active Protocol: Document 03/16/25 13:04 [facility] (Rec: 03/16/25 13:10 [facility] [id number]) Out-Patient Physical Therapy Visit Information Visit Information Visit Type Treatment Note Visit Start Time 13:05 Visit Stop Time 13:45 Visit Number 12 Number of PROFESSOR OF BUSINESS ADMINISTRATION Visits 0 OP-PT Subjective Patient Comments Patient Comments pt notes the radicular symptoms are a lot better its her shoulder that is bothering her. She is working on her exercises. She reports she needs today to be her last visit as she needs to see ortho for joint pain in her finger that is bothering her Patient Reported Improving Progress Manual Therapy Treatment Soft Tissue Mobilization L UE Body Location pec, supraspinatus, infraspinatus, Teres, SA, Lat Mobilization Type Cross-Friction,Rolling Intensity/Depth Moderate Body Position R SL Comments gentle STMs neck/CS Body Location L UT levat scap Mobilization Type Cross-Friction,Rolling,Sustained Pressure Intensity/Depth Moderate Body Position SL Comments gentle STMs Manual Techniques manual upper trapezius and scalene stretch Body Position Supine Reps/Duration 2 reps each side holding 30 sec median nerve glides Comments worked in limited ROM of the right shoulder, pt limited with shoulder ER ROM Physical Therapy Assessment Goals 3 Impairment Muscle guarding and tightness of the sub occipitals, SCM, and upper trapezius L>R Sales And Marketing Assistant Goal (LTG) Torie presents with decreased muscle guarding and spasm of the cervical spine musculature Despite efforts Torie continues to present with muscle guarding and spasm of the upper trapezius and scalenes 03/04/25: MET GOAL: no pain with CS ROM or muscle guarding not. Is mindful of posture walkign and helps. LTG Duration 8 weeks MET Goal 03/04/25 2 Impairment Decreased thoracic mobility and decreased cervical spine ROM Sales And Marketing Assistant Goal (LTG) Torie presents with improved cervical spine ROM and thoracic mobility Yuriy has made some progress towards improved cervical and thoracic ROM however she remains limited with her home program due to continued radicular symptoms down the left arm and hand 03/04/25: CS Rotation is fine but CS flexion caused pain in R parascapular region with radicular symptom down arm to hand to palmar 2-5 fingers. 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 LTG Duration 8 weeks slow progress due to pain and symptoms 03/04/25 Assessment Summary Assessment Torie is doing better overall with decreased c/o radicular symptoms and her symptoms are primarily in her shoulder now. She has been given a HEP for shoulder stabilization and rotator cuff strengthening. She is feeling good with this program and ready to discharge as she has a finger that needs to be evaluated due to arthritic pain and she will be returning to her MD for this Physical Therapy Plan Discharge Physical Therapy Discharge Reasons Plateau in Progress Discharge Comments DC to I HEP as pt is independent with her HEP and notes decreased radicular symptoms overall
== END 2025-03-18 10:57 | disposition home or self-care (01) ==
LOC: PHYS 13:00
PROVIDERS: PCP Family Medicine; Referring Provider Family Medicine; Visit Provider Family Medicine
DX: R20.2 Paresthesia of skin (principal); M25.512 Pain in left shoulder; M53.82 Other specified dorsopathies, cervical region
CPT/HCPCS: 97110; 97140; 97162; 97535

== ENCOUNTER → 2025-05-05 11:44 | Outpatient (CLI) | payer MEDICARE, OTHER, SELFPAY ==
[2025-05-05 13:48] LABS: Appearance Urine UA CLEAR; Bilirubin Urine UA NEGATIVE (NEGATIVE); Color Urine UA YELLOW; Glucose Urine UA NEGATIVE (Negative); Ketones Urine UA NEGATIVE (NEGATIVE); Leukocyte Esterase Urine UA NEGATIVE (NEGATIVE); Nitrite Urine UA NEGATIVE (Negative); Occult Blood Urine UA NEGATIVE (Negative); Protein Urine UA NEGATIVE (Negative); Specific Gravity Urine UA 1.010 (1.000-1.035); Urobilinogen Urine UA 0.2 E.U./dL (0.2)
[2025-05-05 13:50] LABS: pH Urine UA 6.0 (4.5-8.0)
[2025-05-05 13:52] LABS: Culture Indicated Urine Cult Not Indicated
== END ==
PROVIDERS: PCP Family Medicine; Referring Provider Obstetrics & Gynecology; Visit Provider Obstetrics & Gynecology
DX: R30.0 Dysuria (principal)
CPT/HCPCS: 81001

== ENCOUNTER → 2025-05-07 13:27 | Outpatient (CLI) | payer MEDICARE, OTHER, SELFPAY ==
[2025-05-08 13:10] LABS: Trichomoas vaginalis Negative (Negative)
== END ==
LOC: LAB 13:28
PROVIDERS: PCP Family Medicine; Visit Provider Obstetrics & Gynecology
DX: N89.8 Other specified noninflammatory disorders of vagina (principal)
CPT/HCPCS: 81514

== ENCOUNTER → 2025-05-28 08:25 | Outpatient (CLI) | payer MEDICARE, OTHER, SELFPAY ==
--- NOTE | 2025-05-28 08:28 | DI.RAD.S_ITS ---
PROCEDURE: XR ELBOW RT 2V INDICATIONS: r/o fx s/p fall onto right arm TECHNIQUE: 3 views of the elbow were acquired. COMPARISON: None. FINDINGS: Bones: No fractures or dislocations. No suspicious bony lesions. Soft tissues: No elbow joint effusion. No suspicious soft tissue calcifications. IMPRESSION: No acute osseous abnormality. If pain persists with conservative management, consider repeat x-ray in 10-14 days or cross-sectional imaging. Dictated by: Charles Barnard M.D. on 05/28/2025 at 9:21 Approved by: Charles Barnard M.D. on 05/28/2025 at 9:21
== END ==
PROVIDERS: PCP Family Medicine; Referring Provider Family Medicine; Visit Provider Nurse Practitioner Family
DX: M79.601 Pain in right arm (principal)
CPT/HCPCS: 73070

== ENCOUNTER → 2025-06-04 11:06 | Outpatient (CLI) | payer MEDICARE, OTHER, SELFPAY ==
[2025-06-05 14:11] LABS: Trichomoas vaginalis Negative (Negative)
== END ==
PROVIDERS: PCP Family Medicine; Referring Provider Obstetrics & Gynecology; Visit Provider Obstetrics & Gynecology
DX: N89.8 Other specified noninflammatory disorders of vagina (principal)
CPT/HCPCS: 81514

== ENCOUNTER → 2025-06-22 09:19 | Outpatient (CLI) | payer MEDICARE, OTHER, SELFPAY ==
--- NOTE | 2025-06-22 09:20 | DI.MG.S_ITS ---
MM screening mammo BI: 06/22/2025. BI-RADS: 1 CLINICAL: 79-year old female for bilateral screening mammogram. Tyrer-Cuzick lifetime risk of 3.3%. No personal or first-degree family history of breast cancer. Personal history of ovarian cancer. The patient had a prior left breast biopsy. PRIOR EXAMS 03/02/2024, 02/18/2023, 12/04/2021, 11/09/2020. MAMMOGRAPHY TECHNIQUE: 2D and 3D (tomosynthesis) digital mammographic views obtained, with additional images as needed for full coverage. Current study was also evaluated with a Computer Aided Detection (CAD) system. DENSITY C. The breasts are heterogeneously dense, which may obscure small masses. MAMMOGRAPHY FINDINGS Bilateral: No suspicious mass, asymmetry, microcalcification, or other abnormality seen. IMPRESSION: * No evidence of malignancy. RECOMMENDATIONS Bilateral * Annual screening mammography. OVERALL ASSESSMENT CATEGORY BI-RADS-1: Negative. The [employer] recommends annual screening mammography beginning at age 40 for women with average risk of breast cancer. ELECTRONICALLY SIGNED: Diana Jarquin M.D. on 06/23/2025 at 08:36:11 AM PT Interpreting Station ID: [id number]
== END ==
LOC: MAMMO 09:19
PROVIDERS: PCP Family Medicine; Referring Provider Family Medicine; Visit Provider Family Medicine
DX: Z12.31 Encounter for screening mammogram for malignant neoplasm of breast (principal); R92.333 Mammographic heterogeneous density, bilateral breasts; Z85.43 Personal history of malignant neoplasm of ovary
CPT/HCPCS: 77063; 77067